=== PATIENT | male | born 1940 | race Caucasian/White ===

== ENCOUNTER 2016-05-23 11:39 | Day surgery (SDC) | payer OTHER ==
[2016-05-23 12:27] VITALS: BMI 32.3
[2016-05-23 13:47] VITALS: TEMP 97.7
[2016-05-23 14:49] VITALS: BP 137/76; PULSE 70
--- NOTE | 2016-05-25 13:25 | PATH ---
Surgical Pathology Report Patient Name: STEVEN HARMON [facility]. Rec. #: [id number] /Age/Gender: 1940 (Age: 76) / M Account: [id number] Location: U-ENDOSCOPY Taken: 05/23/2016 Received: 05/24/2016 Reported: 05/25/2016 Physicians: Stu Kramer M.D. Specimen(s) Received A: BX ASCENDING COLON DIMINUTIVE POLYP B: BX POLYP DESCENDING POLYP Clinical History Screening Polyps, constipation, fair prep, hemorrhoids Final Diagnosis A. COLON, ASCENDING, POLYP, BIOPSY: CONSISTENT WITH INFLAMMATORY-TYPE POLYP. B. COLON, DESCENDING, POLYP, BIOPSY: HYPERPLASTIC POLYP. Electronically Signed Enmanuel Cartagena M.D. Gross Description A. Received in formalin, labeled "biopsy ascending colon polyp" is a barr, irregular portion of soft tissue measuring 0.3 cm in greatest dimension. The specimen is submitted in toto in one cassette. B. Received in formalin, labeled "biopsy descending colon polyp" is a barr, irregular portion of soft tissue measuring 0.5 cm in greatest dimension. The specimen is submitted in toto in one cassette. 05/24/201605/24/2016
== END 2016-05-23 14:49 | disposition home or self-care (01) ==
LOC: JASU-ENDO 11:39
PROVIDERS: ATTEND Internal Medicine Gastroenterology
PROC: 0DBM8ZX Excision of Descending Colon, Via Natural or Artificial Opening Endoscopic, Diagnostic (ICD-10-PCS; 2016-05-23)
PROC: 0DBK8ZX Excision of Ascending Colon, Via Natural or Artificial Opening Endoscopic, Diagnostic (ICD-10-PCS; principal; 2016-05-23 12:30)
DX: Z12.11 Encounter for screening for malignant neoplasm of colon (principal); D12.2 Benign neoplasm of ascending colon; D12.4 Benign neoplasm of descending colon; K64.8 Other hemorrhoids; K63.89 Other specified diseases of intestine; Z86.010 Personal history of colon polyps
CPT/HCPCS: 88305-TC

== ENCOUNTER 2017-09-23 08:37 | Emergency (ER) | payer OTHER ==
--- NOTE | 2017-09-23 08:51 | PDOC ---
Attending Attestation - Resident Resident Name: Michelle Murray - HPI HPI: 09/23/17 11:01 Pt presents to the ED complaining of painful rash and facial pain in the v 1 distribution. Pain started eariler this week, and progressed to eye redness on Monday. Eyelid was swollen this AM, which prompted him to come to the ED for evaluation. Currently complaining of eye pain, forehead pain in the distribution of the trigeminal nerve. - Physicial Exam PE: 09/23/17 11:17 Agree with resident exam. Visual acuity intact. No corneal lesions on fluorescein exam. + vesicular rash on forehead, nose. - Medical Decision Making 09/23/17 11:18 pt presents to the ED complaining of vesicular rash on the nose and forehead, along with tearing, red eye and eye pain. Symptoms are suggestive of trigeminal herpes zoster. No current evidence of corneal involvement, but will treat with systemic valcyclovir. Patient will folllow up with his ophthamologist on monday. instructed to return immediately to the ED for worsening symptoms.
--- NOTE | 2017-09-23 09:33 | PDOC ---
History of Present Illness - General Chief Complaint: Rash Stated Complaint: HEADACHE, EYE PROBLEM Time Seen by Provider: 09/23/17 08:50 History Source: Patient, Family, Spouse - History of Present Illness Initial Comments: 09/23/17 12:46 77 yo M complaining of rash. Earlier this week, patient experienced eye pain and headache. Patient saw his primary care doctor, Dr. Yossi Jones, on Monday who referred him to an ship engines operating engineer, Dr. Mario Jones yesterday. He was treated for conjunctivitis and given antibiotic drops. This morning, a painful 9/10 rash appeared around the patients left eye and forehead. The eye has been erythematous and swollen with watery discharge. No known new exposures to soaps, detergents, or plants. Patient denies fever or changes in vision. Past History - Past Medical History Allergies/Adverse Reactions: Allergies Allergy/AdvReac Type Severity Reaction Status Date / Time No Known Allergies Allergy Verified 09/23/17 08:46 Home Medications: Ambulatory Orders Sitagliptin Phosphate [Januvia] 100 mg PO DAILY 10/04/13 Furosemide [Lasix -] 40 mg PO DAILY #1 tablet 03/21/14 Simvastatin [Zocor -] 20 mg PO HS 04/11/14 Glimepiride [Amaryl -] 2 mg PO DAILY 05/23/16 Apixaban [Eliquis] 5 mg PO BID 09/23/17 Diltiazem Cd [Cardizem Cd -] 180 mg PO DAILY 09/23/17 Neomycin/Polymyxin B/Dexametha [Vwoyku-Fyhyt-Mbzoreu Eye Ointm] 3.5 gm OP QID Oxycodone HCl/Acetaminophen [Percocet 5-325 mg Tablet] 1 tab PO Q6H PRN #6 tablet MDD 4 09/23/17 Valacyclovir HCl [Valtrex -] 1,000 mg PO TID #42 tablet 09/23/17 Valacyclovir HCl [Valtrex -] 1,000 mg PO TID 14 Days #42 tablet 09/23/17 Cardiac Disorders: Yes (ATRIAL FIBRILLATION) Diabetes: Yes GI Disorders: Yes (INTERNAL HEMORRHOIDS) HTN: Yes Hypercholesterolemia: Yes - Suicide/Smoking/Psychosocial Hx Smoking Status: No Smoking History: Former smoker Have you smoked in the past 12 months: No Number of Cigarettes Smoked Daily: 0 Hx Alcohol Use: No Drug/Substance Use Hx: No Substance Use Type: None Hx Substance Use Treatment: No Review of Systems - Review of Systems Constitutional: No: Fever, Weakness HEENTM: Yes: Eye Pain, Tearing Respiratory: No: Cough, Shortness of Breath Cardiac (ROS): No: Chest Pain, Palpitations ABD/GI: No: Nausea, Vomiting Integumentary: Yes: Erythema, Rash Neurological: Yes: Headache. No: Weakness Hematologic/Lymphatic: No: Easy Bleeding, Easy Bruising *Physical Exam - Physical Exam General Appearance: Yes: Nourished, Appropriately Dressed HEENT: positive: EOMI, ZEE, Other (L. conjunctiva injected, watery, no lesions) Neck: positive: Trachea midline, Supple Respiratory/Chest: positive: Lungs Clear, Normal Breath Sounds Cardiovascular: positive: Regular Rhythm, Regular Rate Integumentary: positive: Rash (Left V1 dermatomal distribution of erythema, papules, and tenderness to palpaption) Neurologic: positive: grain inspector II-XII NML intact, Fully Oriented, Alert Medical Decision Making - Medical Decision Making Rash and history consistent with herpes zoster over the left V1 dermatome. Concern for risk of permanent sequelae of ophthalmic zoster infection including loss of vision. Fluorescein exam with tetracaine negative for corneal abrasion or injury. Patient instructed not to travel [place] tomorrow as he originally planned due to risk of eye complications and need for followup. Started on valtrex while in the ED and percocet for pain control. Discharged home with valtrex, percocet, and instructions to see his ship engines operating engineer, Dr. Mario Estrada, early next week. Patient and family amenable to the plan. 09/23/17 12:57 *DC/Admit/Observation/Transfer Diagnosis at time of Disposition: Shingles rash Qualifiers: Herpes zoster complications: with ocular involvement - Discharge Dispostion Disposition: HOME Condition at time of disposition: Stable - Prescriptions Prescriptions: Oxycodone HCl/Acetaminophen [Percocet 5-325 mg Tablet] 1 tab PO Q6H PRN #6 tablet MDD 4 PRN Reason: Severe Pain Valacyclovir HCl [Valtrex -] 1,000 mg PO TID 14 Days #42 tablet Valacyclovir HCl [Valtrex -] 1,000 mg PO TID #42 tablet - Referrals Referrals: Yossi Jones MD [Primary Care Provider] - Mario Jones MD [Staff Physician] - - Patient Instructions Printed Discharge Instructions: DI for Shingles Additional Instructions: You were seen today for a shingles rash. See your ship engines operating engineer, Dr. Mario Jones, in 2-3 days. You may not travel until your symptoms resolve and you are medically cleared. Take antibiotics as prescribed, Take pain medication as prescribed Please follow-up with your primary care doctor. Please return to the emergency department for worsening rash, changes in vision , fever, or chills. - Post Discharge Activity Forms/Work/School Notes: Back to Work
[2017-09-23] MEDS ORDERED: TETRACAINE 0.5% OPHTH SOLN 2 ML BOTTLE OS ONE (09:53)
[2017-09-23] MEDS ORDERED: TETRACAINE 0.5% OPHTH SOLN 2 ML BOTTLE ONE (09:54)
[2017-09-23 10:08] VITALS: TEMP 98.5; BMI 32.8
[2017-09-23] MEDS ORDERED: valACYclovir HCL 1000 MG TABLET PO ONE (10:13)
[2017-09-23 12:05] VITALS: BP 162/79; PULSE 59
== END 2017-09-23 12:05 | disposition home or self-care (01) ==
LOC: JER 08:37
DX: B02.30 Zoster ocular disease, unspecified (principal); I10 Essential (primary) hypertension; E78.00 Pure hypercholesterolemia, unspecified; E11.9 Type 2 diabetes mellitus without complications; Z79.84 Long term (current) use of oral hypoglycemic drugs; I48.91 Unspecified atrial fibrillation; Z79.01 Long term (current) use of anticoagulants; Z87.891 Personal history of nicotine dependence
CPT/HCPCS: 99283-25

== ENCOUNTER 2017-09-25 09:17 | Inpatient (IN) | payer OTHER ==
[2017-09-25] MEDS ORDERED: morphine CARPU-JECT 4 MG/1 ML DISP.SYRIN IVPUSH ONE (09:40)
[2017-09-25] MEDS ORDERED: ONDANSETRON 4 MG/2 ML VIAL IVPB ONE (09:40)
[2017-09-25 09:50] VITALS: BMI 30.7
[2017-09-25 10:34] LABS: BASO % 0.5 % (0-2.0); EOS % 0.7 % (0-4.5); HEMATOCRIT 47.7 % (35.4-49); LYMPH % 15.1 % (8-40); MCH 28.8 pg (25.7-33.7); MCHC 33.6 g/dl (32.0-35.9); MEAN CELL VOLUME 85.7 fl (80-96); MEAN PLT VOLUME 10.6 fl (7.5-11.1); MONO % 12.4 % (3.8-10.2); NEUT % 71.3 % (42.8-82.8); PLATELET COUNT 43 K/MM3 (134-434); RBC 5.57 M/mm3 (4.00-5.60); RDW 13.7 % (11.9-15.9); WHITE BLOOD COUNT 5.9 K/mm3 (4.0-10.0)
[2017-09-25] MEDS ORDERED: morphine SULFATE 4 MG/ML VIAL ONE (10:49)
[2017-09-25] MEDS ORDERED: ONDANSETRON 4 MG/2 ML VIAL ONE ×3 (10:49→15:39)
[2017-09-25 10:53] LABS: INR 1.25 (0.82-1.09); PROTHROMBIN TIME (PATIENT) 14.1 SEC (9.7-13.0)
--- NOTE | 2017-09-25 10:58 | PDOC ---
History of Present Illness - General History Source: Patient, Family, Old Records Exam Limitations: No Limitations <Dallas Cordero - Last Filed: 09/25/17 11:30> - History of Present Illness Initial Comments: 09/25/17 10:59 The patient is a 77 year old male with a significant PMH of ITP, afib on eliquis , diabetes, hypertension, and hyperlipidemia presenting with worsening symptoms of the left face with associated nausea and vomiting. The patient was seen in this ER two days ago and was discharged on valtrex and oxycodone for herpes zoster of the V1 distribution. Patient is now complaining of worsening discharge , eye pain, and erythema since leaving the ER. Patient is also reported nausea and vomiting after taking his medications. Patients family is at bedside and said they spoke with his PCP, Dr. Jones, who told him to come to the ER. The patient denies chest pain, shortness of breath, dizziness and headache. Denies fever, diarrhea and constipation. Denies dysuria, frequency, urgency and hematuria. Allergies: NKA Past surgical history: None reported. Social history: No reported alcohol, drug, or cigarette use. PCP: Dr. Jones <Nhi Zapata - Last Filed: 09/25/17 11:49> - General Chief Complaint: Nausea/Vomiting Stated Complaint: SICK Time Seen by Provider: 09/25/17 09:25 Past History - Past Medical History Cardiac Disorders: Yes (ATRIAL FIBRILLATION) COPD: Yes Diabetes: Yes GI Disorders: Yes (INTERNAL HEMORRHOIDS) HTN: Yes Hypercholesterolemia: Yes - Immunization History Immunization Up to Date: Yes - Suicide/Smoking/Psychosocial Hx Smoking Status: No Smoking History: Former smoker Have you smoked in the past 12 months: No Number of Cigarettes Smoked Daily: 0 Information on smoking cessation initiated: No Hx Alcohol Use: No Drug/Substance Use Hx: No Substance Use Type: None Hx Substance Use Treatment: No <Dallas Cordero - Last Filed: 09/25/17 11:30> <Nhi Zapata - Last Filed: 09/25/17 11:49> - Past Medical History Allergies/Adverse Reactions: Allergies Allergy/AdvReac Type Severity Reaction Status Date / Time No Known Allergies Allergy Verified 09/25/17 09:50 Home Medications: Ambulatory Orders Sitagliptin Phosphate [Januvia] 100 mg PO DAILY 10/04/13 Furosemide [Lasix -] 40 mg PO DAILY #1 tablet 03/21/14 Simvastatin [Zocor -] 20 mg PO HS 04/11/14 Glimepiride [Amaryl -] 2 mg PO DAILY 05/23/16 Apixaban [Eliquis] 5 mg PO BID 09/23/17 Diltiazem Cd [Cardizem Cd -] 180 mg PO DAILY 09/23/17 Neomycin/Polymyxin B/Dexametha [Vnuyrj-Dpgli-Orqzxep Eye Ointm] 3.5 gm OP QID Oxycodone HCl/Acetaminophen [Percocet 5-325 mg Tablet] 1 tab PO Q6H PRN #6 tablet MDD 4 09/23/17 Valacyclovir HCl [Valtrex -] 1,000 mg PO TID #42 tablet 09/23/17 Review of Systems - Review of Systems Able to Perform ROS?: Yes Comments:: 09/25/17 11:00 ADULT ROS GENERAL/CONSTITUTIONAL: No fever or chills. No weakness. HEAD, EYES, EARS, NOSE AND THROAT: (+) Left eye pain. No ear pain or discharge. No sore throat. CARDIOVASCULAR: No chest pain or shortness of breath. RESPIRATORY: No cough, wheezing, or hemoptysis. GASTROINTESTINAL: No nausea, vomiting, diarrhea or constipation. GENITOURINARY: No dysuria, frequency, or change in urination. MUSCULOSKELETAL: No joint or muscle swelling or pain. No neck or back pain. SKIN: (+) Rash to the left eye. NEUROLOGIC: No headache, vertigo, loss of consciousness, or change in strength/ sensation. ENDOCRINE: No increased thirst. No abnormal weight change. HEMATOLOGIC/LYMPHATIC: No anemia, easy bleeding, or history of blood clots. ALLERGIC/IMMUNOLOGIC: No hives or skin allergy. <Nhi Zapata - Last Filed: 09/25/17 11:49> *Physical Exam - Vital Signs Last Vital Signs Temp Pulse Resp BP Pulse Ox 99.2 F 83 16 148/100 95 09/25/17 09:17 09/25/17 09:17 09/25/17 09:17 09/25/17 09:17 09/25/17 09:17 <Dallas Cordero - Last Filed: 09/25/17 11:30> - Vital Signs Last Vital Signs Temp Pulse Resp BP Pulse Ox 99.2 F 83 16 148/100 95 09/25/17 09:17 09/25/17 09:17 09/25/17 09:17 09/25/17 09:17 09/25/17 09:17 - Physical Exam Comments: 09/25/17 11:00 ADULT EXAM GENERAL: Awake, alert, and fully oriented, in no acute distress HEAD: No signs of trauma EYES: Vesicular lesions over the V1 distribution with overlying erythema. PERRLA , EOMI, Injected left conjunctiva with mild discharge. LUNGS: Breath sounds equal, clear to auscultation bilaterally. No wheezes, and no crackles HEART: Irregular rate and rhythm, normal S1 and S2, no murmurs, rubs or gallops ABDOMEN: Soft, nontender, normoactive bowel sounds. No guarding, no rebound. No masses EXTREMITIES: Normal range of motion, no edema. No clubbing or cyanosis. No cords, erythema, or tenderness NEUROLOGICAL: Cranial nerves II through XII grossly intact. Normal speech. SKIN: Warm, Dry, normal turgor. <Nhi Zapata - Last Filed: 09/25/17 11:49> Heart Score/ECG Review #1 ECG reviewed & interpreted by me at: 09:45 09/25/17 10:58 atrial fibrillation 62, incomplete RBBB, LAFB, no std/phong, QTC 426 msec <Dallas Cordero - Last Filed: 09/25/17 11:30> ED Treatment Course - LABORATORY CBC & Chemistry Diagram: 09/25/17 10:25 09/25/17 10:25 - ADDITIONAL ORDERS Additional order review: 09/25/17 10:25 RBC 5.57 MCV 85.7 MCHC 33.6 RDW 13.7 MPV 10.6 Neutrophils % 71.3 D Lymphocytes % 15.1 D Monocytes % 12.4 H Eosinophils % 0.7 Basophils % 0.5 <Dallas Cordero - Last Filed: 09/25/17 11:30> - LABORATORY CBC & Chemistry Diagram: 09/25/17 10:25 09/25/17 10:25 - ADDITIONAL ORDERS Additional order review: 09/25/17 10:25 RBC 5.57 MCV 85.7 MCHC 33.6 RDW 13.7 MPV 10.6 Neutrophils % 71.3 D Lymphocytes % 15.1 D Monocytes % 12.4 H Eosinophils % 0.7 Basophils % 0.5 <Nhi Zapata - Last Filed: 09/25/17 11:49> Medical Decision Making - Medical Decision Making 09/25/17 10:53 A portion of this note was documented by scribe services under my direction. I have reviewed the details of the note, within reason, and agree with the documentation with the following case summary and management plan written by me. Patient treated in the ED. Nursing notes are reviewed and incorporated into the medical decision-making. Vital signs reviewed. Peripheral IV access obtained by the nurse, laboratory studies are drawn and sent, reviewed and interpreted by myself. Vital Signs Temp Pulse Resp BP Pulse Ox 99.2 F 83 16 148/100 95 09/25/17 09:17 09/25/17 09:17 09/25/17 09:17 09/25/17 09:17 09/25/17 09:17 77-year-old male with past medical history of ITP, atrial fibrillation on eliquis, hypertension, diabetes, hyperlipidemia, presents for worsening symptoms of the left face and nausea and vomiting. The patient presented to the emergency department on September 23. At that time, the patient was initially evaluated by his release specialist. Was also evaluated by the ER physician. At that time, the patient was deemed to have herpes zoster of V1 distribution. The patient was placed on valacyclovir and given a prescription of oxycodone. Since then, the patient's skin the left-sided face had become increasingly more red and more painful. The patient has not been able to tolerate his medications with nausea and vomiting. States that his eyelid continues with persistent swollen and he continues to have discharge from his left eye. Denies fevers or chills. Reports intermittent chest discomfort and palpitations secondary to his pain. The patient's family had contacted their primary care physician Dr. Seymour who directed the patient to the ER. The patient most certainly has herpes zoster and may potentially have a superimposing infection. Patient does also appear to have conjunctivitis of the left eye. We'll obtain blood cultures and lactic acid and control pain. The patient should be admitted for further evaluation. I've spoken to the primary care physician who was requesting ophthalmology and infectious disease consultation. We'll also evaluate chest discomfort with EKG and troponin. 07/09/18 11:33 CBC, BMP 09/25/17 10:25 09/25/17 10:25 CMP Sodium 135 mmol/L (136-145) L 09/25/17 10:25 Potassium 3.8 mmol/L (3.5-5.1) 09/25/17 10:25 Chloride 97 mmol/L (98-107) L 09/25/17 10:25 Carbon Dioxide 29 mmol/L (21-32) 09/25/17 10:25 Anion Gap 9 (8-16) 09/25/17 10:25 BUN 12 mg/dL (7-18) 09/25/17 10:25 Creatinine 0.8 mg/dL (0.7-1.3) 09/25/17 10:25 Creat Clearance w eGFR > 60 (>60) 09/25/17 10:25 Random Glucose 230 mg/dL (74-106) H D 09/25/17 10:25 Lactic Acid 1.4 mmol/L (0.0-2.0) 09/25/17 10:25 Calcium 8.3 mg/dL (8.5-10.1) L 09/25/17 10:25 Total Bilirubin 1.4 mg/dL (0.2-1.0) H 09/25/17 10:25 AST 22 U/L (15-37) 09/25/17 10:25 ALT 29 U/L (12-78) 09/25/17 10:25 Alkaline Phosphatase 70 U/L (45-117) 09/25/17 10:25 Creatine Kinase 53 IU/L (39-308) 09/25/17 10:25 Troponin I < 0.02 ng/ml (0.00-0.05) 09/25/17 10:25 Total Protein 6.6 g/dl (6.4-8.2) 09/25/17 10:25 Albumin 3.6 g/dl (3.4-5.0) 09/25/17 10:[address] Bailey. Will admit to med/surg admission. Requests DR. Kelly for ID consultation. <Dallas Cordero - Last Filed: 09/25/17 11:30> - Medical Decision Making 09/25/17 11:13 Dr. Kelly (infectious disease) has been paged. <Nhi Zapata - Last Filed: 09/25/17 11:49> *DC/Admit/Observation/Transfer - Discharge Dispostion Decision to Admit order: Yes <Dallas Cordero - Last Filed: 09/25/17 11:30> - Attestations Scribe Attestion: 09/25/17 11:00 Documentation prepared by Nhi Zapata, acting as durable medical equipment repairer for Dallas Cordero MD. <Nhi Zapata - Last Filed: 09/25/17 11:49> Diagnosis at time of Disposition: Palpitations Zoster Qualifiers: Herpes zoster complications: without complications Qualified Code(s): B02.9 - Zoster without complications - Discharge Dispostion Condition at time of disposition: Stable - Referrals Referrals: Yossi Jones MD [Primary Care Provider] - - Patient Instructions - Post Discharge Activity
[2017-09-25 11:18] LABS: ALBUMIN 3.6 g/dl (3.4-5.0); ANION GAP 9 (8-16); BLOOD UREA NITROGEN 12 mg/dL (7-18); CALCIUM 8.3 mg/dL (8.5-10.1); CHLORIDE 97 mmol/L (98-107); CO2 29 mmol/L (21-32); CREATININE 0.8 mg/dL (0.7-1.3); GLUCOSE,RANDOM 230 mg/dL (74-106); SGPT/ALT 29 U/L (12-78); SODIUM 135 mmol/L (136-145)
[2017-09-25 11:23] LABS: ALK PHOS 70 U/L (45-117); BILIRUBIN,TOTAL 1.4 mg/dL (0.2-1.0); TOT PROT 6.6 g/dl (6.4-8.2)
[2017-09-25 11:33] LABS: POTASSIUM 3.8 mmol/L (3.5-5.1); SGOT/AST 22 U/L (15-37)
[2017-09-25] MEDS ORDERED: FUROSEMIDE 40 MG TABLET (FP) PO SCH (12:00)
--- NOTE | 2017-09-25 12:05 | HP ---
Admitting History and Physical - Primary Care Physician PCP: Yossi Jones - Admission Chief Complaint: Unable to obtain History of Present Illness: Mr Abarca is a pleasant 77 year old male who comes in with worsening eye pain and redness. Patient is Kyrgyz speaking and did not come with his hearing aids so history mainly is from daughter. She states that this started last week with headache. It was left sided and radiated from front to back. The headaches were persistent and after that he developed a red left eye. He originally presented to his PCP and was referred to an opthalmologist where he was diagnosed with conjunctivitis. He was given eye drops, however the next day he presented with a rash. He came to the ED and was diagnosed with shingles. He was given oral valcyclovir and percocet. When he took the percocet he had nausea and vomiting. He was able to take the valcyclovir but his pain worsened. He also had an episode of orthopnea at home. Because of this he came in. Daughter says he did not complain of chest pain but unable to get further ROS. History Source: Family Member Limitations to Obtaining History: Clinical Condition, Language Barrier - Past Medical History Cardiovascular: Yes: AFIB, HTN, Hyperlipdemia, Mitral Insufficiency, Pulmonary Hypertension Pulmonary: Yes: COPD Renal/: Yes: BPH, Renal Calculi Heme/Onc: Yes: Anemia (Pernicious), Thrombocytopenia Musculoskeletal: Yes: Osteoarthritis Rheumatology: Yes: Sarcoidosis Endocrine: Yes: Other (Impaired glucose tolerance) - Past Surgical History Past Surgical History: Yes: None - Smoking History Smoking history: Former smoker Have you smoked in the past 12 months: No Aproximately how many cigarettes per day: 0 - Alcohol/Substance Use Hx Alcohol Use: No History of Substance Use: reports: None - Social History Usual Living Arrangement: Yes: With Spouse ADL: Independent 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 History of Recent Travel: No Home Medications - Allergies Allergies/Adverse Reactions: Allergies Allergy/AdvReac Type Severity Reaction Status Date / Time No Known Allergies Allergy Verified 09/25/17 09:50 - Home Medications Home Medications: Ambulatory Orders Sitagliptin Phosphate [Januvia] 100 mg PO DAILY 10/04/13 Furosemide [Lasix -] 40 mg PO DAILY #1 tablet 03/21/14 Simvastatin [Zocor -] 20 mg PO HS 04/11/14 Glimepiride [Amaryl -] 2 mg PO DAILY 05/23/16 Apixaban [Eliquis] 5 mg PO BID 09/23/17 Diltiazem Cd [Cardizem Cd -] 180 mg PO DAILY 09/23/17 Neomycin/Polymyxin B/Dexametha [Geifug-Itqjd-Gnsgqny Eye Ointm] 3.5 gm OP QID Oxycodone HCl/Acetaminophen [Percocet 5-325 mg Tablet] 1 tab PO Q6H PRN #6 tablet MDD 4 09/23/17 Valacyclovir HCl [Valtrex -] 1,000 mg PO TID #42 tablet 09/23/17 Family Disease History - Family Disease History Family Disease History: [place]: Brother, Sister Review of Systems Unable to obtain ROS, reason: language, hearing loss Physical Examination Vital Signs: Vital Signs Temperature 37.3 C 09/25/17 09:17 Pulse Rate 83 09/25/17 09:17 Respiratory Rate 16 09/25/17 09:17 Blood Pressure 148/100 09/25/17 09:17 O2 Sat by Pulse Oximetry (%) 95 09/25/17 09:17 Constitutional: Yes: No Distress, Calm, Obese Eyes: Yes: Other (L eyelid swelling with injected conjuctiva) HENT: Yes: Other (erythematous rash along left side without crusting) Cardiovascular: Yes: Regular Rate and Rhythm. No: Gallop, Murmur, Rub Respiratory: Yes: Regular, CTA Bilaterally. No: Rales, Rhonchi, Wheezes Gastrointestinal: Yes: Normal Bowel Sounds, Soft. No: Distention, Tenderness Extremities: Yes: WNL Edema: No Labs: CBC, BMP 09/25/17 10:25 09/25/17 10:25 Imaging - Results EKG: Report Reviewed, Image Reviewed Problem List - Problems (1) Herpes zoster ophthalmicus of left eye Assessment/Plan: -patient presents with herpes zoster opthalmicus -failed outpatient therapy -consult ID -start acyclovir 1000mg IV tid (10mg/kg) -hydrate with IVF Code(s): B02.30 - ZOSTER OCULAR DISEASE, UNSPECIFIED (2) Atrial fibrillation Assessment/Plan: -appreciate cardiology assistance -continue eliquis and diltiazem -rate controlled Code(s): I48.91 - UNSPECIFIED ATRIAL FIBRILLATION Qualifiers: Atrial fibrillation type: chronic Qualified Code(s): I48.2 - Chronic atrial fibrillation (3) Diabetes Assessment/Plan: -diabetic diet -continue glimeperide and januvia -FSBS and SSI Code(s): E11.9 - TYPE 2 DIABETES MELLITUS WITHOUT COMPLICATIONS (4) COPD (chronic obstructive pulmonary disease) Assessment/Plan: -not in exacerbation Code(s): J44.9 - CHRONIC OBSTRUCTIVE PULMONARY DISEASE, UNSPECIFIED (5) CHF (congestive heart failure) Assessment/Plan: -had some orthopnea but does not look fluid overloaded -will be on IVF since receiving IV acyclovir -close monitoring, at risk for fluid overload Code(s): I50.9 - HEART FAILURE, UNSPECIFIED (6) HTN (hypertension) Assessment/Plan: -continue cardizem -monitor Code(s): I10 - ESSENTIAL (PRIMARY) HYPERTENSION (7) Hyperlipidemia Assessment/Plan: -continue statin Code(s): E78.5 - HYPERLIPIDEMIA, UNSPECIFIED
[2017-09-25] MEDS ORDERED: SODIUM CHLORIDE 1,000 ML IV SCH (13:00)
[2017-09-25] MEDS: ONDANSETRON 4 MG/2 ML VIAL IVPUSH PRN ×2 (13:21→15:35)
--- NOTE | 2017-09-25 13:23 | CON.CARD ---
Consult Consult Specialty:: Cardiology for gitig/ginelli Referred by:: Daniel Bailey MD Reason for Consultation:: Afib on Eliquis - History of Present Illness Chief Complaint: Left facial herpetic neuralgia History of Present Illness: The patient is a 77 year old male with a significant PMH of ITP, afib on eliquis , diabetes, hypertension, hyperlipidemia recent presentation of herpes zoster of the V1 distribution started on valtrex and oxycodone presents now with worsening discharge, eye pain, foreign body sensation, erythema, nausea and emesis. The patient denies chest pain, shortness of breath, dizziness and headache. Denies fever, diarrhea and constipation. Denies dysuria, frequency, urgency and hematuria. Allergies: NKA Past surgical history: None reported. Social history: No reported alcohol, drug, or cigarette use. PCP: Dr. 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 Home Medications - Allergies Allergies/Adverse Reactions: Allergies Allergy/AdvReac Type Severity Reaction Status Date / Time No Known Allergies Allergy Verified 09/25/17 09:50 - Home Medications Home Medications: Ambulatory Orders Sitagliptin Phosphate [Januvia] 100 mg PO DAILY 10/04/13 Furosemide [Lasix -] 40 mg PO DAILY #1 tablet 03/21/14 Simvastatin [Zocor -] 20 mg PO HS 04/11/14 Glimepiride [Amaryl -] 2 mg PO DAILY 05/23/16 Apixaban [Eliquis] 5 mg PO BID 09/23/17 Diltiazem Cd [Cardizem Cd -] 180 mg PO DAILY 09/23/17 Neomycin/Polymyxin B/Dexametha [Fchszh-Gqubj-Dskempq Eye Ointm] 3.5 gm OP QID Oxycodone HCl/Acetaminophen [Percocet 5-325 mg Tablet] 1 tab PO Q6H PRN #6 tablet MDD 4 09/23/17 Valacyclovir HCl [Valtrex -] 1,000 mg PO TID #42 tablet 09/23/17 Review of Systems - Review of Systems Eyes: reports: Eye Pain Gastrointestinal: reports: Nausea, Vomiting Vital Signs: Vital Signs Temperature 99.2 F 09/25/17 09:17 Pulse Rate 83 09/25/17 09:17 Respiratory Rate 16 09/25/17 09:17 Blood Pressure 148/100 09/25/17 09:17 O2 Sat by Pulse Oximetry (%) 95 09/25/17 09:17 Constitutional: Yes: Anxious, Mild Distress Eyes: Yes: Tearing, Other (Left eye discharge with eyelid swelling) Neck: Yes: Supple Respiratory: Yes: Regular, CTA Bilaterally Gastrointestinal: Yes: Normal Bowel Sounds, Soft Cardiovascular: Yes: Pulse Irregular JVD: No Carotid Bruit: No Heart Sounds: Yes: S1, S2 Edema: No - Other Data Labs, Other Data: CBC, BMP 09/25/17 10:25 09/25/17 10:25 INR, PTT INR 1.25 (0.82-1.09) H 09/25/17 10:25 Troponin, BNP 09/25/17 10:25 Troponin I < 0.02 Troponin, BNP 09/25/17 10:25 Troponin I < 0.02 09/25/17 10:58 atrial fibrillation 62, incomplete RBBB, LAFB, no std/phong, QTC 426 msec Problem List - Problems (1) Herpes zoster ophthalmicus of left eye Code(s): B02.30 - ZOSTER OCULAR DISEASE, UNSPECIFIED (2) Atrial fibrillation Code(s): I48.91 - UNSPECIFIED ATRIAL FIBRILLATION Qualifiers: Atrial fibrillation type: chronic Qualified Code(s): I48.2 - Chronic atrial fibrillation (3) HTN (hypertension) Code(s): I10 - ESSENTIAL (PRIMARY) HYPERTENSION Qualifiers: Hypertension type: essential hypertension Qualified Code(s): I10 - Essential (primary) hypertension (4) Hyperlipidemia Code(s): E78.5 - HYPERLIPIDEMIA, UNSPECIFIED Qualifiers: Hyperlipidemia type: pure hypercholesterolemia Qualified Code(s): E78.00 - Pure hypercholesterolemia, unspecified; E78.0 - Pure hypercholesterolemia (5) Diabetes Code(s): E11.9 - TYPE 2 DIABETES MELLITUS WITHOUT COMPLICATIONS Qualifiers: Diabetes mellitus type: type 2 (6) Shingles rash Code(s): B02.9 - ZOSTER WITHOUT COMPLICATIONS Qualifiers: Herpes zoster complications: with ocular involvement Herpes zoster ocular complication detail: unspecified herpes zoster eye disease Qualified Code(s): B02.30 - Zoster ocular disease, unspecified Assessment/Plan 1. Herpes zoster with ocular involvement OS 2. Atypical chest discomfort post nausea and emesis 3. Peristent afib on Eliquis 4. Diastolic dysfunction 5. Type 2 DM 6. Hyperlipidemia P:1. IV acyclovir, slit lamp eye exam pending 2. Hold Lasix, IVF 3. Cardizem oral and IV as needed for rate-control, resume Eliquis once oral intake resumed 4. Thank you for consultative opportunity
[2017-09-25] MEDS ORDERED: ACYCLOVIR INJECTION 1,000 MG in DEXTROSE 5%-WATER - 100 ML IVPB SCH (13:30)
[2017-09-25] MEDS: SODIUM CHLORIDE 1,000 ML IV SCH ×2 (14:11→21:44)
[2017-09-25] MEDS: ACYCLOVIR INJECTION 1,000 MG in DEXTROSE 5%-WATER - 250 ML IVPB SCH ×2 (14:11→18:32)
--- NOTE | 2017-09-25 14:13 | PN ---
Progress Note (short form) - Note Progress Note: ID consult dictated imp/reccd herpes zoster opthalmicus eye is shut awaiting opthomology no signs of cellulitis suggest IVF IV acyclovir optho to see monitor renal function daily while on iv acyclovir all the above discussed with patient and family pharmacy contacted hospitalist contacted Problem List - Problems (1) Herpes zoster ophthalmicus of left eye Code(s): B02.30 - ZOSTER OCULAR DISEASE, UNSPECIFIED
--- NOTE | 2017-09-25 15:04 | EKG ---
Test Reason : Blood Pressure : / mmHG Vent. Rate : 062 BPM Atrial Rate : 227 BPM P-R Int : 000 ms QRS Dur : 106 ms QT Int : 420 ms P-R-T Axes : 000 -50 059 degrees QTc Int : 426 ms ATRIAL FIBRILLATION INCOMPLETE RIGHT BUNDLE BRANCH BLOCK LEFT ANTERIOR FASCICULAR BLOCK ABNORMAL ECG WHEN COMPARED WITH ECG OF 11-APR-2014 11:25, NO SIGNIFICANT CHANGE WAS FOUND Confirmed by ROQUE DAVENPORT MD ([id number]) on 09/25/2017 3:04:05 PM Referred By: Confirmed By:ROQUE DAVENPORT MD
[2017-09-25] MEDS ORDERED: HEMOQUE TEST 1 EACH EACH ONE (15:23)
[2017-09-25] MEDS: GLIMEPIRIDE 2 MG TABLET (FP) PO SCH (15:34)
[2017-09-25] MEDS: sitaGLIPtin PHOSPHATE 100 MG TABLET (FP) PO SCH (15:34)
[2017-09-25] MEDS: APIXABAN 5 MG TABLET PO SCH ×2 (15:34→21:38)
[2017-09-25] MEDS: MORPHINE SULFATE 2 MG/ML VIAL IVPUSH PRN ×2 (15:35→21:49)
[2017-09-25] MEDS ORDERED: MORPHINE SULFATE 2 MG/ML VIAL ONE (15:39)
[2017-09-25] MEDS: INSULIN SLIDING SCALE (NOVOLOG) 1 VIAL SQ SCH ×2 (17:41→21:38)
--- NOTE | 2017-09-25 19:48 | CONS ---
INFECTIOUS DISEASE CONSULTATION DATE OF CONSULTATION: 09/25/2017 REQUESTING PHYSICIAN: Daniel Bailey MD This is a 77-year-old man who 7 days ago developed a headache. On Monday, he had left eye erythema. He developed a red eye. He was seen by the implant coordinator on Monday and given Neosporin, polymyxin, and dexamethasone eye drops. He then developed a vesicular rash on his face. He came to the emergency room. He was diagnosed with herpes zoster. He was given oral Valtrex and Percocet, but his pain worsened at . He also started having dizziness and vomiting, and he presented to the emergency room. He had chills but no fever. PAST MEDICAL HISTORY: Notable for atrial fibrillation, hypertension, hyperlipidemia, mitral insufficiency, pulmonary hypertension, COPD, BPH, renal calculi, pernicious anemia, thrombocytopenia, osteoarthritis, sarcoid. SURGICAL HISTORY: Unremarkable. SOCIAL HISTORY: He is a former smoker. There is no history of any alcohol use. 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 ALLERGIES: He has no known drug allergies. MEDICATIONS: Include Eliquis, Lasix, Zocor, Januvia, Amaryl, Cardizem, Percocet, and the Valtrex which was started on the . FAMILY HISTORY: Unremarkable. REVIEW OF SYSTEMS: The thinks that on Monday he was not able to take his Valtrex because of vomiting. She is unclear whether he was able to keep it down. PHYSICAL EXAMINATION: General: He is a pleasant man in no acute distress. He looks much younger than his stated age. Vital Signs: He has been afebrile, temperature 98.3. Pulse of 86, blood pressure 160/70, respiratory rate is 20. He weighs 100 kg. HEENT: He is normocephalic. His left eye is closed. He has erythematous rash around the left side of his face in a V1 distribution. It extends up into his scalp. There are no lesions in his mouth. He has no pharyngitis. Neck: Supple. Heart: Regular rate and rhythm. Lungs: Clear to auscultation. Abdomen: Soft. Extremities: Without edema. Skin: He has no rash elsewhere. DIAGNOSTIC DATA: White count is 5.9, hemoglobin 16, platelets are 43,000. Glucose at 230. BUN is 12 and creatinine 0.3. In summary, this is an elderly man with herpes zoster ophthalmicus, who has failed outpatient treatment. We will continue him with IV acyclovir 10 mg/kg q.8 hours. Would hydrate him aggressively with IV fluids. This was discussed with the hospitalist. He needs to be seen by Ophthalmology and they have been consulted and we are awaiting ophthalmology evaluation. There are no signs of cellulitis; so, I do not think he needs antibiotics for his skin at this time. I spoke at length with his daughter and at the bedside, spoke with the nurse, the hospitalist, and Pharmacy. KELTON OCONNELL M.D. [id number]
[2017-09-25] MEDS: DOCUSATE SODIUM 100 MG CAPSULE (FP) PO SCH (21:38)
[2017-09-25] MEDS: ATORVASTATIN CA 10 MG TABLET (FP) PO SCH (21:38)
[2017-09-25] MEDS: POLYETHYLENE GLYCOL 3350 119 GM BTL PO SCH (21:44)
[2017-09-26] MEDS ORDERED: PT OWN MED DRAWER 7, Y5N ONE ×5 (01:07→23:56)
[2017-09-26] MEDS: ACYCLOVIR INJECTION 1,000 MG in DEXTROSE 5%-WATER - 250 ML IVPB SCH ×3 (02:17→17:51)
[2017-09-26 06:20] LABS: BASO % 0.4 % (0-2.0); EOS % 1.1 % (0-4.5); HEMATOCRIT 43.3 % (35.4-49); HEMOGLOBIN 14.8 GM/dL (11.7-16.9); LYMPH % 21.2 % (8-40); MCH 29.3 pg (25.7-33.7); MCHC 34.1 g/dl (32.0-35.9); MEAN CELL VOLUME 85.8 fl (80-96); MEAN PLT VOLUME 10.3 fl (7.5-11.1); NEUT % 64.3 % (42.8-82.8); PLATELET COUNT 43 K/MM3 (134-434); RBC 5.04 M/mm3 (4.00-5.60); RDW 13.4 % (11.9-15.9); WHITE BLOOD COUNT 7.3 K/mm3 (4.0-10.0)
[2017-09-26] MEDS: sitaGLIPtin PHOSPHATE 100 MG TABLET (FP) PO SCH (06:50)
[2017-09-26] MEDS: INSULIN SLIDING SCALE (NOVOLOG) 1 VIAL SQ SCH ×4 (06:51→21:23)
[2017-09-26] MEDS: GLIMEPIRIDE 2 MG TABLET (FP) PO SCH (06:51)
[2017-09-26 07:11] LABS: ANION GAP 9 (8-16); BLOOD UREA NITROGEN 13 mg/dL (7-18); CALCIUM 8.4 mg/dL (8.5-10.1); CHLORIDE 95 mmol/L (98-107); CO2 33 mmol/L (21-32); CREATININE 0.7 mg/dL (0.7-1.3); GLUCOSE,RANDOM 169 mg/dL (74-106); MAGNESIUM 1.8 mg/dL (1.8-2.4); PHOSPHOROUS 3.4 mg/dL (2.5-4.9); POTASSIUM 3.7 mmol/L (3.5-5.1); SODIUM 137 mmol/L (136-145)
[2017-09-26] MEDS: MORPHINE SULFATE 2 MG/ML VIAL IVPUSH PRN (07:53)
[2017-09-26] MEDS: DOCUSATE SODIUM 100 MG CAPSULE (FP) PO SCH ×2 (09:47→21:23)
[2017-09-26] MEDS: POLYETHYLENE GLYCOL 3350 119 GM BTL PO SCH ×2 (09:47→21:23)
[2017-09-26] MEDS: APIXABAN 5 MG TABLET PO SCH (09:47)
--- NOTE | 2017-09-26 11:43 | PN ---
Progress Note, Physician Chief Complaint: Coverage for Drs. Mcgraw/[place] Events noted. Unable to open left eyes History of Present Illness: Patient was seen and examined. Awake and alert. Chart was reviewed Denies chest pain, SOB or palpitations As outlined regarding left eye - Current Medication List Current Medications: Active Medications Apixaban (Eliquis -) 5 mg PO BID REPLACED BY [facility] Last Admin: 09/26/17 09:47 Dose: 5 mg Atorvastatin Calcium (Lipitor -) 10 mg PO HS REPLACED BY [facility] Last Admin: 09/25/17 21:38 Dose: 10 mg Diltiazem HCl (Cardizem Cd -) 180 mg PO DAILY REPLACED BY [facility] Last Admin: 09/26/17 09:48 Dose: 180 mg Docusate Sodium (Colace -) 100 mg PO BID REPLACED BY [facility] Last Admin: 09/26/17 09:47 Dose: 100 mg Glimepiride (Amaryl -) 2 mg PO ACBK REPLACED BY [facility] Last Admin: 09/26/17 06:51 Dose: 2 mg Acyclovir 1,000 mg/ Dextrose 270 mls @ 270 mls/hr IVPB Q8H-IV [facility] Last Admin: 09/26/17 11:17 Dose: 270 mls/hr Sodium Chloride (Normal Saline -) 1,000 mls @ 125 mls/hr IV ASDIR REPLACED BY [facility] Last Admin: 09/25/17 21:44 Dose: 125 mls/hr Insulin Aspart (Novolog Vial Sliding Scale -) 1 vial SQ ACHS REPLACED BY [facility]; Protocol Last Admin: 09/26/17 11:21 Dose: Not Given Morphine Sulfate (Morphine Sulfate) 1 mg IVPUSH Q4H PRN PRN Reason: PAIN LEVEL 6-10 Last Admin: 09/26/17 07:53 Dose: 1 mg Ondansetron HCl (Zofran Injection) 4 mg IVPUSH Q6H PRN PRN Reason: NAUSEA Last Admin: 09/25/17 15:35 Dose: 4 mg Polyethylene Glycol (Miralax (For Daily Use) -) 17 gm PO BID REPLACED BY [facility] Last Admin: 09/26/17 09:47 Dose: 17 gm Sitagliptin Phosphate (Januvia -) 100 mg PO ACBK REPLACED BY [facility] Last Admin: 09/26/17 06:50 Dose: 100 mg - Objective Vital Signs: Vital Signs Temperature 97.7 F 09/26/17 06:48 Pulse Rate 67 09/26/17 06:48 Respiratory Rate 20 09/26/17 06:48 Blood Pressure 141/79 09/26/17 06:48 O2 Sat by Pulse Oximetry (%) 99 09/25/17 21:00 HENT: Yes: Atraumatic Neck: Yes: Supple Cardiovascular: Yes: Regular Rate and Rhythm, S1, S2 Respiratory: Yes: CTA Bilaterally Gastrointestinal: Yes: Normal Bowel Sounds, Soft. No: Tenderness Edema: No Additional Findings/Remarks: - Review of Systems Constitutional: denies: Chills, Fever Cardiovascular: denies: Chest Pain, Shortness of Breath. denies: Palpitations Respiratory: denies: SOB. denies: Cough, Hemoptysis, Orthopnea, PND Gastrointestinal: denies: Abdominal Pain, Constipation, Diarrhea, Melena, Nausea , Rectal Bleeding, Vomiting Neurological: denies: Dizziness, Headache, Seizure, Syncope, Weakness Labs: CBC, BMP 09/26/17 06:00 09/26/17 06:00 INR, PTT INR 1.25 (0.82-1.09) H 09/25/17 10:25 Problem List - Problems (1) COPD (chronic obstructive pulmonary disease) Code(s): J44.9 - CHRONIC OBSTRUCTIVE PULMONARY DISEASE, UNSPECIFIED (2) Diabetes Code(s): E11.9 - TYPE 2 DIABETES MELLITUS WITHOUT COMPLICATIONS Qualifiers: Diabetes mellitus type: type 2 Diabetes mellitus correction insulin use: without terminal operations supervisor use Diabetes mellitus complication status: without complication Qualified Code(s): E11.9 - Type 2 diabetes mellitus without complications (3) Herpes zoster ophthalmicus of left eye Code(s): B02.30 - ZOSTER OCULAR DISEASE, UNSPECIFIED (4) Atrial fibrillation Code(s): I48.91 - UNSPECIFIED ATRIAL FIBRILLATION Qualifiers: Atrial fibrillation type: chronic Qualified Code(s): I48.2 - Chronic atrial fibrillation (5) HTN (hypertension) Code(s): I10 - ESSENTIAL (PRIMARY) HYPERTENSION Qualifiers: Hypertension type: essential hypertension Qualified Code(s): I10 - Essential (primary) hypertension (6) Hyperlipidemia Code(s): E78.5 - HYPERLIPIDEMIA, UNSPECIFIED Qualifiers: Hyperlipidemia type: pure hypercholesterolemia Qualified Code(s): E78.00 - Pure hypercholesterolemia, unspecified; E78.0 - Pure hypercholesterolemia Assessment/Plan 1. Herpes zoster with ocular involvement 2. Atypical chest discomfort post nausea and emesis 3. Peristent AF on NOAC (Eliquis) 4. Diastolic dysfunction 5. Type 2 DM 6. Hyperlipidemia PLAN: 1. IV acyclovir 2. Lasix being held 3. Continue Cardizem 4. Continue Eliquis 5. Statin therapy Currently in isolation Benjamin Venegas MD
--- NOTE | 2017-09-26 11:53 | PN ---
Progress Note, Physician Chief Complaint: Mr Abarca says he is feeling better today. Was having pain earlier but better controlled with morphine. No cp, sob, n/v. - Current Medication List Current Medications: Active Medications Apixaban (Eliquis -) 5 mg PO BID [facility] Last Admin: 09/26/17 09:47 Dose: 5 mg Atorvastatin Calcium (Lipitor -) 10 mg PO HS [facility] Last Admin: 09/25/17 21:38 Dose: 10 mg Diltiazem HCl (Cardizem Cd -) 180 mg PO DAILY [facility] Last Admin: 09/26/17 09:48 Dose: 180 mg Docusate Sodium (Colace -) 100 mg PO BID [facility] Last Admin: 09/26/17 09:47 Dose: 100 mg Glimepiride (Amaryl -) 2 mg PO ACBK [facility] Last Admin: 09/26/17 06:51 Dose: 2 mg Acyclovir 1,000 mg/ Dextrose 270 mls @ 270 mls/hr IVPB Q8H-IV [facility] Last Admin: 09/26/17 11:17 Dose: 270 mls/hr Sodium Chloride (Normal Saline -) 1,000 mls @ 125 mls/hr IV ASDIR [facility] Last Admin: 09/25/17 21:44 Dose: 125 mls/hr Insulin Aspart (Novolog Vial Sliding Scale -) 1 vial SQ [facility]; Protocol Last Admin: 09/26/17 11:21 Dose: Not Given Morphine Sulfate (Morphine Sulfate) 1 mg IVPUSH Q4H PRN PRN Reason: PAIN LEVEL 6-10 Last Admin: 09/26/17 07:53 Dose: 1 mg Ondansetron HCl (Zofran Injection) 4 mg IVPUSH Q6H PRN PRN Reason: NAUSEA Last Admin: 09/25/17 15:35 Dose: 4 mg Polyethylene Glycol (Miralax (For Daily Use) -) 17 gm PO BID [facility] Last Admin: 09/26/17 09:47 Dose: 17 gm Sitagliptin Phosphate (Januvia -) 100 mg PO ACBK [facility] Last Admin: 09/26/17 06:50 Dose: 100 mg - Objective Vital Signs: Vital Signs Temperature 36.5 C 09/26/17 06:48 Pulse Rate 67 09/26/17 06:48 Respiratory Rate 20 09/26/17 06:48 Blood Pressure 141/79 09/26/17 06:48 O2 Sat by Pulse Oximetry (%) 99 09/25/17 21:00 Constitutional: Yes: No Distress, Calm, Obese Eyes: Yes: Other (L eyelid swelling with erythema and rash around the eye tracking to forehead) Cardiovascular: Yes: Pulse Irregular. No: Regular Rate and Rhythm, Tachycardia , Gallop, Murmur, Rub Respiratory: Yes: Regular, CTA Bilaterally. No: Rales, Rhonchi, Wheezes Gastrointestinal: Yes: Normal Bowel Sounds, Soft. No: Distention, Tenderness Extremities: Yes: WNL Edema: No Labs: CBC, BMP 09/26/17 06:00 09/26/17 06:00 INR, PTT INR 1.25 (0.82-1.09) H 09/25/17 10:25 Problem List - Problems (1) Herpes zoster ophthalmicus of left eye Code(s): B02.30 - ZOSTER OCULAR DISEASE, UNSPECIFIED (2) Atrial fibrillation Code(s): I48.91 - UNSPECIFIED ATRIAL FIBRILLATION Qualifiers: Atrial fibrillation type: chronic Qualified Code(s): I48.2 - Chronic atrial fibrillation (3) Diabetes Code(s): E11.9 - TYPE 2 DIABETES MELLITUS WITHOUT COMPLICATIONS Qualifiers: Diabetes mellitus type: type 2 Diabetes mellitus fdc insulin use: without fdc use Diabetes mellitus complication status: without complication Qualified Code(s): E11.9 - Type 2 diabetes mellitus without complications (4) COPD (chronic obstructive pulmonary disease) Code(s): J44.9 - CHRONIC OBSTRUCTIVE PULMONARY DISEASE, UNSPECIFIED (5) CHF (congestive heart failure) Code(s): I50.9 - HEART FAILURE, UNSPECIFIED (6) HTN (hypertension) Code(s): I10 - ESSENTIAL (PRIMARY) HYPERTENSION Qualifiers: Hypertension type: essential hypertension Qualified Code(s): I10 - Essential (primary) hypertension (7) Hyperlipidemia Code(s): E78.5 - HYPERLIPIDEMIA, UNSPECIFIED Qualifiers: Hyperlipidemia type: pure hypercholesterolemia Qualified Code(s): E78.00 - Pure hypercholesterolemia, unspecified; E78.0 - Pure hypercholesterolemia Assessment/Plan (1) Herpes zoster ophthalmicus of left eye Assessment/Plan: -patient says feeling better -zoster appears improved but still present -continue acyclovir 1000mg IV tid -ID following -continue IVF -pain control Code(s): B02.30 - ZOSTER OCULAR DISEASE, UNSPECIFIED (2) Atrial fibrillation Assessment/Plan: -appreciate cardiology assistance -continue eliquis and diltiazem -rate controlled Code(s): I48.91 - UNSPECIFIED ATRIAL FIBRILLATION Qualifiers: Atrial fibrillation type: chronic Qualified Code(s): I48.2 - Chronic atrial fibrillation (3) Diabetes Assessment/Plan: -diabetic diet -continue glimeperide and januvia -FSBS and SSI Code(s): E11.9 - TYPE 2 DIABETES MELLITUS WITHOUT COMPLICATIONS (4) COPD (chronic obstructive pulmonary disease) Assessment/Plan: -not in exacerbation Code(s): J44.9 - CHRONIC OBSTRUCTIVE PULMONARY DISEASE, UNSPECIFIED (5) CHF (congestive heart failure) Assessment/Plan: -close monitoring -holding lasix currently -monitor for fluid overload since receiving IVF Code(s): I50.9 - HEART FAILURE, UNSPECIFIED (6) HTN (hypertension) Assessment/Plan: -continue cardizem -monitor Code(s): I10 - ESSENTIAL (PRIMARY) HYPERTENSION (7) Hyperlipidemia Assessment/Plan: -continue statin Code(s): E78.5 - HYPERLIPIDEMIA, UNSPECIFIED
--- NOTE | 2017-09-26 15:36 | PN ---
Progress Note (short form) - Note Progress Note: oob today nd ambulating tolerating clears and some breakfst no vomiting no fevers Vital Signs Period Temp Pulse Resp BP Sys/Henriquez Pulse Ox Last 24 Hr 97.7 F-98.6 F 59-86 20-20 133-158/54-79 99-99 less swelling of the eye, rash is drying cor-rrr lungs clear CBC, BMP 09/26/17 06:00 09/26/17 06:00 Microbiology 09/25/17 10:00 Blood - Peripheral Venous Blood Culture - Preliminary NO GROWTH OBTAINED AFTER 24 HOURS, INCUBATION TO CONTINUE FOR 4 DAYS. 09/25/17 10:25 Blood - Peripheral Venous Blood Culture - Preliminary NO GROWTH OBTAINED AFTER 24 HOURS, INCUBATION TO CONTINUE FOR 4 DAYS. imp/reccd herpes zoster opthalmicus eye is now partially opening awaiting opthamology no signs of cellulitis continue IVF IV acyclovir optho to see monitor renal function daily while on iv acyclovir Problem List - Problems (1) Herpes zoster ophthalmicus of left eye Code(s): B02.30 - ZOSTER OCULAR DISEASE, UNSPECIFIED
[2017-09-26] MEDS: SODIUM CHLORIDE 1,000 ML IV SCH (17:00)
--- NOTE | 2017-09-26 18:45 | CONSULT ---
Consult Consult Specialty:: hematology Reason for Consultation:: t-penia - History of Present Illness Chief Complaint: pt adm w zoster ophthalmicus History of Present Illness: 77 [address] to Dr Loulou banegas h/o moderate t-penia, unclear etiol. Has not required tx? Plts typically 50-70K range - History Source History Provided By: Patient, Medical Record Limitations to Obtaining History: No Limitations - Past Medical History Cardio/Vascular: Yes: AFIB, HTN, Hyperlipdemia, Mitral Insufficiency, Pulmonary Hypertension Pulmonary: Yes: COPD Renal/: Yes: BPH, Renal Calculi Musculoskeletal: Yes: Osteoarthritis Rheumatology: Yes: Sarcoidosis Endocrine: Yes: Other (Impaired glucose tolerance) - Past Surgical History Past Surgical History: Yes: None - Alcohol/Substance Use Hx Alcohol Use: No History of Substance Use: reports: None - Smoking History Smoking history: Former smoker Have you smoked in the past 12 months: No Aproximately how many cigarettes per day: 0 - Social History ADL: Independent 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 History of Recent Travel: No Home Medications - Allergies Allergies/Adverse Reactions: Allergies Allergy/AdvReac Type Severity Reaction Status Date / Time No Known Allergies Allergy Verified 09/25/17 09:50 - Home Medications Home Medications: Ambulatory Orders Sitagliptin Phosphate [Januvia] 100 mg PO DAILY 10/04/13 Furosemide [Lasix -] 40 mg PO DAILY #1 tablet 03/21/14 Simvastatin [Zocor -] 20 mg PO HS 04/11/14 Glimepiride [Amaryl -] 2 mg PO DAILY 05/23/16 Apixaban [Eliquis] 5 mg PO BID 09/23/17 Diltiazem Cd [Cardizem Cd -] 180 mg PO DAILY 09/23/17 Neomycin/Polymyxin B/Dexametha [Pssvij-Lhjot-Cvbawpz Eye Ointm] 3.5 gm OP QID Oxycodone HCl/Acetaminophen [Percocet 5-325 mg Tablet] 1 tab PO Q6H PRN #6 tablet MDD 4 09/23/17 Valacyclovir HCl [Valtrex -] 1,000 mg PO TID #42 tablet 09/23/17 Family Disease History - Family Disease History Family Disease History: CA: Brother, Sister Physical Exam Vital Signs: Vital Signs Temperature 98.4 F 09/26/17 14:00 Pulse Rate 59 L 07/10/18 14:00 Respiratory Rate 20 09/26/17 14:00 Blood Pressure 131/76 09/26/17 14:00 O2 Sat by Pulse Oximetry (%) 99 09/26/17 10:48 Integumentary: Yes: Other (V1 distrib vzv, superior rash is drying no dep't petechiae) Labs: CBC, BMP 09/26/17 06:00 09/26/17 06:00 Assessment/Plan VZV infxn w baseline t-penia, possib worsened now due to virus Would monitor cbc Will review prior w/u Agree w holding a/c, certainly if plts<50K and ideally higher to re-institute a/ c
[2017-09-26] MEDS: ATORVASTATIN CA 10 MG TABLET (FP) PO SCH (21:23)
[2017-09-27] MEDS: ACYCLOVIR INJECTION 1,000 MG in DEXTROSE 5%-WATER - 250 ML IVPB SCH ×3 (01:12→17:01)
[2017-09-27] MEDS: INSULIN SLIDING SCALE (NOVOLOG) 1 VIAL SQ SCH ×4 (06:21→21:09)
[2017-09-27] MEDS ORDERED: PT OWN MED DRAWER 7, Y5N ONE ×3 (06:24→17:01)
[2017-09-27] MEDS: sitaGLIPtin PHOSPHATE 100 MG TABLET (FP) PO SCH (06:24)
[2017-09-27] MEDS: GLIMEPIRIDE 2 MG TABLET (FP) PO SCH (06:24)
[2017-09-27 06:31] LABS: BASO % 0.6 % (0-2.0); EOS % 1.8 % (0-4.5); HEMATOCRIT 42.9 % (35.4-49); HEMOGLOBIN 14.6 GM/dL (11.7-16.9); LYMPH % 25.1 % (8-40); MCH 29.2 pg (25.7-33.7); MCHC 34.1 g/dl (32.0-35.9); MEAN CELL VOLUME 85.7 fl (80-96); MEAN PLT VOLUME 10.2 fl (7.5-11.1); MONO % 11.4 % (3.8-10.2); NEUT % 61.1 % (42.8-82.8); PLATELET COUNT 52 K/MM3 (134-434); RDW 13.6 % (11.9-15.9)
[2017-09-27] MEDS: MORPHINE SULFATE 2 MG/ML VIAL IVPUSH PRN (06:41)
[2017-09-27 06:49] LABS: BLOOD UREA NITROGEN 12 mg/dL (7-18); CALCIUM 8.5 mg/dL (8.5-10.1); CHLORIDE 100 mmol/L (98-107); POTASSIUM 3.7 mmol/L (3.5-5.1); SODIUM 137 mmol/L (136-145)
[2017-09-27 06:53] LABS: ANION GAP 7 (8-16); CO2 30 mmol/L (21-32); CREATININE 0.8 mg/dL (0.7-1.3); GLUCOSE,RANDOM 169 mg/dL (74-106); MAGNESIUM 1.8 mg/dL (1.8-2.4)
[2017-09-27] MEDS: DOCUSATE SODIUM 100 MG CAPSULE (FP) PO SCH ×2 (09:28→21:09)
[2017-09-27] MEDS: POLYETHYLENE GLYCOL 3350 119 GM BTL PO SCH ×2 (09:29→21:09)
--- NOTE | 2017-09-27 11:51 | PN ---
Progress Note, Physician Chief Complaint: Mr Abarca complains of eye pain and headache, poorly controlled with morphine. No cp, sob, n/v. - Current Medication List Current Medications: Active Medications Atorvastatin Calcium (Lipitor -) 10 mg PO HS [facility] Last Admin: 09/26/17 21:23 Dose: 10 mg Diltiazem HCl (Cardizem Cd -) 180 mg PO DAILY [facility] Last Admin: 09/27/17 09:36 Dose: 180 mg Docusate Sodium (Colace -) 100 mg PO BID [facility] Last Admin: 09/27/17 09:28 Dose: Not Given Glimepiride (Amaryl -) 2 mg PO ACBK [facility] Last Admin: 09/27/17 06:24 Dose: 2 mg Acyclovir 1,000 mg/ Dextrose 270 mls @ 270 mls/hr IVPB Q8H-IV [facility] Last Admin: 09/27/17 09:36 Dose: 270 mls/hr Sodium Chloride (Normal Saline -) 1,000 mls @ 125 mls/hr IV ASDIR [facility] Last Admin: 09/26/17 17:00 Dose: Not Given Insulin Aspart (Novolog Vial Sliding Scale -) 1 vial SQ [facility]; Protocol Last Admin: 09/27/17 06:21 Dose: 2 units Morphine Sulfate (Morphine Sulfate) 1 mg IVPUSH Q4H PRN PRN Reason: PAIN LEVEL 6-10 Last Admin: 09/27/17 06:41 Dose: 1 mg Ondansetron HCl (Zofran Injection) 4 mg IVPUSH Q6H PRN PRN Reason: NAUSEA Last Admin: 09/25/17 15:35 Dose: 4 mg Polyethylene Glycol (Miralax (For Daily Use) -) 17 gm PO BID [facility] Last Admin: 09/27/17 09:29 Dose: Not Given Sitagliptin Phosphate (Januvia -) 100 mg PO ACBK [facility] Last Admin: 09/27/17 06:24 Dose: 100 mg - Objective Vital Signs: Vital Signs Temperature 37.1 C 09/27/17 06:00 Pulse Rate 64 09/27/17 06:00 Respiratory Rate 18 09/27/17 06:00 Blood Pressure 158/79 09/27/17 06:00 O2 Sat by Pulse Oximetry (%) 99 09/26/17 21:00 Constitutional: Yes: Well Nourished, No Distress, Calm Cardiovascular: Yes: Regular Rate and Rhythm. No: Gallop, Murmur, Rub Respiratory: Yes: Regular, CTA Bilaterally. No: Rales, Rhonchi, Wheezes Gastrointestinal: Yes: Normal Bowel Sounds, Soft. No: Distention, Tenderness Extremities: Yes: WNL Edema: No Labs: CBC, BMP 09/27/17 06:00 09/27/17 06:00 INR, PTT INR 1.25 (0.82-1.09) H 09/25/17 10:25 Problem List - Problems (1) Herpes zoster ophthalmicus of left eye Code(s): B02.30 - ZOSTER OCULAR DISEASE, UNSPECIFIED (2) Atrial fibrillation Code(s): I48.91 - UNSPECIFIED ATRIAL FIBRILLATION Qualifiers: Atrial fibrillation type: chronic Qualified Code(s): I48.2 - Chronic atrial fibrillation (3) Diabetes Code(s): E11.9 - TYPE 2 DIABETES MELLITUS WITHOUT COMPLICATIONS Qualifiers: Diabetes mellitus type: type 2 Diabetes mellitus custodial insulin use: without custodial use Diabetes mellitus complication status: without complication Qualified Code(s): E11.9 - Type 2 diabetes mellitus without complications (4) COPD (chronic obstructive pulmonary disease) Code(s): J44.9 - CHRONIC OBSTRUCTIVE PULMONARY DISEASE, UNSPECIFIED (5) CHF (congestive heart failure) Code(s): I50.9 - HEART FAILURE, UNSPECIFIED (6) HTN (hypertension) Code(s): I10 - ESSENTIAL (PRIMARY) HYPERTENSION Qualifiers: Hypertension type: essential hypertension Qualified Code(s): I10 - Essential (primary) hypertension (7) Hyperlipidemia Code(s): E78.5 - HYPERLIPIDEMIA, UNSPECIFIED Qualifiers: Hyperlipidemia type: pure hypercholesterolemia Qualified Code(s): E78.00 - Pure hypercholesterolemia, unspecified; E78.0 - Pure hypercholesterolemia Assessment/Plan (1) Herpes zoster ophthalmicus of left eye Assessment/Plan: -still with pain -continue acyclovir 1000mg IV tid -ID following -continue IVF -will start on gabapentin to see if helps control the pain Code(s): B02.30 - ZOSTER OCULAR DISEASE, UNSPECIFIED (2) Atrial fibrillation Assessment/Plan: -appreciate cardiology assistance -continue diltiazem -rate controlled -hold eliquis secondary to thrombocytopenia Code(s): I48.91 - UNSPECIFIED ATRIAL FIBRILLATION Qualifiers: Atrial fibrillation type: chronic Qualified Code(s): I48.2 - Chronic atrial fibrillation (3) Diabetes Assessment/Plan: -diabetic diet -continue glimeperide and januvia -FSBS and SSI Code(s): E11.9 - TYPE 2 DIABETES MELLITUS WITHOUT COMPLICATIONS (4) COPD (chronic obstructive pulmonary disease) Assessment/Plan: -not in exacerbation Code(s): J44.9 - CHRONIC OBSTRUCTIVE PULMONARY DISEASE, UNSPECIFIED (5) CHF (congestive heart failure) Assessment/Plan: -close monitoring -holding lasix currently -monitor for fluid overload since receiving IVF Code(s): I50.9 - HEART FAILURE, UNSPECIFIED (6) HTN (hypertension) Assessment/Plan: -continue cardizem -monitor Code(s): I10 - ESSENTIAL (PRIMARY) HYPERTENSION (7) Hyperlipidemia Assessment/Plan: -continue statin Code(s): E78.5 - HYPERLIPIDEMIA, UNSPECIFIED (8) Thrombocytopenia -appreciate hematology assistance -holding eliquis -slightly improved today
--- NOTE | 2017-09-27 12:34 | PN ---
Progress Note (short form) - Note Progress Note: oob today good appetite still with some headache no fevers Vital Signs Period Temp Pulse Resp BP Sys/Henriquez Pulse Ox Last 24 Hr 98.3 F-99 F 59-79 18-20 131-158/58-86 99-99 cor-rrr lungs clear abd soft,nt ext no edema lesions drying around eye, eye is more open and less swollen CBC, BMP 09/27/17 06:00 09/27/17 06:00 Microbiology 09/25/17 10:00 Blood - Peripheral Venous Blood Culture - Preliminary NO GROWTH OBTAINED AFTER 48 HOURS, INCUBATION TO CONTINUE FOR 3 DAYS. 09/25/17 10:25 Blood - Peripheral Venous Blood Culture - Preliminary NO GROWTH OBTAINED AFTER 48 HOURS, INCUBATION TO CONTINUE FOR 3 DAYS. imp/reccd herpes zoster opthalmicus eye is now partially opening no signs of cellulitis continue IVF IV acyclovir optho f/u monitor renal function daily while on iv acyclovir Problem List - Problems (1) Herpes zoster ophthalmicus of left eye Code(s): B02.30 - ZOSTER OCULAR DISEASE, UNSPECIFIED
[2017-09-27] MEDS ORDERED: INSULIN (NOVOLOG) ASPART 100 UNITS/ML 10ML VIAL ONE (12:49)
[2017-09-27] MEDS ORDERED: GABAPENTIN 300 MG CAPSULE (FP) PO ONE (13:00)
[2017-09-27] MEDS ORDERED: ACETAMINOPHEN 325 MG TABLET (FP) PO PRN (15:54)
[2017-09-27] MEDS: SODIUM CHLORIDE 1,000 ML IV SCH (16:59)
[2017-09-27] MEDS: ATORVASTATIN CA 10 MG TABLET (FP) PO SCH (21:09)
[2017-09-28] MEDS: ACYCLOVIR INJECTION 1,000 MG in DEXTROSE 5%-WATER - 250 ML IVPB SCH ×3 (01:19→17:01)
[2017-09-28] MEDS ORDERED: PT OWN MED DRAWER 7, Y5N ONE ×4 (06:08→18:37)
[2017-09-28] MEDS: MORPHINE SULFATE 2 MG/ML VIAL IVPUSH PRN (06:24)
[2017-09-28] MEDS: GLIMEPIRIDE 2 MG TABLET (FP) PO SCH (06:24)
[2017-09-28] MEDS: INSULIN SLIDING SCALE (NOVOLOG) 1 VIAL SQ SCH ×4 (06:24→22:36)
[2017-09-28] MEDS: sitaGLIPtin PHOSPHATE 100 MG TABLET (FP) PO SCH (06:24)
[2017-09-28] MEDS: SODIUM CHLORIDE 1,000 ML IV SCH ×2 (06:24→22:35)
[2017-09-28 06:31] LABS: BASO % 0.7 % (0-2.0); EOS % 2.2 % (0-4.5); HEMATOCRIT 43.2 % (35.4-49); HEMOGLOBIN 14.7 GM/dL (11.7-16.9); LYMPH % 21.7 % (8-40); MCH 29.5 pg (25.7-33.7); MCHC 34.1 g/dl (32.0-35.9); MEAN CELL VOLUME 86.4 fl (80-96); MEAN PLT VOLUME 10.6 fl (7.5-11.1); MONO % 10.5 % (3.8-10.2); NEUT % 64.9 % (42.8-82.8); PLATELET COUNT 61 K/MM3 (134-434); RDW 13.8 % (11.9-15.9); WHITE BLOOD COUNT 7.3 K/mm3 (4.0-10.0)
[2017-09-28 06:54] LABS: ANION GAP 5 (8-16); BLOOD UREA NITROGEN 10 mg/dL (7-18); CALCIUM 8.3 mg/dL (8.5-10.1); CHLORIDE 103 mmol/L (98-107); CO2 31 mmol/L (21-32); CREATININE 0.7 mg/dL (0.7-1.3); GLUCOSE,RANDOM 144 mg/dL (74-106); MAGNESIUM 1.7 mg/dL (1.8-2.4); PHOSPHOROUS 3.3 mg/dL (2.5-4.9); POTASSIUM 3.7 mmol/L (3.5-5.1); SODIUM 139 mmol/L (136-145)
[2017-09-28] MEDS: GABAPENTIN 300 MG CAPSULE (FP) PO SCH ×2 (09:29→22:35)
[2017-09-28] MEDS: DOCUSATE SODIUM 100 MG CAPSULE (FP) PO SCH ×2 (09:29→22:35)
[2017-09-28] MEDS: POLYETHYLENE GLYCOL 3350 119 GM BTL PO SCH ×2 (09:29→22:36)
--- NOTE | 2017-09-28 10:10 | PN ---
Progress Note (short form) - Note Progress Note: s: no cp sob palps dizzy; eye/face still hurts Current Medications Generic Name Dose Route Start Last Admin Trade Name Freq PRN Reason Stop Dose Admin Acetaminophen 650 mg 09/27/17 15:54 Tylenol - PO Q4H PRN PAIN LEVEL 1-5 Atorvastatin Calcium 10 mg 09/25/17 22:00 09/27/17 21:09 Lipitor - PO 10 mg HS [facility] Administration Diltiazem HCl 180 mg 09/25/17 12:00 09/28/17 09:29 Cardizem Cd - PO 180 mg DAILY [facility] Administration Docusate Sodium 100 mg 09/25/17 22:00 09/28/17 09:29 Colace - PO 100 mg BID [facility] Administration Gabapentin 300 mg 09/28/17 10:00 09/28/17 09:29 Neurontin - PO 09/28/17 22:01 300 mg BID [facility] Administration Gabapentin 300 mg 09/29/17 06:00 Neurontin - PO TID [facility] Glimepiride 2 mg 09/25/17 12:00 09/28/17 06:24 Amaryl - PO 2 mg ACBK [facility] Administration Acyclovir 1,000 mg/ Dextrose 270 mls @ 270 mls/hr 09/25/17 13:30 09/28/17 09: 29 IVPB 270 mls/hr Q8H-IV [facility] Administration Sodium Chloride 1,000 mls @ 125 mls/hr 09/25/17 13:53 09/28/17 06:24 Normal Saline - IV 125 mls/hr ASDIR [facility] Administration Insulin Aspart 1 vial 09/25/17 16:30 09/28/17 06:24 Novolog Vial Sliding Scale - SQ Not Given ACHS [facility] Protocol Morphine Sulfate 1 mg 09/25/17 12:02 09/28/17 06:24 Morphine Sulfate IVPUSH 1 mg Q4H PRN Administration PAIN LEVEL 6-10 Ondansetron HCl 4 mg 09/25/17 12:02 09/25/17 15:35 Zofran Injection IVPUSH 4 mg Q6H PRN Administration NAUSEA Polyethylene Glycol 17 gm 09/25/17 22:00 09/28/17 09:29 Miralax (For Daily Use) - PO Not Given BID [facility] Sitagliptin Phosphate 100 mg 09/25/17 12:00 09/28/17 06:24 Januvia - PO 100 mg ACBK [facility] Administration - Objective Vital Signs: Vital Signs Period Temp Pulse Resp BP Sys/Henriquez Pulse Ox Last 24 Hr 97.7 F-98.8 F 59-77 19-20 132-162/62-83 96 nad no jvd irreg s1s2 no mrg abd nt nd pos bs no le e/c/c aaox3 no jaundice diaphoresis CBC, BMP 09/28/17 06:00 09/28/17 06:00 tele: afib, rate ok Problem List - Problems (1) COPD (chronic obstructive pulmonary disease) Code(s): J44.9 - CHRONIC OBSTRUCTIVE PULMONARY DISEASE, UNSPECIFIED (2) Diabetes Code(s): E11.9 - TYPE 2 DIABETES MELLITUS WITHOUT COMPLICATIONS Qualifiers: Diabetes mellitus type: type 2 Diabetes mellitus half-way insulin use: without half-way use Diabetes mellitus complication status: without complication Qualified Code(s): E11.9 - Type 2 diabetes mellitus without complications (3) Herpes zoster ophthalmicus of left eye Code(s): B02.30 - ZOSTER OCULAR DISEASE, UNSPECIFIED (4) Atrial fibrillation Code(s): I48.91 - UNSPECIFIED ATRIAL FIBRILLATION Qualifiers: Atrial fibrillation type: chronic Qualified Code(s): I48.2 - Chronic atrial fibrillation (5) HTN (hypertension) Code(s): I10 - ESSENTIAL (PRIMARY) HYPERTENSION Qualifiers: Hypertension type: essential hypertension Qualified Code(s): I10 - Essential (primary) hypertension (6) Hyperlipidemia Code(s): E78.5 - HYPERLIPIDEMIA, UNSPECIFIED Qualifiers: Hyperlipidemia type: pure hypercholesterolemia Qualified Code(s): E78.00 - Pure hypercholesterolemia, unspecified; E78.0 - Pure hypercholesterolemia Assessment/Plan 1. Herpes zoster with ocular involvement 2. Atypical chest discomfort post nausea and emesis 3. Peristent AF on NOAC (Eliquis) 4. Diastolic dysfunction 5. Type 2 DM 6. Hyperlipidemia PLAN: 1. IV acyclovir per ID 2. Lasix being held for now 3. Continue Cardizem for rate control. AC on hold due to low plts. 4. Cont statin. dc tele
--- NOTE | 2017-09-28 11:37 | PN ---
Progress Note (short form) - Note Progress Note: ID IV Acyclovir which he is tolerating Selected Entries 09/28/17 06:00 Temperature 98.0 F Pulse Rate 66 Respiratory 20 Rate Blood Pressure 157/83 Laboratory Tests 03/19/14 18:40 WBC 7.6 D Hgb 14.4 Plt Count 106 L D HEENT Lesions eye lid with edema involving scalp Laboratory Tests 09/28/17 09/28/17 06:00 06:00 WBC 7.3 RDW 13.8 BUN 10 Creatinine 0.7 Assessment Dermatomal Zoster on parenteral therapy Plan Continue current jarek Kelly MD
[2017-09-28] MEDS ORDERED: MAGNESIUM OXIDE 400 MG TABLET (FP) PO ONE (12:03)
--- NOTE | 2017-09-28 12:13 | PN ---
Progress Note, Physician Chief Complaint: Mr Abarca says his eye pain is not improved. Denies cp, sob, n/v. - Current Medication List Current Medications: Active Medications Acetaminophen (Tylenol -) 650 mg PO Q4H PRN PRN Reason: PAIN LEVEL 1-5 Atorvastatin Calcium (Lipitor -) 10 mg PO HS [facility] Last Admin: 09/27/17 21:09 Dose: 10 mg Diltiazem HCl (Cardizem Cd -) 180 mg PO DAILY [facility] Last Admin: 09/28/17 09:29 Dose: 180 mg Docusate Sodium (Colace -) 100 mg PO BID [facility] Last Admin: 09/28/17 09:29 Dose: 100 mg Gabapentin (Neurontin -) 300 mg PO BID [facility] Stop: 09/28/17 22:01 Last Admin: 09/28/17 09:29 Dose: 300 mg Gabapentin (Neurontin -) 300 mg PO TID [facility] Glimepiride (Amaryl -) 2 mg PO ACBK [facility] Last Admin: 09/28/17 06:24 Dose: 2 mg Acyclovir 1,000 mg/ Dextrose 270 mls @ 270 mls/hr IVPB Q8H-IV [facility] Last Admin: 09/28/17 09:29 Dose: 270 mls/hr Sodium Chloride (Normal Saline -) 1,000 mls @ 125 mls/hr IV ASDIR [facility] Last Admin: 09/28/17 06:24 Dose: 125 mls/hr Insulin Aspart (Novolog Vial Sliding Scale -) 1 vial SQ ACHS [facility]; Protocol Last Admin: 09/28/17 11:34 Dose: 2 units Magnesium Oxide (Mag-Ox -) 800 mg PO ONCE ONE Stop: 09/28/17 12:04 Morphine Sulfate (Morphine Sulfate) 1 mg IVPUSH Q4H PRN PRN Reason: PAIN LEVEL 6-10 Last Admin: 09/28/17 06:24 Dose: 1 mg Ondansetron HCl (Zofran Injection) 4 mg IVPUSH Q6H PRN PRN Reason: NAUSEA Last Admin: 09/25/17 15:35 Dose: 4 mg Polyethylene Glycol (Miralax (For Daily Use) -) 17 gm PO BID [facility] Last Admin: 09/28/17 09:29 Dose: Not Given Sitagliptin Phosphate (Januvia -) 100 mg PO ACBK [facility] Last Admin: 09/28/17 06:24 Dose: 100 mg - Objective Vital Signs: Vital Signs Temperature 36.9 C 09/28/17 10:00 Pulse Rate 58 L 09/28/17 10:00 Respiratory Rate 20 09/28/17 10:00 Blood Pressure 157/84 09/28/17 10:00 O2 Sat by Pulse Oximetry (%) 96 09/28/17 10:00 Constitutional: Yes: No Distress, Calm, Obese Eyes: Yes: Other (L eye swelling improved. Erythema much improved) Cardiovascular: Yes: Regular Rate and Rhythm. No: Gallop, Murmur, Rub Respiratory: Yes: Regular, CTA Bilaterally. No: Rales, Rhonchi, Wheezes Gastrointestinal: Yes: Normal Bowel Sounds, Soft. No: Distention, Tenderness Extremities: Yes: WNL Edema: No Labs: CBC, BMP 09/28/17 06:00 09/28/17 06:00 INR, PTT INR 1.25 (0.82-1.09) H 09/25/17 10:25 Problem List - Problems (1) Herpes zoster ophthalmicus of left eye Code(s): B02.30 - ZOSTER OCULAR DISEASE, UNSPECIFIED (2) Atrial fibrillation Code(s): I48.91 - UNSPECIFIED ATRIAL FIBRILLATION Qualifiers: Atrial fibrillation type: chronic Qualified Code(s): I48.2 - Chronic atrial fibrillation (3) Diabetes Code(s): E11.9 - TYPE 2 DIABETES MELLITUS WITHOUT COMPLICATIONS Qualifiers: Diabetes mellitus type: type 2 Diabetes mellitus operations plant attendant insulin use: without operations plant attendant use Diabetes mellitus complication status: without complication Qualified Code(s): E11.9 - Type 2 diabetes mellitus without complications (4) COPD (chronic obstructive pulmonary disease) Code(s): J44.9 - CHRONIC OBSTRUCTIVE PULMONARY DISEASE, UNSPECIFIED (5) CHF (congestive heart failure) Code(s): I50.9 - HEART FAILURE, UNSPECIFIED (6) HTN (hypertension) Code(s): I10 - ESSENTIAL (PRIMARY) HYPERTENSION Qualifiers: Hypertension type: essential hypertension Qualified Code(s): I10 - Essential (primary) hypertension (7) Hyperlipidemia Code(s): E78.5 - HYPERLIPIDEMIA, UNSPECIFIED Qualifiers: Hyperlipidemia type: pure hypercholesterolemia Qualified Code(s): E78.00 - Pure hypercholesterolemia, unspecified; E78.0 - Pure hypercholesterolemia Assessment/Plan (1) Herpes zoster ophthalmicus of left eye Assessment/Plan: -still with pain -continue acyclovir 1000mg IV tid -ID following -continue IVF -continue gabapentin, will increase to tid tomorrow Code(s): B02.30 - ZOSTER OCULAR DISEASE, UNSPECIFIED (2) Atrial fibrillation Assessment/Plan: -appreciate cardiology assistance -continue diltiazem -rate controlled -hold eliquis secondary to thrombocytopenia -safe for transfer to the floor Code(s): I48.91 - UNSPECIFIED ATRIAL FIBRILLATION Qualifiers: Atrial fibrillation type: chronic Qualified Code(s): I48.2 - Chronic atrial fibrillation (3) Diabetes Assessment/Plan: -diabetic diet -continue glimeperide and januvia -FSBS and SSI Code(s): E11.9 - TYPE 2 DIABETES MELLITUS WITHOUT COMPLICATIONS (4) COPD (chronic obstructive pulmonary disease) Assessment/Plan: -not in exacerbation Code(s): J44.9 - CHRONIC OBSTRUCTIVE PULMONARY DISEASE, UNSPECIFIED (5) CHF (congestive heart failure) Assessment/Plan: -close monitoring -holding lasix currently -monitor for fluid overload since receiving IVF Code(s): I50.9 - HEART FAILURE, UNSPECIFIED (6) HTN (hypertension) Assessment/Plan: -continue cardizem -monitor Code(s): I10 - ESSENTIAL (PRIMARY) HYPERTENSION (7) Hyperlipidemia Assessment/Plan: -continue statin Code(s): E78.5 - HYPERLIPIDEMIA, UNSPECIFIED (8) Thrombocytopenia -appreciate hematology assistance -holding eliquis -continues to improve
[2017-09-28] MEDS: ATORVASTATIN CA 10 MG TABLET (FP) PO SCH (22:35)
[2017-09-29] MEDS ORDERED: PT OWN MED DRAWER 7, Y5N ONE ×3 (01:53→21:08)
[2017-09-29] MEDS: ACYCLOVIR INJECTION 1,000 MG in DEXTROSE 5%-WATER - 250 ML IVPB SCH ×3 (02:19→17:19)
[2017-09-29] MEDS: GABAPENTIN 300 MG CAPSULE (FP) PO SCH ×3 (06:53→21:22)
[2017-09-29] MEDS: sitaGLIPtin PHOSPHATE 100 MG TABLET (FP) PO SCH (06:54)
[2017-09-29] MEDS: GLIMEPIRIDE 2 MG TABLET (FP) PO SCH (06:54)
[2017-09-29] MEDS: INSULIN SLIDING SCALE (NOVOLOG) 1 VIAL SQ SCH ×4 (06:54→21:23)
[2017-09-29 07:30] LABS: ANION GAP 5 (8-16); BLOOD UREA NITROGEN 10 mg/dL (7-18); CALCIUM 8.6 mg/dL (8.5-10.1); CHLORIDE 100 mmol/L (98-107); CO2 34 mmol/L (21-32); GLUCOSE,RANDOM 163 mg/dL (74-106); MAGNESIUM 2.1 mg/dL (1.8-2.4); POTASSIUM 4.2 mmol/L (3.5-5.1); SODIUM 139 mmol/L (136-145)
[2017-09-29 07:33] LABS: CREATININE 0.7 mg/dL (0.7-1.3); PHOSPHOROUS 3.2 mg/dL (2.5-4.9)
[2017-09-29 07:48] LABS: BASO % 0.7 % (0-2.0); HEMATOCRIT 43.6 % (35.4-49); HEMOGLOBIN 14.8 GM/dL (11.7-16.9); MCH 29.5 pg (25.7-33.7); MEAN CELL VOLUME 86.8 fl (80-96); MEAN PLT VOLUME 10.1 fl (7.5-11.1); MONO % 10.8 % (3.8-10.2); NEUT % 64.5 % (42.8-82.8); PLATELET COUNT 66 K/MM3 (134-434); RBC 5.02 M/mm3 (4.00-5.60); RDW 13.6 % (11.9-15.9); WHITE BLOOD COUNT 7.7 K/mm3 (4.0-10.0)
[2017-09-29] MEDS: DOCUSATE SODIUM 100 MG CAPSULE (FP) PO SCH ×2 (11:00→21:23)
--- NOTE | 2017-09-29 11:15 | PN ---
Progress Note (short form) - Note Progress Note: s: no cp palps dizzy; eye/face still hurts but less today; c/o sob only at night time, no orthopnea, sob persists sitting up or laying down, only at night , no sob during day even when laying down. Current Medications Generic Name Dose Route Start Last Admin Trade Name Freq PRN Reason Stop Dose Admin Acetaminophen 650 mg 09/27/17 15:54 Tylenol - PO Q4H PRN PAIN LEVEL 1-5 Atorvastatin Calcium 10 mg 09/25/17 22:00 09/28/17 22:35 Lipitor - PO 10 mg HS [facility] Administration Diltiazem HCl 180 mg 09/25/17 12:00 09/28/17 09:29 Cardizem Cd - PO 180 mg DAILY [facility] Administration Docusate Sodium 100 mg 09/25/17 22:00 09/28/17 22:35 Colace - PO 100 mg BID [facility] Administration Gabapentin 300 mg 09/29/17 06:00 09/29/17 06:53 Neurontin - PO 300 mg TID [facility] Administration Glimepiride 2 mg 09/25/17 12:00 09/29/17 06:54 Amaryl - PO 2 mg ACBK [facility] Administration Acyclovir 1,000 mg/ Dextrose 270 mls @ 270 mls/hr 09/25/17 13:30 09/29/17 02: 19 IVPB 270 mls/hr Q8H-IV [facility] Administration Sodium Chloride 1,000 mls @ 50 mls/hr 09/29/17 11:12 Normal Saline - IV ASDIR [facility] Insulin Aspart 1 vial 09/25/17 16:30 09/29/17 06:54 Novolog Vial Sliding Scale - SQ Not Given ACHS [facility] Protocol Morphine Sulfate 1 mg 09/25/17 12:02 09/28/17 06:24 Morphine Sulfate IVPUSH 1 mg Q4H PRN Administration PAIN LEVEL 6-10 Ondansetron HCl 4 mg 09/25/17 12:02 09/25/17 15:35 Zofran Injection IVPUSH 4 mg Q6H PRN Administration NAUSEA Polyethylene Glycol 17 gm 09/25/17 22:00 09/28/17 22:36 Miralax (For Daily Use) - PO Not Given BID [facility] Sitagliptin Phosphate 100 mg 09/25/17 12:00 09/29/17 06:54 Januvia - PO 100 mg ACBK [facility] Administration - Objective Vital Signs: Vital Signs Period Temp Pulse Resp BP Sys/Henriquez Pulse Ox Last 24 Hr 97.9 F-98.7 F 64-80 18-20 150-167/61-84 96 nad no jvd irreg s1s2 no mrg abd nt nd pos bs trace le edema bl aaox3 no jaundice diaphoresis CBC, BMP 09/29/17 05:30 09/29/17 05:30 tele: afib, rate ok Problem List - Problems (1) COPD (chronic obstructive pulmonary disease) Code(s): J44.9 - CHRONIC OBSTRUCTIVE PULMONARY DISEASE, UNSPECIFIED (2) Diabetes Code(s): E11.9 - TYPE 2 DIABETES MELLITUS WITHOUT COMPLICATIONS Qualifiers: Diabetes mellitus type: type 2 Diabetes mellitus detention insulin use: without detention use Diabetes mellitus complication status: without complication Qualified Code(s): E11.9 - Type 2 diabetes mellitus without complications (3) Herpes zoster ophthalmicus of left eye Code(s): B02.30 - ZOSTER OCULAR DISEASE, UNSPECIFIED (4) Atrial fibrillation Code(s): I48.91 - UNSPECIFIED ATRIAL FIBRILLATION Qualifiers: Atrial fibrillation type: chronic Qualified Code(s): I48.2 - Chronic atrial fibrillation (5) HTN (hypertension) Code(s): I10 - ESSENTIAL (PRIMARY) HYPERTENSION Qualifiers: Hypertension type: essential hypertension Qualified Code(s): I10 - Essential (primary) hypertension (6) Hyperlipidemia Code(s): E78.5 - HYPERLIPIDEMIA, UNSPECIFIED Qualifiers: Hyperlipidemia type: pure hypercholesterolemia Qualified Code(s): E78.00 - Pure hypercholesterolemia, unspecified; E78.0 - Pure hypercholesterolemia Assessment/Plan 1. Herpes zoster with ocular involvement 2. Atypical chest discomfort post nausea and emesis 3. Peristent AF on NOAC (Eliquis) 4. Diastolic dysfunction 5. Type 2 DM 6. Hyperlipidemia PLAN: 1. IV acyclovir per ID 2. Lasix being held for now-->Pt with some sob and increased le edema, will decrease rate of ivfs, cr wnl. 3. Continue Cardizem for rate control. AC on hold due to low plts. 4. Cont statin. dc tele
[2017-09-29] MEDS: SODIUM CHLORIDE 1,000 ML IV SCH (12:10)
[2017-09-29] MEDS: POLYETHYLENE GLYCOL 3350 119 GM BTL PO SCH ×2 (12:10→21:23)
--- NOTE | 2017-09-29 12:43 | PN ---
Progress Note, Physician Chief Complaint: Mr Abarca says he is feeling better today. Says the pain is much better controlled. No cp, sob, n/v. However states has shortness of breath at night that is not present during the day. - Current Medication List Current Medications: Active Medications Acetaminophen (Tylenol -) 650 mg PO Q4H PRN PRN Reason: PAIN LEVEL 1-5 Albuterol/Ipratropium (Duoneb -) 1 amp NEB Q6H PRN PRN Reason: SHORTNESS OF BREATH Atorvastatin Calcium (Lipitor -) 10 mg PO HS [facility] Last Admin: 09/28/17 22:35 Dose: 10 mg Diltiazem HCl (Cardizem Cd -) 180 mg PO DAILY [facility] Last Admin: 09/29/17 11:00 Dose: 180 mg Docusate Sodium (Colace -) 100 mg PO BID [facility] Last Admin: 09/29/17 11:00 Dose: 100 mg Gabapentin (Neurontin -) 300 mg PO TID [facility] Last Admin: 09/29/17 06:53 Dose: 300 mg Glimepiride (Amaryl -) 2 mg PO ACBK [facility] Last Admin: 09/29/17 06:54 Dose: 2 mg Acyclovir 1,000 mg/ Dextrose 270 mls @ 270 mls/hr IVPB Q8H-IV [facility] Last Admin: 09/29/17 11:00 Dose: 270 mls/hr Sodium Chloride (Normal Saline -) 1,000 mls @ 50 mls/hr IV ASDIR [facility] Last Admin: 09/29/17 12:10 Dose: 50 mls/hr Insulin Aspart (Novolog Vial Sliding Scale -) 1 vial SQ [facility]; Protocol Last Admin: 09/29/17 06:54 Dose: Not Given Morphine Sulfate (Morphine Sulfate) 1 mg IVPUSH Q4H PRN PRN Reason: PAIN LEVEL 6-10 Last Admin: 09/28/17 06:24 Dose: 1 mg Ondansetron HCl (Zofran Injection) 4 mg IVPUSH Q6H PRN PRN Reason: NAUSEA Last Admin: 09/25/17 15:35 Dose: 4 mg Polyethylene Glycol (Miralax (For Daily Use) -) 17 gm PO BID [facility] Last Admin: 09/29/17 12:10 Dose: Not Given Sitagliptin Phosphate (Januvia -) 100 mg PO ACBK [facility] Last Admin: 09/29/17 06:54 Dose: 100 mg - Objective Vital Signs: Vital Signs Temperature 36.6 C 09/29/17 06:00 Pulse Rate 80 09/29/17 06:00 Respiratory Rate 18 09/29/17 06:00 Blood Pressure 156/84 09/29/17 06:00 O2 Sat by Pulse Oximetry (%) 96 09/28/17 21:00 Constitutional: Yes: Well Nourished, No Distress, Calm Eyes: Yes: Other (rash dry) Cardiovascular: Yes: Regular Rate and Rhythm. No: Gallop, Murmur, Rub Respiratory: Yes: Regular, CTA Bilaterally. No: Rales, Rhonchi, Wheezes Gastrointestinal: Yes: Normal Bowel Sounds, Soft. No: Distention, Tenderness Extremities: Yes: WNL Edema: No Labs: CBC, BMP 09/29/17 05:30 09/29/17 05:30 INR, PTT INR 1.25 (0.82-1.09) H 09/25/17 10:25 Problem List - Problems (1) Herpes zoster ophthalmicus of left eye Code(s): B02.30 - ZOSTER OCULAR DISEASE, UNSPECIFIED (2) Atrial fibrillation Code(s): I48.91 - UNSPECIFIED ATRIAL FIBRILLATION Qualifiers: Atrial fibrillation type: chronic Qualified Code(s): I48.2 - Chronic atrial fibrillation (3) Diabetes Code(s): E11.9 - TYPE 2 DIABETES MELLITUS WITHOUT COMPLICATIONS Qualifiers: Diabetes mellitus type: type 2 Diabetes mellitus care home insulin use: without care home use Diabetes mellitus complication status: without complication Qualified Code(s): E11.9 - Type 2 diabetes mellitus without complications (4) COPD (chronic obstructive pulmonary disease) Code(s): J44.9 - CHRONIC OBSTRUCTIVE PULMONARY DISEASE, UNSPECIFIED (5) CHF (congestive heart failure) Code(s): I50.9 - HEART FAILURE, UNSPECIFIED (6) HTN (hypertension) Code(s): I10 - ESSENTIAL (PRIMARY) HYPERTENSION Qualifiers: Hypertension type: essential hypertension Qualified Code(s): I10 - Essential (primary) hypertension (7) Hyperlipidemia Code(s): E78.5 - HYPERLIPIDEMIA, UNSPECIFIED Qualifiers: Hyperlipidemia type: pure hypercholesterolemia Qualified Code(s): E78.00 - Pure hypercholesterolemia, unspecified; E78.0 - Pure hypercholesterolemia (8) Paroxysmal nocturnal dyspnea Code(s): R06.00 - DYSPNEA, UNSPECIFIED Assessment/Plan (1) Herpes zoster ophthalmicus of left eye Assessment/Plan: -pain well controlled on gabapentin -continue acyclovir 1000mg IV tid -ID following and case discussed -much improved Code(s): B02.30 - ZOSTER OCULAR DISEASE, UNSPECIFIED (2) Atrial fibrillation Assessment/Plan: -appreciate cardiology assistance -continue diltiazem -rate controlled -hold eliquis secondary to thrombocytopenia -safe for transfer to the floor Code(s): I48.91 - UNSPECIFIED ATRIAL FIBRILLATION Qualifiers: Atrial fibrillation type: chronic Qualified Code(s): I48.2 - Chronic atrial fibrillation (3) Diabetes Assessment/Plan: -diabetic diet -continue glimeperide and januvia -FSBS and SSI Code(s): E11.9 - TYPE 2 DIABETES MELLITUS WITHOUT COMPLICATIONS (4) COPD (chronic obstructive pulmonary disease) Assessment/Plan: -now with PND -? if exacerbation -will add prn duonebs Code(s): J44.9 - CHRONIC OBSTRUCTIVE PULMONARY DISEASE, UNSPECIFIED (5) CHF (congestive heart failure) Assessment/Plan: -close monitoring -holding lasix currently -decrease IVF Code(s): I50.9 - HEART FAILURE, UNSPECIFIED (6) HTN (hypertension) Assessment/Plan: -continue cardizem -monitor Code(s): I10 - ESSENTIAL (PRIMARY) HYPERTENSION (7) Hyperlipidemia Assessment/Plan: -continue statin Code(s): E78.5 - HYPERLIPIDEMIA, UNSPECIFIED (8) Thrombocytopenia -appreciate hematology assistance -holding eliquis -improving (9) Paroxysmal nocturnal dyspnea -chest x-ray not showing fluid overload -possibly secondary to CHF as receiving IVF -agree with decreasing rate of IVF -still needs IVF though secondary to receiving IV acyclovir -will also put on prn duonebs
--- NOTE | 2017-09-29 13:21 | PN ---
Progress Note (short form) - Note Progress Note: oob today good appetite day #4 acyclovir Vital Signs Period Temp Pulse Resp BP Sys/Henriquez Pulse Ox Last 24 Hr 97.9 F-98.7 F 64-80 18-20 150-167/61-84 96 cor-rrr lungs clear abd soft, nt ext no edema facila rash is dry CBC, BMP 09/29/17 05:30 09/29/17 05:30 Microbiology 09/25/17 10:00 Blood - Peripheral Venous Blood Culture - Preliminary NO GROWTH OBTAINED AFTER 96 HOURS, INCUBATION TO CONTINUE FOR 1 DAYS. 09/25/17 10:25 Blood - Peripheral Venous Blood Culture - Preliminary NO GROWTH OBTAINED AFTER 96 HOURS, INCUBATION TO CONTINUE FOR 1 DAYS. imp/reccd herpes zoster opthalmicus eye is now partially opening no signs of cellulitis continue IVF IV acyclovir day #4 optho f/u monitor renal function daily while on iv acyclovir d/w hospitalist Problem List - Problems (1) Herpes zoster ophthalmicus of left eye Code(s): B02.30 - ZOSTER OCULAR DISEASE, UNSPECIFIED
[2017-09-29] MEDS: ALBUTEROL SO4 2.5/IPRATROPIUM 0.5 INH SOL 3 ML VIAL.NEB. NEB PRN ×2 (16:31→20:41)
[2017-09-29] MEDS: ATORVASTATIN CA 10 MG TABLET (FP) PO SCH (21:23)
[2017-09-30] MEDS: ACYCLOVIR INJECTION 1,000 MG in DEXTROSE 5%-WATER - 250 ML IVPB SCH ×3 (02:14→17:27)
[2017-09-30] MEDS ORDERED: PT OWN MED DRAWER 7, Y5N ONE ×3 (06:51→17:07)
[2017-09-30] MEDS: INSULIN SLIDING SCALE (NOVOLOG) 1 VIAL SQ SCH ×4 (06:55→22:36)
[2017-09-30] MEDS: sitaGLIPtin PHOSPHATE 100 MG TABLET (FP) PO SCH (06:55)
[2017-09-30] MEDS: GLIMEPIRIDE 2 MG TABLET (FP) PO SCH (06:55)
[2017-09-30] MEDS: GABAPENTIN 300 MG CAPSULE (FP) PO SCH ×3 (06:55→22:36)
[2017-09-30 08:02] LABS: BASO % 0.7 % (0-2.0); EOS % 2.4 % (0-4.5); HEMATOCRIT 42.2 % (35.4-49); HEMOGLOBIN 14.2 GM/dL (11.7-16.9); LYMPH % 25.1 % (8-40); MCH 29.2 pg (25.7-33.7); MCHC 33.6 g/dl (32.0-35.9); MEAN PLT VOLUME 10.5 fl (7.5-11.1); MONO % 10.7 % (3.8-10.2); NEUT % 61.1 % (42.8-82.8); PLATELET COUNT 78 K/MM3 (134-434); RBC 4.85 M/mm3 (4.00-5.60); RDW 13.9 % (11.9-15.9); WHITE BLOOD COUNT 7.6 K/mm3 (4.0-10.0)
[2017-09-30 08:40] LABS: ANION GAP 9 (8-16); BLOOD UREA NITROGEN 10 mg/dL (7-18); CALCIUM 8.4 mg/dL (8.5-10.1); CHLORIDE 102 mmol/L (98-107); CO2 29 mmol/L (21-32); CREATININE 0.7 mg/dL (0.7-1.3); GLUCOSE,RANDOM 153 mg/dL (74-106); PHOSPHOROUS 3.8 mg/dL (2.5-4.9); POTASSIUM 3.9 mmol/L (3.5-5.1); SODIUM 140 mmol/L (136-145)
[2017-09-30] MEDS: DOCUSATE SODIUM 100 MG CAPSULE (FP) PO SCH ×2 (10:09→22:36)
[2017-09-30] MEDS: POLYETHYLENE GLYCOL 3350 119 GM BTL PO SCH ×2 (10:09→22:38)
--- NOTE | 2017-09-30 11:36 | PN ---
Progress Note (short form) - Note Progress Note: s: no cp palps dizzy; eye/face still hurts but much less today; no further sob after decreasing ivfs Current Medications Generic Name Dose Route Start Last Admin Trade Name Patricia PRN Reason Stop Dose Admin Acetaminophen 650 mg 09/27/17 15:54 Tylenol - PO Q4H PRN PAIN LEVEL 1-5 Albuterol/Ipratropium 1 amp 09/29/17 12:40 09/29/17 20:41 Duoneb - NEB 1 amp Q6H PRN Administration SHORTNESS OF BREATH Atorvastatin Calcium 10 mg 09/25/17 22:00 09/29/17 21:23 Lipitor - PO 10 mg HS [facility] Administration Diltiazem HCl 180 mg 09/25/17 12:00 09/30/17 10:09 Cardizem Cd - PO 180 mg DAILY [facility] Administration Docusate Sodium 100 mg 09/25/17 22:00 09/30/17 10:09 Colace - PO 100 mg BID [facility] Administration Gabapentin 300 mg 09/29/17 06:00 09/30/17 06:55 Neurontin - PO 300 mg TID [facility] Administration Glimepiride 2 mg 09/25/17 12:00 09/30/17 06:55 Amaryl - PO 2 mg ACBK [facility] Administration Acyclovir 1,000 mg/ Dextrose 270 mls @ 270 mls/hr 09/25/17 13:30 09/30/17 10: 11 IVPB 270 mls/hr Q8H-IV [facility] Administration Sodium Chloride 1,000 mls @ 50 mls/hr 09/29/17 11:12 09/29/17 12:10 Normal Saline - IV 50 mls/hr ASDIR [facility] Administration Insulin Aspart 1 vial 09/25/17 16:30 09/30/17 06:55 Novolog Vial Sliding Scale - SQ Not Given ACHS [facility] Protocol Ondansetron HCl 4 mg 09/25/17 12:02 09/25/17 15:35 Zofran Injection IVPUSH 4 mg Q6H PRN Administration NAUSEA Polyethylene Glycol 17 gm 09/25/17 22:00 09/30/17 10:09 Miralax (For Daily Use) - PO 17 gm BID [facility] Administration Sitagliptin Phosphate 100 mg 09/25/17 12:00 09/30/17 06:55 Januvia - PO 100 mg ACBK [facility] Administration - Objective Vital Signs: Vital Signs Period Temp Pulse Resp BP Sys/Henriquez Pulse Ox Last 24 Hr 96.6 F-98.6 F 53-65 16-20 151-158/66-74 97 nad no jvd irreg s1s2 no mrg abd nt nd pos bs trace le edema bl aaox3 no jaundice diaphoresis CBC, BMP 09/30/17 06:00 09/30/17 06:00 tele: afib, rate ok Problem List - Problems (1) COPD (chronic obstructive pulmonary disease) Code(s): J44.9 - CHRONIC OBSTRUCTIVE PULMONARY DISEASE, UNSPECIFIED (2) Diabetes Code(s): E11.9 - TYPE 2 DIABETES MELLITUS WITHOUT COMPLICATIONS Qualifiers: Diabetes mellitus type: type 2 Diabetes mellitus senior care insulin use: without oysterman use Diabetes mellitus complication status: without complication Qualified Code(s): E11.9 - Type 2 diabetes mellitus without complications (3) Herpes zoster ophthalmicus of left eye Code(s): B02.30 - ZOSTER OCULAR DISEASE, UNSPECIFIED (4) Atrial fibrillation Code(s): I48.91 - UNSPECIFIED ATRIAL FIBRILLATION Qualifiers: Atrial fibrillation type: chronic Qualified Code(s): I48.2 - Chronic atrial fibrillation (5) HTN (hypertension) Code(s): I10 - ESSENTIAL (PRIMARY) HYPERTENSION Qualifiers: Hypertension type: essential hypertension Qualified Code(s): I10 - Essential (primary) hypertension (6) Hyperlipidemia Code(s): E78.5 - HYPERLIPIDEMIA, UNSPECIFIED Qualifiers: Hyperlipidemia type: pure hypercholesterolemia Qualified Code(s): E78.00 - Pure hypercholesterolemia, unspecified; E78.0 - Pure hypercholesterolemia Assessment/Plan 1. Herpes zoster with ocular involvement 2. Atypical chest discomfort post nausea and emesis 3. Peristent AF on NOAC (Eliquis) 4. Diastolic dysfunction 5. Type 2 DM 6. Hyperlipidemia PLAN: 1. IV acyclovir per ID 2. Lasix being held for now, resume home dose upon dc 3. Continue Cardizem for rate control. AC on hold due to low plts. 4. Cont statin. dc tele
[2017-09-30] MEDS ORDERED: INSULIN (NOVOLOG) ASPART 100 UNITS/ML 10ML VIAL ONE (12:04)
--- NOTE | 2017-09-30 12:23 | PN ---
Progress Note, Physician History of Present Illness: Patient notes less pain in left eye, but notes dry mouth. Breathing feeling OK , no palpitations lately. - Current Medication List Current Medications: Active Medications Acetaminophen (Tylenol -) 650 mg PO Q4H PRN PRN Reason: PAIN LEVEL 1-5 Albuterol/Ipratropium (Duoneb -) 1 amp NEB Q6H PRN PRN Reason: SHORTNESS OF BREATH Last Admin: 09/29/17 20:41 Dose: 1 amp Atorvastatin Calcium (Lipitor -) 10 mg PO HS [facility] Last Admin: 09/29/17 21:23 Dose: 10 mg Diltiazem HCl (Cardizem Cd -) 180 mg PO DAILY [facility] Last Admin: 09/30/17 10:09 Dose: 180 mg Docusate Sodium (Colace -) 100 mg PO BID [facility] Last Admin: 09/30/17 10:09 Dose: 100 mg Gabapentin (Neurontin -) 300 mg PO TID [facility] Last Admin: 09/30/17 06:55 Dose: 300 mg Glimepiride (Amaryl -) 2 mg PO ACBK [facility] Last Admin: 09/30/17 06:55 Dose: 2 mg Acyclovir 1,000 mg/ Dextrose 270 mls @ 270 mls/hr IVPB Q8H-IV [facility] Last Admin: 09/30/17 10:11 Dose: 270 mls/hr Sodium Chloride (Normal Saline -) 1,000 mls @ 50 mls/hr IV ASDIR [facility] Last Admin: 09/29/17 12:10 Dose: 50 mls/hr Insulin Aspart (Novolog Vial Sliding Scale -) 1 vial SQ ACH[facility]; Protocol Last Admin: 09/30/17 12:08 Dose: 2 units Ondansetron HCl (Zofran Injection) 4 mg IVPUSH Q6H PRN PRN Reason: NAUSEA Last Admin: 09/25/17 15:35 Dose: 4 mg Polyethylene Glycol (Miralax (For Daily Use) -) 17 gm PO BID [facility] Last Admin: 09/30/17 10:09 Dose: 17 gm Sitagliptin Phosphate (Januvia -) 100 mg PO ACBK [facility] Last Admin: 09/30/17 06:55 Dose: 100 mg - Objective Vital Signs: Vital Signs Temperature 98.2 F 09/30/17 05:00 Pulse Rate 62 09/30/17 05:00 Respiratory Rate 09/30/17 05:00 Blood Pressure 158/74 09/30/17 05:00 O2 Sat by Pulse Oximetry (%) 97 09/29/17 21:00 Constitutional: Yes: Well Nourished, No Distress, Calm Eyes: Yes: Other (scabbing lesions left orbital area) Cardiovascular: Yes: Pulse Irregular, S1, S2 Respiratory: Yes: Regular, CTA Bilaterally. No: Rales, Rhonchi, Wheezes Gastrointestinal: Yes: Normal Bowel Sounds, Soft. No: Distention, Tenderness Edema: Yes Edema: LLE: Trace, RLE: Trace Neurological: Yes: Alert, Oriented Labs: CBC, BMP 09/30/17 06:00 09/30/17 06:00 INR, PTT INR 1.25 (0.82-1.09) H 09/25/17 10:25 Assessment/Plan Current Active Problems CHF (congestive heart failure) (Acute) COPD (chronic obstructive pulmonary disease) (Acute) Diabetes (Acute) Herpes zoster ophthalmicus of left eye (Acute) Palpitations (Acute) Paroxysmal nocturnal dyspnea (Acute) Shingles rash (Acute) Thombocytopenia Atrial fibrillation -cont acyclovir -platelets now over 70,000 -will restart Eliquis
[2017-09-30] MEDS: SODIUM CHLORIDE 1,000 ML IV SCH (12:54)
[2017-09-30] MEDS: APIXABAN 5 MG TABLET PO SCH ×2 (13:06→22:36)
[2017-09-30] MEDS: ALBUTEROL SO4 2.5/IPRATROPIUM 0.5 INH SOL 3 ML VIAL.NEB. NEB PRN (20:35)
[2017-09-30] MEDS: ATORVASTATIN CA 10 MG TABLET (FP) PO SCH (22:35)
[2017-10-01] MEDS ORDERED: PT OWN MED DRAWER 7, Y5N ONE ×4 (01:12→17:14)
[2017-10-01] MEDS: ACYCLOVIR INJECTION 1,000 MG in DEXTROSE 5%-WATER - 250 ML IVPB SCH ×3 (01:53→17:05)
[2017-10-01] MEDS: GABAPENTIN 300 MG CAPSULE (FP) PO SCH ×3 (06:15→21:12)
[2017-10-01] MEDS: GLIMEPIRIDE 2 MG TABLET (FP) PO SCH (06:15)
[2017-10-01] MEDS: sitaGLIPtin PHOSPHATE 100 MG TABLET (FP) PO SCH (06:15)
[2017-10-01] MEDS: INSULIN SLIDING SCALE (NOVOLOG) 1 VIAL SQ SCH ×4 (06:15→21:13)
[2017-10-01 08:14] LABS: BASO % 0.8 % (0-2.0); HEMOGLOBIN 14.7 GM/dL (11.7-16.9); LYMPH % 24.8 % (8-40); MCH 29.3 pg (25.7-33.7); MCHC 33.4 g/dl (32.0-35.9); MEAN CELL VOLUME 87.7 fl (80-96); MEAN PLT VOLUME 10.1 fl (7.5-11.1); MONO % 9.9 % (3.8-10.2); NEUT % 61.5 % (42.8-82.8); PLATELET COUNT 96 K/MM3 (134-434); RBC 5.01 M/mm3 (4.00-5.60); RDW 13.8 % (11.9-15.9)
[2017-10-01 08:32] LABS: ALBUMIN 3.5 g/dl (3.4-5.0); ANION GAP 8 (8-16); BILIRUBIN,TOTAL 1.4 mg/dL (0.2-1.0); BLOOD UREA NITROGEN 10 mg/dL (7-18); CHLORIDE 100 mmol/L (98-107); CO2 31 mmol/L (21-32); CREATININE 0.8 mg/dL (0.7-1.3); GLUCOSE,RANDOM 159 mg/dL (74-106); POTASSIUM 4.2 mmol/L (3.5-5.1); SGOT/AST 22 U/L (15-37); SGPT/ALT 37 U/L (12-78); SODIUM 139 mmol/L (136-145); TOT PROT 6.4 g/dl (6.4-8.2)
[2017-10-01 08:33] LABS: ALK PHOS 64 U/L (45-117)
[2017-10-01] MEDS: POLYETHYLENE GLYCOL 3350 119 GM BTL PO SCH ×2 (09:53→21:13)
[2017-10-01] MEDS: APIXABAN 5 MG TABLET PO SCH ×2 (09:53→21:12)
[2017-10-01] MEDS: DOCUSATE SODIUM 100 MG CAPSULE (FP) PO SCH ×2 (09:53→21:13)
--- NOTE | 2017-10-01 09:53 | PN ---
Progress Note (short form) - Note Progress Note: s: no cp palps dizzy; eye/face still hurts but much less today; no further sob after decreasing ivfs Current Medications Generic Name Dose Route Start Last Admin Trade Name Patricia PRN Reason Stop Dose Admin Acetaminophen 650 mg 09/27/17 15:54 Tylenol - PO Q4H PRN PAIN LEVEL 1-5 Albuterol/Ipratropium 1 amp 09/29/17 12:40 09/30/17 20:35 Duoneb - NEB 1 amp Q6H PRN Administration SHORTNESS OF BREATH Apixaban 5 mg 09/30/17 12:30 09/30/17 22:36 Eliquis - PO 5 mg BID [facility] Administration Atorvastatin Calcium 10 mg 09/25/17 22:00 09/30/17 22:35 Lipitor - PO 10 mg HS [facility] Administration Diltiazem HCl 300 mg 10/01/17 08:22 Cardizem Cd - PO DAILY [facility] Docusate Sodium 100 mg 09/25/17 22:00 09/30/17 22:36 Colace - PO 100 mg BID [facility] Administration Gabapentin 300 mg 09/29/17 06:00 10/01/17 06:15 Neurontin - PO 300 mg TID [facility] Administration Glimepiride 2 mg 09/25/17 12:00 10/01/17 06:15 Amaryl - PO 2 mg ACBK [facility] Administration Acyclovir 1,000 mg/ Dextrose 270 mls @ 270 mls/hr 09/25/17 13:30 10/01/17 01: 53 IVPB 270 mls/hr Q8H-IV [facility] Administration Sodium Chloride 1,000 mls @ 50 mls/hr 09/29/17 11:12 09/30/17 12:54 Normal Saline - IV 50 mls/hr ASDIR [facility] Administration Insulin Aspart 1 vial 09/25/17 16:30 10/01/17 06:15 Novolog Vial Sliding Scale - SQ 2 units ACHS [facility] Administration Protocol Ondansetron HCl 4 mg 09/25/17 12:02 09/25/17 15:35 Zofran Injection IVPUSH 4 mg Q6H PRN Administration NAUSEA Polyethylene Glycol 17 gm 09/25/17 22:00 09/30/17 22:38 Miralax (For Daily Use) - PO Not Given BID [facility] Sitagliptin Phosphate 100 mg 09/25/17 12:00 10/01/17 06:15 Januvia - PO 100 mg ACBK [facility] Administration - Objective Vital Signs: Vital Signs Period Temp Pulse Resp BP Sys/Henriquez Pulse Ox Last 24 Hr 97.2 F-98.8 F 63-83 18-21 166-175/77-92 97 nad no jvd irreg s1s2 no mrg abd nt nd pos bs trace le edema bl aaox3 no jaundice diaphoresis CBC, BMP 10/01/17 06:30 10/01/17 06:30 tele: afib, rate ok Problem List - Problems (1) COPD (chronic obstructive pulmonary disease) Code(s): J44.9 - CHRONIC OBSTRUCTIVE PULMONARY DISEASE, UNSPECIFIED (2) Diabetes Code(s): E11.9 - TYPE 2 DIABETES MELLITUS WITHOUT COMPLICATIONS Qualifiers: Diabetes mellitus type: type 2 Diabetes mellitus rn long term care insulin use: without retirement use Diabetes mellitus complication status: without complication Qualified Code(s): E11.9 - Type 2 diabetes mellitus without complications (3) Herpes zoster ophthalmicus of left eye Code(s): B02.30 - ZOSTER OCULAR DISEASE, UNSPECIFIED (4) Atrial fibrillation Code(s): I48.91 - UNSPECIFIED ATRIAL FIBRILLATION Qualifiers: Atrial fibrillation type: chronic Qualified Code(s): I48.2 - Chronic atrial fibrillation (5) HTN (hypertension) Code(s): I10 - ESSENTIAL (PRIMARY) HYPERTENSION Qualifiers: Hypertension type: essential hypertension Qualified Code(s): I10 - Essential (primary) hypertension (6) Hyperlipidemia Code(s): E78.5 - HYPERLIPIDEMIA, UNSPECIFIED Qualifiers: Hyperlipidemia type: pure hypercholesterolemia Qualified Code(s): E78.00 - Pure hypercholesterolemia, unspecified; E78.0 - Pure hypercholesterolemia Assessment/Plan 1. Herpes zoster with ocular involvement 2. Atypical chest discomfort post nausea and emesis 3. Peristent AF on NOAC (Eliquis) 4. Diastolic dysfunction 5. Type 2 DM 6. Hyperlipidemia 7. htn PLAN: 1. IV acyclovir per ID 2. Lasix being held for now, resume home dose upon dc. Will dc ivfs now. 3. Continue Cardizem for rate control. AC has been on hold due to low plts, plts improving, can likely resume ac soon. 4. Cont statin. 5. Bp elevated, will increase dilt for better bp control dc tele
[2017-10-01] MEDS ORDERED: SODIUM CHLORIDE 0.45% 1,000 ML IV SCH (10:30)
[2017-10-01] MEDS: FUROSEMIDE 40 MG TABLET (FP) PO SCH (11:21)
--- NOTE | 2017-10-01 12:49 | PN ---
Progress Note, Physician History of Present Illness: Patient notes less pain and swelling in left orbit. Legs have been swollen, has been on IVF for use with acyclovir treatment. - Current Medication List Current Medications: Active Medications Acetaminophen (Tylenol -) 650 mg PO Q4H PRN PRN Reason: PAIN LEVEL 1-5 Apixaban (Eliquis -) 5 mg PO BID [facility] Last Admin: 10/01/17 09:53 Dose: 5 mg Atorvastatin Calcium (Lipitor -) 10 mg PO HS [facility] Last Admin: 09/30/17 22:35 Dose: 10 mg Diltiazem HCl (Cardizem Cd -) 300 mg PO DAILY [facility] Last Admin: 10/01/17 09:53 Dose: 300 mg Docusate Sodium (Colace -) 100 mg PO BID [facility] Last Admin: 10/01/17 09:53 Dose: 100 mg Furosemide (Lasix -) 40 mg PO DAILY [facility] Last Admin: 10/01/17 11:21 Dose: 40 mg Gabapentin (Neurontin -) 300 mg PO TID [facility] Last Admin: 10/01/17 06:15 Dose: 300 mg Glimepiride (Amaryl -) 2 mg PO ACBK [facility] Last Admin: 10/01/17 06:15 Dose: 2 mg Acyclovir 1,000 mg/ Dextrose 270 mls @ 270 mls/hr IVPB Q8H-IV [facility] Last Admin: 10/01/17 09:53 Dose: 270 mls/hr Sodium Chloride (1/2 Normal Saline) 1,000 mls @ 50 mls/hr IV ASDIR [facility] Last Admin: 10/01/17 11:21 Dose: 50 mls/hr Insulin Aspart (Novolog Vial Sliding Scale -) 1 vial SQ ACHS [facility]; Protocol Last Admin: 10/01/17 11:24 Dose: 4 units Ondansetron HCl (Zofran Injection) 4 mg IVPUSH Q6H PRN PRN Reason: NAUSEA Last Admin: 09/25/17 15:35 Dose: 4 mg Polyethylene Glycol (Miralax (For Daily Use) -) 17 gm PO BID [facility] Last Admin: 10/01/17 09:53 Dose: 17 gm Sitagliptin Phosphate (Januvia -) 100 mg PO ACBK [facility] Last Admin: 10/01/17 06:15 Dose: 100 mg - Objective Vital Signs: Vital Signs Temperature 97.2 F L 10/01/17 07:33 Pulse Rate 83 10/01/17 07:33 Respiratory Rate 18 10/01/17 07:33 Blood Pressure 173/92 10/01/17 07:33 O2 Sat by Pulse Oximetry (%) 97 09/30/17 21:00 Constitutional: Yes: No Distress, Calm Eyes: Yes: Other (left orbit and brow with scabbing lesions) Neck: Yes: Supple, Trachea Midline Cardiovascular: Yes: Regular Rate and Rhythm, S1, S2 Respiratory: Yes: Regular, CTA Bilaterally. No: Rales, Rhonchi, Wheezes Gastrointestinal: Yes: Normal Bowel Sounds, Soft. No: Distention, Tenderness Edema: Yes Edema: LLE: 1+, RLE: 1+ Neurological: Yes: Alert, Oriented Labs: CBC, BMP 10/01/17 06:30 10/01/17 06:30 INR, PTT INR 1.25 (0.82-1.09) H 09/25/17 10:25 Assessment/Plan Current Active Problems CHF (congestive heart failure) (Acute) COPD (chronic obstructive pulmonary disease) (Acute) Diabetes (Acute) Herpes zoster ophthalmicus of left eye (Acute) Palpitations (Acute) Paroxysmal nocturnal dyspnea (Acute) Shingles rash (Acute) Thombocytopenia Atrial fibrillation -cont acyclovir (IVF to cont for renal protection) -restarting Lasix -back on Eliquis (platelets 90,000 today)
[2017-10-01] MEDS ORDERED: INSULIN (NOVOLOG) ASPART 100 UNITS/ML 10ML VIAL ONE (20:38)
[2017-10-01] MEDS: ATORVASTATIN CA 10 MG TABLET (FP) PO SCH (21:12)
[2017-10-02] MEDS ORDERED: PT OWN MED DRAWER 7, Y5N ONE ×2 (01:27→06:04)
[2017-10-02] MEDS: ACYCLOVIR INJECTION 1,000 MG in DEXTROSE 5%-WATER - 250 ML IVPB SCH ×2 (01:36→09:30)
[2017-10-02] MEDS: GLIMEPIRIDE 2 MG TABLET (FP) PO SCH (06:12)
[2017-10-02] MEDS: INSULIN SLIDING SCALE (NOVOLOG) 1 VIAL SQ SCH ×2 (06:12→11:23)
[2017-10-02] MEDS: sitaGLIPtin PHOSPHATE 100 MG TABLET (FP) PO SCH (06:12)
[2017-10-02] MEDS: GABAPENTIN 300 MG CAPSULE (FP) PO SCH (06:12)
[2017-10-02 06:33] LABS: BASO % 0.7 % (0-2.0); EOS % 3.4 % (0-4.5); HEMATOCRIT 40.7 % (35.4-49); HEMOGLOBIN 13.7 GM/dL (11.7-16.9); LYMPH % 26.7 % (8-40); MCH 29.4 pg (25.7-33.7); MCHC 33.7 g/dl (32.0-35.9); MEAN CELL VOLUME 87.3 fl (80-96); MEAN PLT VOLUME 10.3 fl (7.5-11.1); MONO % 10.7 % (3.8-10.2); NEUT % 58.5 % (42.8-82.8); PLATELET COUNT 102 K/MM3 (134-434); RBC 4.66 M/mm3 (4.00-5.60); WHITE BLOOD COUNT 7.4 K/mm3 (4.0-10.0)
[2017-10-02 06:58] LABS: ALBUMIN 3.1 g/dl (3.4-5.0); ANION GAP 6 (8-16); BILIRUBIN,TOTAL 1.3 mg/dL (0.2-1.0); BLOOD UREA NITROGEN 12 mg/dL (7-18); CHLORIDE 101 mmol/L (98-107); CO2 31 mmol/L (21-32); CREATININE 0.7 mg/dL (0.7-1.3); GLUCOSE,RANDOM 183 mg/dL (74-106); POTASSIUM 4.2 mmol/L (3.5-5.1); SGOT/AST 22 U/L (15-37); SGPT/ALT 34 U/L (12-78); SODIUM 138 mmol/L (136-145); TOT PROT 5.7 g/dl (6.4-8.2)
[2017-10-02 06:59] LABS: ALK PHOS 58 U/L (45-117)
[2017-10-02] MEDS: APIXABAN 5 MG TABLET PO SCH (09:32)
[2017-10-02] MEDS: DOCUSATE SODIUM 100 MG CAPSULE (FP) PO SCH (09:32)
[2017-10-02] MEDS: FUROSEMIDE 40 MG TABLET (FP) PO SCH (09:32)
--- NOTE | 2017-10-02 09:34 | PN ---
Progress Note, Physician Chief Complaint: ID Still has lid edema but no or few active lesions - Current Medication List Current Medications: Active Medications Acetaminophen (Tylenol -) 650 mg PO Q4H PRN PRN Reason: PAIN LEVEL 1-5 Apixaban (Eliquis -) 5 mg PO BID [facility] Last Admin: 10/01/17 21:12 Dose: 5 mg Atorvastatin Calcium (Lipitor -) 10 mg PO HS [facility] Last Admin: 10/01/17 21:12 Dose: 10 mg Diltiazem HCl (Cardizem Cd -) 300 mg PO DAILY [facility] Last Admin: 10/01/17 09:53 Dose: 300 mg Docusate Sodium (Colace -) 100 mg PO BID [facility] Last Admin: 10/01/17 21:13 Dose: 100 mg Furosemide (Lasix -) 40 mg PO DAILY [facility] Last Admin: 10/01/17 11:21 Dose: 40 mg Gabapentin (Neurontin -) 300 mg PO TID [facility] Last Admin: 10/02/17 06:12 Dose: 300 mg Glimepiride (Amaryl -) 2 mg PO ACBK [facility] Last Admin: 10/02/17 06:12 Dose: 2 mg Acyclovir 1,000 mg/ Dextrose 270 mls @ 270 mls/hr IVPB Q8H-IV [facility] Last Admin: 10/02/17 01:36 Dose: 270 mls/hr Sodium Chloride (1/2 Normal Saline) 1,000 mls @ 50 mls/hr IV ASDIR [facility] Last Admin: 10/01/17 11:21 Dose: 50 mls/hr Insulin Aspart (Novolog Vial Sliding Scale -) 1 vial SQ ACHS [facility]; Protocol Last Admin: 10/02/17 06:12 Dose: 2 units Ondansetron HCl (Zofran Injection) 4 mg IVPUSH Q6H PRN PRN Reason: NAUSEA Last Admin: 09/25/17 15:35 Dose: 4 mg Polyethylene Glycol (Miralax (For Daily Use) -) 17 gm PO BID [facility] Last Admin: 10/01/17 21:13 Dose: Not Given Sitagliptin Phosphate (Januvia -) 100 mg PO ACBK [facility] Last Admin: 10/02/17 06:12 Dose: 100 mg - Objective Vital Signs: Vital Signs Temperature 97.5 F L 10/02/17 06:00 Pulse Rate 50 L 10/02/17 06:00 Respiratory Rate 16 10/02/17 06:00 Blood Pressure 158/62 10/02/17 06:00 O2 Sat by Pulse Oximetry (%) 97 10/01/17 21:00 Eyes: Yes: Other (Left eye lid edema) Labs: CBC, BMP 10/02/17 05:45 10/02/17 05:45 INR, PTT INR 1.25 (0.82-1.09) H 09/25/17 10:25 Assessment/Plan Laboratory Tests 10/02/17 10/02/17 05:45 05:45 WBC 7.4 RBC 4.66 Hct 40.7 Plt Count 102 L BUN 12 Assessment HERPES ZOSTER LEFT EYE LID EDEMA Plan STOP ZOVIRAX VALTREX 1gram tid for ? 3 days most NEEDS OPTHO TO ASSESS HIM FOR CORNEAL INVOLVEMENT AND VISION DISCUSSED WITH DR ALVARADO DO NOT FEEL THE ISSUE NOW MEDICATION IV OR PO antiviral Leticia DELGADILLO
[2017-10-02] MEDS: POLYETHYLENE GLYCOL 3350 119 GM BTL PO SCH (09:56)
[2017-10-02] MEDS ORDERED: valACYclovir HCL 500 MG TABLET (FP) PO SCH (10:00)
--- NOTE | 2017-10-02 10:42 | DS ---
Physical Examination Vital Signs: Vital Signs Temperature 36.4 C L 10/02/17 06:00 Pulse Rate 50 L 10/02/17 06:00 Respiratory Rate 16 10/02/17 09:57 Blood Pressure 158/62 10/02/17 06:00 O2 Sat by Pulse Oximetry (%) 97 10/02/17 09:57 Constitutional: Yes: Well Nourished, No Distress, Calm Eyes: Yes: Other (minimal erythema) Cardiovascular: Yes: Pulse Irregular. No: Regular Rate and Rhythm, Tachycardia , Gallop, Murmur, Rub Respiratory: Yes: Regular, CTA Bilaterally. No: Rales, Rhonchi, Wheezes Gastrointestinal: Yes: Normal Bowel Sounds, Soft. No: Distention, Tenderness Extremities: Yes: WNL Edema: No Labs: CBC, BMP 10/02/17 05:45 10/02/17 05:45 Discharge Summary Reason For Visit: PALPITATIONS,HERPER ZOSTER Current Active Problems CHF (congestive heart failure) (Acute) COPD (chronic obstructive pulmonary disease) (Acute) Diabetes (Acute) Herpes zoster ophthalmicus of left eye (Acute) Palpitations (Acute) Paroxysmal nocturnal dyspnea (Acute) Shingles rash (Acute) Hospital Course: (1) Herpes zoster ophthalmicus of left eye Code(s): B02.30 - ZOSTER OCULAR DISEASE, UNSPECIFIED (2) Atrial fibrillation Code(s): I48.91 - UNSPECIFIED ATRIAL FIBRILLATION Qualifiers: Atrial fibrillation type: chronic Qualified Code(s): I48.2 - Chronic atrial fibrillation (3) Diabetes Code(s): E11.9 - TYPE 2 DIABETES MELLITUS WITHOUT COMPLICATIONS Qualifiers: Diabetes mellitus type: type 2 Diabetes mellitus correction insulin use: without correction use Diabetes mellitus complication status: without complication Qualified Code(s): E11.9 - Type 2 diabetes mellitus without complications (4) COPD (chronic obstructive pulmonary disease) Code(s): J44.9 - CHRONIC OBSTRUCTIVE PULMONARY DISEASE, UNSPECIFIED (5) CHF (congestive heart failure) Code(s): I50.9 - HEART FAILURE, UNSPECIFIED (6) HTN (hypertension) Code(s): I10 - ESSENTIAL (PRIMARY) HYPERTENSION Qualifiers: Hypertension type: essential hypertension Qualified Code(s): I10 - Essential (primary) hypertension (7) Hyperlipidemia Code(s): E78.5 - HYPERLIPIDEMIA, UNSPECIFIED Qualifiers: Hyperlipidemia type: pure hypercholesterolemia Qualified Code(s): E78.00 - Pure hypercholesterolemia, unspecified; E78.0 - Pure hypercholesterolemia (8) Paroxysmal nocturnal dyspnea Code(s): R06.00 - DYSPNEA, UNSPECIFIED Mr Abarca is a very pleasant 77 year old male who came in with herpes zoster ophthalmicus who failed outpatient therapy. He was admitted to the hospital and started on IV acyclovir. His lasix was held and he received IVF for renal protection. He improved but still had significant pain, he was started on gabapentin and his pain is now controlled. He can continue gabapentin as an outpatient and follow up with his PCP to decide when to taper off. He was seen by hematology and his eliquis was held secondary to thrombocytopenia, it can now be restarted. He can also restart his lasix. He was followed by cardiology and his diltiazem was increased. He is currently stable for discharge, he is to go to Dr Mario Jones's office today for evaluation of his eye. Case d/w ID, can stop antivirals and defer to ophthalmology if needs further antivirals. 36 minutes spent in preparation of this discharge Condition: Stable - Instructions Diet, Activity, Other Instructions: resume previous diet and activity Referrals: Trinity Garcia MD [Staff Physician] - Mukesh Jamil MD [Staff Physician] - Mario Jones MD [Staff Physician] - 10/02/17 Yossi Jones MD [Primary Care Provider] - 1 Week Disposition: HOME - Home Medications Comprehensive Discharge Medication List: Ambulatory Orders Sitagliptin Phosphate [Januvia] 100 mg PO DAILY 10/04/13 Furosemide [Lasix -] 40 mg PO DAILY #1 tablet 03/21/14 Simvastatin [Zocor -] 20 mg PO HS 04/11/14 Glimepiride [Amaryl -] 2 mg PO DAILY 05/23/16 Apixaban [Eliquis] 5 mg PO BID 09/23/17 Diltiazem Cd [Cardizem Cd -] 300 mg PO DAILY #30 cap.cd.24h 10/02/17 Gabapentin [Neurontin -] 300 mg PO TID #90 capsule 10/02/17
[2017-10-02 11:09] VITALS: BP 146/66; PULSE 58; TEMP 98.2
[2017-10-02] MEDS ORDERED: INSULIN (NOVOLOG) ASPART 100 UNITS/ML 10ML VIAL ONE (11:21)
== END 2017-10-02 13:58 | disposition home or self-care (01) | DRG 125 ==
LOC: JER 09:17 → JERBED 11:34 → J4S 16:20
PROVIDERS: ADMIT Internal Medicine; ATTEND Internal Medicine
DX: B02.30 Zoster ocular disease, unspecified (principal); I48.1 Persistent atrial fibrillation; Z79.01 Long term (current) use of anticoagulants; E11.9 Type 2 diabetes mellitus without complications; E78.5 Hyperlipidemia, unspecified; Z87.891 Personal history of nicotine dependence; Z79.84 Long term (current) use of oral hypoglycemic drugs; R00.2 Palpitations; I27.20 Pulmonary hypertension, unspecified; E66.9 Obesity, unspecified; J44.9 Chronic obstructive pulmonary disease, unspecified; I11.0 Hypertensive heart disease with heart failure; I50.9 Heart failure, unspecified; Z68.30 Body mass index [BMI] 30.0-30.9, adult; N40.0 Benign prostatic hyperplasia without lower urinary tract symptoms; D69.6 Thrombocytopenia, unspecified; D86.9 Sarcoidosis, unspecified; D51.0 Vitamin B12 deficiency anemia due to intrinsic factor deficiency; I45.10 Unspecified right bundle-branch block
CPT/HCPCS: 36415; 71045-TC-FY; 80048; 80053; 82550; 82962; 83605; 83735; 84100; 84484; 85025; 85610; 85730; 87040; 93005; 93010; 94640; 97116-GP; 97161-GP; 99283-25; J7030; J7620

== ENCOUNTER 2018-06-27 13:01 | Inpatient (IN) | payer OTHER ==
--- NOTE | 2018-06-27 13:41 | PDOC ---
History of Present Illness - General Chief Complaint: Shortness of Breath Stated Complaint: PATIENT HAVING TROUBLE BREATHING Time Seen by Provider: 06/27/18 13:41 - History of Present Illness Initial Comments: Mr. Tevin mcwilliams is a pleasant 78 year old male with PMH of CHF, Afib (on Apixaban) , NIDDM, and diabetic neuoropathy presenting with worsening SOB and lower leg pitting edema for the past few days. States that it was very hard to "get in a deep breath" yesterday evening which worsened after having a dental procedure this morning. He did receive bupivicaine in for his dental procedure. He denies any change in is medications, decreased medication usage, or recent travel. 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 Denies any chest pain, nausea, vomiting, diarrhea, constipation. 06/27/18 13:43 Past History - Past Medical History Allergies/Adverse Reactions: Allergies Allergy/AdvReac Type Severity Reaction Status Date / Time No Known Allergies Allergy Verified 09/25/17 09:50 Home Medications: Ambulatory Orders Sitagliptin Phosphate [Januvia] 100 mg PO DAILY 10/04/13 Furosemide [Lasix -] 40 mg PO DAILY #1 tablet 03/21/14 Simvastatin [Zocor -] 20 mg PO HS 04/11/14 Glimepiride [Amaryl -] 2 mg PO DAILY 05/23/16 Apixaban [Eliquis] 5 mg PO BID 09/23/17 Diltiazem Cd [Cardizem Cd -] 300 mg PO DAILY #30 cap.cd.24h 10/02/17 Gabapentin [Neurontin -] 300 mg PO TID #90 capsule 10/02/17 Cardiac Disorders: Yes (ATRIAL FIBRILLATION) COPD: Yes Diabetes: Yes GI Disorders: Yes (INTERNAL HEMORRHOIDS) HTN: Yes Hypercholesterolemia: Yes - Immunization History Immunization Up to Date: Yes - Suicide/Smoking/Psychosocial Hx Smoking Status: No Smoking History: Never smoked Have you smoked in the past 12 months: No Number of Cigarettes Smoked Daily: 0 Information on smoking cessation initiated: No 'Breaking Loose' booklet given: 09/25/17 Hx Alcohol Use: No Drug/Substance Use Hx: No Substance Use Type: None Hx Substance Use Treatment: No Review of Systems - Review of Systems Constitutional: No: Chills, Diaphoresis, Fever HEENTM: No: Tearing, Recent change in vision, Double Vision Respiratory: Yes: Shortness of Breath, SOB with Exertion, SOB at Rest. No: Cough, Wheezing, Productive cough, Hemoptysis Cardiac (ROS): Yes: Edema. No: Chest Pain, Irregular Heart Rate, Lightheadedness, Syncope, Chest Tightness ABD/GI: No: Diarrhea, Nausea, Poor Appetite, Vomiting : No: Burning, Dysuria, Discharge Musculoskeletal: No: Back Pain, Gout, Joint Pain Integumentary: No: Bruising, Erythema Neurological: No: Headache, Numbness, Paresthesia Psychiatric: No: Anxiety, Depression Hematologic/Lymphatic: No: Anemia, Blood Clots, Easy Bleeding *Physical Exam - Vital Signs Last Vital Signs Temp Pulse Resp BP Pulse Ox 97.7 F 58 L 16 150/63 97 06/27/18 13:06 06/27/18 13:06 06/27/18 13:06 06/27/18 13:06 06/27/18 13:06 - Physical Exam General Appearance: Yes: Nourished, Appropriately Dressed, Apparent Distress, Mild Distress HEENT: positive: EOMI, ZEE, Normal ENT Inspection, Normal Voice Neck: positive: Trachea midline, Normal Thyroid, Supple. negative: Tender, Rigid Respiratory/Chest: positive: Respiratory Distress (mild respiratory distress), Labored Respiration, Rapid RR, Crackles (Basilar crackles bilaterally.). negative: Chest Tender, Lungs Clear, Normal Breath Sounds, Accessory Muscle Use Cardiovascular: positive: Regular Rhythm, Irregularly Irregular Gastrointestinal/Abdominal: positive: Normal Bowel Sounds, Flat. negative: Tender Lymphatic: negative: Adenopathy, Tenderness Musculoskeletal: positive: Normal Inspection Extremity: positive: Normal Capillary Refill, Normal Inspection, Normal Range of Motion, Pedal Edema (2+ extending to the calfs bilaterally and sacral edema) . negative: Tender Integumentary: positive: Normal Color, Dry, Warm Neurologic: positive: Fully Oriented, Alert, Normal Mood/Affect, Normal Response , Motor Strength 5/5 ED Treatment Course - LABORATORY CBC & Chemistry Diagram: 06/27/18 14:43 06/27/18 14:43 Medical Decision Making - Medical Decision Making 78 year old male with PMH of afib, occupational pulmonary exposure presenting with SOB and worsenign LE pitting edema for the past two days. Labs not corroborating electrolyte abnormality or infection. CXR appears more fluid overloaded. nebs, lasix 40 IV given with [address] chest pending to workup possible worsening interstitial lung disease. Kim B lines on US with good cardiac function. Of note, patient bogdan janeth down to 30s and then suddely correct to an appropriate rhythm. We suspect this could be sick sinus syndrome. EKG demonstrating rate 60, QS 88, QTc 448 afib, some PVCs. Admitted to [facility] under tele. 06/27/18 17:05 *DC/Admit/Observation/Transfer Diagnosis at time of Disposition: Congestive heart failure, acute Qualifiers: Heart failure type: unspecified Qualified Code(s): I50.9 - Heart failure, unspecified - Discharge Dispostion Condition at time of disposition: Stable Decision to Admit order: Yes - Referrals Referrals: Yossi Jones MD [Primary Care Provider] - - Patient Instructions - Post Discharge Activity
[2018-06-27] MEDS ORDERED: FUROSEMIDE 40 MG/4 ML INJECTABLE VIAL IVPUSH ONE (13:48)
--- NOTE | 2018-06-27 14:02 | PDOC ---
Attending Attestation - HPI HPI: 06/27/18 15:09 The patient is an 78-year-old male, with a past medical history of HTN, HLD, CHF , afib (on Apixaban), NIDDM, diabetic neuropathy, who presents to the ED with progressively worsening shortness of breath and B/L LE swelling for the past few days. The patient reports having a dental procedure this morning and received bupivacaine. He reports feeling even more short of breath after the procedure. <Brenna Ceja - Last Filed: 06/27/18 15:10> - Resident Resident Name: RavinderSherley - ED Attending Attestation I have performed the following: I have examined & evaluated the patient, The case was reviewed & discussed with the resident, I agree w/resident's findings & plan, Exceptions are as noted - Physicial Exam PE: 06/27/18 15:29 Patient is awake and alert, well-nourished, mildly dyspneic Normocephalic atraumatic PERRLA, EOMI, no scleral icterus, conjunctiva are pink no JVD Intermittent rhonchi in all lung gillis bilaterally Irregularly irregular + Sacral edema + Bilateral pitting edema - Medical Decision Making 06/27/18 15:30 78-year-old male with history of A. fib on eliquis, CHF presents with worsening shortness of breath, PND and orthopnea. Chest x-ray reveals cardiomegaly and increased interstitial markings. Bedside ultrasound shows B lines in all lung gillis and a mildly reduced ejection fraction. EKG reveals rate-controlled A. fib with infrequent vpb's. CBC reveals no evidence significant leukocytosis. Will obtain CT of chest to evaluate for bronchiectasis. Likely admission for IV diuresis. <Eyad Louis - Last Filed: 06/27/18 15:33> Attestations - Attestations 06/27/18 15:13 Documentation prepared by Brenna Ceja, acting as medical safety director for Eyad Louis MD. <Brenna Ceja - Last Filed: 06/27/18 15:10>
[2018-06-27] MEDS ORDERED: FUROSEMIDE 40 MG/4 ML INJECTABLE VIAL ONE (14:37)
--- NOTE | 2018-06-27 15:14 | EKG ---
Test Reason : Blood Pressure : / mmHG Vent. Rate : 060 BPM Atrial Rate : 098 BPM P-R Int : 000 ms QRS Dur : 088 ms QT Int : 448 ms P-R-T Axes : 000 -35 035 degrees QTc Int : 448 ms POOR DATA QUALITY, INTERPRETATION MAY BE ADVERSELY AFFECTED ATRIAL FIBRILLATION WITH PREMATURE VENTRICULAR OR ABERRANTLY CONDUCTED COMPLEXES LEFT AXIS DEVIATION NONSPECIFIC ST AND T WAVE ABNORMALITY ABNORMAL ECG WHEN COMPARED WITH ECG OF 25-SEP-2017 09:41, NO SIGNIFICANT CHANGE WAS FOUND Confirmed by JOSE EDUARDO DELGADILLO, KADI ([id number]) on 06/27/2018 3:13:48 PM Referred By: Confirmed By:KADI WHITT MD
[2018-06-27 15:15] LABS: BASO % 0.7 % (0-2.0); EOS % 3.6 % (0-4.5); HEMATOCRIT 42.1 % (35.4-49); HEMOGLOBIN 14.1 GM/dL (11.7-16.9); LYMPH % 20.9 % (8-40); MCHC 33.5 g/dl (32.0-35.9); MEAN CELL VOLUME 89.5 fl (80-96); MEAN PLT VOLUME 11.1 fl (7.5-11.1); MONO % 10.5 % (3.8-10.2); NEUT % 64.3 % (42.8-82.8); RDW 13.3 % (11.9-15.9); WHITE BLOOD COUNT 6.6 K/mm3 (4.0-10.0)
[2018-06-27 15:17] LABS: PLATELET COUNT 56 K/MM3 (134-434)
[2018-06-27 15:38] LABS: INR 1.29 (0.83-1.09); PROTHROMBIN TIME (PATIENT) 15.3 SEC (9.7-13.0)
[2018-06-27 15:43] LABS: ALBUMIN 3.8 g/dl (3.4-5.0); ALK PHOS 85 U/L (45-117); ANION GAP 7 MMOL/L (8-16); BILIRUBIN,TOTAL 1.3 mg/dL (0.2-1); BLOOD UREA NITROGEN 11 mg/dL (7-18); CALCIUM 8.7 mg/dL (8.5-10.1); CHLORIDE 105 mmol/L (98-107); CO2 30 mmol/L (21-32); CREATININE 0.8 mg/dL (0.55-1.3); GLUCOSE,RANDOM 112 mg/dL (74-106); MAGNESIUM 2.1 mg/dL (1.8-2.4); N-TERMINAL BNP 809.9 pg/ml (5-450); POTASSIUM 4.5 mmol/L (3.5-5.1); SGOT/AST 23 U/L (15-37); SGPT/ALT 27 U/L (13-61); SODIUM 143 mmol/L (136-145); TOT PROT 6.6 g/dl (6.4-8.2)
--- NOTE | 2018-06-27 16:59 | CON.CARD ---
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 He is on lasix 40 qd for dchf. Today he did not take lasix since he was going to dentist. After dentist appt he felt mild singh and le edema so came to ER. No cp palps dizzy loc pnd orthopnea, rest sob. Got iv lasix in er, feeling better already. Sees dr sinclair for cardio. pmh: per hpi psh: non contributory social: no tob/etoh/drug abuse fam hx: non contributory ros: per hpi; all others normal meds: Home Medications Medication Instructions Recorded Sitagliptin Phosphate [Januvia] 100 mg PO DAILY 10/04/13 Furosemide [Lasix -] 40 mg PO DAILY #1 tablet 03/21/14 Simvastatin [Zocor -] 20 mg PO HS 04/11/14 Glimepiride [Amaryl -] 2 mg PO DAILY 05/23/16 Apixaban [Eliquis] 5 mg PO BID 09/23/17 Diltiazem Cd [Cardizem Cd -] 300 mg PO DAILY #30 cap.cd.24h 10/02/17 Gabapentin [Neurontin -] 300 mg PO TID #90 capsule 10/02/17 pe: Vital Signs Period Temp Pulse Resp BP Sys/Henriquez Pulse Ox Last 24 Hr 97.7 F 58 16 150/63 97 nad, no jvd irreg, s1s2, no mrg cta bl nl eff trace le edema b/l aa0x3 abd nt nd pos bs pos dp/pt no diaphoresis, no jaundice Laboratory Last Values WBC 6.6 K/mm3 (4.0-10.0) 06/27/18 14:43 RBC 4.70 M/mm3 (4.00-5.60) 06/27/18 14:43 Hgb 14.1 GM/dL (11.7-16.9) 06/27/18 14:43 Hct 42.1 % (35.4-49) 06/27/18 14:43 MCV 89.5 fl (80-96) 06/27/18 14:43 MCH 30.0 pg (25.7-33.7) 06/27/18 14:43 MCHC 33.5 g/dl (32.0-35.9) 06/27/18 14:43 RDW 13.3 % (11.9-15.9) 06/27/18 14:43 Plt Count 56 K/MM3 (134-434) L 06/27/18 14:43 MPV 11.1 fl (7.5-11.1) 06/27/18 14:43 Absolute Neuts (auto) 4.3 K/mm3 (1.5-8.0) 06/27/18 14:43 Neutrophils % 64.3 % (42.8-82.8) 06/27/18 14:43 Lymphocytes % 20.9 % (8-40) 06/27/18 14:43 Monocytes % 10.5 % (3.8-10.2) H 06/27/18 14:43 Eosinophils % 3.6 % (0-4.5) 06/27/18 14:43 Basophils % 0.7 % (0-2.0) 06/27/18 14:43 Nucleated RBC % 0 % (0-0) 06/27/18 14:43 PT with INR 15.30 SEC (9.7-13.0) H 06/27/18 14:43 INR 1.29 (0.83-1.09) H 06/27/18 14:43 Sodium 143 mmol/L (136-145) 06/27/18 14:43 Potassium 4.5 mmol/L (3.5-5.1) 06/27/18 14:43 Chloride 105 mmol/L (98-107) 06/27/18 14:43 Carbon Dioxide 30 mmol/L (21-32) 06/27/18 14:43 Anion Gap 7 MMOL/L (8-16) L 06/27/18 14:43 BUN 11 mg/dL (7-18) 06/27/18 14:43 Creatinine 0.8 mg/dL (0.55-1.3) 06/27/18 14:43 Creat Clearance w eGFR 93.01 (>60) 06/27/18 14:43 Random Glucose 112 mg/dL (74-106) H 06/27/18 14:43 Calcium 8.7 mg/dL (8.5-10.1) 06/27/18 14:43 Magnesium 2.1 mg/dL (1.8-2.4) 06/27/18 14:43 Total Bilirubin 1.3 mg/dL (0.2-1) H 06/27/18 14:43 AST 23 U/L (15-37) 06/27/18 14:43 ALT 27 U/L (13-61) 06/27/18 14:43 Alkaline Phosphatase 85 U/L (45-117) 06/27/18 14:43 Creatine Kinase 82 U/L (26-308) 06/27/18 14:43 Troponin I < 0.02 ng/ml (0.00-0.05) 06/27/18 14:43 B-Natriuretic Peptide 809.9 pg/ml (5-450) H 06/27/18 14:43 Total Protein 6.6 g/dl (6.4-8.2) 06/27/18 14:43 Albumin 3.8 g/dl (3.4-5.0) 06/27/18 14:43 cxr: appears to be ILD echo 02/2012: nl lv s/f, nl rv size, mild tr, mild ar, rvsp 31 echo 03/2017: nl lv/rv, mariana, mild ar, mild-mod tr, mild phtn, mild ao root dil ecg: afib, vr 60, nl qtc, no ischemic changes a/p: 78 m hx afib, htn, hld, dm, dchf, 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 acute diastolic chf: -minimal vol overload/symptoms, possibly due to holding todays lasix dose at home. after getting iv lasix in er pt already feeling better. -will give another dose 40 iv lasix in AM -check echo -agree with ct chest to assess for ILD. -no signs acs -possible dc tomorrow from cardiac pov htn: -cont home dilt hld: -Continue home statin. afib: -Rate controlled. 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
[2018-06-27] MEDS ORDERED: ALBUTEROL SO4 2.5/IPRATROPIUM 0.5 INH SOL 3 ML VIAL.NEB. NEB ONE ×2 (17:02→17:58)
--- NOTE | 2018-06-27 17:41 | HP ---
CHIEF COMPLAINT: SOB PCP: HISTORY OF PRESENT ILLNESS: Mr Abarca is a 78 year old male with PMH of sarcoidosis, CHF, HTN, hyperlipidemia , DMII who presented to the hospital complaining of SOB that has been progressively worse in the past several days. He went to a dentist today ad his breathing got much worse that prompted his to come to ED. The patient didn't take his lasix today. He had similar complaints last year when he was admitted to the hospital for CHF exacerbation. the patient is compliant with his medications. He had stress test done years ago. He also was diagnosed with lung disease long time ago, saw Pulmunologist and gets CT chest for "spot" on his lungs. his that was present at bedside also noticed that his legs got swollen in the past few days and weight gain 5 lbs in few months. He denies chest pain, dizziness, weakness, headache, sick contact, cough, fever , chills. 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 Family History: N/A Allergies No Known Allergies Allergy (Verified 09/25/17 09:50) HOME MEDICATIONS: Home Medications Medication Instructions Recorded Sitagliptin Phosphate [Januvia] 100 mg PO DAILY 10/04/13 Furosemide [Lasix -] 40 mg PO DAILY #1 tablet 03/21/14 Simvastatin [Zocor -] 20 mg PO HS 04/11/14 Glimepiride [Amaryl -] 2 mg PO DAILY 05/23/16 Apixaban [Eliquis] 5 mg PO BID 09/23/17 Diltiazem Cd [Cardizem Cd -] 300 mg PO DAILY #30 cap.cd.24h 10/02/17 Gabapentin [Neurontin -] 300 mg PO TID #90 capsule 10/02/17 REVIEW OF SYSTEMS CONSTITUTIONAL: Absent: fever, chills, diaphoresis, generalized weakness, malaise, loss of appetite, weight change HEENT: Absent: rhinorrhea, nasal congestion, throat pain CARDIOVASCULAR: Absent: chest pain, syncope, palpitations, irregular heart rate, lightheadedness , peripheral edema RESPIRATORY: wheezing, shortness of breath, dyspnea with exertion, orthopnea, Absent: cough, GASTROINTESTINAL: Absent: abdominal pain, abdominal distension, nausea, vomiting, diarrhea, constipation, GENITOURINARY: Absent: dysuria, frequency, urgency, hesitancy, hematuria, flank pain, genital pain MUSCULOSKELETAL: Absent: myalgia, arthralgia, joint swelling, back pain, neck pain SKIN: Absent: rash, itching, pallor HEMATOLOGIC/IMMUNOLOGIC: Absent: easy bleeding, easy bruising ENDOCRINE:unexplained weight gain, Absent: unexplained weight loss NEUROLOGIC: Absent: headache, focal weakness or paresthesias, dizziness, unsteady gait, seizure PSYCHIATRIC: Absent: anxiety, depression PHYSICAL EXAMINATION Vital Signs - 24 hr 06/27/18 13:06 Temperature 97.7 F Pulse Rate 58 L Respiratory 16 Rate Blood Pressure 150/63 O2 Sat by Pulse 97 Oximetry (%) GENERAL: Awake, alert, and fully oriented, in no acute distress. HEAD: Normal with no signs of trauma. EYES: Pupils equal, round and reactive to light, extraocular movements intact, sclera anicteric, conjunctiva clear. No lid lag. EARS, NOSE, THROAT: Ears normal, nares patent, oropharynx clear without exudates. Moist mucous membranes. NECK: Normal range of motion, supple without lymphadenopathy, JVD, or masses. LUNGS: Breath sounds equal, clear to auscultation bilaterally. No wheezes, and no crackles. No accessory muscle use. HEART: Regular rate and rhythm, normal S1 and S2 without murmur, rub or gallop. ABDOMEN: Soft, nontender, not distended, normoactive bowel sounds, no guarding, no rebound, no masses. No hepatomegaly or splenomegaly. MUSCULOSKELETAL: Normal range of motion at all joints. No bony deformities or tenderness. No CVA tenderness. UPPER EXTREMITIES: 2+ pulses, warm, well-perfused. No cyanosis. No clubbing. No peripheral edema. LOWER EXTREMITIES: 2+ pulses, warm, well-perfused. No calf tenderness. No peripheral edema. NEUROLOGICAL: Cranial nerves II-XII intact. Normal speech. Normal gait. PSYCHIATRIC: Cooperative. Good eye contact. Appropriate mood and affect. SKIN: Warm, dry, normal turgor, no rashes or lesions noted, normal capillary refill. Laboratory Results - last 24 hr 06/27/18 06/27/18 06/27/18 14:43 14:43 14:43 WBC 6.6 RBC 4.70 Hgb 14.1 Hct 42.1 MCV 89.5 MCH 30.0 MCHC 33.5 RDW 13.3 Plt Count 56 L MPV 11.1 Absolute Neuts (auto) 4.3 Neutrophils % 64.3 Lymphocytes % 20.9 Monocytes % 10.5 H Eosinophils % 3.6 Basophils % 0.7 Nucleated RBC % 0 PT with INR 15.30 H INR 1.29 H Sodium 143 Potassium 4.5 Chloride 105 Carbon Dioxide 30 Anion Gap 7 L BUN 11 Creatinine 0.8 Creat Clearance w eGFR 93.01 Random Glucose 112 H Calcium 8.7 Magnesium 2.1 Total Bilirubin 1.3 H AST 23 ALT 27 Alkaline Phosphatase 85 Creatine Kinase 82 Troponin I < 0.02 B-Natriuretic Peptide 809.9 H Total Protein 6.6 Albumin 3.8 ASSESSMENT/PLAN: Mr Abarca is a 78 year old male with PMH of sarcoidosis, CHF, HTN, hyperlipidemia , DMII who presented to the hospital complaining of SOB that has been progressively worse in the past several days. SOB: -likely due to interstitial lung disease since zandra patient has a history of that , also CHF exacebation may contributed to his symptoms -will continue diuresis with lasix 40 mg IV -will continue Duonebs and Albuterol -cont Solumedrol IV 40 mg q8h -monitor I&o -daily weights -sodium restriction -Cardiology consulted, will follow up recommendations -cardiac monitoring on telemetry -f/u CT chest A.Fib: -continue Cardizem 300 mg qd -Cont Eliquis DMII with neuropathy: -ISS ACHS -BGM ACHS -cont Gabapentin Hyperlipidemia: -cont Lipitor HTN: cont home medications F/E/N: no/no/Diabetic Dispo: telemetry Problem List - Problem (1) Congestive heart failure, acute Code(s): I50.9 - HEART FAILURE, UNSPECIFIED Qualifiers: Heart failure type: unspecified Qualified Code(s): I50.9 - Heart failure, unspecified (2) Atrial fibrillation Code(s): I48.91 - UNSPECIFIED ATRIAL FIBRILLATION Qualifiers: Atrial fibrillation type: chronic Qualified Code(s): I48.2 - Chronic atrial fibrillation (3) Bronchitis Code(s): J40 - BRONCHITIS, NOT SPECIFIED ACUTE OR CHRONIC (4) CHF (congestive heart failure) Code(s): I50.9 - HEART FAILURE, UNSPECIFIED (5) COPD (chronic obstructive pulmonary disease) Code(s): J44.9 - CHRONIC OBSTRUCTIVE PULMONARY DISEASE, UNSPECIFIED (6) COPD exacerbation Code(s): J44.1 - CHRONIC OBSTRUCTIVE PULMONARY DISEASE W (ACUTE) EXACERBATION (7) Cough Code(s): R05 - COUGH (8) Diabetes Code(s): E11.9 - TYPE 2 DIABETES MELLITUS WITHOUT COMPLICATIONS Qualifiers: Diabetes mellitus type: type 2 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 use: without software quality test engineer use Diabetes mellitus complication status: without complication Qualified Code(s): E11.9 - Type 2 diabetes mellitus without complications (9) HTN (hypertension) Code(s): I10 - ESSENTIAL (PRIMARY) HYPERTENSION Qualifiers: Hypertension type: essential hypertension Qualified Code(s): I10 - Essential (primary) hypertension (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 Code(s): B02.30 - ZOSTER OCULAR DISEASE, UNSPECIFIED (11) Hyperglycemia Code(s): R73.9 - HYPERGLYCEMIA, UNSPECIFIED (12) Hyperlipidemia Code(s): E78.5 - HYPERLIPIDEMIA, UNSPECIFIED Qualifiers: Hyperlipidemia type: pure hypercholesterolemia Qualified Code(s): E78.00 - Pure hypercholesterolemia, unspecified; E78.0 - Pure hypercholesterolemia (13) Hypomagnesemia Code(s): E83.42 - HYPOMAGNESEMIA (14) Influenza Code(s): J11.1 - FLU DUE TO UNIDENTIFIED INFLUENZA VIRUS W OTH RESP MANIFEST (15) Palpitations Code(s): R00.2 - PALPITATIONS (16) Paroxysmal nocturnal dyspnea Code(s): R06.00 - DYSPNEA, UNSPECIFIED (17) Pulmonary hypertension Code(s): I27.2 - OTHER SECONDARY PULMONARY HYPERTENSION * DO NOT USE * (18) Sarcoidosis of lung Code(s): D86.0 - SARCOIDOSIS OF LUNG (19) Shingles rash Code(s): B02.9 - ZOSTER WITHOUT COMPLICATIONS Qualifiers: Herpes zoster complications: with ocular involvement Herpes zoster ocular complication detail: unspecified herpes zoster eye disease Qualified Code(s): B02.30 - Zoster ocular disease, unspecified (20) Thrombocytopenia Code(s): D69.6 - THROMBOCYTOPENIA, UNSPECIFIED (21) Vertigo Code(s): R42 - DIZZINESS AND GIDDINESS Visit type - Emergency Visit Emergency Visit: Yes ED Registration Date: 06/27/18 Care time: The patient presented to the Emergency Department on the above date and was hospitalized for further evaluation of their emergent condition. - New Patient This patient is new to me today: Yes Date on this admission: 06/27/18 - Critical Care Critical Care patient: No
--- NOTE | 2018-06-27 17:53 | PN ---
Teaching Attending Note Name of Resident: Vonda Hannah ATTENDING PHYSICIAN STATEMENT I saw and evaluated the patient. I reviewed the resident's note and discussed the case with the resident. I agree with the resident's findings and plan as documented with exceptions below. SUBJECTIVE: 78 yom with PMHx of ITP, afib on eliquis, Diastolic Dysfunction, ITP, HTN, HLD , NIDDM, ?COPD (occupational), suspected sarcoidosis, herpes zoster ophthalmicus comes with progressive shortness of breath, worse since last night. Patient had a dental procedure, noticed with coughing paroxysm, inability to breathe, so came to the ED. Per , patient with 4-5 lb weight gain over last few weeks. Denies orthopnea, PND, chest pain, palpitations, dizziness or new concerns. No fevers, chills, recent URI like illness, sick contacts, antibiotics or new concerns otherwise. 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 12 point ROS done, neg except above. OBJECTIVE: Vital Signs Period Temp Pulse Resp BP Sys/Henriquez Pulse Ox Last 24 Hr 97.7 F 58 16 150/63 97 Intake & Output 06/24/18 06/25/18 06/26/18 06/27/18 23:59 23:59 23:59 23:59 Weight 230 lb GENERAL: Awake, alert, mild respiratory distress, unable to finish sentence in one breath HEAD: Normal with no signs of trauma. EYES: Pupils equal, round and reactive to light, extraocular movements intact, sclera anicteric, conjunctiva clear. No lid lag. EARS, NOSE, THROAT: Ears normal, nares patent, oropharynx clear without exudates. Moist mucous membranes. NECK: neck vein distension, unable to visualize JVD, chronic neck limitation of ROM from prior occupational trauma LUNGS: bibasilar to mid lung fine rales, decreased air entry all over, unable to appreciate wheezing HEART: S1S2 irregular, bradycardic ABDOMEN: Soft, obese, NT throughout MUSCULOSKELETAL: Limitation of ROM at neck as above UPPER EXTREMITIES: 2+ pulses, warm, well-perfused. No cyanosis. No clubbing. No peripheral edema. LOWER EXTREMITIES: 1-2+ pedal pitting edema with chronic varicosities. NEUROLOGICAL: AAOx3, power 5/5, sensation intact, Cranial nerves II-XII intact. Normal speech. Gait not observed PSYCHIATRIC: Cooperative. Good eye contact. Appropriate mood and affect. SKIN: Warm, dry, normal turgor, no rashes or lesions noted, normal capillary refill. Home Medications Medication Instructions Recorded Sitagliptin Phosphate [Januvia] 100 mg PO DAILY 10/04/13 Furosemide [Lasix -] 40 mg PO DAILY #1 tablet 03/21/14 Simvastatin [Zocor -] 20 mg PO HS 04/11/14 Glimepiride [Amaryl -] 2 mg PO DAILY 05/23/16 Apixaban [Eliquis] 5 mg PO BID 09/23/17 Diltiazem Cd [Cardizem Cd -] 300 mg PO DAILY #30 cap.cd.24h 10/02/17 Gabapentin [Neurontin -] 300 mg PO TID #90 capsule 10/02/17 Active Medications Apixaban (Eliquis -) 5 mg PO BID [facility] Atorvastatin Calcium (Lipitor -) 20 mg PO HS [facility] Diltiazem HCl (Cardizem Cd -) 300 mg PO DAILY [facility] Furosemide (Lasix Injection -) 40 mg IVPUSH ONCE ONE Stop: 06/28/18 06:01 Furosemide (Lasix Injection -) 40 mg IVPUSH DAILY [facility] Gabapentin (Neurontin -) 300 mg PO TID [facility] Insulin Aspart (Novolog Vial Sliding Scale -) 1 vial SQ ACHS [facility]; Protocol Laboratory Results - last 24 hr 06/27/18 06/27/18 06/27/18 14:43 14:43 14:43 WBC 6.6 RBC 4.70 Hgb 14.1 Hct 42.1 MCV 89.5 MCH 30.0 MCHC 33.5 RDW 13.3 Plt Count 56 L MPV 11.1 Absolute Neuts (auto) 4.3 Neutrophils % 64.3 Lymphocytes % 20.9 Monocytes % 10.5 H Eosinophils % 3.6 Basophils % 0.7 Nucleated RBC % 0 PT with INR 15.30 H INR 1.29 H Sodium 143 Potassium 4.5 Chloride 105 Carbon Dioxide 30 Anion Gap 7 L BUN 11 Creatinine 0.8 Creat Clearance w eGFR 93.01 Random Glucose 112 H Calcium 8.7 Magnesium 2.1 Total Bilirubin 1.3 H AST 23 ALT 27 Alkaline Phosphatase 85 Creatine Kinase 82 Troponin I < 0.02 B-Natriuretic Peptide 809.9 H Total Protein 6.6 Albumin 3.8 EKG Sinus bradycarida, PVCs CXR images reviewed, await official read CT chest images reviewed, await official read ASSESSMENT AND PLAN: 78 yom with PMHx of ITP, afib on eliquis, Diastolic Dysfunction, ITP, HTN, HLD , NIDDM, ?COPD (occupational), suspected sarcoidosis, herpes zoster ophthalmicus admitted with dyspnea -Acute on chronic diastolic heart failure exacerbation -Suspect acute COPD vs ILD exacerbation (Possible sarcoidosis history per records) -Afib on eliquis -ITP with chronic thrombocytopenia -HTN -HLD -NIDDM -h/o herpes zoster opthalmicus Plan: Lasix 40 mg IV daily with strict I/Os, daily weights. Current exam more suggestive of ILD vs COPD exacerbation (prior h/o the same) Trial with solumedrol IV x 1. Standing and prn nebs. Follow up CT chest. Cardiology input appreciated. Continue cardizem/eliquis/neurontin/statin. Unable to reconcile home meds. per , gets a mail order, PCP's office currently closed, to bring in AM Resume additional anti-HTN accordingly. Platelets stable DVTPPx on eliquis Dispo pending clinical improvement. Admit to inpatient telemetry given need for IV diuresis/steroids, frequent respiratory treatment and close monitoring. Plan discussed with patient and at bedside in detail, all questions answered. Care co-ordinated with cardiology and ED. Total admit time spent 65 min.
[2018-06-27] MEDS ORDERED: methylPREDNISolone NA SUCC 125 MG/2 ML VIAL IVPUSH ONE (18:04)
[2018-06-27] MEDS ORDERED: ALBUTEROL SO4 0.083% IH SOL 2.5 MG/3 ML VIAL.NEB. NEB PRN (18:12)
[2018-06-27] MEDS ORDERED: methylPREDNISolone NA SUCC 125 MG/2 ML VIAL ONE (18:40)
[2018-06-27] MEDS: ALBUTEROL SO4 2.5/IPRATROPIUM 0.5 INH SOL 3 ML VIAL.NEB. NEB SCH (20:05)
[2018-06-27] MEDS ORDERED: ATORVASTATIN CA 20 MG TABLET (FP) PO SCH (22:00)
[2018-06-27] MEDS ORDERED: PATIENT'S OWN MEDICATION (NON-FORMULARY) (Simvastatin 20 MG) PO SCH (22:00)
[2018-06-27 23:44] VITALS: BMI 32.0
[2018-06-27] MEDS: INSULIN SLIDING SCALE (NOVOLOG) 1 VIAL SQ SCH (23:54)
[2018-06-27] MEDS: APIXABAN 5 MG TABLET PO SCH (23:54)
[2018-06-27] MEDS: GABAPENTIN 300 MG CAPSULE (FP) PO SCH (23:54)
[2018-06-28] MEDS: methylPREDNISolone NA SUCC 40 MG/1 ML VIAL IVPUSH SCH ×2 (02:46→09:57)
[2018-06-28] MEDS ORDERED: FUROSEMIDE 40 MG/4 ML INJECTABLE VIAL IVPUSH ONE (06:00)
[2018-06-28] MEDS: GABAPENTIN 300 MG CAPSULE (FP) PO SCH ×2 (06:36→14:06)
[2018-06-28] MEDS: INSULIN SLIDING SCALE (NOVOLOG) 1 VIAL SQ SCH ×2 (06:39→11:25)
[2018-06-28 07:01] LABS: BASO % 0.2 % (0-2.0); HEMATOCRIT 40.1 % (35.4-49); HEMOGLOBIN 13.6 GM/dL (11.7-16.9); LYMPH % 12.2 % (8-40); MCH 29.6 pg (25.7-33.7); MCHC 33.8 g/dl (32.0-35.9); MEAN CELL VOLUME 87.6 fl (80-96); MONO % 1.2 % (3.8-10.2); NEUT % 86.4 % (42.8-82.8); PLATELET COUNT 66 K/MM3 (134-434); RBC 4.58 M/mm3 (4.00-5.60); WHITE BLOOD COUNT 5.7 K/mm3 (4.0-10.0)
[2018-06-28] MEDS: ALBUTEROL SO4 2.5/IPRATROPIUM 0.5 INH SOL 3 ML VIAL.NEB. NEB SCH ×3 (07:10→15:30)
[2018-06-28 07:37] LABS: ALBUMIN 3.4 g/dl (3.4-5.0); ALK PHOS 85 U/L (45-117); ANION GAP 7 MMOL/L (8-16); BILIRUBIN,TOTAL 1.8 mg/dL (0.2-1); BLOOD UREA NITROGEN 14 mg/dL (7-18); CALCIUM 8.3 mg/dL (8.5-10.1); CHLORIDE 104 mmol/L (98-107); CHOLESTEROL 130 mg/dL (50-200); CO2 28 mmol/L (21-32); CREATININE 0.8 mg/dL (0.55-1.3); GLUCOSE,RANDOM 209 mg/dL (74-106); HDL CHOLESTEROL 44 mg/dL (40-60); PHOSPHOROUS 2.8 mg/dL (2.5-4.9); POTASSIUM 3.9 mmol/L (3.5-5.1); SGOT/AST 17 U/L (15-37); SGPT/ALT 26 U/L (13-61); SODIUM 139 mmol/L (136-145); TOT PROT 6.2 g/dl (6.4-8.2); TRIGLYCERIDES 44 mg/dL (0-150)
[2018-06-28] MEDS ORDERED: sitaGLIPtin PHOSPHATE 100 MG TABLET (FP) PO ONE (08:16)
[2018-06-28] MEDS ORDERED: GLIMEPIRIDE 2 MG TABLET (FP) PO ONE (08:50)
[2018-06-28] MEDS ORDERED: PT OWN MED DRAWER 7, Y5N ONE (09:18)
[2018-06-28] MEDS: APIXABAN 5 MG TABLET PO SCH (09:55)
[2018-06-28] MEDS ORDERED: FUROSEMIDE 40 MG TABLET (FP) PO SCH (10:00)
[2018-06-28] MEDS ORDERED: FUROSEMIDE 40 MG/4 ML INJECTABLE VIAL IVPUSH SCH (10:00)
--- NOTE | 2018-06-28 11:38 | PN ---
Progress Note (short form) - Note Progress Note: s: feels much better. no cp sob palps dizzy. asking to go home o: Vital Signs Period Temp Pulse Resp BP Sys/Henriquez Pulse Ox Last 24 Hr 97.7 F-98.3 F 56-95 16-20 136-157/63-91 95-100 nad, no jvd irreg, s1s2, no mrg cta bl nl eff no le e/c/c aa0x3 abd nt nd pos bs no diaphoresis, no jaundice Current Medications Generic Name Dose Route Start Last Admin Trade Name Freq PRN Reason Stop Dose Admin Albuterol Sulfate 1 amp 06/27/18 18:12 Ventolin 0.083% Nebulizer Soln - NEB Q4H PRN SHORT OF BREATH/WHEEZING Albuterol/Ipratropium 1 amp 06/27/18 20:00 06/28/18 07:10 Duoneb - NEB 1 amp RQID [facility] Administration Apixaban 5 mg 06/27/18 22:00 06/28/18 09:55 Eliquis - PO 5 mg BID [facility] Administration Atorvastatin Calcium 20 mg 06/27/18 22:00 06/27/18 23:54 Lipitor - PO 20 mg HS [facility] Administration Diltiazem HCl 300 mg 06/28/18 10:00 06/28/18 10:43 Cardizem Cd - PO 300 mg DAILY [facility] Administration Furosemide 40 mg 06/29/18 10:00 Lasix - PO DAILY [facility] Gabapentin 300 mg 06/27/18 22:00 06/28/18 06:36 Neurontin - PO 300 mg TID [facility] Administration Glimepiride 2 mg 06/29/18 07:00 Amaryl - PO DAILY@0700 [facility] Insulin Aspart 1 vial 06/27/18 22:00 06/28/18 11:25 Novolog Vial Sliding Scale - SQ 6 units ACHS [facility] Administration Protocol Methylprednisolone Sodium Succinate 40 mg 06/28/18 02:00 06/28/18 09:57 Solu-Medrol - IVPUSH 40 mg Q8H-IV [facility] Administration Sitagliptin Phosphate 100 mg 06/29/18 07:00 Januvia - PO DAILY@0700 [facility] CBC, BMP 06/28/18 05:30 06/28/18 05:30 cxr: 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 acute diastolic chf: -minimal vol overload/symptoms, possibly due to holding todays lasix dose at home. after getting iv lasix x2 doses pt already feeling better, change to home dose 40 po qd now -no signs acs -echo pending, if benign then ok for dc from cardiac pov htn: -cont home dilt hld: -Continue home statin. afib: -Rate controlled. 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
[2018-06-28] MEDS ORDERED: predniSONE 20 MG TABLET (UD) PO ONE (12:13)
--- NOTE | 2018-06-28 13:22 | ECHO ---
Name: STEVEN HARMON Exam:Adult Echocardiogram Study Date: 06/28/2018 09:10 AM Age: 78 yrs Reason For Study: SOB Height: 71 in Weight: 230 lb BSA: 2.2 m2 MMode/2D Measurements & Calculations Ao root diam: 3.7 cm Procedure A complete two-dimensional transthoracic echocardiogram was performed (2D, M-mode, Doppler and color flow Doppler). The patient was in atrial fibrillation with controlled ventricular rate during the exam. Left Ventricle The left ventricular size, thickness and function are normal. The left ventricular ejection fraction is normal. Ejection Fraction = 60-65%. The left ventricular wall motion is normal. Right Ventricle The right ventricle is normal in size and function. Atria Normal left and right atrial size and function. Mitral Valve There is trace mitral regurgitation. Tricuspid Valve There is mild tricuspid regurgitation. Right ventricular systolic pressure is normal. Aortic Valve No hemodynamically significant valvular aortic stenosis. Mild aortic regurgitation. Pulmonic Valve There is no pulmonic valvular regurgitation. Great Vessels The aortic root is normal size. Pericardium/Pleura There is no pericardial effusion. Interpretation Summary The patient was in atrial fibrillation with controlled ventricular rate during the exam. The left ventricular size, thickness and function are normal The right ventricle is normal in size and function. There is trace mitral regurgitation. There is mild tricuspid regurgitation. Mild aortic regurgitation. MD Tyler Mustafa 06/28/2018 01:22 PM
[2018-06-28 15:08] VITALS: BP 137/57; PULSE 62; TEMP 98
--- NOTE | 2018-06-28 15:34 | DS ---
Physical Exam: SUBJECTIVE: Patient seen and examined, breathing markedly improved, ambulating well, eager to go home. NO new complaints. OBJECTIVE: Vital Signs Period Temp Pulse Resp BP Sys/Henriquez Pulse Ox Last 24 Hr 98 F-98.3 F 56-95 16-20 136-157/57-91 95-100 Intake & Output 06/25/18 06/26/18 06/27/18 06/28/18 23:59 23:59 23:59 23:59 Intake Total 20 Output Total 300 300 Balance -300 -280 Weight 229 lb 9.6 oz 228 lb PHYSICAL EXAM GENERAL: The patient is awake, alert, and fully oriented, in no acute distress. HEAD: Normal with no signs of trauma. EYES: PERRL, extraocular movements intact, sclera anicteric, conjunctiva clear. ENT: Ears normal, nares patent, oropharynx clear without exudates, moist mucous membranes. NECK: Trachea midline, full range of motion, supple. LUNGS: fine basilar rales, markedly improved air entry, no wheezing noted. HEART: S1S2 irregular. ABDOMEN: Soft, nontender, nondistended, normoactive bowel sounds, no guarding, no rebound, EXTREMITIES:1+ pedal edema, varicosities NEUROLOGICAL: AAOx3, Cranial nerves II through XII grossly intact. Normal speech , gait not observed. PSYCH: Normal mood, normal affect. SKIN: Warm, dry, normal turgor, no rashes or lesions noted. LABS Laboratory Results - last 24 hr 06/27/18 06/27/18 06/27/18 14:43 14:43 14:43 WBC RBC Hgb Hct MCV MCH MCHC RDW Plt Count MPV Absolute Neuts (auto) Neutrophils % Lymphocytes % Monocytes % Eosinophils % Basophils % Nucleated RBC % PT with INR 15.30 H INR 1.29 H Sodium 143 Potassium 4.5 Chloride 105 Carbon Dioxide 30 Anion Gap 7 L BUN 11 Creatinine 0.8 Creat Clearance w eGFR 93.01 POC Glucometer Random Glucose 112 H Hemoglobin A1c % Calcium 8.7 Phosphorus Magnesium 2.1 Total Bilirubin 1.3 H AST 23 ALT 27 Alkaline Phosphatase 85 Creatine Kinase 82 Troponin I < 0.02 B-Natriuretic Peptide 809.9 H Total Protein 6.6 Albumin 3.8 Triglycerides Cholesterol Total LDL Cholesterol HDL Cholesterol Blood Type A POSITIVE Antibody Screen Negative 06/27/18 06/28/18 06/28/18 23:53 05:30 05:30 WBC 5.7 RBC 4.58 Hgb 13.6 Hct 40.1 MCV 87.6 MCH 29.6 MCHC 33.8 RDW 13.0 Plt Count 66 L MPV 11.0 Absolute Neuts (auto) 4.9 Neutrophils % 86.4 H D Lymphocytes % 12.2 D Monocytes % 1.2 L D Eosinophils % 0.0 D Basophils % 0.2 Nucleated RBC % 0 PT with INR INR Sodium 139 Potassium 3.9 Chloride 104 Carbon Dioxide 28 Anion Gap 7 L BUN 14 Creatinine 0.8 Creat Clearance w eGFR 93.01 POC Glucometer 208 Random Glucose 209 H Hemoglobin A1c % Calcium 8.3 L Phosphorus 2.8 Magnesium 2.0 Total Bilirubin 1.8 H AST 17 ALT 26 Alkaline Phosphatase 85 Creatine Kinase Troponin I B-Natriuretic Peptide Total Protein 6.2 L Albumin 3.4 Triglycerides 44 Cholesterol 130 Total LDL Cholesterol 78 HDL Cholesterol 44 Blood Type Antibody Screen 06/28/18 06/28/18 06/28/18 05:30 05:52 11:13 WBC RBC Hgb Hct MCV MCH MCHC RDW Plt Count MPV Absolute Neuts (auto) Neutrophils % Lymphocytes % Monocytes % Eosinophils % Basophils % Nucleated RBC % PT with INR INR Sodium Potassium Chloride Carbon Dioxide Anion Gap BUN Creatinine Creat Clearance w eGFR POC Glucometer 219 288 Random Glucose Hemoglobin A1c % 7.2 H Calcium Phosphorus Magnesium Total Bilirubin AST ALT Alkaline Phosphatase Creatine Kinase Troponin I B-Natriuretic Peptide Total Protein Albumin Triglycerides Cholesterol Total LDL Cholesterol HDL Cholesterol Blood Type Antibody Screen CT chest: CT scan of the chest without intravenous contrast Coronal and sagittal reconstruction images were obtained. Compared to prior chest x-ray dated [address] scan of the chest dated 07/05/2017 Previously visualized diffuse interstitial thickening and fine nodularity may have minimally worsened since see prior exam. Previously visualized bilateral calcified small nodules are again seen with the largest in the right upper lobe measuring 7 mm are again seen without gross interval change.. Interval small bilateral pleural effusion. No focal airspace disease is identified. Included lower neck appears unremarkable. Previously visualized multiple paratracheal and precarinal lymph nodes are again seen with the largest measuring 2.3 x 1.6 cm. Included upper abdomen appears unremarkable. Multilevel degenerative disc disease in the thoracic spine again seen with calcification of the anterior longitudinal ligament Impression: There is suggestion of minimal worsening interstitial thickening and fine nodularity in the right and left lower lobe. Stable previously visualized calcified nodules. Findings are suggestive of granulomatous disease. Differential diagnosis includes sarcoidosis considering the clinical history. Interval small bilateral pleural effusion. No gross airspace disease/pneumonic infiltrates are identified. Essentially stable multiple mediastinal lymph nodes with the largest right paratracheal lymph node measuring 2.3 x 1.6 cm. 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 He was seen by cardiology and received trial with IV diuresis. He had CT Chest findings as above, suggestive of granulomatous lung disease, suspicious for sarcoid based on prior history. He was placed on IV steroids with rapid improvement. He had 2D echo with no concerning findings. He had no home oxygen needs on discharge. He was cleared by cardiology and will be discharged in stable condition. He will continue oral steroids and is recommended outpatient pulmonary follow up. Condition: Stable - Instructions Diet, Activity, Other Instructions: You were admitted with trouble breathing. You had CT chest suspicious for "Sarcoidosis vs Intersititial lung disease". You were placed on lasix and steroids with improvement and will need outpatient follow up with your specification consultant and [employer]. You also had 2D echocardiogram. MEDICATIONS: Continue all your home medications as before. New medication Prednisone take as follows: 50 mg daily for 2 days starting tomorrow 06/29 and 06/30 40 mg daily for 2 days on 07/01 and 07/02 30 mg daily for 2 days on 07/03 and 07/04 20 mg daily for 2 days on 07/05 and 07/06 10 mg daily for 2 days on 07/07 and 07/08 Nebulizer treatment as needed. INSTRUCTIONS: Please note that prednisone can increase your blood sugars. You are advised to check your blood sugars before meals and at bedtime and maintain diary. Notify your doctor if persistently >140 or any reading >350 noted. Weigh yourself daily and notify your doctor if weight gain > 3lbs in 2 days. Strict low salt diabetic diet. FOLLOW UP: With in [address] Mcgraw in [address] chest suggested sarcoidosis and you will need follow up with lung specialist (information provided) Please discuss with your doctor for outpatient referral. If you notice any worsening breathing, fevers, chills, productive sputum or any new concerns, please call 911 or come to the ED. Referrals: Tyler Mustafa MD [Staff Physician] - 1 Week Yossi Jones MD [Primary Care Provider] - 1 Week Arden Faulkner MD, MD [Staff Physician] - Disposition: HOME - Home Medications Comprehensive Discharge Medication List: Ambulatory Orders Sitagliptin Phosphate [Januvia] 100 mg PO DAILY 10/04/13 Furosemide [Lasix -] 40 mg PO DAILY #1 tablet 03/21/14 Simvastatin [Zocor -] 20 mg PO HS 04/11/14 Apixaban [Eliquis] 5 mg PO BID 09/23/17 Albuterol 2.5/Ipratropium 0.5 [Duoneb -] 1 neb IH QID PRN #1 vial.neb. 06/28/18 Albuterol Sulfate [Proair Hfa] 8.5 gm IH Q4H PRN 06/28/18 Diltiazem HCl [Cartia Xt] 300 mg PO DAILY 06/28/18 Glimepiride [Amaryl -] 4 mg PO DAILY@0700 06/28/18 Nebulizer and Compressor [Easy Neb Compressor Nebulizer] 1 each [facility] ASDIR #1 each 06/28/18 Prednisone See Taper PO ASDIR #30 tablet 06/28/18 Terazosin HCl 2 mg PO HS 06/28/18 This patient is new to me today: No Emergency Visit: Yes ED Registration Date: 06/27/18 Care time: The patient presented to the Emergency Department on the above date and was hospitalized for further evaluation of their emergent condition. Critical Care patient: No - Discharge Referral Referred to [facility] Med P.C.: No
[2018-06-29] MEDS ORDERED: sitaGLIPtin PHOSPHATE 100 MG TABLET (FP) PO SCH (07:00)
[2018-06-29] MEDS ORDERED: GLIMEPIRIDE 2 MG TABLET (FP) PO SCH (07:00)
[2018-06-29] MEDS ORDERED: predniSONE 20 MG TABLET (UD) PO SCH (10:00)
[2018-06-29] MEDS ORDERED: FUROSEMIDE 40 MG TABLET (FP) PO SCH (10:00)
== END 2018-06-28 16:50 | disposition home or self-care (01) | DRG 292 ==
LOC: JER 13:01 → JERBED 15:11 → J4W 22:59
PROVIDERS: ADMIT Hospitalist; ATTEND Hospitalist
DX: I11.0 Hypertensive heart disease with heart failure (principal); J84.9 Interstitial pulmonary disease, unspecified; D69.3 Immune thrombocytopenic purpura; I50.33 Acute on chronic diastolic (congestive) heart failure; Z79.01 Long term (current) use of anticoagulants; E11.40 Type 2 diabetes mellitus with diabetic neuropathy, unspecified; Z79.84 Long term (current) use of oral hypoglycemic drugs; Z91.11 Patient's noncompliance with dietary regimen; E78.5 Hyperlipidemia, unspecified; I48.2 Chronic atrial fibrillation; D86.0 Sarcoidosis of lung; J44.9 Chronic obstructive pulmonary disease, unspecified
CPT/HCPCS: 36415; 71045-TC-FY; 71250-TC; 80053; 80061; 82550; 82962; 83036; 83721; 83735; 83880; 84100; 84484; 85025; 85610; 86850; 86900; 86901; 93005; 93010; 93306-TC; 94640; 94761; 97116-GP; 97161-GP; 99285-25

== ENCOUNTER 2018-12-07 10:32 | Inpatient (IN) | payer OTHER ==
--- NOTE | 2018-12-07 10:54 | PDOC ---
History of Present Illness - General Chief Complaint: Shortness of Breath Stated Complaint: SHORTNESS OF BREATH Time Seen by Provider: 12/07/18 10:54 Past History - Past Medical History Allergies/Adverse Reactions: Allergies Allergy/AdvReac Type Severity Reaction Status Date / Time No Known Allergies Allergy Verified 12/07/18 10:37 Home Medications: Ambulatory Orders Sitagliptin Phosphate [Januvia] 100 mg PO DAILY 10/04/13 Furosemide [Lasix -] 40 mg PO DAILY #1 tablet 03/21/14 Simvastatin [Zocor -] 20 mg PO HS 04/11/14 Apixaban [Eliquis] 5 mg PO BID 09/23/17 Albuterol 2.5/Ipratropium 0.5 [Duoneb -] 1 neb IH QID PRN #1 vial.neb. 06/28/18 Albuterol Sulfate [Proair Hfa] 8.5 gm IH Q4H PRN 06/28/18 Diltiazem HCl [Cartia Xt] 300 mg PO DAILY 06/28/18 Glimepiride [Amaryl -] 4 mg PO DAILY@0700 06/28/18 Nebulizer and Compressor [Easy Neb Compressor Nebulizer] 1 each MC ASDIR #1 each 06/28/18 Prednisone See Taper PO ASDIR #30 tablet 06/28/18 Terazosin HCl 2 mg PO HS 06/28/18 Cardiac Disorders: Yes (ATRIAL FIBRILLATION) COPD: Yes (sarcoidosis) Diabetes: Yes GI Disorders: Yes (INTERNAL HEMORRHOIDS) HTN: Yes Hypercholesterolemia: Yes - Immunization History Immunization Up to Date: Yes - Suicide/Smoking/Psychosocial Hx Smoking Status: No Smoking History: Never smoked Have you smoked in the past 12 months: No Number of Cigarettes Smoked Daily: 0 Information on smoking cessation initiated: No 'Breaking Loose' booklet given: 09/25/17 Hx Alcohol Use: No Drug/Substance Use Hx: No Substance Use Type: None Hx Substance Use Treatment: No *Physical Exam - Vital Signs Last Vital Signs Temp Pulse Resp BP Pulse Ox 97.7 F 69 16 159/65 96 12/07/18 10:37 12/07/18 10:37 12/07/18 10:37 12/07/18 10:37 12/07/18 10:37
[2018-12-07 11:55] LABS: BASO % 0.6 % (0-2.0); EOS % 3.2 % (0-4.5); HEMATOCRIT 43.6 % (35.4-49); HEMOGLOBIN 14.6 GM/dL (11.7-16.9); LYMPH % 23.8 % (8-40); MCH 28.9 pg (25.7-33.7); MCHC 33.4 g/dl (32.0-35.9); MEAN CELL VOLUME 86.5 fl (80-96); MEAN PLT VOLUME 9.9 fl (7.5-11.1); MONO % 9.8 % (3.8-10.2); NEUT % 62.6 % (42.8-82.8); PLATELET COUNT 175 K/MM3 (134-434); RBC 5.04 M/mm3 (4.00-5.60); RDW 14.9 % (11.9-15.9); WHITE BLOOD COUNT 6.7 K/mm3 (4.0-10.0)
[2018-12-07 12:09] LABS: ALBUMIN 3.9 g/dl (3.4-5.0); BILIRUBIN,TOTAL 1.2 mg/dL (0.2-1); BLOOD UREA NITROGEN 15.2 mg/dL (7-18); CALCIUM 9.4 mg/dL (8.5-10.1); CREATININE 0.8 mg/dL (0.55-1.3); POTASSIUM 4.1 mmol/L (3.5-5.1); TOT PROT 6.7 g/dl (6.4-8.2)
[2018-12-07 12:12] LABS: VENOUS PC02 52.3 mmHg (38-52); VENOUS PH 7.38 (7.31-7.41); VENOUS PO2 < 49 mmHg (28-48)
[2018-12-07 12:18] LABS: INR 1.02 (0.83-1.09); N-TERMINAL BNP 734.3 pg/ml (5-450)
--- NOTE | 2018-12-07 12:32 | PDOC ---
Attending Attestation - Resident Resident Name: Pietro Jama - ED Attending Attestation I have performed the following: I have examined & evaluated the patient, The case was reviewed & discussed with the resident, I agree w/resident's findings & plan, Exceptions are as noted - HPI HPI: 12/07/18 12:31 78 M with h/o CHF, Afib (on Apixaban), NIDDM, and diabetic neuoropathy presenting to ED with SOB. Pt reports worsening BARRAZA and SOB for several days. He also reports difficulty sleeping at night due to SOB. Reports BLE swelling. - Physicial Exam PE: 12/07/18 12:55 "GENERAL: Awake, alert, and fully oriented, in no acute distress. HEAD: No signs of trauma EYES: PERRLA, EOMI, sclera anicteric, conjunctiva clear ENT: Auricles normal inspection, hearing grossly normal, nares patent, oropharynx clear without exudates. Moist mucosa NECK: Nontender, no stepoffs, Normal ROM, supple, no lymphadenopathy, JVD, or masses LUNGS: + Bilateral rales HEART: Regular rate and rhythm, normal S1 and S2, no murmurs, rubs or gallops ABDOMEN: Soft, nontender, normoactive bowel sounds. No guarding, no rebound. No masses EXTREMITIES: 2+ PE BLE, No clubbing or cyanosis. No cords, erythema, or tenderness NEUROLOGICAL: Cranial nerves II through XII intact. 5/5 strength and sensation in all extremities, Normal speech, normal gait, normal cerebellar function SKIN: Warm, Dry, normal turgor, no rashes or lesions noted. - Medical Decision Making 12/07/18 12:32 78 M with SOB. Likely CHF exacerbation. - Labs, trop, BNP - CXR - Diuresis 12/07/18 12:55 CXR shows congestive changes Labs unremarkable Will admit for CHF flare
[2018-12-07] MEDS ORDERED: FUROSEMIDE 40 MG/4 ML INJECTABLE VIAL IVPUSH ONE (12:56)
--- NOTE | 2018-12-07 13:08 | PDOC ---
History of Present Illness - General Chief Complaint: Shortness of Breath Stated Complaint: SHORTNESS OF BREATH Time Seen by Provider: 12/07/18 10:54 History Source: Patient, Primary Care Provider Exam Limitations: No Limitations - History of Present Illness Initial Comments: 12/07/18 13:02 78M with a PMH of CHF, COPD, a-fib (not on a/c 2/2 thrombocytopenia) who was sent from his PCP's office for 1 week of worsening orthopnea. The patient states that he's had 1 week of worsening shortness of breath when laying down. His , at bedside, states that he's been "whistling" while sleeping for the last 2 nights. He denies dyspnea on exertion, CP, palpitations, nausea, vomiting , and lightheadedness. He denies CP at rest. Denies fever, chills, nausea, vomiting. He admits to worsening swelling in his lower extremities. Past History - Past Medical History Allergies/Adverse Reactions: Allergies Allergy/AdvReac Type Severity Reaction Status Date / Time No Known Allergies Allergy Verified 12/07/18 10:37 Home Medications: Ambulatory Orders Sitagliptin Phosphate [Januvia] 100 mg PO DAILY 10/04/13 Furosemide [Lasix -] 40 mg PO DAILY #1 tablet 03/21/14 Simvastatin [Zocor -] 20 mg PO HS 04/11/14 Apixaban [Eliquis] 5 mg PO BID 09/23/17 Albuterol 2.5/Ipratropium 0.5 [Duoneb -] 1 neb IH QID PRN #1 vial.neb. 06/28/18 Albuterol Sulfate [Proair Hfa] 8.5 gm IH Q4H PRN 06/28/18 Diltiazem HCl [Cartia Xt] 300 mg PO DAILY 06/28/18 Glimepiride [Amaryl -] 4 mg PO DAILY@0700 06/28/18 Nebulizer and Compressor [Easy Neb Compressor Nebulizer] 1 each MC ASDIR #1 each 06/28/18 Prednisone See Taper PO ASDIR #30 tablet 06/28/18 Terazosin HCl 2 mg PO HS 06/28/18 Cardiac Disorders: Yes (ATRIAL FIBRILLATION) COPD: Yes (sarcoidosis) Diabetes: Yes GI Disorders: Yes (INTERNAL HEMORRHOIDS) HTN: Yes Hypercholesterolemia: Yes - Immunization History Immunization Up to Date: Yes - Suicide/Smoking/Psychosocial Hx Smoking Status: No Smoking History: Never smoked Have you smoked in the past 12 months: No Number of Cigarettes Smoked Daily: 0 Information on smoking cessation initiated: No 'Breaking Loose' booklet given: 09/25/17 Hx Alcohol Use: No Drug/Substance Use Hx: No Substance Use Type: None Hx Substance Use Treatment: No Review of Systems - Review of Systems Able to Perform ROS?: Yes Comments:: 12/07/18 13:06 GENERAL/CONSTITUTIONAL: No fever or chills. No weakness. HEAD, EYES, EARS, NOSE AND THROAT: No change in vision. No ear pain or discharge. No sore throat. CARDIOVASCULAR: No chest pain, palpitations, or lightheadedness. RESPIRATORY: + for orthopnea. No wheezing or hemoptysis. GASTROINTESTINAL: No abdominal pain, nausea, vomiting, diarrhea, or constipation. GENITOURINARY: No dysuria, frequency, hematuria, or change in urination. MUSCULOSKELETAL: No joint or muscle swelling or pain. No neck or back pain. SKIN: No rash or lesions. NEUROLOGIC: No headache, numbness, tingling, focal weakness, loss of consciousness, or change in strength/sensation. Is the patient limited Frisian proficient: No *Physical Exam - Vital Signs Last Vital Signs Temp Pulse Resp BP Pulse Ox 97.7 F 57 L 16 159/65 97 12/07/18 10:37 12/07/18 10:37 12/07/18 10:37 12/07/18 10:37 12/07/18 10:37 - Physical Exam Comments: 12/07/18 13:06 GENERAL: Well developed, well nourished. Awake and alert. No acute distress. HEENT: Normocephalic, atraumatic. Hearing grossly normal. Moist mucous membranes. PERRLA, EOMI. No conjunctival pallor. Sclera are non-icteric. NECK: Supple. Full ROM. No JVD. CARDIOVASCULAR: Regular rate and rhythm. No murmurs, rubs, or gallops. PULMONARY: No evidence of respiratory distress. Mild crackles in b/l lower lobes. ABDOMINAL: Soft. Non-tender. Non-distended. No rebound or guarding. GENITOURINARY: No CVA tenderness bilaterally. MUSCULOSKELETAL: Normal range of motion at all joints. No bony deformities or tenderness. EXTREMITIES: No cyanosis. No clubbing. 4+ pitting edema in b/l LE. No calf tenderness or swelling. SKIN: Warm and dry. Normal capillary refill. No rashes. No jaundice. NEUROLOGICAL: Alert, awake, appropriate. Cranial nerves 2-12 intact. Normal speech. Gait is normal without ataxia. PSYCHIATRIC: Cooperative. Good eye contact. Appropriate mood and affect. ED Treatment Course - LABORATORY CBC & Chemistry Diagram: 12/07/18 11:30 12/07/18 11:30 - ADDITIONAL ORDERS Additional order review: Laboratory Results 12/07/18 12/07/18 12/07/18 11:57 11:57 11:30 PT with INR INR VBG pH 7.38 POC VBG pCO2 52.3 H POC VBG pO2 < 49 H VBG HCO3 30.4 H VBG O2 Sat (Iris) 67.8 L VBG Base Excess 4.1 H Sodium Potassium Chloride Carbon Dioxide Anion Gap BUN Creatinine Est GFR (CKD-EPI)AfAm Est GFR (CKD-EPI)NonAf Random Glucose Lactic Acid 1.3 Calcium Total Bilirubin AST ALT Alkaline Phosphatase Troponin I < 0.02 B-Natriuretic Peptide Total Protein Albumin TSH 12/07/18 12/07/18 12/07/18 11:30 11:30 11:30 PT with INR 12.00 INR 1.02 VBG pH POC VBG pCO2 POC VBG pO2 VBG HCO3 VBG O2 Sat (Iris) VBG Base Excess Sodium 136 Potassium 4.1 Chloride 102 Carbon Dioxide 31 Anion Gap 4 L BUN 15.2 Creatinine 0.8 Est GFR (CKD-EPI)AfAm 97.78 Est GFR (CKD-EPI)NonAf 84.37 Random Glucose 173 H Lactic Acid Calcium 9.4 Total Bilirubin 1.2 H AST 25 ALT 34 Alkaline Phosphatase 87 Troponin I B-Natriuretic Peptide 734.3 H Total Protein 6.7 Albumin 3.9 TSH 2.31 12/07/18 11:30 RBC 5.04 MCV 86.5 MCHC 33.4 RDW 14.9 MPV 9.9 Neutrophils % 62.6 Lymphocytes % 23.8 Monocytes % 9.8 Eosinophils % 3.2 Basophils % 0.6 Medical Decision Making - Medical Decision Making 12/07/18 13:07 78M with a PMH of CHF, COPD, a-fib not on AC, who presents to the ER from his PCP's office for orthopnea. BNP mildly elevated. Other labs including troponin WNL. CXR shows fluid overload and cephalization. Microblogged for admission. Will give 40 lasix. Pt comfortable appearing otherwise. 12/07/18 13:11 Pt endorsed to DOC Kelly for admission under Dr. Beltre. *DC/Admit/Observation/Transfer Diagnosis at time of Disposition: CHF (congestive heart failure) Qualifiers: Heart failure type: unspecified Heart failure chronicity: acute on chronic Qualified Code(s): I50.9 - Heart failure, unspecified - Discharge Dispostion Condition at time of disposition: Guarded Decision to Admit order: Yes Decision to Admit order Date/Time: Decision to Admit Order Category Date Time Status Decision to Admit to Hospital Routine Admission 12/07/18 13:01 Active - Referrals Referrals: Yossi Jones MD [Primary Care Provider] - - Patient Instructions - Post Discharge Activity
[2018-12-07] MEDS ORDERED: FUROSEMIDE 40 MG/4 ML INJECTABLE VIAL ONE (13:28)
--- NOTE | 2018-12-07 14:15 | EKG ---
Test Reason : Blood Pressure : / mmHG Vent. Rate : 061 BPM Atrial Rate : 046 BPM P-R Int : 000 ms QRS Dur : 100 ms QT Int : 426 ms P-R-T Axes : 000 -40 049 degrees QTc Int : 428 ms ATRIAL FIBRILLATION WITH PREMATURE VENTRICULAR OR ABERRANTLY CONDUCTED COMPLEXES LEFT AXIS DEVIATION CANNOT RULE OUT ANTERIOR INFARCT , AGE UNDETERMINED ABNORMAL ECG WHEN COMPARED WITH ECG OF 27-JUN-2018 13:06, NO SIGNIFICANT CHANGE WAS FOUND Confirmed by BAILEY GRAHAM MD ([id number]) on 12/07/2018 2:15:28 PM Referred By: Confirmed By:BAILEY GRAHAM MD
--- NOTE | 2018-12-07 14:57 | PN ---
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 He has been taking his lasix daily as prescribed and avoiding excess salt intake. No cp palps dizzy loc pnd orthopnea, rest sob. Got iv lasix in er, feeling better already. Sees dr sinclair for cardio. pmh: per hpi psh: non contributory social: no tob/etoh/drug abuse fam hx: non contributory ros: per hpi; all others normal meds: Home Medications Medication Instructions Recorded Sitagliptin Phosphate [Januvia] 100 mg PO DAILY 10/04/13 Furosemide [Lasix -] 40 mg PO DAILY #1 tablet 03/21/14 Simvastatin [Zocor -] 20 mg PO HS 04/11/14 Apixaban [Eliquis] 5 mg PO BID 09/23/17 Albuterol 2.5/Ipratropium 0.5 1 neb IH QID PRN #1 vial.neb. 06/28/18 [Duoneb -] Albuterol Sulfate [Proair Hfa] 8.5 gm IH Q4H PRN 06/28/18 Diltiazem HCl [Cartia Xt] 300 mg PO DAILY 06/28/18 Glimepiride [Amaryl -] 4 mg PO DAILY@0700 06/28/18 Nebulizer and Compressor [Easy Neb 1 each MC ASDIR #1 each 06/28/18 Compressor Nebulizer] Prednisone See Taper PO ASDIR #30 tablet 06/28/18 Terazosin HCl 2 mg PO HS 06/28/18 pe: Vital Signs Period Temp Pulse Resp BP Sys/Henriquez Pulse Ox Last 24 Hr 97.7 F 57-69 16 159/65 96-97 nad, no jvd irreg, s1s2, no mrg cta bl nl eff trace le edema b/l aa0x3 abd nt nd pos bs pos dp/pt no diaphoresis, no jaundice Laboratory Last Values WBC 6.7 K/mm3 (4.0-10.0) 12/07/18 11:30 RBC 5.04 M/mm3 (4.00-5.60) 12/07/18 11:30 Hgb 14.6 GM/dL (11.7-16.9) 12/07/18 11:30 Hct 43.6 % (35.4-49) 12/07/18 11:30 MCV 86.5 fl (80-96) 12/07/18 11:30 MCH 28.9 pg (25.7-33.7) 12/07/18 11:30 MCHC 33.4 g/dl (32.0-35.9) 12/07/18 11:30 RDW 14.9 % (11.9-15.9) 12/07/18 11:30 Plt Count 175 K/MM3 (134-434) D 12/07/18 11:30 MPV 9.9 fl (7.5-11.1) 12/07/18 11:30 Absolute Neuts (auto) 4.2 K/mm3 (1.5-8.0) 12/07/18 11:30 Neutrophils % 62.6 % (42.8-82.8) 12/07/18 11:30 Lymphocytes % 23.8 % (8-40) 12/07/18 11:30 Monocytes % 9.8 % (3.8-10.2) 12/07/18 11:30 Eosinophils % 3.2 % (0-4.5) 12/07/18 11:30 Basophils % 0.6 % (0-2.0) 12/07/18 11:30 Nucleated RBC % 0 % (0-0) 12/07/18 11:30 PT with INR 12.00 SEC (9.7-13.0) 12/07/18 11:30 INR 1.02 (0.83-1.09) 12/07/18 11:30 VBG pH 7.38 (7.31-7.41) 12/07/18 11:57 POC VBG pCO2 52.3 mmHg (38-52) H 12/07/18 11:57 POC VBG pO2 < 49 mmHg (28-48) H 12/07/18 11:57 VBG HCO3 30.4 mmol/L (23-29) H 12/07/18 11:57 VBG O2 Sat (Iris) 67.8 % (70-80) L 12/07/18 11:57 VBG Base Excess 4.1 meq/l (-2-2) H 12/07/18 11:57 Sodium 136 mmol/L (136-145) 12/07/18 11:30 Potassium 4.1 mmol/L (3.5-5.1) 12/07/18 11:30 Chloride 102 mmol/L (98-107) 12/07/18 11:30 Carbon Dioxide 31 mmol/L (21-32) 12/07/18 11:30 Anion Gap 4 MMOL/L (8-16) L 12/07/18 11:30 BUN 15.2 mg/dL (7-18) 12/07/18 11:30 Creatinine 0.8 mg/dL (0.55-1.3) 12/07/18 11:30 Est GFR (CKD-EPI)AfAm 97.78 12/07/18 11:30 Est GFR (CKD-EPI)NonAf 84.37 12/07/18 11:30 Random Glucose 173 mg/dL (74-106) H 12/07/18 11:30 Lactic Acid 1.3 mmol/L (0.4-2.0) 12/07/18 11:57 Calcium 9.4 mg/dL (8.5-10.1) 12/07/18 11:30 Total Bilirubin 1.2 mg/dL (0.2-1) H 12/07/18 11:30 AST 25 U/L (15-37) 12/07/18 11:30 ALT 34 U/L (13-61) 12/07/18 11:30 Alkaline Phosphatase 87 U/L (45-117) 12/07/18 11:30 Troponin I < 0.02 ng/ml (0.00-0.05) 12/07/18 11:30 B-Natriuretic Peptide 734.3 pg/ml (5-450) H 12/07/18 11:30 Total Protein 6.7 g/dl (6.4-8.2) 12/07/18 11:30 Albumin 3.9 g/dl (3.4-5.0) 12/07/18 11:30 TSH 2.31 uIU/ml (0.358-3.74) 12/07/18 11:30 cxr: mild congestion echo 02/2012: nl lv s/f, nl rv size, mild tr, mild ar, rvsp 31 echo 03/2017: nl lv/rv, mariana, mild ar, mild-mod tr, mild phtn, mild ao root dil echo 06/2018: nl lv/rv, mild tr, mild ar, nl rvsp ecg: afib, rate controlled, nl qtc, no ischemic changes a/p: 78 m hx afib, htn, hld, dm, dchf, 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 acute diastolic chf: -minimal vol overload/symptoms, -after getting iv lasix in er pt already feeling better. -will give another dose 40 iv lasix in AM and monitor vol status, likely can change to po lasix soon (was on 40 qd at home) -recent echo unremarkable -no signs acs, trend ce's on tele htn: -cont home dilt hld: -Continue home statin. afib: -Rate controlled. 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
--- NOTE | 2018-12-07 16:18 | HP ---
CHIEF COMPLAINT: shortness of breath PCP: Dr Welch PCP Dr. Mcgraw, Cardiology HISTORY OF PRESENT ILLNESS: Patient is a 78 year old male who presents to the ED with shortness of breath and orthpnea x 1 week, worsening in the last two days. 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 He reports that when he feels volume overloaded, he takes Lasix 40mg twice per day. He is not home oxygen dependent and has been having shortness of breath with physical activity. He denies chest pain. 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 06/28/18 [Duoneb -] Albuterol Sulfate [Proair Hfa] 8.5 gm IH Q4H PRN 06/28/18 Diltiazem HCl [Cartia Xt] 300 mg PO DAILY 06/28/18 Glimepiride [Amaryl -] 4 mg PO DAILY@0700 06/28/18 Nebulizer and Compressor [Easy Neb 1 each MC ASDIR #1 each 06/28/18 Compressor Nebulizer] Prednisone See Taper PO ASDIR #30 tablet 06/28/18 Terazosin HCl 2 mg PO HS 06/28/18 PHYSICAL EXAMINATION Vital Signs - 24 hr 12/07/18 10:37 Temperature 97.7 F Pulse Rate 57 L Respiratory 16 Rate Blood Pressure 159/65 O2 Sat by Pulse 97 Oximetry (%) GENERAL: Awake, alert, and fully oriented, in no acute distress. HEAD: Normal with no signs of trauma. EYES: Pupils equal, round and reactive to light, extraocular movements intact, sclera anicteric, conjunctiva clear. No lid lag. EARS, NOSE, THROAT: Ears normal, nares patent, oropharynx clear without exudates. Moist mucous membranes. NECK: Normal range of motion, supple without lymphadenopathy, JVD, or masses. LUNGS: Breath sounds equal, diminished bilaterally HEART: Regular rate and rhythm ABDOMEN: Soft, nontender, not distended, normoactive bowel sounds, no guarding, no rebound, no masses. No hepatomegaly or splenomegaly. MUSCULOSKELETAL: No bony deformities or tenderness. No CVA tenderness. UPPER EXTREMITIES: 2+ pulses, warm, well-perfused. No cyanosis. No clubbing. No peripheral edema. LOWER EXTREMITIES: +1-+2 lower ext edema bilaterally NEUROLOGICAL: Normal speech. Normal gait. PSYCHIATRIC: Cooperative. Good eye contact. Appropriate mood and affect. SKIN: Warm, dry, normal turgor, no rashes or lesions noted, normal capillary refill. Laboratory Results - last 24 hr 12/07/18 12/07/18 12/07/18 11:30 11:30 11:30 WBC 6.7 RBC 5.04 Hgb 14.6 Hct 43.6 MCV 86.5 MCH 28.9 MCHC 33.4 RDW 14.9 Plt Count 175 D MPV 9.9 Absolute Neuts (auto) 4.2 Neutrophils % 62.6 Lymphocytes % 23.8 Monocytes % 9.8 Eosinophils % 3.2 Basophils % 0.6 Nucleated RBC % 0 PT with INR INR VBG pH POC VBG pCO2 POC VBG pO2 VBG HCO3 VBG O2 Sat (Iris) VBG Base Excess Sodium 136 Potassium 4.1 Chloride 102 Carbon Dioxide 31 Anion Gap 4 L BUN 15.2 Creatinine 0.8 Est GFR (CKD-EPI)AfAm 97.78 Est GFR (CKD-EPI)NonAf 84.37 Random Glucose 173 H Lactic Acid Calcium 9.4 Total Bilirubin 1.2 H AST 25 ALT 34 Alkaline Phosphatase 87 Troponin I B-Natriuretic Peptide 734.3 H Total Protein 6.7 Albumin 3.9 TSH 2.31 12/07/18 12/07/18 12/07/18 11:30 11:30 11:30 WBC RBC Hgb Hct MCV MCH MCHC RDW Plt Count MPV Absolute Neuts (auto) Neutrophils % Lymphocytes % Monocytes % Eosinophils % Basophils % Nucleated RBC % PT with INR 12.00 INR 1.02 VBG pH POC VBG pCO2 POC VBG pO2 VBG HCO3 VBG O2 Sat (Iris) VBG Base Excess Sodium Potassium Chloride Carbon Dioxide Anion Gap BUN Creatinine Est GFR (CKD-EPI)AfAm Est GFR (CKD-EPI)NonAf Random Glucose Lactic Acid Calcium Total Bilirubin AST ALT Alkaline Phosphatase Troponin I < 0.02 B-Natriuretic Peptide Total Protein Albumin TSH Cancelled 12/07/18 12/07/18 11:57 11:57 WBC RBC Hgb Hct MCV MCH MCHC RDW Plt Count MPV Absolute Neuts (auto) Neutrophils % Lymphocytes % Monocytes % Eosinophils % Basophils % Nucleated RBC % PT with INR INR VBG pH 7.38 POC VBG pCO2 52.3 H POC VBG pO2 < 49 H VBG HCO3 30.4 H VBG O2 Sat (Iris) 67.8 L VBG Base Excess 4.1 H Sodium Potassium Chloride Carbon Dioxide Anion Gap BUN Creatinine Est GFR (CKD-EPI)AfAm Est GFR (CKD-EPI)NonAf Random Glucose Lactic Acid 1.3 Calcium Total Bilirubin AST ALT Alkaline Phosphatase Troponin I B-Natriuretic Peptide Total Protein Albumin TSH ASSESSMENT/PLAN: Patient is a 78 year old male who presents to the ED with shortness of breath and orthpnea x 1 week, worsening in the last two days. 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 He reports that when he feels volume overloaded, he takes Lasix 40mg twice per day. He is not home oxygen dependent and has been having shortness of breath with physical activity. He denies chest pain. Problem List - Problem (1) Acute diastolic (congestive) heart failure Assessment/Plan: diuresed with lasix 40mg IV in the ED with 3 liters of urinary output. Lower extremity Edema improved. Patient is on 40mg of lasix at home and reports compliance with medication. He will be getting another dose of lasix 40mg in am. and monitor volume status. had a recent echo which was unremarkable. No signs of acs, no chest pain. will trend troponins Code(s): I50.31 - ACUTE DIASTOLIC (CONGESTIVE) HEART FAILURE (2) CHF (congestive heart failure) Code(s): I50.9 - HEART FAILURE, UNSPECIFIED Qualifiers: Heart failure type: unspecified Heart failure chronicity: acute on chronic Qualified Code(s): I50.9 - Heart failure, unspecified (3) Atrial fibrillation Assessment/Plan: rate controlled. continue home diltiazem and eliquis. Eliquis was stopped 2/2 to ITP, but platelets now stable. resume eliquis per cardiology recommendations with outpatient follow up. Code(s): I48.91 - UNSPECIFIED ATRIAL FIBRILLATION Qualifiers: Atrial fibrillation type: chronic Qualified Code(s): I48.2 - Chronic atrial fibrillation (4) Diabetes Assessment/Plan: start on SS with novolog coverage. Hold PO during hospital stay. 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 Diabetes mellitus complication status: without complication Qualified Code(s): E11.9 - Type 2 diabetes mellitus without complications (5) HTN (hypertension) Assessment/Plan: stable, on cardizem Code(s): I10 - ESSENTIAL (PRIMARY) HYPERTENSION Qualifiers: Hypertension type: essential hypertension Qualified Code(s): I10 - Essential (primary) hypertension (6) Thrombocytopenia Assessment/Plan: monitor platelets Code(s): D69.6 - THROMBOCYTOPENIA, UNSPECIFIED Visit type - Emergency Visit Emergency Visit: Yes ED Registration Date: 12/07/18 Care time: The patient presented to the Emergency Department on the above date and was hospitalized for further evaluation of their emergent condition. - New Patient This patient is new to me today: Yes Date on this admission: 12/08/18 - Critical Care Critical Care patient: No
[2018-12-07] MEDS: INSULIN SLIDING SCALE (NOVOLOG) 1 VIAL SQ SCH ×2 (16:57→21:42)
[2018-12-07 21:20] VITALS: BMI 31.1
[2018-12-07] MEDS: APIXABAN 5 MG TABLET PO SCH (21:40)
[2018-12-07] MEDS ORDERED: TERAZOSIN HCL 1 MG CAPSULE PO SCH (22:00)
[2018-12-07] MEDS ORDERED: ATORVASTATIN CA 10 MG TABLET (FP) PO SCH (22:00)
[2018-12-07] MEDS ORDERED: TERAZOSIN HCL 2 MG CAPSULE PO SCH (22:00)
[2018-12-08] MEDS: INSULIN SLIDING SCALE (NOVOLOG) 1 VIAL SQ SCH ×2 (06:01→12:23)
[2018-12-08] MEDS ORDERED: PT OWN MED DRAWER 7, Y5N ONE ×3 (06:04→10:57)
[2018-12-08] MEDS ORDERED: GLIMEPIRIDE 4 MG TABLET (FP) PO SCH (07:00)
[2018-12-08] MEDS ORDERED: PANTOPRAZOLE 40 MG TABLET (FP) PO SCH (10:00)
[2018-12-08] MEDS ORDERED: FUROSEMIDE 40 MG/4 ML INJECTABLE VIAL IVPUSH SCH (10:00)
[2018-12-08] MEDS: APIXABAN 5 MG TABLET PO SCH (10:06)
[2018-12-08 10:21] LABS: BASO % 0.5 % (0-2.0); EOS % 3.2 % (0-4.5); HEMATOCRIT 39.3 % (35.4-49); HEMOGLOBIN 13.3 GM/dL (11.7-16.9); LYMPH % 22.5 % (8-40); MCH 29.1 pg (25.7-33.7); MCHC 33.8 g/dl (32.0-35.9); MEAN CELL VOLUME 86.2 fl (80-96); MEAN PLT VOLUME 9.9 fl (7.5-11.1); MONO % 10.4 % (3.8-10.2); NEUT % 63.4 % (42.8-82.8); PLATELET COUNT 159 K/MM3 (134-434); RBC 4.56 M/mm3 (4.00-5.60); RDW 14.6 % (11.9-15.9); WHITE BLOOD COUNT 5.8 K/mm3 (4.0-10.0)
[2018-12-08 10:48] LABS: ALBUMIN 3.3 g/dl (3.4-5.0); BILIRUBIN,TOTAL 1.2 mg/dL (0.2-1); BLOOD UREA NITROGEN 17.5 mg/dL (7-18); CALCIUM 9.2 mg/dL (8.5-10.1); CREATININE 0.9 mg/dL (0.55-1.3); POTASSIUM 3.7 mmol/L (3.5-5.1); TOT PROT 5.6 g/dl (6.4-8.2)
--- NOTE | 2018-12-08 12:31 | PN ---
Progress Note (short form) - Note Progress Note: s: feels at baseline, wants to go home. no chest pain, palps, dyspnea Current Medications Apixaban (Eliquis -) 5 mg PO BID [facility] Last Admin: 12/08/18 10:06 Dose: 5 mg Atorvastatin Calcium (Lipitor -) 10 mg PO HS [facility] Last Admin: 12/07/18 21:40 Dose: 10 mg Diltiazem HCl (Cardizem Cd -) 300 mg PO DAILY [facility] Last Admin: 12/08/18 10:59 Dose: 300 mg Furosemide (Lasix Injection -) 40 mg IVPUSH DAILY [facility] Last Admin: 12/08/18 10:08 Dose: 40 mg Glimepiride (Amaryl -) 4 mg PO DAILY@0700 [facility] Last Admin: 12/08/18 06:00 Dose: 4 mg Insulin Aspart (Novolog Vial Sliding Scale -) 1 vial SQ ACHS [facility]; Protocol Last Admin: 12/08/18 12:23 Dose: 2 units Pantoprazole Sodium (Protonix -) 40 mg PO DAILY [facility] Last Admin: 12/08/18 10:06 Dose: 40 mg Sitagliptin Phosphate (Januvia -) 100 mg PO AM [facility] Last Admin: 12/08/18 06:00 Dose: 100 mg Terazosin HCl (Hytrin -) 2 mg PO HS [facility] Last Admin: 12/08/18 00:33 Dose: 2 mg Vital Signs Period Temp Pulse Resp BP Sys/Henriquez Pulse Ox Last 24 Hr 97.8 F-98.6 F 47-80 18-18 148-173/57-75 97-97 nad, no jvd irreg, s1s2, no mrg cta bl nl eff trace le edema b/l aa0x3 abd nt nd pos bs pos dp/pt no diaphoresis, no jaundice cxr: mild congestion echo 02/2012: nl lv s/f, nl rv size, mild tr, mild ar, rvsp 31 echo 03/2017: nl lv/rv, mariana, mild ar, mild-mod tr, mild phtn, mild ao root dil echo 06/2018: nl lv/rv, mild tr, mild ar, nl rvsp ecg: afib, rate controlled, nl qtc, no ischemic changes tele: afib, rate ok,, PVCs. 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 acute diastolic chf: -minimal vol overload/symptoms, -feels at baseline after two doses of IV lasix, currently with mild edema which is stable - check ambulatory sat, if stable ok for DC, restart lasix PO 40 mg daily tomorrow -recent echo unremarkable -no signs acs, trend ce's on tele htn: -cont home dilt hld: -Continue home statin. afib: -Rate controlled. Continue home dilt, eliquis (has ITP but plts have been above 50k so has been kept on ac as outpt) - bradycardia at night may be 2/2 sleep apnea - consider outpatient sleep study
[2018-12-08 14:10] VITALS: BP 143/61; PULSE 80; TEMP 98.1
--- NOTE | 2018-12-08 15:38 | DS ---
Physical Exam: SUBJECTIVE: Patient seen and examined at the bedside. wants to go home. feels better. OBJECTIVE: Patient is a 78 year old male who presents to the ED with shortness of breath and orthpnea x 1 week, worsening in the last two days. 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 He reports that when he feels volume overloaded, he takes Lasix 40mg twice per day. He is not home oxygen dependent and has been having shortness of breath with physical activity on admission, now resolved. He denies chest pain. Patient treated with Lasix 40mg IV and will be transitioned back to his home lasix 40mg with cardiology follow as an outpatient. He is stable, and ambulating around the pods without dyspnea. Vital Signs Period Temp Pulse Resp BP Sys/Henriquez Pulse Ox Last 24 Hr 97.8 F-98.6 F 47-80 18-20 143-173/57-75 97-97 PHYSICAL EXAM GENERAL: The patient is awake, alert, and fully oriented, in no acute distress. HEAD: Normal with no signs of trauma. EYES: PERRL, extraocular movements intact, sclera anicteric, conjunctiva clear. ENT: Ears normal, nares patent, oropharynx clear without exudates, moist mucous membranes. NECK: Trachea midline, full range of motion, supple. LUNGS: Breath sounds equal, clear to auscultation bilaterally, no wheezes, no crackles, no accessory muscle use. HEART: Regular rate and rhythm, S1, S2 without murmur, rub or gallop. ABDOMEN: Soft, nontender, nondistended, normoactive bowel sounds, no guarding, no rebound, no hepatosplenomegaly, no masses. EXTREMITIES: 2+ pulses, warm, well-perfused, no edema. NEUROLOGICAL: Cranial nerves II through XII grossly intact. Normal speech, gait not observed. PSYCH: Normal mood, normal affect. SKIN: Warm, dry, normal turgor, no rashes or lesions noted. LABS Laboratory Results - last 24 hr 12/07/18 12/07/18 12/08/18 16:49 21:38 00:46 WBC RBC Hgb Hct MCV MCH MCHC RDW Plt Count MPV Absolute Neuts (auto) Neutrophils % Lymphocytes % Monocytes % Eosinophils % Basophils % Nucleated RBC % Sodium Potassium Chloride Carbon Dioxide Anion Gap BUN Creatinine Est GFR (CKD-EPI)AfAm Est GFR (CKD-EPI)NonAf POC Glucometer 245 132 Random Glucose Hemoglobin A1c % Calcium Magnesium Total Bilirubin AST ALT Alkaline Phosphatase Troponin I < 0.02 Total Protein Albumin Triglycerides Cholesterol Total LDL Cholesterol HDL Cholesterol 12/08/18 12/08/18 12/08/18 05:46 09:45 09:45 WBC 5.8 RBC 4.56 Hgb 13.3 Hct 39.3 MCV 86.2 MCH 29.1 MCHC 33.8 RDW 14.6 Plt Count 159 MPV 9.9 Absolute Neuts (auto) 3.7 Neutrophils % 63.4 Lymphocytes % 22.5 Monocytes % 10.4 H Eosinophils % 3.2 Basophils % 0.5 Nucleated RBC % 0 Sodium 142 Potassium 3.7 Chloride 103 Carbon Dioxide 32 Anion Gap 7 L BUN 17.5 Creatinine 0.9 Est GFR (CKD-EPI)AfAm 93.16 Est GFR (CKD-EPI)NonAf 80.38 POC Glucometer 135 Random Glucose 197 H Hemoglobin A1c % Calcium 9.2 Magnesium 2.0 Total Bilirubin 1.2 H AST 20 ALT 29 Alkaline Phosphatase 81 Troponin I Total Protein 5.6 L Albumin 3.3 L Triglycerides 99 Cholesterol 132 Total LDL Cholesterol 77 HDL Cholesterol 40 12/08/18 12/08/18 09:45 11:51 WBC RBC Hgb Hct MCV MCH MCHC RDW Plt Count MPV Absolute Neuts (auto) Neutrophils % Lymphocytes % Monocytes % Eosinophils % Basophils % Nucleated RBC % Sodium Potassium Chloride Carbon Dioxide Anion Gap BUN Creatinine Est GFR (CKD-EPI)AfAm Est GFR (CKD-EPI)NonAf POC Glucometer 176 Random Glucose Hemoglobin A1c % 7.5 H Calcium Magnesium Total Bilirubin AST ALT Alkaline Phosphatase Troponin I Total Protein Albumin Triglycerides Cholesterol Total LDL Cholesterol HDL Cholesterol HOSPITAL COURSE: Date of Admission:12/07/18 Date of Discharge: 12/08/18 Minutes to complete discharge: 45 Discharge Summary Reason For Visit: ACUTE CHF Current Active Problems CHF (congestive heart failure) (Acute) Condition: Guarded - Instructions Diet, Activity, Other Instructions: Mr. Abarca: Continue the medications as outlined on your discharge instructions. Continue the Lasix 40mg once per day starting tomorrow 12/09/[address] follow up with Dr. Mcgraw. We have restarted your Eliquis. Thank you for allowing us to care for you. Referrals: Wilfredo Mcgraw MD [Staff Physician] - Disposition: HOME - Home Medications Comprehensive Discharge Medication List: Ambulatory Orders Sitagliptin Phosphate [Januvia] 100 mg PO DAILY 10/04/13 Furosemide [Lasix -] 40 mg PO DAILY #1 tablet 03/21/14 Simvastatin [Zocor -] 20 mg PO HS 04/11/14 Apixaban [Eliquis] 5 mg PO BID 09/23/17 Albuterol 2.5/Ipratropium 0.5 [Duoneb -] 1 neb IH QID PRN #1 vial.neb. 06/28/18 Albuterol Sulfate [Proair Hfa] 8.5 gm IH Q4H PRN 06/28/18 Diltiazem HCl [Cartia Xt] 300 mg PO DAILY 06/28/18 Glimepiride [Amaryl -] 4 mg PO DAILY@0700 06/28/18 Nebulizer and Compressor [Easy Neb Compressor Nebulizer] 1 each ASDIR #1 each 06/28/18 Terazosin HCl 2 mg PO HS 06/28/18 Problem List - Problems (1) Acute diastolic (congestive) heart failure Assessment/Plan: diuresed with lasix 40mg IV during hospital stay. Lower extremity Edema improved and dyspnea resolved. Patient is on 40mg of lasix at home and reports compliance with medication. had a recent echo which was unremarkable. No signs of acs, no chest pain. troponins negative will be sent home without outpatient cardiology follow up. Code(s): I50.31 - ACUTE DIASTOLIC (CONGESTIVE) HEART FAILURE (2) Atrial fibrillation Assessment/Plan: rate controlled. continue home diltiazem and eliquis. Eliquis was stopped 2/2 to ITP, but platelets now stable. resume eliquis per cardiology recommendations with outpatient follow up. Code(s): I48.91 - UNSPECIFIED ATRIAL FIBRILLATION Qualifiers: Atrial fibrillation type: chronic Qualified Code(s): I48.2 - Chronic atrial fibrillation (3) Diabetes Assessment/Plan: restart home medications. Code(s): E11.9 - TYPE 2 DIABETES MELLITUS WITHOUT COMPLICATIONS Qualifiers: Diabetes mellitus type: type 2 Diabetes mellitus long term care social worker insulin use: without halfway use Diabetes mellitus complication status: without complication Qualified Code(s): E11.9 - Type 2 diabetes mellitus without complications (4) HTN (hypertension) Assessment/Plan: stable, on cardizem Code(s): I10 - ESSENTIAL (PRIMARY) HYPERTENSION Qualifiers: Hypertension type: essential hypertension Qualified Code(s): I10 - Essential (primary) hypertension (5) Hyperlipidemia Assessment/Plan: continue home statin therapy Code(s): E78.5 - HYPERLIPIDEMIA, UNSPECIFIED Qualifiers: Hyperlipidemia type: pure hypercholesterolemia Qualified Code(s): E78.00 - Pure hypercholesterolemia, unspecified; E78.0 - Pure hypercholesterolemia This patient is new to me today: No Emergency Visit: Yes ED Registration Date: 12/07/18 Care time: The patient presented to the Emergency Department on the above date and was hospitalized for further evaluation of their emergent condition. Critical Care patient: No - Discharge Referral Referred to [facility] No
--- NOTE | 2018-12-11 15:41 | EKG ---
Test Reason : Blood Pressure : / mmHG Vent. Rate : 045 BPM Atrial Rate : 063 BPM P-R Int : 000 ms QRS Dur : 114 ms QT Int : 482 ms P-R-T Axes : 000 -45 045 degrees QTc Int : 416 ms Atrial fibrillation with slow ventricular rates. INCOMPLETE RIGHT BUNDLE BRANCH BLOCK LEFT ANTERIOR FASCICULAR BLOCK SEPTAL INFARCT (CITED ON OR BEFORE 07-DEC-2018) PREMATURE VENTRICULAR COMPLEXES ABNORMAL ECG Confirmed by MD BLANQUITA, ANGELA ([id number]) on 12/11/2018 3:40:54 PM Referred By: Confirmed By:ANGELA JUARES MD
== END 2018-12-08 16:25 | disposition home or self-care (01) | DRG 292 ==
LOC: JER 10:32 → JERBED 13:01 → J4W 20:07
PROVIDERS: ADMIT Internal Medicine; ATTEND Nurse Practitioner Family
DX: I11.0 Hypertensive heart disease with heart failure (principal); D69.3 Immune thrombocytopenic purpura; I50.33 Acute on chronic diastolic (congestive) heart failure; E11.40 Type 2 diabetes mellitus with diabetic neuropathy, unspecified; J44.9 Chronic obstructive pulmonary disease, unspecified; Z79.84 Long term (current) use of oral hypoglycemic drugs; E78.5 Hyperlipidemia, unspecified; I48.2 Chronic atrial fibrillation; D86.9 Sarcoidosis, unspecified
CPT/HCPCS: 36415; 71045-TC-FY; 80053; 80061; 82803; 82962; 83036; 83605; 83721; 83735; 83880; 84443; 84484; 85025; 85610; 93005; 93010; 99285-25

== ENCOUNTER 2019-02-01 14:48 | Inpatient (IN) | payer OTHER ==
--- NOTE | 2019-02-01 15:06 | PDOC ---
Rapid Medical Evaluation Time Seen by Provider: 02/01/19 15:00 Medical Evaluation: Allergies Allergy/AdvReac Type Severity Reaction Status Date / Time No Known Allergies Allergy Verified 02/01/19 15:00 02/01/19 15:00 78 year old history of CHF c/o SOB, dizziness x 3 days. patient sent by PCP Dr. martinez for evaluation PE: alert ox3, + wheezing bilaterally A: Viral illness P; labs ekg chest xray patient to the ER for further management of care. Discharge Disposition - Diagnosis Shortness of breath at rest - Referrals - Patient Instructions - Post Discharge Activity
[2019-02-01 15:55] LABS: BASO % 0.8 % (0-2.0); EOS % 0.3 % (0-4.5); HEMATOCRIT 39.4 % (35.4-49); HEMOGLOBIN 13.1 GM/dL (11.7-16.9); LYMPH % 10.4 % (8-40); MCH 29.3 pg (25.7-33.7); MCHC 33.2 g/dl (32.0-35.9); MEAN CELL VOLUME 88.2 fl (80-96); MEAN PLT VOLUME 11.3 fl (7.5-11.1); MONO % 11.5 % (3.8-10.2); PLATELET COUNT 91 K/MM3 (134-434); RBC 4.47 M/mm3 (4.00-5.60); RDW 14.4 % (11.9-15.9); WHITE BLOOD COUNT 10.7 K/mm3 (4.0-10.0)
[2019-02-01 16:16] LABS: ALBUMIN 3.6 g/dl (3.4-5.0); ALK PHOS 79 U/L (45-117); ANION GAP 6 MMOL/L (8-16); BILIRUBIN,TOTAL 1.9 mg/dL (0.2-1); BLOOD UREA NITROGEN 14.9 mg/dL (7-18); CALCIUM 8.5 mg/dL (8.5-10.1); CHLORIDE 100 mmol/L (98-107); CO2 30 mmol/L (21-32); CREATININE 0.9 mg/dL (0.55-1.3); GLUCOSE,RANDOM 173 mg/dL (74-106); MAGNESIUM 1.9 mg/dL (1.8-2.4); POTASSIUM 3.9 mmol/L (3.5-5.1); SGOT/AST 17 U/L (15-37); SGPT/ALT 22 U/L (13-61); SODIUM 137 mmol/L (136-145); TOT PROT 6.2 g/dl (6.4-8.2)
[2019-02-01] MEDS ORDERED: ALBUTEROL SO4 2.5/IPRATROPIUM 0.5 INH SOL 3 ML VIAL.NEB. NEB ONE ×2 (16:20→16:35)
[2019-02-01] MEDS ORDERED: methylPREDNISolone NA SUCC 125 MG/2 ML VIAL IVPB ONE (16:20)
--- NOTE | 2019-02-01 16:32 | PDOC ---
History of Present Illness - General Chief Complaint: Respiratory Stated Complaint: SENT BY PCP/HEADACHE VOMITING Time Seen by Provider: 02/01/19 15:00 History Source: Patient Exam Limitations: No Limitations - History of Present Illness Initial Comments: 02/03/19 23:37 HPI: 78M PMH CHF COPD HTN HLD AFIB presenting with 2 days of wheezing, scant cough, chills, and n/v. Was hospitalized in November for CHF exacerbation; rcvd abx during that stay. Cough worse w/ laying flat. Denies cp/palpitations, diarrhea, dysuria/frequency. Past History - Past Medical History Allergies/Adverse Reactions: Allergies Allergy/AdvReac Type Severity Reaction Status Date / Time No Known Allergies Allergy Verified 02/01/19 15:00 Home Medications: Ambulatory Orders Sitagliptin Phosphate [Januvia] 100 mg PO DAILY 10/04/13 Furosemide [Lasix -] 40 mg PO DAILY #1 tablet 03/21/14 Simvastatin [Zocor -] 20 mg PO HS 04/11/14 Albuterol 2.5/Ipratropium 0.5 [Duoneb -] 1 neb IH QID PRN #1 vial.neb. 06/28/18 Albuterol Sulfate [Proair Hfa] 8.5 gm IH Q4H PRN 06/28/18 Diltiazem HCl [Cartia Xt] 300 mg PO DAILY 06/28/18 Glimepiride [Amaryl -] 4 mg PO DAILY@0700 06/28/18 Nebulizer and Compressor [Easy Neb Compressor Nebulizer] 1 each ASDIR #1 each 06/28/18 Terazosin HCl 2 mg PO HS 06/28/18 Cardiac Disorders: Yes (ATRIAL FIBRILLATION) COPD: Yes (sarcoidosis) CHF: Yes Diabetes: Yes GI Disorders: Yes (INTERNAL HEMORRHOIDS) HTN: Yes Hypercholesterolemia: Yes - Immunization History Immunization Up to Date: Yes - Psycho Social/Smoking Cessation Hx Smoking Status: No Smoking History: Never smoked Have you smoked in the past 12 months: No Number of Cigarettes Smoked Daily: 0 'Breaking Loose' booklet given: 09/25/17 Hx Alcohol Use: No Drug/Substance Use Hx: No Substance Use Type: None Hx Substance Use Treatment: No Review of Systems - Review of Systems Able to Perform ROS?: Yes Comments:: 02/03/19 23:37 ROS: CONSTITUTIONAL: Denies F / C HEENT: Endorses dry mouth. Denies lightheadedness, dizziness, changes in vision / hearing, diplopia, blurry vision. RESP: Denies SOB, cough, orthopnea, BARRAZA CARD: Denies chest pain, palpitations GI: Endorses N/V, inability to tolerate PO. Denies D, abdominal pain, bloody stool : Denies dysuria, frequency SKIN: Denies rashes NEURO: Denies numbness, tingling, weakness Is the patient limited Telugu proficient: Yes *Physical Exam - Vital Signs Last Vital Signs Temp Pulse Resp BP Pulse Ox 99.2 F 52 L 20 157/50 L 95 02/01/19 15:00 02/01/19 15:00 02/01/19 15:00 02/01/19 15:00 02/01/19 15:00 - Physical Exam Comments: 02/03/19 23:38 PE: GEN: audible wheezing but not in distress. AAOx3 HEENT: NC/AT, EOMI, PERRLA. No facial asymmetry. Moist mucous membranes. Normal voice. Supple neck w/ FROM. CV: S1/S2, RRR, no m/r/g LUNG: Diffuse expiratory wheezing b/l GI: soft, ndnt, +BS, no guarding, no rebound. No masses. EXTREMITIES: 2+ pitting edema b/l LE, baseline. No obvious deformities of all extremities. SKIN: warm, dry, normal turgor PSYCH: normal mood and affect NEURO: Moving all extremities well. ED Treatment Course - LABORATORY CBC & Chemistry Diagram: 02/03/19 05:30 02/03/19 05:30 - ADDITIONAL ORDERS Additional order review: Laboratory Results 02/01/19 15:17 Sodium 137 Potassium 3.9 Chloride 100 Carbon Dioxide 30 Anion Gap 6 L BUN 14.9 Creatinine 0.9 Est GFR (CKD-EPI)AfAm 93.16 Est GFR (CKD-EPI)NonAf 80.38 Random Glucose 173 H Calcium 8.5 Magnesium 1.9 Total Bilirubin 1.9 H AST 17 ALT 22 Alkaline Phosphatase 79 Creatine Kinase 64 Troponin I < 0.02 Total Protein 6.2 L Albumin 3.6 02/01/19 15:17 RBC 4.47 MCV 88.2 MCHC 33.2 RDW 14.4 MPV 11.3 H D Neutrophils % 77.0 D Lymphocytes % 10.4 D Monocytes % 11.5 H Eosinophils % 0.3 D Basophils % 0.8 Medical Decision Making - Medical Decision Making 02/01/19 16:31 MDM: 78M w/ wheezing, cough, chills, and n/v. DDx - COPD vs CHF exacerbation; Hospital acquired pneumonia - CBC, CMP, Cardiac, BNP, Coags, BCx - UA - CXR - EKG - nebs and solu-medrol EKG HR 71 QRS 104 QTc 428 AFIB; unchanged from prior EKG labs reviewed - elevated BNP 1500s - flu neg CXR reviewed - empiric coverage of HCAP w/ vanc. and zosyn - lung exam improved s/p 3 nebs and solu-medrol - admit tele 02/01/19 17:59 endorsed to MAY; admitted to tele Dr. Cortés Discharge - Discharge Information Problems reviewed: Yes Clinical Impression/Diagnosis: Shortness of breath at rest - Admission Yes - Follow up/Referral - Patient Discharge Instructions - Post Discharge Activity
[2019-02-01] MEDS ORDERED: methylPREDNISolone NA SUCC 125 MG/2 ML VIAL ONE (16:35)
--- NOTE | 2019-02-01 16:43 | PDOC ---
Documentation entered by Melisa Lemus SCRIBE, acting as scribe for Tyler Syed MD. Tyler Syed MD: This documentation has been prepared by the Allan flowers Xhesika, SCRIBE, under my direction and personally reviewed by me in its entirety. I confirm that the documentation accurately reflects all work, treatment, procedures, and medical decision making performed by me. Attending Attestation - Resident Resident Name: MillerLemuel - ED Attending Attestation I have performed the following: I have examined & evaluated the patient, The case was reviewed & discussed with the resident, I agree w/resident's findings & plan, Exceptions are as noted - HPI HPI: 02/01/19 16:31 The patient is an 78 year old male with a PMH of CHF, Afib (on Apixaban), NIDDM , and diabetic neuropathy who presents to the ED advised by PCP, Dr. Jones for 3 days of SOB, worsening today. Pt reports BLE swelling. The patient denies headache and dizziness. Denies fever, chills, cough, nausea, vomiting, diarrhea and constipation. Denies dysuria, frequency, urgency and hematuria. Allergies:, NKDA Social Hx: Denies current smoking, drinking, or other substance usage. PMD:Dr. Jones - Physicial Exam PE: 02/01/19 16:32 Vitals: Triage Vital signs reviewed General Appearance: no acute distress, well nourished well developed, Neck: Supple;No Nuchal rigidity Chest Wall: Nontender Cardiac: Regular rate and rhythm, no murmurs, no rubs, no gallops, Lungs: (+)wheezing bilaterally. Abdomen: Soft, nondistended, normal bowel sounds, nontender to palpation Extremities: (+)2+ pitting edema. Full range of motion to all extremities, no cyanosis, clubbing. Skin: Warm and dry, no rashes or lesions, no petechiae Neuro: AOX3; Cranial Nerves 2-12 grossly c intact, Strength intact to all extremities, Sensation intact to all extremities, gait normal Psych: normal mood, normal affect - Medical Decision Making 02/02/19 17:34 Hx and exam consistent with chf vrs pna Labs xray cultures and sepsis w/u initiated. Dr. Santana to follow up results and dispo
[2019-02-01] MEDS ORDERED: VANCOMYCIN 1 GM in D5W (PRE-DOCKED) 1,000 MG/250 ML IVPB ONE (17:12)
[2019-02-01] MEDS ORDERED: PIPERACILLIN/TAZOB 3.375 GM 3.375 GM in DEXTROSE 5%-WATER - 50 ML IVPB ONE (17:12)
[2019-02-01 17:17] LABS: VENOUS PC02 40.6 mmHg (38-52); VENOUS PH 7.47 (7.31-7.41); VENOUS PO2 61.6 mmHg (28-48)
[2019-02-01] MEDS ORDERED: PIPERACILLIN/TAZOB 3.375 GM 3.375 GM/50 ML BAG IVPB ONE (17:18)
[2019-02-01] MEDS ORDERED: VANCOMYCIN 1 GRAM (PRE-DOCKED) 1,000 MG/250 ML BAG IVPB ONE (17:18)
--- NOTE | 2019-02-01 18:11 | PN ---
Teaching Attending Note Name of Resident: Zahida Rodriguez ATTENDING PHYSICIAN STATEMENT I saw and evaluated the patient. I reviewed the resident's note and discussed the case with the resident. I agree with the resident's findings and plan as documented with exceptions below. SUBJECTIVE: 78 yom with PMhx of Afib (off eliquis given ITP/thrombocytopenia), Diastolic Dysfunction, ITP, HTN, HLD, NIDDM, ?COPD (occupational), suspected sarcoidosis, herpes zoster ophthalmicus, recent admission with CHF exacerbation in 11/2018 admitted with fevers, chills, URI like illness, cough with whitish sputum, progressive dyspnea orthopnea, worsening leg swelling over the last 2-3 days. Reports compliance with lasix but not with low salt diet. Denies any sick contacts, recent travel or antibiotics. OBJECTIVE: Vital Signs Period Temp Pulse Resp BP Sys/Henriquez Pulse Ox Last 24 Hr 99.2 F 52 20 157/50 95 Intake & Output 01/29/19 01/30/19 01/31/19 02/01/19 23:59 23:59 23:59 23:59 Weight 230 lb GENERAL: Awake, alert, and fully oriented,able to talk in full sentences, mild tachypnea noted HEAD: Normal with no signs of trauma. EYES: Pupils equal, round and reactive to light, extraocular movements intact, sclera anicteric, conjunctiva clear. No lid lag. EARS, NOSE, THROAT: Ears normal, nares patent, oropharynx clear without exudates. Moist mucous membranes. NECK: Limited ROM from old neck injury, JVD visualization difficult given the same LUNGS: bibasilar fine rales, decreased air entry, no wheezing HEART: S1S2 irregularly irregular (telemetry with ventricular bigeminy in the ED ) ABDOMEN: Soft, obese, NT throughout MUSCULOSKELETAL: Normal range of motion at all joints. No bony deformities or tenderness. No CVA tenderness. UPPER EXTREMITIES: 2+ pulses, warm, well-perfused. No cyanosis. No clubbing. No peripheral edema. LOWER EXTREMITIES: 2+ pedal edema, will knees, venous insufficiency, pos pulses NEUROLOGICAL: AAOx3, power 5/5, facial symmetry, tongue midline, Cranial nerves II-XII intact. Normal speech. Gait not observed PSYCHIATRIC: Cooperative. Good eye contact. Appropriate mood and affect. SKIN: Warm, dry, normal turgor, no rashes or lesions noted, normal capillary refill. Home Medications Medication Instructions Recorded Sitagliptin Phosphate [Januvia] 100 mg PO DAILY 10/04/13 Furosemide [Lasix -] 40 mg PO DAILY #1 tablet 03/21/14 Simvastatin [Zocor -] 20 mg PO HS 04/11/14 Apixaban [Eliquis] 5 mg PO BID 09/23/17 Albuterol 2.5/Ipratropium 0.5 1 neb IH QID PRN #1 vial.neb. 06/28/18 [Duoneb -] Albuterol Sulfate [Proair Hfa] 8.5 gm IH Q4H PRN 06/28/18 Diltiazem HCl [Cartia Xt] 300 mg PO DAILY 06/28/18 Glimepiride [Amaryl -] 4 mg PO DAILY@0700 06/28/18 Nebulizer and Compressor [Easy Neb 1 each ASDIR #1 each 06/28/18 Compressor Nebulizer] Terazosin HCl 2 mg PO HS 06/28/18 Laboratory Results - last 24 hr 02/01/19 02/01/19 02/01/19 15:17 15:17 15:21 WBC 10.7 H RBC 4.47 Hgb 13.1 Hct 39.4 MCV 88.2 MCH 29.3 MCHC 33.2 RDW 14.4 Plt Count 91 L D MPV 11.3 H D Absolute Neuts (auto) 8.2 H Neutrophils % 77.0 D Lymphocytes % 10.4 D Monocytes % 11.5 H Eosinophils % 0.3 D Basophils % 0.8 Nucleated RBC % 0 VBG pH POC VBG pCO2 POC VBG pO2 VBG HCO3 VBG O2 Sat (Iris) VBG Base Excess Sodium 137 Potassium 3.9 Chloride 100 Carbon Dioxide 30 Anion Gap 6 L BUN 14.9 Creatinine 0.9 Est GFR (CKD-EPI)AfAm 93.16 Est GFR (CKD-EPI)NonAf 80.38 Random Glucose 173 H Lactic Acid Calcium 8.5 Magnesium 1.9 Total Bilirubin 1.9 H AST 17 ALT 22 Alkaline Phosphatase 79 Creatine Kinase 64 Troponin I < 0.02 B-Natriuretic Peptide Total Protein 6.2 L Albumin 3.6 Influenza A (Rapid) Negative Influenza B (Rapid) Negative 11/15/19 11/15/19 11/15/19 16:50 16:50 16:50 WBC RBC Hgb Hct MCV MCH MCHC RDW Plt Count MPV Absolute Neuts (auto) Neutrophils % Lymphocytes % Monocytes % Eosinophils % Basophils % Nucleated RBC % VBG pH 7.47 H POC VBG pCO2 40.6 POC VBG pO2 61.6 H VBG HCO3 29.2 H VBG O2 Sat (Iris) 91.9 H VBG Base Excess 5.4 H Sodium Potassium Chloride Carbon Dioxide Anion Gap BUN Creatinine Est GFR (CKD-EPI)AfAm Est GFR (CKD-EPI)NonAf Random Glucose Lactic Acid 0.9 Calcium Magnesium Total Bilirubin AST ALT Alkaline Phosphatase Creatine Kinase Troponin I B-Natriuretic Peptide 1553.2 H Total Protein Albumin Influenza A (Rapid) Influenza B (Rapid) CXR with increased intersitial markings EKG Afib, PVCs, incomplete RBBB, LAFB ASSESSMENT AND PLAN: 78 yom with PMhx of Afib (off eliquis given ITP/thrombocytopenia), Diastolic Dysfunction, ITP, HTN, HLD, NIDDM, ?COPD (occupational), suspected sarcoidosis, herpes zoster ophthalmicus, recent admission with CHF exacerbation in 11/2018 admitted with dyspnea -Acute diastolic heart failure excerbation -Recent viral illness, suspected bronchitis+/- Pneumonia -Acute Mild COPD exacerbation, due to above -Atrial fibrillation off eliquis given ITP/thrombocytopenia -ITP -NIDDM -HTN -HLD -Suspected sarcoidosis -Herpes zoster opthalmicus Plan: lasix 40 mg IV daily, strict I/Os, daily weights Low salt diet counseling. Cardiology consulted by ED. telemetry. Off Eliquis. Defer to outpatient hematology/Cardiology Influenza PCR, Sputum cx as able Ceftriaxone/azithromycin. Prednisone 40 mg daily. Standing and prn nebs Continue januvia. Hold glimepiride.ISS Continue cardizem/terazocin/statin DVTPPX SCDs given chronic thrombocytopenia/ITP/bleeding risk Dispo anticipate dc in 48-72 hours if continues to improve Will need home oxygen needs assessment prior to dc Plan discussed with patient and family at bedside in detail, all questions answered Total admit time 65 min.
[2019-02-01] MEDS ORDERED: ALBUTEROL SO4 2.5/IPRATROPIUM 0.5 INH SOL 3 ML VIAL.NEB. NEB PRN (18:42)
[2019-02-01] MEDS ORDERED: FUROSEMIDE 40 MG/4 ML INJECTABLE VIAL IVPUSH SCH (18:45)
--- NOTE | 2019-02-01 18:53 | HP ---
CHIEF COMPLAINT: shortness of breath/cough PCP: Dr. Jones HISTORY OF PRESENT ILLNESS: 78M w/ pmhx of CHF with preserved EF, Afib, ITP, NIDDM, HTN/HLD presented in the ED for 2-3 day hx of shortness of breath. States it started as cold symptoms with productive yellow sputum, sob while laying down and subjective fever/chills. Denies exertional dyspnea, chest pain, abd pain, urinary/bowel symptoms, or sick contacts. Says he did not take anything for his cold symptoms. Last night he started getting progressively short of breath while laying flat. Also admits to worsening b/l leg swelling and was told by his jewel grinder to take twice the dose of Lasix, however admits to not following directions. Denies recent travel or antibiotic use. 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 06/28/18 [Duoneb -] Albuterol Sulfate [Proair Hfa] 8.5 gm IH Q4H PRN 06/28/18 Diltiazem HCl [Cartia Xt] 300 mg PO DAILY 06/28/18 Glimepiride [Amaryl -] 4 mg PO DAILY@0700 06/28/18 Nebulizer and Compressor [Easy Neb 1 each ASDIR #1 each 06/28/18 Compressor Nebulizer] Terazosin HCl 2 mg PO HS 06/28/18 REVIEW OF SYSTEMS CONSTITUTIONAL: fever, chills Absent: diaphoresis, generalized weakness, malaise, loss of appetite, weight change HEENT: Absent: rhinorrhea, nasal congestion, throat pain, throat swelling, difficulty swallowing, mouth swelling, ear pain, eye pain, visual changes CARDIOVASCULAR: Absent: chest pain, syncope, palpitations, irregular heart rate, lightheadedness , peripheral edema RESPIRATORY: Absent: cough, shortness of breath, dyspnea with exertion, orthopnea, wheezing, stridor, hemoptysis GASTROINTESTINAL: Absent: abdominal pain, abdominal distension, nausea, vomiting, diarrhea, constipation, melena, hematochezia GENITOURINARY: Absent: dysuria, frequency, urgency, hesitancy, hematuria, flank pain, genital pain MUSCULOSKELETAL: Absent: myalgia, arthralgia, joint swelling, back pain, neck pain SKIN: Absent: rash, itching, pallor HEMATOLOGIC/IMMUNOLOGIC: Absent: easy bleeding, easy bruising, lymphadenopathy, frequent infections ENDOCRINE: Absent: unexplained weight gain, unexplained weight loss, heat intolerance, cold intolerance NEUROLOGIC: Absent: headache, focal weakness or paresthesias, dizziness, unsteady gait, seizure, mental status changes, bladder or bowel incontinence PSYCHIATRIC: Absent: anxiety, depression, suicidal or homicidal ideation, hallucinations. PHYSICAL EXAMINATION Vital Signs - 24 hr 02/01/19 15:00 Temperature 99.2 F Pulse Rate 52 L Respiratory 20 Rate Blood Pressure 157/50 L O2 Sat by Pulse 95 Oximetry (%) GENERAL: Pleasant male. NAD. AAOx3. HEENT: AT/NC. EOMI. MMM. NECK: Normal range of motion, supple without lymphadenopathy, JVD, or masses. LUNGS: bibasilar rales noted, decreased breath sounds. Symmetric chest rise. HEART: irregularly, irregularly. S1, S2. No murmurs noted. ABDOMEN: Soft, nontender, not distended, normoactive bowel sounds, no guarding, no rebound, no masses. No hepatomegaly or splenomegaly. MUSCULOSKELETAL: Normal range of motion at all joints. No bony deformities or tenderness. No CVA tenderness. UPPER EXTREMITIES: 2+ pulses, warm, well-perfused. No cyanosis. No clubbing. No peripheral edema. LOWER EXTREMITIES: 2+ pulses, warm, well-perfused. No calf tenderness. 2+ peripheral edema noted b/l. NEUROLOGICAL: Cranial nerves II-XII intact. Normal speech. PSYCHIATRIC: Cooperative. Good eye contact. Appropriate mood and affect. SKIN: Warm, dry, normal turgor, no rashes or lesions noted, normal capillary refill. Laboratory Results - last 24 hr 02/01/19 02/01/19 02/01/19 15:17 15:17 15:21 WBC 10.7 H RBC 4.47 Hgb 13.1 Hct 39.4 MCV 88.2 MCH 29.3 MCHC 33.2 RDW 14.4 Plt Count 91 L D MPV 11.3 H D Absolute Neuts (auto) 8.2 H Neutrophils % 77.0 D Lymphocytes % 10.4 D Monocytes % 11.5 H Eosinophils % 0.3 D Basophils % 0.8 Nucleated RBC % 0 VBG pH POC VBG pCO2 POC VBG pO2 VBG HCO3 VBG O2 Sat (Iris) VBG Base Excess Sodium 137 Potassium 3.9 Chloride 100 Carbon Dioxide 30 Anion Gap 6 L BUN 14.9 Creatinine 0.9 Est GFR (CKD-EPI)AfAm 93.16 Est GFR (CKD-EPI)NonAf 80.38 Random Glucose 173 H Lactic Acid Calcium 8.5 Magnesium 1.9 Total Bilirubin 1.9 H AST 17 ALT 22 Alkaline Phosphatase 79 Creatine Kinase 64 Troponin I < 0.02 B-Natriuretic Peptide Total Protein 6.2 L Albumin 3.6 Influenza A (Rapid) Negative Influenza B (Rapid) Negative 02/01/19 02/01/19 02/01/19 16:50 16:50 16:50 WBC RBC Hgb Hct MCV MCH MCHC RDW Plt Count MPV Absolute Neuts (auto) Neutrophils % Lymphocytes % Monocytes % Eosinophils % Basophils % Nucleated RBC % VBG pH 7.47 H POC VBG pCO2 40.6 POC VBG pO2 61.6 H VBG HCO3 29.2 H VBG O2 Sat (Iris) 91.9 H VBG Base Excess 5.4 H Sodium Potassium Chloride Carbon Dioxide Anion Gap BUN Creatinine Est GFR (CKD-EPI)AfAm Est GFR (CKD-EPI)NonAf Random Glucose Lactic Acid 0.9 Calcium Magnesium Total Bilirubin AST ALT Alkaline Phosphatase Creatine Kinase Troponin I B-Natriuretic Peptide 1553.2 H Total Protein Albumin Influenza A (Rapid) Influenza B (Rapid) IMAGING: * CXR: Increased interstitial and nodular changes since 12/06 * EKG: Afib, HR 71, QTc 428ms, PVCs, LAFB, Incomplete RBBB ASSESSMENT/PLAN: 78M w/ pmhx of CHF with preserved EF, Afib, ITP, NIDDM, HTN/HLD presented in the ED for 2-3 day hx of shortness of breath admitted for acute diastolic CHF exacerbation. #Acute CHF Exacerbation; w/ preserved EF -Cont IV Lasix 40 QD -Strict I/Os, daily weights -Sodium-controlled diet -Cardio consulted by ED Cont home meds: #Acute Mild COPD Exacerbation/Pneumonia -PO Prednisone 40 QD -Duonebs LANETTE and PRN -Sputum cx/Influenza PCR -IV Ceftriaxone/Azithro #Afib; Rate-controlled. Not currently on AC per heme due to low platelet. Will defer mgmt to outpatient heme/cardio -Monitor on tele #NIDDM; Cont home med: Januvia; hold Glimepiride. BGM/ISS ACHS. #HTN/HLD; Cont home meds: Diltiazem, Simvastatin #ITP; Pl [address] today. Stable. Outpatient follow up #Prophylaxis DVT: SCDs given chronic thrombocytopenia/bleeding risk/ITP Dispo -admit to med-surg Visit type - Emergency Visit Emergency Visit: Yes ED Registration Date: 02/01/19 Care time: The patient presented to the Emergency Department on the above date and was hospitalized for further evaluation of their emergent condition. - New Patient This patient is new to me today: No - Critical Care Critical Care patient: No ATTENDING PHYSICIAN STATEMENT I saw and evaluated the patient. I reviewed the resident's note and discussed the case with the resident. I agree with the resident's findings and plan as documented. SUBJECTIVE: OBJECTIVE: ASSESSMENT AND PLAN:
[2019-02-01] MEDS ORDERED: CEFTRIAXONE 1 GM in DEXTROSE 5%-WATER - 50 ML IVPB SCH (19:00)
[2019-02-01] MEDS ORDERED: CEFTRIAXONE 1 GM/50 ML BAG ONE (19:21)
[2019-02-01] MEDS ORDERED: FUROSEMIDE 40 MG/4 ML INJECTABLE VIAL ONE (19:21)
[2019-02-01] MEDS: ATORVASTATIN CA 10 MG TABLET (FP) PO SCH (21:11)
[2019-02-01] MEDS ORDERED: TERAZOSIN HCL 2 MG CAPSULE PO SCH (22:00)
[2019-02-01] MEDS ORDERED: ALBUTEROL SO4 2.5/IPRATROPIUM 0.5 INH SOL 3 ML VIAL.NEB. NEB SCH (22:00)
[2019-02-01] MEDS ORDERED: PATIENT'S OWN MEDICATION (NON-FORMULARY) (Simvastatin 20 MG) PO SCH (22:00)
[2019-02-01 22:16] LABS: INR 1.15 (0.83-1.09); PROTHROMBIN TIME (PATIENT) 13.6 SEC (9.7-13.0)
[2019-02-01 22:19] LABS: ACTIVATED PTT 30.5 SECONDS (25.2-36.5)
[2019-02-01] MEDS: INSULIN SLIDING SCALE (NOVOLOG) 1 VIAL SQ SCH (22:23)
[2019-02-02 00:26] VITALS: BMI 30.3
[2019-02-02] MEDS ORDERED: PT OWN MED DRAWER 7, Y5N ONE ×3 (05:57→21:05)
[2019-02-02] MEDS: INSULIN SLIDING SCALE (NOVOLOG) 1 VIAL SQ SCH ×4 (06:13→21:18)
[2019-02-02] MEDS: sitaGLIPtin PHOSPHATE 50 MG TABLET PO SCH (06:13)
[2019-02-02 07:21] LABS: HEMATOCRIT 36.5 % (35.4-49); HEMOGLOBIN 12.4 GM/dL (11.7-16.9); MCH 29.5 pg (25.7-33.7); MCHC 33.9 g/dl (32.0-35.9); MEAN PLT VOLUME 11.1 fl (7.5-11.1); PLATELET COUNT 88 K/MM3 (134-434); RDW 14.2 % (11.9-15.9); WHITE BLOOD COUNT 6.4 K/mm3 (4.0-10.0)
[2019-02-02 07:32] LABS: BLOOD UREA NITROGEN 30.4 mg/dL (7-18); CALCIUM 8.5 mg/dL (8.5-10.1); CREATININE 1.7 mg/dL (0.55-1.3); POTASSIUM 3.8 mmol/L (3.5-5.1)
[2019-02-02] MEDS: AZITHROMYCIN IVPB 500 MG in DEXTROSE 5%-WATER - 250 ML IVPB SCH ×2 (07:54→13:53)
--- NOTE | 2019-02-02 08:57 | CON.CARD ---
Consult Consult Specialty:: Cardiology Referred by:: Medicine Reason for Consultation:: Edema - History of Present Illness Chief Complaint: Edema History of Present Illness: 78 yo male with Afib (no AC) known HFpEF, HTN, NIDDM and HPL Recently admitted in 11/2018 for HFpEF exacerbation where he was treated with IV lasix and discharged with dry weight of 223# on Lasix 40mg PO daily Now returns to ED with 3 day h/o increased LE edema and chest fullness with dyspena with low grade fever (99.2) and URI symptoms Endorses lasix compliance - History Source History Provided By: Patient, Medical Record Limitations to Obtaining History: No Limitations - Past Medical History Cardio/Vascular: Yes: AFIB, HTN, Hyperlipdemia, Mitral Insufficiency, Pulmonary Hypertension Pulmonary: Yes: COPD Renal/: Yes: BPH, Renal Calculi Musculoskeletal: Yes: Osteoarthritis Rheumatology: Yes: Sarcoidosis Endocrine: Yes: Other (Impaired glucose tolerance) - Past Surgical History Past Surgical History: Yes: None - Alcohol/Substance Use Hx Alcohol Use: No History of Substance Use: reports: None - Smoking History Smoking history: Never smoked Have you smoked in the past 12 months: No Aproximately how many cigarettes per day: 0 - Social History ADL: Independent 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 06/28/18 Albuterol Sulfate [Proair Hfa] 8.5 gm IH Q4H PRN 06/28/18 Diltiazem HCl [Cartia Xt] 300 mg PO DAILY 06/28/18 Glimepiride [Amaryl -] 4 mg PO DAILY@0700 06/28/18 Nebulizer and Compressor [Easy Neb Compressor Nebulizer] 1 each ASDIR #1 each 06/28/18 Terazosin HCl 2 mg PO HS 06/28/18 Family Medical History Family History: Unremarkable Review of Systems - Review of Systems Cardiovascular: reports: No Symptoms, Edema Respiratory: reports: Wheezing Vital Signs: Vital Signs Temperature 97.8 F 02/02/19 06:00 Pulse Rate 52 L 02/02/19 06:00 Respiratory Rate 18 02/02/19 06:00 Blood Pressure 108/54 L 02/02/19 06:00 O2 Sat by Pulse Oximetry (%) 95 02/01/19 23:39 Constitutional: Yes: No Distress Eyes: Yes: WNL Neck: Yes: WNL Respiratory: Yes: Rales (Crackles L>R base), Wheezes Gastrointestinal: Yes: Normal Bowel Sounds Cardiovascular: Yes: Regular Rate and Rhythm JVD: Yes Edema: LLE: 2+, RLE: 2+ - Other Data Labs, Other Data: CBC, BMP 02/02/19 06:00 02/02/19 06:00 INR, PTT INR 1.15 (0.83-1.09) H 02/01/19 21:30 Troponin, BNP 02/01/19 02/01/19 15:17 16:50 Troponin I < 0.02 B-Natriuretic Peptide 1553.2 H Troponin, BNP 02/01/19 02/01/19 15:17 16:50 Troponin I < 0.02 B-Natriuretic Peptide 1553.2 H Imaging - Results X-ray: Image Reviewed ((+) pulmonary venous congestion) EKG: Image Reviewed (ECG on 02/01/2019 at 15:06 AFib at 71 with iRBB and LAFB) Other: Report Reviewed (Echo 06/2018: nl lv/rv, mild tr, mild ar, nl rvsp) Assessment/Plan a/p: 78 m hx afib, htn, hld, dm, dchf, 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 acute diastolic chf: -Has vol overload/symptoms with interval weight gain and elevated BNP -Received IV lasix 40mg x1 in ED with rise in sCreat to 1.7 (0.9) -recent echo unremarkable -Would hold on diuresis today and allow renal function to settle. htn: -cont home dilt hld: -Continue home statin. afib: -Rate controlled. Continue home dilt, -There is prior note by Dr. Calderon in 11/2018 noteing patient was on eliquis (has ITP but plts have been above 50k so has been kept on ac as outpt)
[2019-02-02] MEDS ORDERED: DEXTROSE 5%-WATER - 50 ML IVPB ONE (09:36)
[2019-02-02] MEDS ORDERED: cefTRIAXone SODIUM 1 GM VIAL ONE (09:36)
[2019-02-02] MEDS ORDERED: GLIMEPIRIDE 4 MG TABLET (FP) PO ONE (09:40)
[2019-02-02] MEDS: predniSONE 20 MG TABLET (UD) PO SCH (09:50)
[2019-02-02] MEDS: CEFTRIAXONE 1 GM in DEXTROSE 5%-WATER - 50 ML IVPB SCH (09:50)
--- NOTE | 2019-02-02 11:23 | PN ---
Physical Exam: SUBJECTIVE: Patient seen and examined, breathing improved, reports decreased urination. OBJECTIVE: Vital Signs Period Temp Pulse Resp BP Sys/Henriquez Pulse Ox Last 24 Hr 97.8 F-99.2 F 52-89 18-20 106-157/50-63 95-95 Intake & Output 01/30/19 01/31/19 02/01/19 02/02/19 23:59 23:59 23:59 23:59 Weight 217 lb 9.6 oz GENERAL: ambulating in room, mild tachypnea, audible wheezing, able to speak in full sentences Neck: soft, supple Chest: expiratory wheezing, improve air entry and exam Abdomen: soft, NT,no suprapubic or CVA tenderness Extremities: 1-2+pedal edema, some improvement, CVS:S1S 2irregular Telemetry: Afib with PVCs, NSVT Laboratory Results - last 24 hr 02/01/19 02/01/19 02/01/19 15:17 15:17 15:21 WBC 10.7 H RBC 4.47 Hgb 13.1 Hct 39.4 MCV 88.2 MCH 29.3 MCHC 33.2 RDW 14.4 Plt Count 91 L D MPV 11.3 H D Absolute Neuts (auto) 8.2 H Neutrophils % 77.0 D Lymphocytes % 10.4 D Monocytes % 11.5 H Eosinophils % 0.3 D Basophils % 0.8 Nucleated RBC % 0 PT with INR INR PTT (Actin FS) VBG pH POC VBG pCO2 POC VBG pO2 VBG HCO3 VBG O2 Sat (Iris) VBG Base Excess Sodium 137 Potassium 3.9 Chloride 100 Carbon Dioxide 30 Anion Gap 6 L BUN 14.9 Creatinine 0.9 Est GFR (CKD-EPI)AfAm 93.16 Est GFR (CKD-EPI)NonAf 80.38 POC Glucometer Random Glucose 173 H Lactic Acid Calcium 8.5 Magnesium 1.9 Total Bilirubin 1.9 H AST 17 ALT 22 Alkaline Phosphatase 79 Creatine Kinase 64 Troponin I < 0.02 B-Natriuretic Peptide Total Protein 6.2 L Albumin 3.6 Influenza A (Rapid) Negative Influenza B (Rapid) Negative 02/01/19 02/01/19 02/01/19 16:50 16:50 16:50 WBC RBC Hgb Hct MCV MCH MCHC RDW Plt Count MPV Absolute Neuts (auto) Neutrophils % Lymphocytes % Monocytes % Eosinophils % Basophils % Nucleated RBC % PT with INR INR PTT (Actin FS) VBG pH 7.47 H POC VBG pCO2 40.6 POC VBG pO2 61.6 H VBG HCO3 29.2 H VBG O2 Sat (Iris) 91.9 H VBG Base Excess 5.4 H Sodium Potassium Chloride Carbon Dioxide Anion Gap BUN Creatinine Est GFR (CKD-EPI)AfAm Est GFR (CKD-EPI)NonAf POC Glucometer Random Glucose Lactic Acid 0.9 Calcium Magnesium Total Bilirubin AST ALT Alkaline Phosphatase Creatine Kinase Troponin I B-Natriuretic Peptide 1553.2 H Total Protein Albumin Influenza A (Rapid) Influenza B (Rapid) 02/01/19 02/01/19 02/02/19 21:30 22:21 06:00 WBC 6.4 RBC 4.20 Hgb 12.4 Hct 36.5 MCV 87.0 MCH 29.5 MCHC 33.9 RDW 14.2 Plt Count 88 L MPV 11.1 Absolute Neuts (auto) Neutrophils % Lymphocytes % Monocytes % Eosinophils % Basophils % Nucleated RBC % PT with INR 13.60 H INR 1.15 H PTT (Actin FS) 30.5 VBG pH POC VBG pCO2 POC VBG pO2 VBG HCO3 VBG O2 Sat (Iris) VBG Base Excess Sodium Potassium Chloride Carbon Dioxide Anion Gap BUN Creatinine Est GFR (CKD-EPI)AfAm Est GFR (CKD-EPI)NonAf POC Glucometer 288 Random Glucose Lactic Acid Calcium Magnesium Total Bilirubin AST ALT Alkaline Phosphatase Creatine Kinase Troponin I B-Natriuretic Peptide Total Protein Albumin Influenza A (Rapid) Influenza B (Rapid) 02/02/19 02/02/19 06:00 06:11 WBC RBC Hgb Hct MCV MCH MCHC RDW Plt Count MPV Absolute Neuts (auto) Neutrophils % Lymphocytes % Monocytes % Eosinophils % Basophils % Nucleated RBC % PT with INR INR PTT (Actin FS) VBG pH POC VBG pCO2 POC VBG pO2 VBG HCO3 VBG O2 Sat (Iris) VBG Base Excess Sodium 135 L Potassium 3.8 Chloride 98 Carbon Dioxide 29 Anion Gap 9 BUN 30.4 H Creatinine 1.7 H Est GFR (CKD-EPI)AfAm 43.18 Est GFR (CKD-EPI)NonAf 37.26 POC Glucometer 323 Random Glucose 321 H Lactic Acid Calcium 8.5 Magnesium Total Bilirubin AST ALT Alkaline Phosphatase Creatine Kinase Troponin I B-Natriuretic Peptide Total Protein Albumin Influenza A (Rapid) Influenza B (Rapid) Active Medications Generic Name Dose Route Start Last Admin Trade Name Freq PRN Reason Stop Dose Admin Albuterol/Ipratropium 1 amp 02/01/19 18:42 Duoneb - NEB Q6H PRN SHORT OF BREATH/WHEEZING Albuterol/Ipratropium 1 amp 02/02/19 09:43 Duoneb - NEB RQID LANETTE Atorvastatin Calcium 10 mg 02/01/19 22:00 02/01/19 21:11 Lipitor - PO 10 mg HS LANETTE Administration Diltiazem HCl 300 mg 02/01/19 19:15 02/02/19 09:50 Cardizem Cd - PO 300 mg DAILY LANETTE Administration Glimepiride 4 mg 02/03/19 07:00 Amaryl - PO DAILY@0700 LANETTE Azithromycin 500 mg/ Dextrose 250 mls @ 250 mls/hr 02/01/19 19:00 02/02/19 07 :54 IVPB Not Given DAILY LANETTE Ceftriaxone Sodium 1 gm/ 50 mls @ 100 mls/hr 02/02/19 09:02 02/02/19 09:50 Dextrose IVPB 100 mls/hr DAILY LANETTE Administration Insulin Aspart 1 vial 02/01/19 22:00 02/02/19 06:13 Novolog Vial Sliding Scale - SQ 6 units ACHS LANETTE Administration Protocol Prednisone 40 mg 02/02/19 10:00 02/02/19 09:50 Deltasone - PO 40 mg DAILY LANETTE Administration Sitagliptin Phosphate 100 mg 02/02/19 07:00 02/02/19 06:13 Januvia - PO 100 mg ACBK LANETTE Administration Terazosin HCl 2 mg 02/02/19 22:00 Hytrin - PO HS LANETTE ASSESSMENT/PLAN: 78 yom with PMhx of Afib (off eliquis given ITP/thrombocytopenia), Diastolic Dysfunction, ITP, HTN, HLD, NIDDM, ?COPD (occupational), suspected sarcoidosis, herpes zoster ophthalmicus, recent admission with CHF exacerbation in 11/2018 admitted with dyspnea -Acute diastolic heart failure excerbation -Recent viral illness, suspected bronchitis+/- Pneumonia -Acute Mild COPD exacerbation, due to above -Atrial fibrillation off eliquis given ITP/thrombocytopenia -ELLEN, from aggressive diuresis -NSVT/PVCs -ITP -NIDDM -HTN -HLD -Suspected sarcoidosis -Herpes zoster opthalmicus Plan: ELLEN today, hold further lasix No evidence of retention. renal/Bladder US. Strict I/os as able, daily weights. Low salt diet counseling. Cardiology input noted Off Eliquis. Defer to outpatient hematology/Cardiology Influenza PCR, Sputum cx as able Ceftriaxone/azithromycin day 2. Prednisone 40 mg daily. Standing and prn nebs Continue januvia. Resume glimepiride.ISS Trend platelets. Continue cardizem/terazocin/statin DVTPPX SCDs given chronic thrombocytopenia/ITP/bleeding risk Dispo dc on hold given ELLEN. Will need home oxygen needs assessment prior to dc Discussed with patient and nursing, all questions answered. Visit type - Emergency Visit Emergency Visit: Yes ED Registration Date: 02/01/19 Care time: The patient presented to the Emergency Department on the above date and was hospitalized for further evaluation of their emergent condition. - New Patient This patient is new to me today: No - Critical Care Critical Care patient: No - Discharge Referral Referred to [facility] Med P.C.: No
[2019-02-02 12:39] LABS: MAGNESIUM 1.9 mg/dL (1.8-2.4)
[2019-02-02 12:40] LABS: BLOOD UREA NITROGEN 33.8 mg/dL (7-18); CALCIUM 8.7 mg/dL (8.5-10.1); CREATININE 1.9 mg/dL (0.55-1.3); POTASSIUM 3.7 mmol/L (3.5-5.1)
[2019-02-02] MEDS: ALBUTEROL SO4 2.5/IPRATROPIUM 0.5 INH SOL 3 ML VIAL.NEB. NEB SCH ×3 (12:52→19:45)
[2019-02-02] MEDS: AZITHROMYCIN IVPB 500 MG/250 ML BAG IVPB SCH (13:57)
[2019-02-02] MEDS: TERAZOSIN HCL 1 MG CAPSULE PO SCH (21:17)
[2019-02-02] MEDS: ATORVASTATIN CA 10 MG TABLET (FP) PO SCH (21:17)
[2019-02-03 06:08] LABS: HEMATOCRIT 35.5 % (35.4-49); HEMOGLOBIN 11.9 GM/dL (11.7-16.9); LYMPH % 5.4 % (8-40); MCH 29.3 pg (25.7-33.7); MCHC 33.6 g/dl (32.0-35.9); MONO % 6.9 % (3.8-10.2); NEUT % 87.7 % (42.8-82.8); PLATELET COUNT 138 K/MM3 (134-434); RBC 4.08 M/mm3 (4.00-5.60); WHITE BLOOD COUNT 13.1 K/mm3 (4.0-10.0)
[2019-02-03] MEDS: sitaGLIPtin PHOSPHATE 50 MG TABLET PO SCH (06:19)
[2019-02-03] MEDS: INSULIN SLIDING SCALE (NOVOLOG) 1 VIAL SQ SCH ×4 (06:19→22:22)
[2019-02-03] MEDS: GLIMEPIRIDE 4 MG TABLET (FP) PO SCH (06:19)
[2019-02-03 07:30] LABS: CALCIUM 8.6 mg/dL (8.5-10.1); CREATININE 2.5 mg/dL (0.55-1.3); MAGNESIUM 2.2 mg/dL (1.8-2.4); PHOSPHOROUS 4.6 mg/dL (2.5-4.9); POTASSIUM 4.2 mmol/L (3.5-5.1)
[2019-02-03] MEDS: ALBUTEROL SO4 2.5/IPRATROPIUM 0.5 INH SOL 3 ML VIAL.NEB. NEB SCH ×4 (08:11→20:00)
--- NOTE | 2019-02-03 09:24 | PN ---
Teaching Attending Note Name of Resident: Zahida Rodriguez ATTENDING PHYSICIAN STATEMENT I saw and evaluated the patient. I reviewed the resident's note and discussed the case with the resident. I agree with the resident's findings and plan as documented with exceptions below. SUBJECTIVE: Patient seen and examined. breathing improved, urinating less, no complaints otherwise. OBJECTIVE: Vital Signs Period Temp Pulse Resp BP Sys/Henriquez Pulse Ox Last 24 Hr 97.3 F-98.4 F 54-86 18- 114-142/53-65 95-95 Intake & Output 01/31/19 02/01/19 02/02/19 02/03/19 23:59 23:59 23:59 23:59 Intake Total 830 120 Output Total 400 Balance 830 -280 Weight 217 lb 9.6 oz 238 lb 9.595 oz general: sitting in bed, no acute distress Neck: soft, supple Chest; no basilar rales today, improved air entry, no wheezing Abdomen:Soft, NT, no CVA or suprapubic tenderness Extremities: improved pedal edema, venous insufficiency Home Medications Medication Instructions Recorded Sitagliptin Phosphate [Januvia] 100 mg PO DAILY 10/04/13 Furosemide [Lasix -] 40 mg PO DAILY #1 tablet 03/21/14 Simvastatin [Zocor -] 20 mg PO HS 04/11/14 Albuterol 2.5/Ipratropium 0.5 1 neb IH QID PRN #1 vial.neb. 06/28/18 [Duoneb -] Albuterol Sulfate [Proair Hfa] 8.5 gm IH Q4H PRN 06/28/18 Diltiazem HCl [Cartia Xt] 300 mg PO DAILY 06/28/18 Glimepiride [Amaryl -] 4 mg PO DAILY@0700 06/28/18 Nebulizer and Compressor [Easy Neb 1 each ASDIR #1 each 06/28/18 Compressor Nebulizer] Terazosin HCl 2 mg PO HS 06/28/18 Active Medications Albuterol/Ipratropium (Duoneb -) 1 amp NEB Q6H PRN PRN Reason: SHORT OF BREATH/WHEEZING Albuterol/Ipratropium (Duoneb -) 1 amp NEB RQID LANETTE Last Admin: 02/03/19 08:11 Dose: 1 amp Atorvastatin Calcium (Lipitor -) 10 mg PO HS [facility] Last Admin: 02/02/19 21:17 Dose: 10 mg Diltiazem HCl (Cardizem Cd -) 300 mg PO DAILY [facility] Last Admin: 02/02/19 09:50 Dose: 300 mg Glimepiride (Amaryl -) 4 mg PO DAILY@0700 [facility] Last Admin: 02/03/19 06:19 Dose: 4 mg Ceftriaxone Sodium 1 gm/ (Dextrose) 50 mls @ 100 mls/hr IVPB DAILY [facility] Last Admin: 02/02/19 09:50 Dose: 100 mls/hr Azithromycin (Zithromax 500mg Ivpb (Pre-Docked)) 500 mg in 250 mls @ 250 mls/ hr IVPB DAILY [facility] Last Admin: 02/02/19 13:57 Dose: 250 mls/hr Insulin Aspart (Novolog Vial Sliding Scale -) 1 vial SQ [facility]; Protocol Last Admin: 02/03/19 06:19 Dose: 6 units Prednisone (Deltasone -) 40 mg PO DAILY [facility] Last Admin: 02/02/19 09:50 Dose: 40 mg Sitagliptin Phosphate (Januvia -) 100 mg PO ACBK [facility] Last Admin: 02/03/19 06:19 Dose: 100 mg Terazosin HCl (Hytrin -) 2 mg PO HS [facility] Last Admin: 02/02/19 21:17 Dose: 2 mg Laboratory Results - last 24 hr 02/02/19 02/02/19 02/02/19 11:45 11:45 12:07 WBC RBC Hgb Hct MCV MCH MCHC RDW Plt Count MPV Absolute Neuts (auto) Neutrophils % Lymphocytes % Monocytes % Eosinophils % Basophils % Nucleated RBC % Sodium 132 L Potassium 3.7 Chloride 95 L Carbon Dioxide 29 Anion Gap 8 BUN 33.8 H Creatinine 1.9 H Est GFR (CKD-EPI)AfAm 37.75 Est GFR (CKD-EPI)NonAf 32.57 POC Glucometer 295 Random Glucose 313 H Calcium 8.7 Phosphorus 3.0 Magnesium 1.9 02/02/19 02/02/19 02/03/19 17:12 21:15 05:30 WBC 13.1 H RBC 4.08 Hgb 11.9 Hct 35.5 MCV 87.0 MCH 29.3 MCHC 33.6 RDW 14.0 Plt Count 138 D MPV 11.0 Absolute Neuts (auto) 11.5 H Neutrophils % 87.7 H Lymphocytes % 5.4 L D Monocytes % 6.9 Eosinophils % 0.0 D Basophils % 0.0 Nucleated RBC % 0 Sodium Potassium Chloride Carbon Dioxide Anion Gap BUN Creatinine Est GFR (CKD-EPI)AfAm Est GFR (CKD-EPI)NonAf POC Glucometer 344 407 Random Glucose Calcium Phosphorus Magnesium 02/03/19 02/03/19 05:30 06:17 WBC RBC Hgb Hct MCV MCH MCHC RDW Plt Count MPV Absolute Neuts (auto) Neutrophils % Lymphocytes % Monocytes % Eosinophils % Basophils % Nucleated RBC % Sodium 130 L Potassium 4.2 Chloride 94 L Carbon Dioxide 27 Anion Gap 9 BUN 57.0 H Creatinine 2.5 H Est GFR (CKD-EPI)AfAm 27.09 Est GFR (CKD-EPI)NonAf 23.37 POC Glucometer 309 Random Glucose 322 H Calcium 8.6 Phosphorus 4.6 Magnesium 2.2 Renal/Bladder US results reviewed ASSESSMENT AND PLAN: 78 yom with PMhx of Afib (off eliquis given ITP/thrombocytopenia), Diastolic Dysfunction, ITP, HTN, HLD, NIDDM, ?COPD (occupational), suspected sarcoidosis, herpes zoster ophthalmicus, recent admission with CHF exacerbation in 11/2018 admitted with dyspnea -Acute diastolic heart failure excerbation -Recent viral illness, suspected bronchitis+/- Pneumonia -Acute Mild COPD exacerbation, due to above -Atrial fibrillation off eliquis given ITP/thrombocytopenia -ELLEN, suspect hypovolumia from aggressive lasix and osmotic diuresis from hyperglycemia -ITP -NIDDM -HTN -HLD -Suspected sarcoidosis -Herpes zoster opthalmicus Plan: Cr continues to rise. Lasix on hold since yesterday. Strict I/Os, daily weights Renal/bladder US noted. Renal consult. May benefit from trial of IVF, will address with renal. Avoid nephrotoxic meds, renal dosing of meds. No evidence of retention. Low salt diet counseling. Cardiology input noted , telemetry with frequent PVCs, NSVT. Monitor Off Eliquis. Defer to outpatient hematology/Cardiology Influenza PCR, Sputum cx as able Ceftriaxone/azithromycin day 3. Prednisone 40 mg daily. Standing and prn nebs januvia/glimepiride/ISS with monitoring of blood sugars. Trend platelets. Continue cardizem/terazocin/statin DVTPPX SCDs given chronic thrombocytopenia/ITP/bleeding risk Will need home oxygen needs assessment prior to dc Ambulating well inhouse. Dispo dc on hold given ELLEN. Discussed with patient and nursing, all questions answered.
--- NOTE | 2019-02-03 09:26 | PN ---
Physical Exam: SUBJECTIVE: Patient seen and examined at bedside. No acute events overnight. OBJECTIVE: Vital Signs Temperature 97.4 F L 02/03/19 06:00 Pulse Rate 54 L 02/03/19 06:00 Respiratory Rate 19 02/03/19 06:00 Blood Pressure 131/63 02/03/19 06:00 O2 Sat by Pulse Oximetry (%) 95 02/02/19 21:00 GENERAL: Pleasant male. NAD. AAOx3. HEENT: AT/NC. EOMI. MMM. NECK: Normal range of motion, supple without lymphadenopathy, JVD, or masses. LUNGS: bibasilar rales noted, decreased breath sounds. Symmetric chest rise. HEART: irregularly, irregularly. S1, S2. No murmurs noted. ABDOMEN: Soft, nontender, not distended, normoactive bowel sounds, no guarding, no rebound, no masses. No hepatomegaly or splenomegaly. MUSCULOSKELETAL: Normal range of motion at all joints. No bony deformities or tenderness. No CVA tenderness. UPPER EXTREMITIES: 2+ pulses, warm, well-perfused. No cyanosis. No clubbing. No peripheral edema. LOWER EXTREMITIES: 2+ pulses, warm, well-perfused. No calf tenderness. 2+ peripheral edema noted b/l. NEUROLOGICAL: Cranial nerves II-XII intact. Normal speech. PSYCHIATRIC: Cooperative. Good eye contact. Appropriate mood and affect. SKIN: Warm, dry, normal turgor, no rashes or lesions noted, normal capillary refill. CBC, BMP 02/03/19 05:30 02/03/19 05:30 Active Medications Albuterol/Ipratropium (Duoneb -) 1 amp NEB Q6H PRN PRN Reason: SHORT OF BREATH/WHEEZING Albuterol/Ipratropium (Duoneb -) 1 amp NEB RQID [facility] Last Admin: 02/03/19 11:56 Dose: 1 amp Atorvastatin Calcium (Lipitor -) 10 mg PO HS [facility] Last Admin: 02/02/19 21:17 Dose: 10 mg Diltiazem HCl (Cardizem Cd -) 300 mg PO DAILY [facility] Last Admin: 02/03/19 10:18 Dose: 300 mg Glimepiride (Amaryl -) 4 mg PO DAILY@0700 [facility] Last Admin: 02/03/19 06:19 Dose: 4 mg Ceftriaxone Sodium 1 gm/ (Dextrose) 50 mls @ 100 mls/hr IVPB DAILY [facility] Last Admin: 02/03/19 10:18 Dose: 100 mls/hr Azithromycin (Zithromax 500mg Ivpb (Pre-Docked)) 500 mg in 250 mls @ 250 mls/ hr IVPB DAILY [facility] Last Admin: 02/03/19 10:57 Dose: 250 mls/hr Insulin Aspart (Novolog Vial Sliding Scale -) 1 vial SQ ACHS [facility]; Protocol Last Admin: 02/03/19 11:58 Dose: 6 units Prednisone (Deltasone -) 40 mg PO DAILY [facility] Last Admin: 02/03/19 10:18 Dose: 40 mg Sitagliptin Phosphate (Januvia -) 100 mg PO ACBK [facility] Last Admin: 02/03/19 06:19 Dose: 100 mg Terazosin HCl (Hytrin -) 2 mg PO HS [facility] Last Admin: 02/02/19 21:17 Dose: 2 mg ASSESSMENT/PLAN: 78M w/ pmhx of CHF with preserved EF, Afib, ITP, NIDDM, HTN/HLD presented in the ED for 2-3 day hx of shortness of breath admitted for acute diastolic CHF exacerbation. #Acute CHF Exacerbation; w/ preserved EF -Hold Lasix due to ELLEN; held since yesterday -Strict I/Os, daily weights -Sodium-controlled diet -Cardio consult noted; tele showing frequent PVCs, NSVT -Last echo (07/06): showed EF 60-65%, trace MR, mild TR, mild AR #Acute Mild COPD Exacerbation/Pneumonia -PO Prednisone 40 QD -Duonebs LANETTE and PRN -Sputum cx/Influenza PCR -IV Ceftriaxone/Azithro, day #3 #ELLEN; may be due to hypovolemia due to aggressive diuresis -Hold all nephrotoxic agents, hold Lasix -Urine electrolytes ordered -Renal U/S unremarkable -Nephro consulted #Afib; Rate-controlled. Not currently on AC per heme due to low platelet. Will defer mgmt to outpatient heme/cardio -Monitor on tele #NIDDM; Cont home med: Januvia and Glimepiride. BGM/ISS ACHS. #HTN/HLD; Cont home meds: Diltiazem, Simvastatin #ITP; Pl 91 today. Stable. Outpatient follow up #Prophylaxis DVT: SCDs given chronic thrombocytopenia/bleeding risk/ITP Dispo -cont to monitor on med-surg Visit type - Emergency Visit Emergency Visit: Yes ED Registration Date: 02/01/19 Care time: The patient presented to the Emergency Department on the above date and was hospitalized for further evaluation of their emergent condition. - New Patient This patient is new to me today: No - Critical Care Critical Care patient: No ATTENDING PHYSICIAN STATEMENT I saw and evaluated the patient. I reviewed the resident's note and discussed the case with the resident. I agree with the resident's findings and plan as documented. SUBJECTIVE: OBJECTIVE: ASSESSMENT AND PLAN:
--- NOTE | 2019-02-03 09:27 | PN ---
Progress Note, Physician History of Present Illness: No CV complaints Concerned that his weight in increasing Tele: Afib with PVCs - Current Medication List Current Medications: Active Medications Albuterol/Ipratropium (Duoneb -) 1 amp NEB Q6H PRN PRN Reason: SHORT OF BREATH/WHEEZING Albuterol/Ipratropium (Duoneb -) 1 amp NEB RQID [facility] Last Admin: 02/03/19 08:11 Dose: 1 amp Atorvastatin Calcium (Lipitor -) 10 mg PO HS [facility] Last Admin: 02/02/19 21:17 Dose: 10 mg Diltiazem HCl (Cardizem Cd -) 300 mg PO DAILY [facility] Last Admin: 02/02/19 09:50 Dose: 300 mg Glimepiride (Amaryl -) 4 mg PO DAILY@0700 [facility] Last Admin: 02/03/19 06:19 Dose: 4 mg Ceftriaxone Sodium 1 gm/ (Dextrose) 50 mls @ 100 mls/hr IVPB DAILY [facility] Last Admin: 02/02/19 09:50 Dose: 100 mls/hr Azithromycin (Zithromax 500mg Ivpb (Pre-Docked)) 500 mg in 250 mls @ 250 mls/ hr IVPB DAILY [facility] Last Admin: 02/02/19 13:57 Dose: 250 mls/hr Insulin Aspart (Novolog Vial Sliding Scale -) 1 vial SQ ACHS [facility]; Protocol Last Admin: 02/03/19 06:19 Dose: 6 units Prednisone (Deltasone -) 40 mg PO DAILY [facility] Last Admin: 02/02/19 09:50 Dose: 40 mg Sitagliptin Phosphate (Januvia -) 100 mg PO ACBK [facility] Last Admin: 02/03/19 06:19 Dose: 100 mg Terazosin HCl (Hytrin -) 2 mg PO HS [facility] Last Admin: 02/02/19 21:17 Dose: 2 mg - Objective Vital Signs: Vital Signs Temperature 97.4 F L 02/03/19 06:00 Pulse Rate 54 L 02/03/19 06:00 Respiratory Rate 19 02/03/19 06:00 Blood Pressure 131/63 02/03/19 06:00 O2 Sat by Pulse Oximetry (%) 95 02/02/19 21:00 Constitutional: Yes: No Distress Eyes: Yes: WNL Cardiovascular: Yes: Pulse Irregular Respiratory: Yes: Diminished Edema: LLE: 2+, RLE: 2+ Labs: CBC, BMP 02/03/19 05:30 02/03/19 05:30 INR, PTT INR 1.15 (0.83-1.09) H 02/01/19 21:30 Assessment/Plan a/p: 78 m hx afib, htn, hld, dm, dchf, 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 acute diastolic chf: -Has vol overload/symptoms with interval weight gain and elevated BNP -Received IV lasix 40mg x1 in ED with rise in sCreat to 1.7 (0.9), now Creat 2.5 -recent echo unremarkable -Would continue to hold on diuresis and allow renal function to settle. Renal consult pending htn: -cont home dilt hld: -Continue home statin. afib: -Rate controlled. Continue home dilt, -There is prior note by Dr. Calderon in 11/2018 noteing patient was on eliquis (has ITP but plts have been above 50k so has been kept on ac as outpt)
[2019-02-03] MEDS ORDERED: cefTRIAXone SODIUM 1 GM VIAL ONE (09:30)
[2019-02-03] MEDS ORDERED: DEXTROSE 5%-WATER - 50 ML IVPB ONE (09:31)
[2019-02-03] MEDS: predniSONE 20 MG TABLET (UD) PO SCH (10:18)
[2019-02-03] MEDS: CEFTRIAXONE 1 GM in DEXTROSE 5%-WATER - 50 ML IVPB SCH (10:18)
[2019-02-03] MEDS: AZITHROMYCIN IVPB 500 MG/250 ML BAG IVPB SCH (10:57)
[2019-02-03 11:37] LABS: URINE APPEARANCE CLEAR; URINE BILIRUBIN NEGATIVE (NEGATIVE); URINE COLOR YELLOW; URINE GLUCOSE (UA) NEGATIVE (NEGATIVE); URINE KETONE NEGATIVE (NEGATIVE); URINE LEUK ESTERASE NEGATIVE (NEGATIVE); URINE NITRITE NEGATIVE (NEGATIVE); URINE PROTEIN NEGATIVE (NEGATIVE); URINE UROBILINOGEN 0.2 mg/dL (0.2-1.0)
--- NOTE | 2019-02-03 16:37 | CONSULT ---
Consult Consult Specialty:: Nephrology Reason for Consultation:: ELLEN - History of Present Illness Chief Complaint: shortness of breath History of Present Illness: Pt is an 78 year old male with pmhx of chf, a-fib, ITP, DM, and HTN who presents to the ER with shortness of breath. He also complains of lower ext edema. He does complains of wheezing. He has history of COPD as well. He was given a dose of lasix IV and his renal function started to worsen. He denies dysuria but he complains of decreased urine ouput. He denies chest pain. He is not compliant with a salt restricted diet. His family were at bedside and were very helpful with history. He denies nsaid use. - History Source History Provided By: Patient, Medical Record - Past Medical History Cardio/Vascular: Yes: AFIB, HTN, Hyperlipdemia, Mitral Insufficiency, Pulmonary Hypertension Pulmonary: Yes: COPD Renal/: Yes: BPH, Renal Calculi Musculoskeletal: Yes: Osteoarthritis Rheumatology: Yes: Sarcoidosis Endocrine: Yes: Other (Impaired glucose tolerance) - Past Surgical History Past Surgical History: Yes: None - Alcohol/Substance Use Hx Alcohol Use: No History of Substance Use: reports: None - Smoking History Smoking history: Never smoked Have you smoked in the past 12 months: No Aproximately how many cigarettes per day: 0 - Social History ADL: Independent 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 06/28/18 Albuterol Sulfate [Proair Hfa] 8.5 gm IH Q4H PRN 06/28/18 Diltiazem HCl [Cartia Xt] 300 mg PO DAILY 06/28/18 Glimepiride [Amaryl -] 4 mg PO DAILY@0700 06/28/18 Nebulizer and Compressor [Easy Neb Compressor Nebulizer] 1 each ASDIR #1 each 06/28/18 Terazosin HCl 2 mg PO HS 06/28/18 Family Medical History Family History: Denies Review of Systems - Review of Systems Constitutional: reports: Chills, Malaise Eyes: reports: No Symptoms HENT: reports: No Symptoms Neck: reports: No Symptoms Cardiovascular: reports: Edema Respiratory: reports: Cough, Wheezing Gastrointestinal: reports: No Symptoms Genitourinary: reports: No Symptoms Musculoskeletal: reports: No Symptoms Integumentary: reports: No Symptoms Neurological: reports: No Symptoms Endocrine: reports: No Symptoms Hematology/Lymphatic: reports: No Symptoms Psychiatric: reports: No Symptoms Physical Exam Vital Signs: Vital Signs Temperature 98.3 F 02/03/19 10:00 Pulse Rate 67 02/03/19 10:00 Respiratory Rate 18 02/03/19 10:00 Blood Pressure 139/57 L 02/03/19 10:00 O2 Sat by Pulse Oximetry (%) 95 02/03/19 10:00 Constitutional: Yes: Calm Eyes: Yes: Conjunctiva Clear HENT: Yes: Atraumatic Neck: Yes: Supple Cardiovascular: Yes: S1, S2 Respiratory: Yes: On Nasal O2, Wheezes Gastrointestinal: Yes: Soft Renal/: Yes: WNL Musculoskeletal: Yes: WNL Edema: Yes Edema: LLE: 1+, RLE: 1+ Neurological: Yes: Oriented Psychiatric: Yes: Oriented Labs: CBC, BMP 02/03/19 05:30 02/03/19 05:30 Laboratory Tests 12/07/18 12/08/18 02/01/19 11:30 09:45 15:17 WBC Hgb Sodium Potassium Creatinine 0.8 0.9 0.9 Urine Protein Urine Blood Ur Random Sodium 02/02/19 02/02/19 02/02/19 06:00 06:00 11:45 WBC 6.4 Hgb Sodium Potassium Creatinine 1.7 H 1.9 H Urine Protein Urine Blood Ur Random Sodium 02/03/19 02/03/19 02/03/19 05:30 05:30 10:50 WBC 13.1 H Hgb 11.9 Sodium 130 L Potassium 4.2 Creatinine 2.5 H Urine Protein Urine Blood Ur Random Sodium 7 L 02/03/19 10:50 WBC Hgb Sodium Potassium Creatinine Urine Protein Negative Urine Blood Negative Ur Random Sodium Imaging - Results Chest X-ray: Report Reviewed Problem List - Problems (1) ELLEN (acute kidney injury) Code(s): N17.9 - ACUTE KIDNEY FAILURE, UNSPECIFIED (2) Shortness of breath at rest Code(s): R06.02 - SHORTNESS OF BREATH (3) Atrial fibrillation Code(s): I48.91 - UNSPECIFIED ATRIAL FIBRILLATION Qualifiers: Atrial fibrillation type: chronic (4) CHF (congestive heart failure) Code(s): I50.9 - HEART FAILURE, UNSPECIFIED Qualifiers: Heart failure type: unspecified Heart failure chronicity: acute on chronic Qualified Code(s): I50.9 - Heart failure, unspecified Assessment/Plan Current Medications Generic Name Dose Route Start Last Admin Trade Name Freq PRN Reason Stop Dose Admin Albuterol/Ipratropium 1 amp 02/01/19 18:42 Duoneb - NEB Q6H PRN SHORT OF BREATH/WHEEZING Albuterol/Ipratropium 1 amp 02/02/19 09:43 02/03/19 11:56 Duoneb - NEB 1 amp RQID [facility] Administration Atorvastatin Calcium 10 mg 02/01/19 22:00 02/02/19 21:17 Lipitor - PO 10 mg HS [facility] Administration Diltiazem HCl 300 mg 02/01/19 19:15 02/03/19 10:18 Cardizem Cd - PO 300 mg DAILY [facility] Administration Glimepiride 4 mg 02/03/19 07:00 02/03/19 06:19 Amaryl - PO 4 mg DAILY@0700 [facility] Administration Ceftriaxone Sodium 1 gm/ 50 mls @ 100 mls/hr 02/02/19 09:02 02/03/19 10:18 Dextrose IVPB 100 mls/hr DAILY [facility] Administration Azithromycin 500 mg in 250 mls @ 250 mls/hr 02/02/19 11:30 02/03/19 10:57 Zithromax 500mg Ivpb (Pre-Docked) IVPB 250 mls/hr DAILY [facility] Administration Insulin Aspart 1 vial 02/01/19 22:00 02/03/19 11:58 Novolog Vial Sliding Scale - SQ 6 units ACHS [facility] Administration Protocol Prednisone 40 mg 02/02/19 10:00 02/03/19 10:18 Deltasone - PO 40 mg DAILY [facility] Administration Sitagliptin Phosphate 100 mg 02/02/19 07:00 02/03/19 06:19 Januvia - PO 100 mg ACBK [facility] Administration Terazosin HCl 2 mg 02/02/19 22:00 02/02/19 21:17 Hytrin - PO 2 mg HS [facility] Administration Impression 1. ELLEN 2. CHF 3. a-fib 4. COPD 5. DM 6. ITP 7. HTN Plan - hold lasix as renal function is worsening - follow up cxr - change steroids to solumedrol IV - cardio input appreciated - repeat ua - repeat echo, ef was preserved on last echo - will need better glucose control
[2019-02-03] MEDS ORDERED: methylPREDNISolone NA SUCC 40 MG/1 ML VIAL IVPUSH SCH ×3 (16:38→18:45)
[2019-02-03] MEDS ORDERED: FUROSEMIDE 40 MG/4 ML INJECTABLE VIAL IVPUSH ONE (17:17)
[2019-02-03 19:23] LABS: ARTERIAL BLD GAS O2 SATURATION 92.4 % (95-98); ARTERIAL BLOOD GAS BASE EXCESS 2.2 meq/l (-2-2); ARTERIAL BLOOD GAS PCO2 41.2 mmHg (35-45); ARTERIAL BLOOD GAS PO2 66.8 mmHg (80-100); ARTERIAL BLOOD GAS pH 7.42 (7.35-7.45)
[2019-02-03 19:24] LABS: ALLENS TEST POSITIVE
[2019-02-03] MEDS: methylPREDNISolone NA SUCC 40 MG/1 ML VIAL IVPUSH SCH (19:28)
--- NOTE | 2019-02-03 20:22 | EKG ---
Test Reason : Blood Pressure : / mmHG Vent. Rate : 071 BPM Atrial Rate : 108 BPM P-R Int : 000 ms QRS Dur : 104 ms QT Int : 394 ms P-R-T Axes : 000 -53 005 degrees QTc Int : 428 ms ATRIAL FIBRILLATION WITH PREMATURE VENTRICULAR OR ABERRANTLY CONDUCTED COMPLEXES INCOMPLETE RIGHT BUNDLE BRANCH BLOCK LEFT ANTERIOR FASCICULAR BLOCK POSSIBLE ANTERIOR INFARCT (CITED ON OR BEFORE 07-DEC-2018) ABNORMAL ECG WHEN COMPARED WITH ECG OF 07-DEC-2018 16:33, PREVIOUS ECG HAS UNDETERMINED RHYTHM, NEEDS REVIEW QUESTIONABLE CHANGE IN INITIAL FORCES OF ANTEROSEPTAL LEADS Confirmed by LUIS CAMPOS MD ([id number]) on 02/03/2019 8:21:44 PM Referred By: Confirmed By:LUIS CAMPOS MD
[2019-02-03] MEDS ORDERED: INSULIN (LEVEMIR) 100 UNITS/ML UNITS SQ SCH (22:00)
[2019-02-03] MEDS ORDERED: PT OWN MED DRAWER 7, Y5N ONE (22:14)
[2019-02-03] MEDS: ATORVASTATIN CA 10 MG TABLET (FP) PO SCH (22:22)
[2019-02-03] MEDS: TERAZOSIN HCL 1 MG CAPSULE PO SCH (22:23)
[2019-02-04] MEDS: methylPREDNISolone NA SUCC 40 MG/1 ML VIAL IVPUSH SCH ×3 (01:36→17:04)
[2019-02-04] MEDS ORDERED: PT OWN MED DRAWER 7, Y5N ONE ×2 (06:42→21:40)
[2019-02-04] MEDS: INSULIN SLIDING SCALE (NOVOLOG) 1 VIAL SQ SCH ×4 (06:48→21:46)
[2019-02-04] MEDS: sitaGLIPtin PHOSPHATE 50 MG TABLET PO SCH (06:48)
[2019-02-04] MEDS: GLIMEPIRIDE 4 MG TABLET (FP) PO SCH (06:48)
[2019-02-04 07:45] LABS: ALBUMIN 3.5 g/dl (3.4-5.0); BILIRUBIN,TOTAL 0.8 mg/dL (0.2-1); BLOOD UREA NITROGEN 61.8 mg/dL (7-18); CALCIUM 8.7 mg/dL (8.5-10.1); CREATININE 2.1 mg/dL (0.55-1.3); POTASSIUM 4.2 mmol/L (3.5-5.1); TOT PROT 6.1 g/dl (6.4-8.2)
[2019-02-04 07:47] LABS: HEMATOCRIT 35.2 % (35.4-49); HEMOGLOBIN 12.1 GM/dL (11.7-16.9); MCH 29.7 pg (25.7-33.7); MCHC 34.3 g/dl (32.0-35.9); MEAN CELL VOLUME 86.5 fl (80-96); MEAN PLT VOLUME 10.9 fl (7.5-11.1); PLATELET COUNT 194 K/MM3 (134-434); RBC 4.07 M/mm3 (4.00-5.60); RDW 14.3 % (11.9-15.9); WHITE BLOOD COUNT 9.6 K/mm3 (4.0-10.0)
[2019-02-04] MEDS: ALBUTEROL SO4 2.5/IPRATROPIUM 0.5 INH SOL 3 ML VIAL.NEB. NEB SCH ×4 (08:08→20:42)
--- NOTE | 2019-02-04 09:51 | PN ---
Progress Note, Physician Chief Complaint: sob History of Present Illness: became severely sob yest--improved after lasix 60 iv x1. remains improved, though still slightly dyspneic. no cp, palp, syncope - Current Medication List Current Medications: Active Medications Albuterol/Ipratropium (Duoneb -) 1 amp NEB Q6H PRN PRN Reason: SHORT OF BREATH/WHEEZING Albuterol/Ipratropium (Duoneb -) 1 amp NEB RQID [facility] Last Admin: 02/04/19 08:08 Dose: 1 amp Atorvastatin Calcium (Lipitor -) 10 mg PO [facility] Last Admin: 02/03/19 22:22 Dose: 10 mg Diltiazem HCl (Cardizem Cd -) 300 mg PO DAILY [facility] Last Admin: 02/03/19 10:18 Dose: 300 mg Glimepiride (Amaryl -) 4 mg PO DAILY@0700 [facility] Last Admin: 02/04/19 06:48 Dose: 4 mg Ceftriaxone Sodium 1 gm/ (Dextrose) 50 mls @ 100 mls/hr IVPB DAILY [facility] Last Admin: 02/03/19 10:18 Dose: 100 mls/hr Azithromycin (Zithromax 500mg Ivpb (Pre-Docked)) 500 mg in 250 mls @ 250 mls/ hr IVPB DAILY [facility] Last Admin: 02/03/19 10:57 Dose: 250 mls/hr Insulin Aspart (Novolog Vial Sliding Scale -) 1 vial SQ [facility]; Protocol Last Admin: 02/04/19 06:48 Dose: 4 units Insulin Detemir (Levemir Vial) 10 units SQ [facility] Last Admin: 02/03/19 22:22 Dose: 10 unit Methylprednisolone Sodium Succinate (Solu-Medrol -) 40 mg IVPUSH Q8H-IV [facility] Last Admin: 02/04/19 01:36 Dose: 40 mg Sitagliptin Phosphate (Januvia -) 100 mg PO ACBK [facility] Last Admin: 02/04/19 06:48 Dose: 100 mg Terazosin HCl (Hytrin -) 2 mg PO [facility] Last Admin: 02/03/19 22:23 Dose: 2 mg - Objective Vital Signs: Vital Signs Temperature 97.5 F L 02/04/19 05:48 Pulse Rate 62 02/04/19 05:48 Respiratory Rate 19 02/04/19 05:48 Blood Pressure 163/74 02/04/19 05:48 O2 Sat by Pulse Oximetry (%) 97 02/03/19 21:00 Constitutional: Yes: No Distress, Calm Eyes: No: Sclera Icterus HENT: No: Nasal Congestion Cardiovascular: Yes: Pulse Irregular, S1, S2, Other (PMI non diplaced). No: JVD , Gallop, Murmur Respiratory: Yes: CTA Bilaterally. No: Accessory Muscle Use, Rales, Wheezes Gastrointestinal: Yes: Normal Bowel Sounds, Soft. 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 acute diastolic chf, ? pulm sarcoid: -Has vol overload/symptoms with interval weight gain and elevated BNP of 1500 ( above prior baseline) -wt 223 here 12/08 discharge--227 office 12/26--234 01/15-->up 238 here -on lasix 40 po qd at home -Received IV lasix 40mg x1 in ED-->rise in sCreat to 1.7 (0.9) and drop in sodium--> 2.5--lasix held -02/03 with signif sob, CXR new congestive changes, distended neck veins--doses lasix [address] solorzano--creatinine and sodium improving -followup CT chest report: reviewed with pulm--? pulm sarcoid with atypical pulm edema pattern superimposed (given acute worsening vs Xray on DOA) -02/04: no JVD, sob improved, remains mildly edematous. check wt--will consider re-dose lasix today PO start nitrates for ? cardiorenal syndrome. on iv steroids --risk for fluid retention. pulm following -recent echo unremarkable htn: -mostly controlled -cont home dilt hld: -Continue home statin. afib, ITP: -Rate controlled. Continue home dilt, -platelets very variable over time--AC is managed as per PLTs trend (ITP), by dr aburto and dr bond--holding when PLTs < 50K. -d/w'd dr aburto: pt's PLTs consistently drop to 30-50K when off steroids and NPATE therapy, hence AC has been indefinitely deferred in concert with heme' s recs
--- NOTE | 2019-02-04 10:41 | PN ---
Progress Note (short form) - Note Progress Note: PULMONARY CONSULTATION DICTATED 02/04. IMP
[2019-02-04] MEDS ORDERED: DEXTROSE 5%-WATER - 50 ML IVPB ONE (11:09)
[2019-02-04] MEDS ORDERED: cefTRIAXone SODIUM 1 GM VIAL ONE (11:09)
[2019-02-04] MEDS: CEFTRIAXONE 1 GM in DEXTROSE 5%-WATER - 50 ML IVPB SCH (11:12)
--- NOTE | 2019-02-04 11:49 | CON.PULM ---
Consult Consult Specialty:: PULMONARY Referred by:: Dr Keita Reason for Consultation:: COPD - History of Present Illness Chief Complaint: shortness of breath History of Present Illness: 78yo male with h/o HTN, DM, hyperlipidemia, LV diastolic dysfunction, atrial fibrillation, ITP who was admitted with worsening shortness of breath x 2-3 days. Reports a nonproductive cough and occasional wheezing. Also reports increase in his leg swelling. No fevers, chills or sweats. No chest pain or palpitations. He is a remote smoker. CT chest done here showing innumerable nodules and lymphadenopathy. States that he has been told of nodules for the past 10 years, never biopsied. 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 - History Source History Provided By: Patient, Medical Record Limitations to Obtaining History: Language Barrier - Past Medical History Cardio/Vascular: Yes: AFIB, HTN, Hyperlipdemia, Mitral Insufficiency, Pulmonary Hypertension Pulmonary: Yes: COPD Renal/: Yes: BPH, Renal Calculi Musculoskeletal: Yes: Osteoarthritis Rheumatology: Yes: Sarcoidosis Endocrine: Yes: Other (Impaired glucose tolerance) - Past Surgical History Past Surgical History: Yes: None - Alcohol/Substance Use Hx Alcohol Use: No History of Substance Use: reports: None - Smoking History Smoking history: Never smoked Have you smoked in the past 12 months: No Aproximately how many cigarettes per day: 0 - Social History ADL: Independent 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 06/28/18 Albuterol Sulfate [Proair Hfa] 8.5 gm IH Q4H PRN 06/28/18 Diltiazem HCl [Cartia Xt] 300 mg PO DAILY 06/28/18 Glimepiride [Amaryl -] 4 mg PO DAILY@0700 06/28/18 Nebulizer and Compressor [Easy Neb Compressor Nebulizer] 1 each ASDIR #1 each 06/28/18 Terazosin HCl 2 mg PO HS 06/28/18 Review of Systems - Review of Systems Constitutional: reports: Weakness. denies: Chills, Fever Eyes: denies: Recent Change in Vision HENT: denies: Nasal Congestion, Throat Pain Neck: denies: Stiffness, Tenderness Cardiovascular: reports: Edema, Shortness of Breath. denies: Chest Pain, Palpitations Respiratory: reports: Cough, SOB on Exertion, Wheezing. denies: Hemoptysis Gastrointestinal: denies: Abdominal Pain, Nausea, Vomiting Genitourinary: denies: Dysuria, Hematuria Neurological: denies: Dizziness, Headache Endocrine: denies: Unexplained Weight Loss Physical Exam Vital Sings: Vital Signs Temperature 97.5 F L 02/04/19 05:48 Pulse Rate 62 02/04/19 05:48 Respiratory Rate 19 02/04/19 05:48 Blood Pressure 163/74 02/04/19 05:48 O2 Sat by Pulse Oximetry (%) 97 02/03/19 21:00 Constitutional: Yes: Calm Eyes: Yes: Conjunctiva Clear, EOM Intact HENT: Yes: Atraumatic, Normocephalic Neck: Yes: Supple, Trachea Midline Cardiovascular: Yes: Regular Rate and Rhythm Respiratory: Yes: Diminished (decreased breath sounds at the bases) ...Clubbing: No Gastrointestinal: Yes: Normal Bowel Sounds, Soft. No: Tenderness Edema: Yes Labs: CBC, BMP 02/04/19 06:05 02/04/19 06:05 ABG Results ABG pH 7.42 (7.35-7.45) 02/03/19 17:14 ABG pCO2 at Pt Temp 41.2 mmHg (35-45) 02/03/19 17:14 ABG pO2 at Pt Temp 66.8 mmHg (80-100) L 02/03/19 17:14 ABG HCO3 26.4 mmol/L (22-27) 02/03/19 17:14 ABG O2 Sat (Measured) 92.4 % (95-98) L 02/03/19 17:14 ABG O2 Content 16.0 % vol 02/03/19 17:14 ABG Base Excess 2.2 meq/l (-2-2) H 02/03/19 17:14 Imaging - Results Chest X-ray: Report Reviewed, Image Reviewed Cat Scan: Image Reviewed (right effusion with atelectasis, LLL infiltrate, innumerable nodules apical predominance, subcarinal lymphadenopathy) Assessment/Plan Acute on Chronic Diastolic Heart Failure Atrial Fibrillation Acute Kidney Injury r/o Pneumonia ITP HTN DM Hyperlipidemia Lung Nodules likely Sarcoidosis - continue lasix - monitor urine output, creatinine - daily weights - rate control - continue anticoagulation - O2 to keep SpO2 >90% - agree with antibiotics - f/u cultures - continue medrol - inhaled bronchodilators - will need PFTs and f/u imaging as outpt Thank you for this consult Arden Faulkner MD
--- NOTE | 2019-02-04 12:08 | ECHO ---
Name: EDEN STEVEN Exam:Adult Echocardiogram Study Date: 02/04/2019 10:26 AM Age: 78 yrs Reason For Study: CHF Height: 71 in Weight: 238 lb BSA: 2.3 m2 MMode/2D Measurements & Calculations IVSd: 1.4 cm Ao root diam: 3.1 cm LVIDd: 5.0 cm LA dimension: 4.8 cm LVIDs: 3.0 cm LVPWd: 1.1 cm EDV(Teich): 118.8 ml LVOT diam: 2.0 cm ESV(Teich): 35.4 ml LAV (MOD-bp): 85.6 ml Doppler Measurements & Calculations MV E max tru: 139.0 cm/sec Ao V2 max: 149.3 cm/sec MV dec time: 0.20 sec Ao max P.9 mmHg AI P1/2t: 509.5 msec JAKOB(V,D): 2.2 cm2 AI max tru: 317.5 cm/sec LV V1 max P.3 mmHg AI max P.5 mmHg LV V1 max: 103.3 cm/sec AI dec slope: 182.5 cm/sec2 MR max tru: 462.5 cm/sec TR max tru: 313.0 cm/sec MR max P.6 mmHg TR max P.7 mmHg PA V2 max: 100.4 cm/sec Med Peak E' Tru: 6.4 cm/sec PA max P.0 mmHg Med E/e': 21.7 Lat Peak E' Tru: 11.1 cm/sec Lat E/e': 12.5 PI Vmax: 123.5 cm/sec Procedure A complete two-dimensional transthoracic echocardiogram was performed (2D, M-mode, Doppler and color flow Doppler). Left Ventricle The left ventricle is normal in size. Left ventricular systolic function is normal. Ejection Fraction = 60- 65%. No regional wall motion abnormalities noted. Right Ventricle The right ventricle is normal size. The right ventricular systolic function is normal. Atria The left atrium is mildly dilated. LA volume index is 38 ml/m2. Right atrial size is normal. Mitral Valve The mitral valve is normal in structure and function. There is mild mitral regurgitation. Tricuspid Valve The tricuspid valve is normal in structure and function. There is mild to moderate tricuspid regurgit ation. Pulmonary artery systolic pressure is at least 62 mmHg if RA pressure is assumed 8 mmHg (dilated IVC) . Aortic Valve There is mild aortic sclerosis.;. Mild aortic regurgitation. Pulmonic Valve The pulmonic valve is not well visualized. Great Vessels The aortic root is normal size. Pericardium/Pleura There is no pericardial effusion. Interpretation Summary The left ventricle is normal in size. Left ventricular systolic function is normal. No regional wall motion abnormalities noted. Ejection Fraction = 60-65%. The right ventricular systolic function is normal. The left atrium is mildly dilated. Right atrial size is normal. There is mild mitral regurgitation. There is mild to moderate tricuspid regurgitation. Pulmonary artery systolic pressure is at least 62 mmHg if RA pressure is assumed 8 mmHg (dilated IVC) There is mild aortic sclerosis. Mild aortic regurgitation. There is no pericardial effusion. Benjamin Venegas MD 02/04/2019 12:08 PM
[2019-02-04] MEDS ORDERED: FUROSEMIDE 40 MG/4 ML INJECTABLE VIAL IVPUSH ONE ×2 (12:15→14:15)
[2019-02-04] MEDS: AZITHROMYCIN IVPB 500 MG/250 ML BAG IVPB SCH (12:19)
[2019-02-04] MEDS: NITROGLYCERIN 2% OINTMENT - 1GM PACKET TD SCH ×2 (12:19→17:04)
--- NOTE | 2019-02-04 13:21 | PN ---
Progress Note, Physician History of Present Illness: Pt seen and examined at bedside. he is awake and alert. he feels that his breathing is improved. - Current Medication List Current Medications: Active Medications Albuterol/Ipratropium (Duoneb -) 1 amp NEB Q6H PRN PRN Reason: SHORT OF BREATH/WHEEZING Albuterol/Ipratropium (Duoneb -) 1 amp NEB RQID [facility] Last Admin: 02/04/19 08:08 Dose: 1 amp Atorvastatin Calcium (Lipitor -) 10 mg PO [facility] Last Admin: 02/03/19 22:22 Dose: 10 mg Diltiazem HCl (Cardizem Cd -) 300 mg PO DAILY [facility] Last Admin: 02/04/19 11:14 Dose: 300 mg Glimepiride (Amaryl -) 4 mg PO DAILY@0700 [facility] Last Admin: 02/04/19 06:48 Dose: 4 mg Ceftriaxone Sodium 1 gm/ (Dextrose) 50 mls @ 100 mls/hr IVPB DAILY [facility] Last Admin: 02/04/19 11:12 Dose: 100 mls/hr Azithromycin (Zithromax 500mg Ivpb (Pre-Docked)) 500 mg in 250 mls @ 250 mls/ hr IVPB DAILY [facility] Last Admin: 02/04/19 12:19 Dose: 250 mls/hr Insulin Aspart (Novolog Vial Sliding Scale -) 1 vial SQ [facility]; Protocol Last Admin: 02/04/19 11:25 Dose: 8 units Insulin Detemir (Levemir Vial) 10 units SQ [facility] Last Admin: 02/03/19 22:22 Dose: 10 unit Methylprednisolone Sodium Succinate (Solu-Medrol -) 40 mg IVPUSH Q8H-IV [facility] Last Admin: 02/04/19 11:13 Dose: 40 mg Nitroglycerin (Nitro-Bid 2% Paste -) 1 inch TD Q6HPO [facility] Last Admin: 02/04/19 12:19 Dose: 1 inch Sitagliptin Phosphate (Januvia -) 100 mg PO ACBK [facility] Last Admin: 02/04/19 06:48 Dose: 100 mg Terazosin HCl (Hytrin -) 2 mg PO [facility] Last Admin: 02/03/19 22:23 Dose: 2 mg - Objective Vital Signs: Vital Signs Temperature 97.6 F 02/04/19 10:00 Pulse Rate 64 02/04/19 10:00 Respiratory Rate 18 02/04/19 10:00 Blood Pressure 145/84 02/04/19 10:00 O2 Sat by Pulse Oximetry (%) 97 02/03/19 21:00 Constitutional: Yes: Calm Eyes: Yes: Conjunctiva Clear HENT: Yes: Atraumatic Cardiovascular: Yes: S1, S2 Respiratory: Yes: On Nasal O2 Gastrointestinal: Yes: Soft Genitourinary: Yes: WNL Musculoskeletal: Yes: WNL Edema: Yes Edema: LLE: 1+, RLE: 1+ Neurological: Yes: Oriented Psychiatric: Yes: Oriented Labs: CBC, BMP 02/04/19 06:05 02/04/19 06:05 INR, PTT INR 1.15 (0.83-1.09) H 02/01/19 21:30 - ....Imaging Chest X-ray: Report Reviewed Cat Scan: Report Reviewed Problem List - Problems (1) ELLEN (acute kidney injury) Code(s): N17.9 - ACUTE KIDNEY FAILURE, UNSPECIFIED (2) Shortness of breath at rest Code(s): R06.02 - SHORTNESS OF BREATH (3) Atrial fibrillation Code(s): I48.91 - UNSPECIFIED ATRIAL FIBRILLATION Qualifiers: Atrial fibrillation type: chronic (4) CHF (congestive heart failure) Code(s): I50.9 - HEART FAILURE, UNSPECIFIED Qualifiers: Heart failure type: unspecified Heart failure chronicity: acute on chronic Qualified Code(s): I50.9 - Heart failure, unspecified Assessment/Plan Current Medications Generic Name Dose Route Start Last Admin Trade Name Freq PRN Reason Stop Dose Admin Albuterol/Ipratropium 1 amp 02/01/19 18:42 Duoneb - NEB Q6H PRN SHORT OF BREATH/WHEEZING Albuterol/Ipratropium 1 amp 02/02/19 09:43 02/04/19 08:08 Duoneb - NEB 1 amp RQID [facility] Administration Atorvastatin Calcium 10 mg 02/01/19 22:00 02/03/19 22:22 Lipitor - PO 10 mg HS [facility] Administration Diltiazem HCl 300 mg 02/01/19 19:15 02/04/19 11:14 Cardizem Cd - PO 300 mg DAILY [facility] Administration Glimepiride 4 mg 02/03/19 07:00 02/04/19 06:48 Amaryl - PO 4 mg DAILY@0700 [facility] Administration Ceftriaxone Sodium 1 gm/ 50 mls @ 100 mls/hr 02/02/19 09:02 02/04/19 11:12 Dextrose IVPB 100 mls/hr DAILY [facility] Administration Azithromycin 500 mg in 250 mls @ 250 mls/hr 02/02/19 11:30 02/04/19 12:19 Zithromax 500mg Ivpb (Pre-Docked) IVPB 250 mls/hr DAILY [facility] Administration Insulin Aspart 1 vial 02/01/19 22:00 02/04/19 11:25 Novolog Vial Sliding Scale - SQ 8 units ACHS [facility] Administration Protocol Insulin Detemir 10 units 02/03/19 22:00 02/03/19 22:22 Levemir Vial SQ 10 unit HS [facility] Administration Methylprednisolone Sodium Succinate 40 mg 02/03/19 19:15 02/04/19 11:13 Solu-Medrol - IVPUSH 40 mg Q8H-IV [facility] Administration Nitroglycerin 1 inch 02/04/19 12:00 02/04/19 12:19 Nitro-Bid 2% Paste - TD 1 inch Q6HPO [facility] Administration Sitagliptin Phosphate 100 mg 02/02/19 07:00 02/04/19 06:48 Januvia - PO 100 mg ACBK [facility] Administration Terazosin HCl 2 mg 02/02/19 22:00 02/03/19 22:23 Hytrin - PO 2 mg HS [facility] Administration Impression 1. ELLEN 2. CHF 3. a-fib 4. COPD 5. DM 6. ITP 7. HTN Plan - pt responded to lasix last night and put out over a liter - will give another dose of lasix - renal function is improving - ct reviewd, pulm on board - echo reviewed - cardio follow up
--- NOTE | 2019-02-04 15:27 | PN ---
Physical Exam: SUBJECTIVE: Patient seen and examined at the bedside. Denies any acute overnight events. Stating that his breathing has improved but does not that he continued to have some shortness of breath and has trouble speaking in full sentences. Notes his lower extremity edema is improved. States does have some mild weakness. Denies fever, chills, chest pain, n/v/c/d, abd pain, dizziness, lightheadedness. OBJECTIVE: Vital Signs Period Temp Pulse Resp BP Sys/Henriquez Pulse Ox Last 24 Hr 97.2 F-97.9 F 62-88 18-19 139-164/71-97 97-97 GENERAL: Pleasant male. NAD. AAOx3. HEENT: AT/NC. EOMI. MMM. NECK: Normal range of motion, supple without lymphadenopathy, JVD, or masses. LUNGS: bibasilar crackles noted, decreased breath sounds. Diffuse expiratory wheezes noted. Symmetric chest rise. No accessory muscle use. HEART: irregularly, irregularly. S1, S2. No murmurs noted. ABDOMEN: Soft, nontender, not distended, normoactive bowel sounds, no guarding, no rebound, no masses. MUSCULOSKELETAL: Normal range of motion at all joints. No bony deformities or tenderness. No CVA tenderness. UPPER EXTREMITIES: 2+ pulses, warm, well-perfused. No cyanosis. No clubbing. No peripheral edema. LOWER EXTREMITIES: 2+ pulses, warm, well-perfused. No calf tenderness. 1+ peripheral edema noted. NEUROLOGICAL: Cranial nerves II-XII intact. Normal speech. PSYCHIATRIC: Cooperative. Good eye contact. Appropriate mood and affect. SKIN: Warm, dry, normal turgor, no rashes or lesions noted, normal capillary refill. Laboratory Results - last 24 hr 02/03/19 02/03/19 02/03/19 16:50 17:14 22:19 WBC RBC Hgb Hct MCV MCH MCHC RDW Plt Count MPV Anticoagulation Therapy No Result Required. Puncture Site Right radial ABG pH 7.42 ABG pCO2 at Pt Temp 41.2 ABG pO2 at Pt Temp 66.8 L ABG HCO3 26.4 ABG O2 Sat (Measured) 92.4 L ABG O2 Content 16.0 ABG Base Excess 2.2 H Crescencio Test Positive O2 Delivery Device Room air Oxygen Flow Rate No Vent Mode No Result Required. Vent Rate No Result Required. Mechanical Rate No Result Required. Pressure Support Vent No Result Required. Sodium Potassium Chloride Carbon Dioxide Anion Gap BUN Creatinine Est GFR (CKD-EPI)AfAm Est GFR (CKD-EPI)NonAf POC Glucometer 331 370 Random Glucose Calcium Total Bilirubin AST ALT Alkaline Phosphatase Total Protein Albumin 02/04/19 02/04/19 02/04/19 05:55 06:05 06:05 WBC 9.6 RBC 4.07 Hgb 12.1 Hct 35.2 L MCV 86.5 MCH 29.7 MCHC 34.3 RDW 14.3 Plt Count 194 D MPV 10.9 Anticoagulation Therapy Puncture Site ABG pH ABG pCO2 at Pt Temp ABG pO2 at Pt Temp ABG HCO3 ABG O2 Sat (Measured) ABG O2 Content ABG Base Excess Crescencio Test O2 Delivery Device Oxygen Flow Rate Vent Mode Vent Rate Mechanical Rate Pressure Support Vent Sodium 134 L Potassium 4.2 Chloride 97 L Carbon Dioxide 28 Anion Gap 9 BUN 61.8 H Creatinine 2.1 H Est GFR (CKD-EPI)AfAm 33.45 Est GFR (CKD-EPI)NonAf 28.86 POC Glucometer 261 Random Glucose 297 H Calcium 8.7 Total Bilirubin 0.8 AST 34 ALT 53 Alkaline Phosphatase 72 Total Protein 6.1 L Albumin 3.5 02/04/19 11:25 WBC RBC Hgb Hct MCV MCH MCHC RDW Plt Count MPV Anticoagulation Therapy Puncture Site ABG pH ABG pCO2 at Pt Temp ABG pO2 at Pt Temp ABG HCO3 ABG O2 Sat (Measured) ABG O2 Content ABG Base Excess Crescencio Test O2 Delivery Device Oxygen Flow Rate Vent Mode Vent Rate Mechanical Rate Pressure Support Vent Sodium Potassium Chloride Carbon Dioxide Anion Gap BUN Creatinine Est GFR (CKD-EPI)AfAm Est GFR (CKD-EPI)NonAf POC Glucometer 376 Random Glucose Calcium Total Bilirubin AST ALT Alkaline Phosphatase Total Protein Albumin Active Medications Generic Name Dose Route Start Last Admin Trade Name Freq PRN Reason Stop Dose Admin Albuterol/Ipratropium 1 amp 02/01/19 18:42 Duoneb - NEB Q6H PRN SHORT OF BREATH/WHEEZING Albuterol/Ipratropium 1 amp 02/02/19 09:43 02/04/19 08:08 Duoneb - NEB 1 amp RQID [facility] Administration Atorvastatin Calcium 10 mg 02/01/19 22:00 02/03/19 22:22 Lipitor - PO 10 mg HS [facility] Administration Diltiazem HCl 300 mg 02/01/19 19:15 02/04/19 11:14 Cardizem Cd - PO 300 mg DAILY [facility] Administration Glimepiride 4 mg 02/03/19 07:00 02/04/19 06:48 Amaryl - PO 4 mg DAILY@0700 [facility] Administration Ceftriaxone Sodium 1 gm/ 50 mls @ 100 mls/hr 02/02/19 09:02 02/04/19 11:12 Dextrose IVPB 100 mls/hr DAILY [facility] Administration Azithromycin 500 mg in 250 mls @ 250 mls/hr 02/02/19 11:30 02/04/19 12:19 Zithromax 500mg Ivpb (Pre-Docked) IVPB 250 mls/hr DAILY [facility] Administration Insulin Aspart 1 vial 02/01/19 22:00 02/04/19 11:25 Novolog Vial Sliding Scale - SQ 8 units ACHS [facility] Administration Protocol Insulin Detemir 10 units 02/03/19 22:00 02/03/19 22:22 Levemir Vial SQ 10 unit HS [facility] Administration Methylprednisolone Sodium Succinate 40 mg 02/03/19 19:15 02/04/19 11:13 Solu-Medrol - IVPUSH 40 mg Q8H-IV [facility] Administration Nitroglycerin 1 inch 02/04/19 12:00 02/04/19 12:19 Nitro-Bid 2% Paste - TD 1 inch Q6HPO [facility] Administration Sitagliptin Phosphate 100 mg 02/02/19 07:00 02/04/19 06:48 Januvia - PO 100 mg ACBK [facility] Administration Terazosin HCl 2 mg 02/02/19 22:00 02/03/19 22:23 Hytrin - PO 2 mg HS [facility] Administration ASSESSMENT/PLAN: Adis Abarca is a 78M w/ a PMHx of CHF with preserved EF, Afib, ITP, NIDDM, HTN/ HLD presented in the ED for 2-3 day hx of shortness of breath admitted for acute diastolic CHF exacerbation. Acute CHF Exacerbation; w/ preserved EF - Continue Lasix 60mg IV daily as tolerated - Strict I/Os, daily weights - Sodium-controlled diet - Cardio consult noted; tele showing frequent PVCs, NSVT - Last echo (07/06): showed EF 60-65%, trace MR, mild TR, mild AR - Echo on this admission showing EF 60-65%, LV function normal, increased pulmonary artery pressure - started nitropaste 2% q6h as per cardiology Acute Mild COPD Exacerbation/Pneumonia - Solumedrol 40mg q8h IV, can taper as tolerated - Duonebs [facility]ETTE and PRN - Sputum cx/Influenza PCR - IV Ceftriaxone/Azithro, day #4 Pulmonary Nodules - CT chest showing multiple pulmonary nodules mostly apical and hilar lymphadenopathy - patient noting nodules are chronic and have never been biopsied - pulmonary consulted, recs appreciated - will have imaging and PFT's as outpatient ELLEN; may be due to hypovolemia due to aggressive diuresis - Hold all nephrotoxic agents - Urine electrolytes ordered - Renal U/S unremarkable - Nephro consulted, recs appreciated - continue Lasix 60mg IV daily as tolerated - renal function improved CRE 2.5-->2.1 Afib - Rate-controlled. Not currently on AC per heme due to low platelet. Will defer mgmt to outpatient heme/cardio - Monitor on tele NIDDM - Glu remains elevated likely in setting of steroid use - Cont home med: Januvia and Glimepiride - BGM/ISS ACHS - Levemir 15 units qhs HTN/HLD - Cont home meds: Diltiazem, Simvastatin ITP - Plt 194 today. Stable. Outpatient follow up Prophylaxis - SCDs given chronic thrombocytopenia/bleeding risk/ITP FEN - no standing fluids - hyponatremia improved, likely from fluid overload, continue to diurese and monitor electrolytes - cardiac diet Dispo -cont to monitor on telemetry Visit type - Emergency Visit Emergency Visit: No - New Patient This patient is new to me today: Yes Date on this admission: 02/04/19 - Critical Care Critical Care patient: No
--- NOTE | 2019-02-04 17:31 | PN ---
Teaching Attending Note Name of Resident: Ho Ga ATTENDING PHYSICIAN STATEMENT I saw and evaluated the patient. I reviewed the resident's note and discussed the case with the resident. I agree with the resident's findings and plan as documented with exceptions below. SUBJECTIVE: Patient seen and examined. Breathing improved, urination better, no new complaints or concerns. OBJECTIVE: Vital Signs Period Temp Pulse Resp BP Sys/Henriquez Pulse Ox Last 24 Hr 97.2 F-97.9 F 62-88 - 139-164/71-97 97-97 Intake & Output 02/01/19 02/02/19 02/03/19 02/04/19 23:59 23:59 23:59 23:59 Intake Total 830 480 580 Output Total 200 1850 1950 Balance 630 -1370 -1370 Weight 217 lb 9.6 oz 238 lb 9.595 oz 238 lb 4 oz General sitting in bed, some improvement in tachypnea, able to talk in full sentences Chest: decreased air entry, left basilar/mid lung rales improved, scattered expirtory wheezing improved today, Abdomen:Soft, Nt Extremities: improved pedal edema Home Medications Medication Instructions Recorded Sitagliptin Phosphate [Januvia] 100 mg PO DAILY 10/04/13 Furosemide [Lasix -] 40 mg PO DAILY #1 tablet 03/21/14 Simvastatin [Zocor -] 20 mg PO HS 04/11/14 Albuterol 2.5/Ipratropium 0.5 1 neb IH QID PRN #1 vial.neb. 06/28/18 [Duoneb -] Albuterol Sulfate [Proair Hfa] 8.5 gm IH Q4H PRN 06/28/18 Diltiazem HCl [Cartia Xt] 300 mg PO DAILY 06/28/18 Glimepiride [Amaryl -] 4 mg PO DAILY@0700 06/28/18 Nebulizer and Compressor [Easy Neb 1 each ASDIR #1 each 06/28/18 Compressor Nebulizer] Terazosin HCl 2 mg PO HS 06/28/18 Active Medications Albuterol/Ipratropium (Duoneb -) 1 amp NEB Q6H PRN PRN Reason: SHORT OF BREATH/WHEEZING Albuterol/Ipratropium (Duoneb -) 1 amp NEB RQID [facility] Last Admin: 11/18/19 08:08 Dose: 1 amp Atorvastatin Calcium (Lipitor -) 10 mg PO HS [facility] Last Admin: 02/03/19 22:22 Dose: 10 mg Diltiazem HCl (Cardizem Cd -) 300 mg PO DAILY [facility] Last Admin: 02/04/19 11:14 Dose: 300 mg Glimepiride (Amaryl -) 4 mg PO DAILY@0700 [facility] Last Admin: 02/04/19 06:48 Dose: 4 mg Ceftriaxone Sodium 1 gm/ (Dextrose) 50 mls @ 100 mls/hr IVPB DAILY [facility] Last Admin: 02/04/19 11:12 Dose: 100 mls/hr Azithromycin (Zithromax 500mg Ivpb (Pre-Docked)) 500 mg in 250 mls @ 250 mls/ hr IVPB DAILY [facility] Last Admin: 02/04/19 12:19 Dose: 250 mls/hr Insulin Aspart (Novolog Vial Sliding Scale -) 1 vial SQ [facility]; Protocol Last Admin: 02/04/19 16:52 Dose: 10 units Insulin Detemir (Levemir Vial) 15 units SQ [facility] Methylprednisolone Sodium Succinate (Solu-Medrol -) 40 mg IVPUSH Q8H-IV [facility] Last Admin: 02/04/19 17:04 Dose: 40 mg Nitroglycerin (Nitro-Bid 2% Paste -) 1 inch TD Q6HPO [facility] Last Admin: 02/04/19 17:04 Dose: 1 inch Sitagliptin Phosphate (Januvia -) 100 mg PO ACBK [facility] Last Admin: 02/04/19 06:48 Dose: 100 mg Terazosin HCl (Hytrin -) 2 mg PO HS [facility] Last Admin: 02/03/19 22:23 Dose: 2 mg Laboratory Results - last 24 hr 02/03/19 02/03/19 02/04/19 17:14 22:19 05:55 WBC RBC Hgb Hct MCV MCH MCHC RDW Plt Count MPV Anticoagulation Therapy No Result Required. Puncture Site Right radial ABG pH 7.42 ABG pCO2 at Pt Temp 41.2 ABG pO2 at Pt Temp 66.8 L ABG HCO3 26.4 ABG O2 Sat (Measured) 92.4 L ABG O2 Content 16.0 ABG Base Excess 2.2 H Crescencio Test Positive O2 Delivery Device Room air Oxygen Flow Rate No Vent Mode No Result Required. Vent Rate No Result Required. Mechanical Rate No Result Required. Pressure Support Vent No Result Required. Sodium Potassium Chloride Carbon Dioxide Anion Gap BUN Creatinine Est GFR (CKD-EPI)AfAm Est GFR (CKD-EPI)NonAf POC Glucometer 370 261 Random Glucose Calcium Total Bilirubin AST ALT Alkaline Phosphatase Total Protein Albumin 02/04/19 02/04/19 02/04/19 06:05 06:05 11:25 WBC 9.6 RBC 4.07 Hgb 12.1 Hct 35.2 L MCV 86.5 MCH 29.7 MCHC 34.3 RDW 14.3 Plt Count 194 D MPV 10.9 Anticoagulation Therapy Puncture Site ABG pH ABG pCO2 at Pt Temp ABG pO2 at Pt Temp ABG HCO3 ABG O2 Sat (Measured) ABG O2 Content ABG Base Excess Crescencio Test O2 Delivery Device Oxygen Flow Rate Vent Mode Vent Rate Mechanical Rate Pressure Support Vent Sodium 134 L Potassium 4.2 Chloride 97 L Carbon Dioxide 28 Anion Gap 9 BUN 61.8 H Creatinine 2.1 H Est GFR (CKD-EPI)AfAm 33.45 Est GFR (CKD-EPI)NonAf 28.86 POC Glucometer 376 Random Glucose 297 H Calcium 8.7 Total Bilirubin 0.8 AST 34 ALT 53 Alkaline Phosphatase 72 Total Protein 6.1 L Albumin 3.5 02/04/19 16:50 WBC RBC Hgb Hct MCV MCH MCHC RDW Plt Count MPV Anticoagulation Therapy Puncture Site ABG pH ABG pCO2 at Pt Temp ABG pO2 at Pt Temp ABG HCO3 ABG O2 Sat (Measured) ABG O2 Content ABG Base Excess Crescencio Test O2 Delivery Device Oxygen Flow Rate Vent Mode Vent Rate Mechanical Rate Pressure Support Vent Sodium Potassium Chloride Carbon Dioxide Anion Gap BUN Creatinine Est GFR (CKD-EPI)AfAm Est GFR (CKD-EPI)NonAf POC Glucometer 437 Random Glucose Calcium Total Bilirubin AST ALT Alkaline Phosphatase Total Protein Albumin CT chest results and images reviewed Telemetry: Afib PVCs, NSVT ASSESSMENT AND PLAN: 78 yom with PMhx of Afib (off eliquis given ITP/thrombocytopenia), Diastolic Dysfunction, ITP, HTN, HLD, NIDDM, ?COPD (occupational), suspected sarcoidosis, herpes zoster ophthalmicus, recent admission with CHF exacerbation in 11/2018 admitted with dyspnea -Acute diastolic heart failure excerbation -Recent viral illness, suspected bronchitis+/- LLL Pneumonia -Acute COPD exacerbation, due to above -Atrial fibrillation off eliquis given ITP/thrombocytopenia -ELLEN,suspect cardiorenal, given improvement with lasix. -ITP -NIDDM -HTN -HLD -Suspected sarcoidosis -Herpes zoster opthalmicus Plan: Renal function improved. Renal/cardiology input noted, Additional lasix 60 mg IV x 1 with nitropaste. Monitor volume status. Renal/bladder US with no concerns. CT chest noted, Follow up imaging in 3 months. Ceftriaxone/azithromycin day 3. Influenza PCR neg, Follow up urine PNA studies. Currently dose of solumedrol today, taper in 24 hours if improves. Pulmonary input noted. Januvia/glimepiride. Blood sugars rising. Levemir started inhouse, increase to 15 units hs for now. ISS, diabetic diet. Known h/o ITP with variable platelets, trend for now. Off Eliquis given ITP/recurrent thrombocytopenia Continue cardizem/terazocin/statin DVTPPX SCDs given chronic thrombocytopenia/ITP/bleeding risk Will need home oxygen needs assessment prior to dc Dispo pending clinical improvement, anticipate home with services +/-home oxygen when improved. Plan discussed with patient and family at bedside in detail, all questions answered.
[2019-02-04] MEDS: ATORVASTATIN CA 10 MG TABLET (FP) PO SCH (21:45)
[2019-02-04] MEDS: TERAZOSIN HCL 1 MG CAPSULE PO SCH (21:45)
[2019-02-04] MEDS: INSULIN (LEVEMIR) 100 UNITS/ML UNITS SQ SCH (21:45)
[2019-02-05] MEDS: NITROGLYCERIN 2% OINTMENT - 1GM PACKET TD SCH ×5 (00:57→23:36)
[2019-02-05] MEDS: methylPREDNISolone NA SUCC 40 MG/1 ML VIAL IVPUSH SCH ×2 (01:02→09:39)
[2019-02-05] MEDS: INSULIN SLIDING SCALE (NOVOLOG) 1 VIAL SQ SCH ×4 (06:18→21:39)
[2019-02-05] MEDS: GLIMEPIRIDE 4 MG TABLET (FP) PO SCH (06:18)
[2019-02-05] MEDS: sitaGLIPtin PHOSPHATE 50 MG TABLET PO SCH (06:18)
[2019-02-05 07:12] LABS: HEMATOCRIT 36.8 % (35.4-49); HEMOGLOBIN 12.3 GM/dL (11.7-16.9); LYMPH % 4.6 % (8-40); MCH 29.2 pg (25.7-33.7); MCHC 33.5 g/dl (32.0-35.9); MEAN CELL VOLUME 87.2 fl (80-96); MEAN PLT VOLUME 10.6 fl (7.5-11.1); MONO % 5.6 % (3.8-10.2); NEUT % 89.8 % (42.8-82.8); PLATELET COUNT 245 K/MM3 (134-434); RBC 4.23 M/mm3 (4.00-5.60); RDW 14.2 % (11.9-15.9); WHITE BLOOD COUNT 9.7 K/mm3 (4.0-10.0)
[2019-02-05] MEDS: ALBUTEROL SO4 2.5/IPRATROPIUM 0.5 INH SOL 3 ML VIAL.NEB. NEB SCH ×4 (08:00→20:00)
[2019-02-05 08:10] LABS: ALBUMIN 3.4 g/dl (3.4-5.0); BILIRUBIN,TOTAL 1.1 mg/dL (0.2-1); BLOOD UREA NITROGEN 56.3 mg/dL (7-18); CALCIUM 8.9 mg/dL (8.5-10.1); CREATININE 1.7 mg/dL (0.55-1.3); POTASSIUM 4.3 mmol/L (3.5-5.1); TOT PROT 6.1 g/dl (6.4-8.2)
[2019-02-05] MEDS ORDERED: cefTRIAXone SODIUM 1 GM VIAL ONE (09:02)
[2019-02-05] MEDS ORDERED: DEXTROSE 5%-WATER - 50 ML IVPB ONE (09:02)
[2019-02-05] MEDS: CEFTRIAXONE 1 GM in DEXTROSE 5%-WATER - 50 ML IVPB SCH (09:39)
[2019-02-05] MEDS: AZITHROMYCIN IVPB 500 MG/250 ML BAG IVPB SCH (10:30)
[2019-02-05] MEDS ORDERED: predniSONE 20 MG TABLET (UD) PO ONE (10:46)
[2019-02-05] MEDS ORDERED: FUROSEMIDE 40 MG/4 ML INJECTABLE VIAL IVPUSH ONE (11:27)
--- NOTE | 2019-02-05 11:39 | PN ---
Progress Note (short form) - Note Progress Note: sob improving, still complains of edema. no chest pain, palps, syncope Current Medications Albuterol/Ipratropium (Duoneb -) 1 amp NEB Q6H PRN PRN Reason: SHORT OF BREATH/WHEEZING Albuterol/Ipratropium (Duoneb -) 1 amp NEB RQID [facility] Last Admin: 02/05/19 08:00 Dose: 1 amp Atorvastatin Calcium (Lipitor -) 10 mg PO [facility] Last Admin: 02/04/19 21:45 Dose: 10 mg Diltiazem HCl (Cardizem Cd -) 300 mg PO DAILY [facility] Last Admin: 02/05/19 09:39 Dose: 300 mg Furosemide (Lasix Injection -) 60 mg IVPUSH ONCE ONE Stop: 02/05/19 11:28 Glimepiride (Amaryl -) 4 mg PO DAILY@0700 [facility] Last Admin: 02/05/19 06:18 Dose: 4 mg Azithromycin (Zithromax 500mg Ivpb (Pre-Docked)) 500 mg in 250 mls @ 250 mls/ hr IVPB DAILY [facility] Last Admin: 02/05/19 10:30 Dose: 250 mls/hr Insulin Aspart (Novolog Vial Sliding Scale -) 1 vial SQ [facility]; Protocol Last Admin: 02/05/19 06:18 Dose: 4 units Insulin Detemir (Levemir Vial) 15 units SQ [facility] Last Admin: 02/04/19 21:45 Dose: 15 units Nitroglycerin (Nitro-Bid 2% Paste -) 1 inch TD Q6HPO [facility] Last Admin: 02/05/19 06:18 Dose: 1 inch Prednisone (Deltasone -) 40 mg PO DAILY [facility] Sitagliptin Phosphate (Januvia -) 100 mg PO ACBK [facility] Last Admin: 02/05/19 06:18 Dose: 100 mg Terazosin HCl (Hytrin -) 2 mg PO [facility] Last Admin: 02/04/19 21:45 Dose: 2 mg Vital Signs Period Temp Pulse Resp BP Sys/Henriquez Pulse Ox Last 24 Hr 97.6 F-98.9 F 62-87 18-18 134-148/64-97 97 Constitutional: Yes: No Distress, Calm Eyes: No: Sclera Icterus HENT: No: Nasal Congestion Cardiovascular: Yes: Pulse Irregular, S1, S2, Other (PMI non diplaced). No: JVD , Gallop, Murmur Respiratory: Yes: CTA Bilaterally. No: Accessory Muscle Use, Rales, Wheezes Gastrointestinal: Yes: Normal Bowel Sounds, Soft. 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 acute diastolic chf, ? pulm sarcoid: -Has vol overload/symptoms with interval weight gain and elevated BNP of 1500 ( above prior baseline) -wt 223 here 12/08 discharge--227 office 12/26--234 01/15-->up 238 here, now decreasing -on lasix 40 po qd at home -Cr improving, weight down after two doses of lasix 60 mg IV 02/03-, will give 60 mg IV lasix today - CT chest ?pulm sarcoid - pulm following - cont nitro paste -recent echo unremarkable htn: -mostly controlled -cont home dilt hld: -Continue home statin. afib, ITP: -Rate controlled. Continue home dilt, -platelets very variable over time--AC is managed as per PLTs trend (ITP), by dr aburto and dr bond--holding when PLTs < 50K. -d/w'd dr aburto: pt's PLTs consistently drop to 30-50K when off steroids and NPATE therapy, hence AC has been indefinitely deferred in concert with heme' s recs
--- NOTE | 2019-02-05 11:56 | PN ---
Progress Note, Physician History of Present Illness: PULMONARY ALERT,NO DISTRESS,-SOB,-CP,-COUGH - Current Medication List Current Medications: Active Medications Albuterol/Ipratropium (Duoneb -) 1 amp NEB Q6H PRN PRN Reason: SHORT OF BREATH/WHEEZING Albuterol/Ipratropium (Duoneb -) 1 amp NEB RQID [facility] Last Admin: 02/05/19 08:00 Dose: 1 amp Atorvastatin Calcium (Lipitor -) [address] [facility] Last Admin: 02/04/19 21:45 Dose: 10 mg Diltiazem HCl (Cardizem Cd -) 300 mg PO DAILY [facility] Last Admin: 02/05/19 09:39 Dose: 300 mg Glimepiride (Amaryl -) 4 mg PO DAILY@0700 [facility] Last Admin: 02/05/19 06:18 Dose: 4 mg Azithromycin (Zithromax 500mg Ivpb (Pre-Docked)) 500 mg in 250 mls @ 250 mls/ hr IVPB DAILY [facility] Last Admin: 02/05/19 10:30 Dose: 250 mls/hr Insulin Aspart (Novolog Vial Sliding Scale -) 1 vial SQ [facility]; Protocol Last Admin: 02/05/19 06:18 Dose: 4 units Insulin Detemir (Levemir Vial) [address] [facility] Last Admin: 02/04/19 21:45 Dose: 15 units Nitroglycerin (Nitro-Bid 2% Paste -) 1 inch TD Q6HPO [facility] Last Admin: 02/05/19 06:18 Dose: 1 inch Prednisone (Deltasone -) 40 mg PO DAILY [facility] Sitagliptin Phosphate (Januvia -) 100 mg PO ACBK [facility] Last Admin: 02/05/19 06:18 Dose: 100 mg Terazosin HCl (Hytrin -) [address] [facility] Last Admin: 02/04/19 21:45 Dose: 2 mg - Objective Vital Signs: Vital Signs Temperature 97.8 F 02/05/19 10:00 Pulse Rate 87 02/05/19 10:00 Respiratory Rate 18 02/05/19 10:00 Blood Pressure 147/78 02/05/19 10:00 O2 Sat by Pulse Oximetry (%) 97 02/04/19 21:00 Constitutional: Yes: Well Nourished, Calm Eyes: Yes: WNL HENT: Yes: WNL Neck: Yes: WNL Cardiovascular: Yes: Pulse Irregular, S1, S2 Respiratory: Yes: Diminished Gastrointestinal: Yes: Normal Bowel Sounds, Soft Extremities: Yes: WNL Edema: Yes Labs: CBC, BMP 02/05/19 05:55 02/05/19 05:55 INR, PTT INR 1.15 (0.83-1.09) H 02/01/19 21:30 Problem List - Problems (1) Shortness of breath at rest Code(s): R06.02 - SHORTNESS OF BREATH (2) Acute diastolic (congestive) heart failure Code(s): I50.31 - ACUTE DIASTOLIC (CONGESTIVE) HEART FAILURE (3) Atrial fibrillation Code(s): I48.91 - UNSPECIFIED ATRIAL FIBRILLATION Qualifiers: Atrial fibrillation type: chronic (4) COPD (chronic obstructive pulmonary disease) Code(s): J44.9 - CHRONIC OBSTRUCTIVE PULMONARY DISEASE, UNSPECIFIED (5) COPD exacerbation Code(s): J44.1 - CHRONIC OBSTRUCTIVE PULMONARY DISEASE W (ACUTE) EXACERBATION (6) Congestive heart failure, acute Code(s): I50.9 - HEART FAILURE, UNSPECIFIED Qualifiers: Heart failure type: unspecified Qualified Code(s): I50.9 - Heart failure, unspecified (7) Diabetes Code(s): E11.9 - TYPE 2 DIABETES MELLITUS WITHOUT COMPLICATIONS Qualifiers: Diabetes mellitus type: type 2 Diabetes mellitus custodial insulin use: without salvage determiner use Diabetes mellitus complication status: without complication Qualified Code(s): E11.9 - Type 2 diabetes mellitus without complications (8) HTN (hypertension) Code(s): I10 - ESSENTIAL (PRIMARY) HYPERTENSION Qualifiers: Hypertension type: essential hypertension Qualified Code(s): I10 - Essential (primary) hypertension (9) Pulmonary hypertension Code(s): I27.2 - OTHER SECONDARY PULMONARY HYPERTENSION * DO NOT USE * Assessment/Plan Assessment/Plan Acute on Chronic Diastolic Heart Failure Atrial Fibrillation Acute Kidney Injury r/o Pneumonia ITP HTN DM Hyperlipidemia 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
--- NOTE | 2019-02-05 13:48 | PN ---
Progress Note, Physician History of Present Illness: Pt seen and examined at bedside. He feels that his breathing is a little better. - Current Medication List Current Medications: Active Medications Albuterol/Ipratropium (Duoneb -) 1 amp NEB Q6H PRN PRN Reason: SHORT OF BREATH/WHEEZING Albuterol/Ipratropium (Duoneb -) 1 amp NEB RQID [facility] Last Admin: 02/05/19 12:00 Dose: 1 amp Atorvastatin Calcium (Lipitor -) 10 mg PO HS [facility] Last Admin: 02/04/19 21:45 Dose: 10 mg Diltiazem HCl (Cardizem Cd -) 300 mg PO DAILY [facility] Last Admin: 02/05/19 09:39 Dose: 300 mg Glimepiride (Amaryl -) 4 mg PO DAILY@0700 [facility] Last Admin: 02/05/19 06:18 Dose: 4 mg Azithromycin (Zithromax 500mg Ivpb (Pre-Docked)) 500 mg in 250 mls @ 250 mls/ hr IVPB DAILY [facility] Last Admin: 02/05/19 10:30 Dose: 250 mls/hr Insulin Aspart (Novolog Vial Sliding Scale -) 1 vial SQ [facility]; Protocol Last Admin: 02/05/19 11:52 Dose: 8 units Insulin Detemir (Levemir Vial) 15 units SQ [facility] Last Admin: 02/04/19 21:45 Dose: 15 units Nitroglycerin (Nitro-Bid 2% Paste -) 1 inch TD Q6HPO [facility] Last Admin: 02/05/19 13:19 Dose: 1 inch Prednisone (Deltasone -) 40 mg PO DAILY [facility] Sitagliptin Phosphate (Januvia -) 100 mg PO ACBK [facility] Last Admin: 02/05/19 06:18 Dose: 100 mg Terazosin HCl (Hytrin -) 2 mg PO [facility] Last Admin: 02/04/19 21:45 Dose: 2 mg - Objective Vital Signs: Vital Signs Temperature 97.8 F 02/05/19 10:00 Pulse Rate 87 02/05/19 10:00 Respiratory Rate 18 02/05/19 10:00 Blood Pressure 147/78 02/05/19 10:00 O2 Sat by Pulse Oximetry (%) 97 02/05/19 09:00 Constitutional: Yes: Calm Eyes: Yes: Conjunctiva Clear HENT: Yes: Atraumatic Cardiovascular: Yes: S1, S2 Respiratory: Yes: On Nasal O2 Gastrointestinal: Yes: Normal Bowel Sounds, Soft Genitourinary: Yes: WNL Musculoskeletal: Yes: WNL Edema: Yes Edema: LLE: 1+, RLE: 1+ Integumentary: Yes: WNL Neurological: Yes: Oriented Psychiatric: Yes: Oriented Labs: CBC, BMP 02/05/19 05:55 02/05/19 05:55 INR, PTT INR 1.15 (0.83-1.09) H 02/01/19 21:30 Problem List - Problems (1) ELLEN (acute kidney injury) Code(s): N17.9 - ACUTE KIDNEY FAILURE, UNSPECIFIED (2) Shortness of breath at rest Code(s): R06.02 - SHORTNESS OF BREATH (3) Atrial fibrillation Code(s): I48.91 - UNSPECIFIED ATRIAL FIBRILLATION Qualifiers: (4) CHF (congestive heart failure) Code(s): I50.9 - HEART FAILURE, UNSPECIFIED Qualifiers: Qualified Code(s): I50.9 - Heart failure, unspecified Assessment/Plan Current Medications Generic Name Dose Route Start Last Admin Trade Name Freq PRN Reason Stop Dose Admin Albuterol/Ipratropium 1 amp 02/01/19 18:42 Duoneb - NEB Q6H PRN SHORT OF BREATH/WHEEZING Albuterol/Ipratropium 1 amp 02/02/19 09:43 02/05/19 12:00 Duoneb - NEB 1 amp RQID [facility] Administration Atorvastatin Calcium 10 mg 02/01/19 22:00 02/04/19 21:45 Lipitor - PO 10 mg HS [facility] Administration Diltiazem HCl 300 mg 02/01/19 19:15 02/05/19 09:39 Cardizem Cd - PO 300 mg DAILY [facility] Administration Glimepiride 4 mg 02/03/19 07:00 02/05/19 06:18 Amaryl - PO 4 mg DAILY@0700 [facility] Administration Azithromycin 500 mg in 250 mls @ 250 mls/hr 02/02/19 11:30 02/05/19 10:30 Zithromax 500mg Ivpb (Pre-Docked) IVPB 250 mls/hr DAILY [facility] Administration Insulin Aspart 1 vial 02/01/19 22:00 02/05/19 11:52 Novolog Vial Sliding Scale - SQ 8 units ACHS [facility] Administration Protocol Insulin Detemir 15 units 02/04/19 22:00 02/04/19 21:45 Levemir Vial SQ 15 units HS [facility] Administration Nitroglycerin 1 inch 02/04/19 12:00 02/05/19 13:19 Nitro-Bid 2% Paste - TD 1 inch Q6HPO [facility] Administration Prednisone 40 mg 02/06/19 10:00 Deltasone - PO DAILY [facility] Sitagliptin Phosphate 100 mg 02/02/19 07:00 02/05/19 06:18 Januvia - PO 100 mg ACBK [facility] Administration Terazosin HCl 2 mg 02/02/19 22:00 02/04/19 21:45 Hytrin - PO 2 mg HS [facility] Administration Impression 1. ELLEN 2. CHF 3. a-fib 4. COPD 5. DM 6. ITP 7. HTN Plan - cont with IV lasix - renal function is improving - cardio input appreciated - discussed low sodium diet with pt and - avoid nsaids - cardio follow up
--- NOTE | 2019-02-05 13:48 | PN ---
Teaching Attending Note Name of Resident: Ho Ga ATTENDING PHYSICIAN STATEMENT I saw and evaluated the patient. I reviewed the resident's note and discussed the case with the resident. I agree with the resident's findings and plan as documented. SUBJECTIVE: Breathing improving. Less SOB. No fever/chills. OBJECTIVE: Afebrile, hemodynamically stable. Sitting up comfortably in chair. Last Vital Signs Temp Pulse Resp BP Pulse Ox 97.8 F 87 18 147/78 97 02/05/19 10:00 02/05/19 10:00 02/05/19 10:00 02/05/19 10:00 02/05/19 09:00 HEENT - Atraumatc, Normocephalic. Heart - S1, S2, irregular Lungs - decreased air entry R base. Minimal wheeze. Abdomen - Soft, non-tender. Bowel Sounds normal. Extremities - no edema, chronic venous stasis. No calf tenderness. Laboratory Results - last 24 hr 02/04/19 02/04/19 02/04/19 16:50 18:43 21:44 WBC RBC Hgb Hct MCV MCH MCHC RDW Plt Count MPV Absolute Neuts (auto) Neutrophils % Lymphocytes % Monocytes % Eosinophils % Basophils % Nucleated RBC % Sodium Potassium Chloride Carbon Dioxide Anion Gap BUN Creatinine Est GFR (CKD-EPI)AfAm Est GFR (CKD-EPI)NonAf POC Glucometer 437 458 359 Random Glucose Calcium Total Bilirubin AST ALT Alkaline Phosphatase Total Protein Albumin 02/05/19 02/05/19 02/05/19 05:55 05:55 06:17 WBC 9.7 RBC 4.23 Hgb 12.3 Hct 36.8 MCV 87.2 MCH 29.2 MCHC 33.5 RDW 14.2 Plt Count 245 D MPV 10.6 Absolute Neuts (auto) 8.7 H Neutrophils % 89.8 H Lymphocytes % 4.6 L Monocytes % 5.6 Eosinophils % 0.0 Basophils % 0.0 Nucleated RBC % 0 Sodium 136 Potassium 4.3 Chloride 98 Carbon Dioxide 29 Anion Gap 9 BUN 56.3 H Creatinine 1.7 H Est GFR (CKD-EPI)AfAm 43.18 Est GFR (CKD-EPI)NonAf 37.26 POC Glucometer 296 Random Glucose 262 H Calcium 8.9 Total Bilirubin 1.1 H AST 29 ALT 66 H Alkaline Phosphatase 70 Total Protein 6.1 L Albumin 3.4 02/05/19 11:38 WBC RBC Hgb Hct MCV MCH MCHC RDW Plt Count MPV Absolute Neuts (auto) Neutrophils % Lymphocytes % Monocytes % Eosinophils % Basophils % Nucleated RBC % Sodium Potassium Chloride Carbon Dioxide Anion Gap BUN Creatinine Est GFR (CKD-EPI)AfAm Est GFR (CKD-EPI)NonAf POC Glucometer 362 Random Glucose Calcium Total Bilirubin AST ALT Alkaline Phosphatase Total Protein Albumin Current Medications Generic Name Dose Route Start Last Admin Trade Name Freq PRN Reason Stop Dose Admin Albuterol/Ipratropium 1 amp 02/01/19 18:42 Duoneb - NEB Q6H PRN SHORT OF BREATH/WHEEZING Albuterol/Ipratropium 1 amp 02/02/19 09:43 02/05/19 12:00 Duoneb - NEB 1 amp RQID [facility] Administration Atorvastatin Calcium 10 mg 02/01/19 22:00 02/04/19 21:45 Lipitor - PO 10 mg HS [facility] Administration Diltiazem HCl 300 mg 02/01/19 19:15 02/05/19 09:39 Cardizem Cd - PO 300 mg DAILY [facility] Administration Glimepiride 4 mg 02/03/19 07:00 02/05/19 06:18 Amaryl - PO 4 mg DAILY@0700 [facility] Administration Azithromycin 500 mg in 250 mls @ 250 mls/hr 02/02/19 11:30 02/05/19 10:30 Zithromax 500mg Ivpb (Pre-Docked) IVPB 250 mls/hr DAILY [facility] Administration Insulin Aspart 1 vial 02/01/19 22:00 02/05/19 11:52 Novolog Vial Sliding Scale - SQ 8 units ACHS [facility] Administration Protocol Insulin Detemir 15 units 02/04/19 22:00 02/04/19 21:45 Levemir Vial SQ 15 units HS [facility] Administration Nitroglycerin 1 inch 02/04/19 12:00 02/05/19 13:19 Nitro-Bid 2% Paste - TD 1 inch Q6HPO [facility] Administration Prednisone 40 mg 02/06/19 10:00 Deltasone - PO DAILY [facility] Sitagliptin Phosphate 100 mg 02/02/19 07:00 02/05/19 06:18 Januvia - PO 100 mg ACBK [facility] Administration Terazosin HCl 2 mg 02/02/19 22:00 02/04/19 21:45 Hytrin - PO 2 mg HS [facility] Administration Home Medications Medication Instructions Recorded Sitagliptin Phosphate [Januvia] 100 mg PO DAILY 10/04/13 Furosemide [Lasix -] 40 mg PO DAILY #1 tablet 03/21/14 Simvastatin [Zocor -] 20 mg PO HS 04/11/14 Albuterol 2.5/Ipratropium 0.5 1 neb IH QID PRN #1 vial.neb. 06/28/18 [Duoneb -] Albuterol Sulfate [Proair Hfa] 8.5 gm IH Q4H PRN 06/28/18 Diltiazem HCl [Cartia Xt] 300 mg PO DAILY 06/28/18 Glimepiride [Amaryl -] 4 mg PO DAILY@0700 06/28/18 Nebulizer and Compressor [Easy Neb 1 each MC ASDIR #1 each 06/28/18 Compressor Nebulizer] Terazosin HCl 2 mg PO HS 06/28/18 ASSESSMENT AND PLAN: 78 year old male with history of Atrial Fibrillation (off Eliquis given ITP/ thrombocytopenia), Chronic Diastolic Dysfunction, ITP, HTN, HLD, DM 2, Chronic lung Disease, suspected sarcoidosis, history of herpes zoster ophthalmicus, recent admission with CHF exacerbation in 11/2018 admitted with dyspnea 1. Acute Diastolic HF decompensation - continue IV Lasix. Echo normal EF, elevated PA pressure. Cardio, Pulm following. 2. Acute COPD Exacerbation secondary + LLL Pneumonia CT Chest - bilateral pleural effusions, LLL opacity - neoplasm versus infiltrate. 3 month follow up recommended. Transition IV Solumedrol to oral Prednisone Continue IV Ceftriaxone/Azithromycin. Wean of supplemental O2. 3. Atrial Fibrillation - not on Eliquis due to ITP/Thrombocytopenia. Continue Cardizem. 4. Hx ITP - Platelets wnl. Follows with Dr. Jamil. 5. DM 2 - Uncontrolled serum glucose likely sec to Steroids. Continue Januvia, Glimepiride. Levemir started along with Novolog as per sliding scale 6. HTN - continue Cardizem, Terazosin 7. HLD - Continue Statin 8. ELLEN - Creatinine improving. IV lasix daily. Renal US negative. Nephrology following. DVT Px - SCDs. Heparin held due to Hx of ITP
--- NOTE | 2019-02-05 15:11 | PN ---
Physical Exam: SUBJECTIVE: Patient seen and examined at the bedside. Patient stated that he was feeling better, his cough was improved, his breathing was improved and stated that he felt his leg swelling was decreased. Denied cp, fever, chills, n/ v/c/d, abd pain. OBJECTIVE: Vital Signs Period Temp Pulse Resp BP Sys/Henriquez Pulse Ox Last 24 Hr 97.6 F-98.9 F 62-87 18-18 134-152/64-82 97-97 GENERAL: Pleasant male. NAD. AAOx3. HEENT: AT/NC. EOMI. MMM. NECK: Normal range of motion, supple without lymphadenopathy, JVD, or masses. LUNGS: bibasilar crackles noted, decreased breath sounds. Minor diffuse expiratory wheezes noted. Symmetric chest rise. No accessory muscle use. HEART: irregularly, irregularly. S1, S2. No murmurs noted. ABDOMEN: Soft, nontender, not distended, normoactive bowel sounds, no guarding, no rebound, no masses. MUSCULOSKELETAL: Normal range of motion at all joints. No bony deformities or tenderness. No CVA tenderness. UPPER EXTREMITIES: 2+ pulses, warm, well-perfused. No cyanosis. No clubbing. No peripheral edema. LOWER EXTREMITIES: 2+ pulses, warm, well-perfused. No calf tenderness. 1+ peripheral edema noted. NEUROLOGICAL: Cranial nerves II-XII intact. Normal speech. PSYCHIATRIC: Cooperative. Good eye contact. Appropriate mood and affect. SKIN: Warm, dry, normal turgor, no rashes or lesions noted, normal capillary refill. Laboratory Results - last 24 hr 02/04/19 02/04/19 02/04/19 16:50 18:43 21:44 WBC RBC Hgb Hct MCV MCH MCHC RDW Plt Count MPV Absolute Neuts (auto) Neutrophils % Lymphocytes % Monocytes % Eosinophils % Basophils % Nucleated RBC % Sodium Potassium Chloride Carbon Dioxide Anion Gap BUN Creatinine Est GFR (CKD-EPI)AfAm Est GFR (CKD-EPI)NonAf POC Glucometer 437 458 359 Random Glucose Calcium Total Bilirubin AST ALT Alkaline Phosphatase Total Protein Albumin 02/05/19 02/05/19 02/05/19 05:55 05:55 06:17 WBC 9.7 RBC 4.23 Hgb 12.3 Hct 36.8 MCV 87.2 MCH 29.2 MCHC 33.5 RDW 14.2 Plt Count 245 D MPV 10.6 Absolute Neuts (auto) 8.7 H Neutrophils % 89.8 H Lymphocytes % 4.6 L Monocytes % 5.6 Eosinophils % 0.0 Basophils % 0.0 Nucleated RBC % 0 Sodium 136 Potassium 4.3 Chloride 98 Carbon Dioxide 29 Anion Gap 9 BUN 56.3 H Creatinine 1.7 H Est GFR (CKD-EPI)AfAm 43.18 Est GFR (CKD-EPI)NonAf 37.26 POC Glucometer 296 Random Glucose 262 H Calcium 8.9 Total Bilirubin 1.1 H AST 29 ALT 66 H Alkaline Phosphatase 70 Total Protein 6.1 L Albumin 3.4 02/05/19 11:38 WBC RBC Hgb Hct MCV MCH MCHC RDW Plt Count MPV Absolute Neuts (auto) Neutrophils % Lymphocytes % Monocytes % Eosinophils % Basophils % Nucleated RBC % Sodium Potassium Chloride Carbon Dioxide Anion Gap BUN Creatinine Est GFR (CKD-EPI)AfAm Est GFR (CKD-EPI)NonAf POC Glucometer 362 Random Glucose Calcium Total Bilirubin AST ALT Alkaline Phosphatase Total Protein Albumin Active Medications Generic Name Dose Route Start Last Admin Trade Name Freq PRN Reason Stop Dose Admin Albuterol/Ipratropium 1 amp 02/01/19 18:42 Duoneb - NEB Q6H PRN SHORT OF BREATH/WHEEZING Albuterol/Ipratropium 1 amp 02/02/19 09:43 02/05/19 12:00 Duoneb - NEB 1 amp RQID [facility] Administration Atorvastatin Calcium 10 mg 02/01/19 22:00 02/04/19 21:45 Lipitor - PO 10 mg HS [facility] Administration Diltiazem HCl 300 mg 02/01/19 19:15 02/05/19 09:39 Cardizem Cd - PO 300 mg DAILY [facility] Administration Glimepiride 4 mg 02/03/19 07:00 02/05/19 06:18 Amaryl - PO 4 mg DAILY@0700 [facility] Administration Azithromycin 500 mg in 250 mls @ 250 mls/hr 02/02/19 11:30 02/05/19 10:30 Zithromax 500mg Ivpb (Pre-Docked) IVPB 250 mls/hr DAILY [facility] Administration Ceftriaxone Sodium 1 gm/ 50 mls @ 100 mls/hr 02/06/19 10:00 Dextrose IVPB DAILY [facility] Protocol Insulin Aspart 1 vial 02/01/19 22:00 02/05/19 11:52 Novolog Vial Sliding Scale - SQ 8 units ACHS [facility] Administration Protocol Insulin Detemir 15 units 02/04/19 22:00 02/04/19 21:45 Levemir Vial SQ 15 units HS [facility] Administration Nitroglycerin 1 inch 02/04/19 12:00 02/05/19 13:19 Nitro-Bid 2% Paste - TD 1 inch Q6HPO [facility] Administration Prednisone 40 mg 02/06/19 10:00 Deltasone - PO DAILY [facility] Sitagliptin Phosphate 100 mg 02/02/19 07:00 02/05/19 06:18 Januvia - PO 100 mg ACBK [facility] Administration Terazosin HCl 2 mg 02/02/19 22:00 02/04/19 21:45 Hytrin - PO 2 mg HS [facility] Administration ASSESSMENT/PLAN: Adis Abarca is a 78M w/ a PMHx of CHF with preserved EF, Afib, ITP, NIDDM, HTN/ HLD presented in the ED for 2-3 day hx of shortness of breath admitted for acute diastolic CHF exacerbation. Acute CHF Exacerbation; w/ preserved EF - Continue Lasix 60mg IV daily as tolerated - Strict I/Os, daily weights - Sodium-controlled diet - Cardio consult noted; tele showing frequent PVCs, NSVT - Last echo (07/06): showed EF 60-65%, trace MR, mild TR, mild AR - Echo on this admission showing EF 60-65%, LV function normal, increased pulmonary artery pressure - nitropaste 2% q6h as per cardiology Acute Mild COPD Exacerbation likely 2/2 to Pneumonia - CT chest showing infliltrate vs neoplasm - prednisone 60mg today, start prednisone 40mg tomorrow - Duonebs [facility] and PRN - Sputum cx/Influenza PCR - IV Ceftriaxone/Azithro, day #5 - decrease O2 requirement as tolerated Pulmonary Nodules - CT chest showing multiple pulmonary nodules mostly apical and hilar lymphadenopathy - patient noting nodules are chronic and have never been biopsied - pulmonary consulted, recs appreciated - will have imaging and PFT's as outpatient ELLEN; may be due to hypovolemia due to aggressive diuresis - Hold all nephrotoxic agents - Urine electrolytes ordered - Renal U/S unremarkable - Nephro consulted, recs appreciated - continue Lasix 60mg IV daily as tolerated - renal function improved CRE 2.5-->2.1-->1.7 Afib - Rate-controlled on diltiazem. - Not currently on AC per heme due hx of low platelets if on AC and not on steroids - will abide by heme recommendations and indefinitely defer AC - Monitor on tele NIDDM - Glu remains elevated likely in setting of steroid use, improving - Cont home med: Januvia and Glimepiride - BGM/ISS ACHS - Levemir 15 units qhs HTN/HLD - Cont home meds: Diltiazem, Simvastatin ITP - Plt 245 today. Stable. Outpatient follow up Prophylaxis - SCDs given chronic thrombocytopenia/bleeding risk/ITP FEN - no standing fluids - hyponatremia improved, likely from fluid overload, continue to diurese and monitor electrolytes - cardiac diet Dispo -cont to monitor on telemetry Visit type - Emergency Visit Emergency Visit: No - New Patient This patient is new to me today: No - Critical Care Critical Care patient: No
[2019-02-05] MEDS ORDERED: PT OWN MED DRAWER 7, Y5N ONE (21:30)
[2019-02-05] MEDS: ATORVASTATIN CA 10 MG TABLET (FP) PO SCH (21:39)
[2019-02-05] MEDS: INSULIN (LEVEMIR) 100 UNITS/ML UNITS SQ SCH (21:39)
[2019-02-05] MEDS: TERAZOSIN HCL 1 MG CAPSULE PO SCH (21:39)
[2019-02-06] MEDS ORDERED: PT OWN MED DRAWER 7, Y5N ONE (06:01)
[2019-02-06] MEDS: sitaGLIPtin PHOSPHATE 50 MG TABLET PO SCH (06:05)
[2019-02-06] MEDS: GLIMEPIRIDE 4 MG TABLET (FP) PO SCH (06:06)
[2019-02-06] MEDS: NITROGLYCERIN 2% OINTMENT - 1GM PACKET TD SCH ×4 (06:06→23:26)
[2019-02-06] MEDS: INSULIN SLIDING SCALE (NOVOLOG) 1 VIAL SQ SCH ×4 (06:31→21:18)
[2019-02-06 06:55] LABS: HEMATOCRIT 35.3 % (35.4-49); HEMOGLOBIN 11.9 GM/dL (11.7-16.9); MCH 29.1 pg (25.7-33.7); MCHC 33.6 g/dl (32.0-35.9); MEAN CELL VOLUME 86.7 fl (80-96); MEAN PLT VOLUME 10.2 fl (7.5-11.1); PLATELET COUNT 291 K/MM3 (134-434); RBC 4.08 M/mm3 (4.00-5.60); RDW 14.4 % (11.9-15.9); WHITE BLOOD COUNT 9.7 K/mm3 (4.0-10.0)
[2019-02-06 07:46] LABS: ALBUMIN 3.3 g/dl (3.4-5.0); BILIRUBIN,TOTAL 0.8 mg/dL (0.2-1); BLOOD UREA NITROGEN 54.8 mg/dL (7-18); CALCIUM 8.3 mg/dL (8.5-10.1); CREATININE 1.5 mg/dL (0.55-1.3); POTASSIUM 4.5 mmol/L (3.5-5.1); TOT PROT 5.8 g/dl (6.4-8.2)
[2019-02-06] MEDS: ALBUTEROL SO4 2.5/IPRATROPIUM 0.5 INH SOL 3 ML VIAL.NEB. NEB SCH ×4 (08:55→20:04)
[2019-02-06] MEDS ORDERED: cefTRIAXone SODIUM 1 GM VIAL ONE (10:33)
[2019-02-06] MEDS ORDERED: DEXTROSE 5%-WATER - 50 ML IVPB ONE (10:34)
[2019-02-06] MEDS: predniSONE 20 MG TABLET (UD) PO SCH (10:39)
[2019-02-06] MEDS: CEFTRIAXONE 1 GM in DEXTROSE 5%-WATER - 50 ML IVPB SCH (10:39)
[2019-02-06] MEDS: FUROSEMIDE 40 MG/4 ML INJECTABLE VIAL IVPB SCH (10:39)
--- NOTE | 2019-02-06 11:25 | PN ---
Progress Note (short form) - Note Progress Note: s: edema, sob getting better. no chest pain, palps, dizziness Current Medications Albuterol/Ipratropium (Duoneb -) 1 amp NEB Q6H PRN PRN Reason: SHORT OF BREATH/WHEEZING Albuterol/Ipratropium (Duoneb -) 1 amp NEB RQID [facility] Last Admin: 02/06/19 08:55 Dose: 1 amp Atorvastatin Calcium (Lipitor -) 10 mg PO HS [facility] Last Admin: 02/05/19 21:39 Dose: 10 mg Diltiazem HCl (Cardizem Cd -) 300 mg PO DAILY [facility] Last Admin: 02/06/19 10:39 Dose: 300 mg Furosemide (Lasix Injection -) 80 mg IVPB DAILY [facility] Last Admin: 02/06/19 10:39 Dose: 80 mg Glimepiride (Amaryl -) 4 mg PO DAILY@0700 [facility] Last Admin: 02/06/19 06:06 Dose: 4 mg Azithromycin (Zithromax 500mg Ivpb (Pre-Docked)) 500 mg in 250 mls @ 250 mls/ hr IVPB DAILY [facility] Last Admin: 02/05/19 10:30 Dose: 250 mls/hr Ceftriaxone Sodium 1 gm/ (Dextrose) 50 mls @ 100 mls/hr IVPB DAILY [facility]; Protocol Last Admin: 02/06/19 10:39 Dose: 100 mls/hr Insulin Aspart (Novolog Vial Sliding Scale -) 1 vial SQ ACHS [facility]; Protocol Last Admin: 02/06/19 06:31 Dose: 2 units Insulin Detemir (Levemir Vial) 15 units SQ [facility] Last Admin: 02/05/19 21:39 Dose: 15 units Nitroglycerin (Nitro-Bid 2% Paste -) 1 inch TD Q6HPO [facility] Last Admin: 02/06/19 06:06 Dose: 1 inch Prednisone (Deltasone -) 40 mg PO DAILY [facility] Last Admin: 02/06/19 10:39 Dose: 40 mg Sitagliptin Phosphate (Januvia -) 100 mg PO ACBK [facility] Last Admin: 02/06/19 06:05 Dose: 100 mg Terazosin HCl (Hytrin -) 2 mg PO HS [facility] Last Admin: 02/05/19 21:39 Dose: 2 mg Vital Signs Period Temp Pulse Resp BP Sys/Henriquez Pulse Ox Last 24 Hr 97.4 F-97.9 F 62-82 18-18 133-158/62-76 92-98 Constitutional: Yes: No Distress, Calm Eyes: No: Sclera Icterus HENT: No: Nasal Congestion Cardiovascular: Yes: Pulse Irregular, S1, S2, Other (PMI non diplaced). No: JVD , Gallop, Murmur Respiratory: Yes: CTA Bilaterally. No: Accessory Muscle Use, Rales, Wheezes Gastrointestinal: Yes: Normal Bowel Sounds, Soft. 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 acute diastolic chf, ? pulm sarcoid: -Has vol overload/symptoms with interval weight gain and elevated BNP of 1500 ( above prior baseline) -wt 223 here 12/08 discharge--227 office 12/26--234 01/15-->up 238 here, now decreasing -on lasix 40 po qd at home -Cr improving, weight down after two doses of lasix 60 mg IV 02/03- - weight inc today, Cr stable - inc lasix to 80 mg IV daily - CT chest ?pulm sarcoid - pulm following - cont nitro paste -recent echo unremarkable htn: -mostly controlled -cont home dilt hld: -Continue home statin. afib, ITP: -Rate controlled. Continue home dilt, -platelets very variable over time--AC is managed as per PLTs trend (ITP), by dr aburto and dr bond--holding when PLTs < 50K. -d/w'd dr aburto: pt's PLTs consistently drop to 30-50K when off steroids and NPATE therapy, hence AC has been indefinitely deferred in concert with heme' s recs
[2019-02-06] MEDS: AZITHROMYCIN IVPB 500 MG/250 ML BAG IVPB SCH (12:08)
--- NOTE | 2019-02-06 12:08 | PN ---
Progress Note, Physician History of Present Illness: pulmonary alert,feeling better,dyspnea improving - Current Medication List Current Medications: Active Medications Albuterol/Ipratropium (Duoneb -) 1 amp NEB Q6H PRN PRN Reason: SHORT OF BREATH/WHEEZING Albuterol/Ipratropium (Duoneb -) 1 amp NEB RQID [facility] Last Admin: 02/06/19 08:55 Dose: 1 amp Atorvastatin Calcium (Lipitor -) 10 mg PO HS [facility] Last Admin: 02/05/19 21:39 Dose: 10 mg Diltiazem HCl (Cardizem Cd -) 300 mg PO DAILY [facility] Last Admin: 02/06/19 10:39 Dose: 300 mg Furosemide (Lasix Injection -) 80 mg IVPB DAILY [facility] Last Admin: 02/06/19 10:39 Dose: 80 mg Glimepiride (Amaryl -) 4 mg PO DAILY@0700 [facility] Last Admin: 02/06/19 06:06 Dose: 4 mg Azithromycin (Zithromax 500mg Ivpb (Pre-Docked)) 500 mg in 250 mls @ 250 mls/ hr IVPB DAILY [facility] Last Admin: 02/05/19 10:30 Dose: 250 mls/hr Ceftriaxone Sodium 1 gm/ (Dextrose) 50 mls @ 100 mls/hr IVPB DAILY [facility]; Protocol Last Admin: 02/06/19 10:39 Dose: 100 mls/hr Insulin Aspart (Novolog Vial Sliding Scale -) 1 vial SQ ACHS [facility]; Protocol Last Admin: 02/06/19 06:31 Dose: 2 units Insulin Detemir (Levemir Vial) 15 units SQ HS [facility] Last Admin: 02/05/19 21:39 Dose: 15 units Nitroglycerin (Nitro-Bid 2% Paste -) 1 inch TD Q6HPO [facility] Last Admin: 02/06/19 06:06 Dose: 1 inch Prednisone (Deltasone -) 40 mg PO DAILY [facility] Last Admin: 02/06/19 10:39 Dose: 40 mg Sitagliptin Phosphate (Januvia -) 100 mg PO ACBK [facility] Last Admin: 02/06/19 06:05 Dose: 100 mg Terazosin HCl (Hytrin -) 2 mg PO HS [facility] Last Admin: 02/05/19 21:39 Dose: 2 mg - Objective Vital Signs: Vital Signs Temperature 97.9 F 02/06/19 08:55 Pulse Rate 82 02/06/19 11:15 Respiratory Rate 18 02/06/19 08:55 Blood Pressure 158/69 02/06/19 08:55 O2 Sat by Pulse Oximetry (%) 92 L 02/06/19 11:15 Constitutional: Yes: Well Nourished, Calm Eyes: Yes: WNL HENT: Yes: WNL Neck: Yes: WNL Cardiovascular: Yes: Pulse Irregular, S1, S2 Respiratory: Yes: Rales (bibasilar crackles) Gastrointestinal: Yes: Normal Bowel Sounds, Soft Extremities: Yes: WNL Edema: No Labs: CBC, BMP 02/06/19 05:34 02/06/19 05:34 INR, PTT INR 1.15 (0.83-1.09) H 02/01/19 21:30 Problem List - Problems (1) Shortness of breath at rest Code(s): R06.02 - SHORTNESS OF BREATH (2) Acute diastolic (congestive) heart failure Code(s): I50.31 - ACUTE DIASTOLIC (CONGESTIVE) HEART FAILURE (3) Atrial fibrillation Code(s): I48.91 - UNSPECIFIED ATRIAL FIBRILLATION Qualifiers: Atrial fibrillation type: chronic (4) COPD (chronic obstructive pulmonary disease) Code(s): J44.9 - CHRONIC OBSTRUCTIVE PULMONARY DISEASE, UNSPECIFIED (5) COPD exacerbation Code(s): J44.1 - CHRONIC OBSTRUCTIVE PULMONARY DISEASE W (ACUTE) EXACERBATION (6) Congestive heart failure, acute Code(s): I50.9 - HEART FAILURE, UNSPECIFIED Qualifiers: Heart failure type: unspecified Qualified Code(s): I50.9 - Heart failure, unspecified (7) Diabetes Code(s): E11.9 - TYPE 2 DIABETES MELLITUS WITHOUT COMPLICATIONS Qualifiers: Diabetes mellitus type: type 2 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: without halfway use Diabetes mellitus complication status: without complication Qualified Code(s): E11.9 - Type 2 diabetes mellitus without complications (8) HTN (hypertension) Code(s): I10 - ESSENTIAL (PRIMARY) HYPERTENSION Qualifiers: Hypertension type: essential hypertension Qualified Code(s): I10 - Essential (primary) hypertension (9) Pulmonary hypertension Code(s): I27.2 - OTHER SECONDARY PULMONARY HYPERTENSION * DO NOT USE * Assessment/Plan Assessment/Plan Acute on Chronic Diastolic Heart Failure improving Atrial Fibrillation Acute Kidney Injury improving r/o Pneumonia ITP HTN DM Hyperlipidemia 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
--- NOTE | 2019-02-06 12:15 | PN ---
Progress Note, Physician History of Present Illness: Pt seen and examined at bedside. He is awake and alert. he feels that breathing is improving but he is short of breath. - Current Medication List Current Medications: Active Medications Albuterol/Ipratropium (Duoneb -) 1 amp NEB Q6H PRN PRN Reason: SHORT OF BREATH/WHEEZING Albuterol/Ipratropium (Duoneb -) 1 amp NEB RQID [facility] Last Admin: 02/06/19 08:55 Dose: 1 amp Atorvastatin Calcium (Lipitor -) 10 mg PO HS [facility] Last Admin: 02/05/19 21:39 Dose: 10 mg Diltiazem HCl (Cardizem Cd -) 300 mg PO DAILY [facility] Last Admin: 02/06/19 10:39 Dose: 300 mg Furosemide (Lasix Injection -) 80 mg IVPB DAILY [facility] Last Admin: 02/06/19 10:39 Dose: 80 mg Glimepiride (Amaryl -) 4 mg PO DAILY@0700 [facility] Last Admin: 02/06/19 06:06 Dose: 4 mg Azithromycin (Zithromax 500mg Ivpb (Pre-Docked)) 500 mg in 250 mls @ 250 mls/ hr IVPB DAILY [facility] Last Admin: 02/06/19 12:08 Dose: 250 mls/hr Ceftriaxone Sodium 1 gm/ (Dextrose) 50 mls @ 100 mls/hr IVPB DAILY [facility]; Protocol Last Admin: 02/06/19 10:39 Dose: 100 mls/hr Insulin Aspart (Novolog Vial Sliding Scale -) 1 vial SQ [facility]; Protocol Last Admin: 02/06/19 12:09 Dose: 2 units Insulin Detemir (Levemir Vial) 15 units SQ [facility] Last Admin: 02/05/19 21:39 Dose: 15 units Nitroglycerin (Nitro-Bid 2% Paste -) 1 inch TD Q6HPO [facility] Last Admin: 02/06/19 06:06 Dose: 1 inch Prednisone (Deltasone -) 40 mg PO DAILY [facility] Last Admin: 02/06/19 10:39 Dose: 40 mg Sitagliptin Phosphate (Januvia -) 100 mg PO ACBK [facility] Last Admin: 02/06/19 06:05 Dose: 100 mg Terazosin HCl (Hytrin -) 2 mg PO [facility] Last Admin: 02/05/19 21:39 Dose: 2 mg - Objective Vital Signs: Vital Signs Temperature 97.9 F 02/06/19 08:55 Pulse Rate 82 02/06/19 11:15 Respiratory Rate 18 02/06/19 08:55 Blood Pressure 158/69 02/06/19 08:55 O2 Sat by Pulse Oximetry (%) 92 L 02/06/19 11:15 Constitutional: Yes: Calm Eyes: Yes: Conjunctiva Clear HENT: Yes: Atraumatic Neck: Yes: Supple Cardiovascular: Yes: S1, S2 Respiratory: Yes: On Nasal O2 Gastrointestinal: Yes: Normal Bowel Sounds, Soft Genitourinary: Yes: WNL Edema: Yes Edema: LLE: 1+, RLE: 1+ Neurological: Yes: Oriented Psychiatric: Yes: Oriented Labs: CBC, BMP 02/06/19 05:34 02/06/19 05:34 INR, PTT INR 1.15 (0.83-1.09) H 02/01/19 21:30 Problem List - Problems (1) ELLEN (acute kidney injury) Code(s): N17.9 - ACUTE KIDNEY FAILURE, UNSPECIFIED (2) Shortness of breath at rest Code(s): R06.02 - SHORTNESS OF BREATH (3) Atrial fibrillation Code(s): I48.91 - UNSPECIFIED ATRIAL FIBRILLATION Qualifiers: Atrial fibrillation type: chronic (4) CHF (congestive heart failure) Code(s): I50.9 - HEART FAILURE, UNSPECIFIED Qualifiers: Heart failure type: unspecified Heart failure chronicity: acute on chronic Qualified Code(s): I50.9 - Heart failure, unspecified Assessment/Plan Current Medications Generic Name Dose Route Start Last Admin Trade Name Freq PRN Reason Stop Dose Admin Albuterol/Ipratropium 1 amp 02/01/19 18:42 Duoneb - NEB Q6H PRN SHORT OF BREATH/WHEEZING Albuterol/Ipratropium 1 amp 02/02/19 09:43 02/06/19 08:55 Duoneb - NEB 1 amp RQID [facility] Administration Atorvastatin Calcium 10 mg 02/01/19 22:00 02/05/19 21:39 Lipitor - PO 10 mg HS [facility] Administration Diltiazem HCl 300 mg 02/01/19 19:15 02/06/19 10:39 Cardizem Cd - PO 300 mg DAILY [facility] Administration Furosemide 80 mg 02/06/19 10:00 02/06/19 10:39 Lasix Injection - IVPB 80 mg DAILY [facility] Administration Glimepiride 4 mg 02/03/19 07:00 02/06/19 06:06 Amaryl - PO 4 mg DAILY@0700 [facility] Administration Azithromycin 500 mg in 250 mls @ 250 mls/hr 02/02/19 11:30 02/06/19 12:08 Zithromax 500mg Ivpb (Pre-Docked) IVPB 250 mls/hr DAILY [facility] Administration Ceftriaxone Sodium 1 gm/ 50 mls @ 100 mls/hr 02/06/19 10:00 02/06/19 10:39 Dextrose IVPB 100 mls/hr DAILY [facility] Administration Protocol Insulin Aspart 1 vial 02/01/19 22:00 02/06/19 12:09 Novolog Vial Sliding Scale - SQ 2 units ACHS [facility] Administration Protocol Insulin Detemir 15 units 02/04/19 22:00 02/05/19 21:39 Levemir Vial SQ 15 units HS [facility] Administration Nitroglycerin 1 inch 02/04/19 12:00 02/06/19 06:06 Nitro-Bid 2% Paste - TD 1 inch Q6HPO [facility] Administration Prednisone 40 mg 02/06/19 10:00 02/06/19 10:39 Deltasone - PO 40 mg DAILY [facility] Administration Sitagliptin Phosphate 100 mg 02/02/19 07:00 02/06/19 06:05 Januvia - PO 100 mg ACBK [facility] Administration Terazosin HCl 2 mg 02/02/19 22:00 02/05/19 21:39 Hytrin - PO 2 mg HS [facility] Administration Impression 1. ELLEN 2. CHF 3. a-fib 4. COPD 5. DM 6. ITP 7. HTN Plan - cont lasix - renal function improving - would not d/c today - cxr from yesterday reviewed - avoid nsaids - discussed diet and fluid intake
--- NOTE | 2019-02-06 12:46 | PN ---
Teaching Attending Note Name of Resident: Ho Ga ATTENDING PHYSICIAN STATEMENT I saw and evaluated the patient. I reviewed the resident's note and discussed the case with the resident. I agree with the resident's findings and plan as documented. SUBJECTIVE: Breathing improving. Less SOB. No fever/chills. OBJECTIVE: Afebrile, hemodynamically stable. Comfortable. Last Vital Signs Temp Pulse Resp BP Pulse Ox 97.9 F 82 18 158/69 92 L 02/06/19 08:55 02/06/19 11:15 02/06/19 08:55 02/06/19 08:55 02/06/19 11:15 Heart - S1, S2, irregular Lungs - good air entry bilaterally - no wheeze. Abdomen - Soft, non-tender. Bowel Sounds normal. Extremities - Chronic venous stasis. No calf tenderness. Laboratory Results - last 24 hr 02/05/19 02/05/19 02/05/19 16:37 21:37 23:35 WBC RBC Hgb Hct MCV MCH MCHC RDW Plt Count MPV Sodium Potassium Chloride Carbon Dioxide Anion Gap BUN Creatinine Est GFR (CKD-EPI)AfAm Est GFR (CKD-EPI)NonAf POC Glucometer 373 400 388 Random Glucose Calcium Total Bilirubin AST ALT Alkaline Phosphatase Total Protein Albumin 02/06/19 02/06/19 02/06/19 05:34 05:34 06:04 WBC 9.7 RBC 4.08 Hgb 11.9 Hct 35.3 L MCV 86.7 MCH 29.1 MCHC 33.6 RDW 14.4 Plt Count 291 MPV 10.2 Sodium 136 Potassium 4.5 Chloride 99 Carbon Dioxide 30 Anion Gap 7 L BUN 54.8 H Creatinine 1.5 H Est GFR (CKD-EPI)AfAm 50.24 Est GFR (CKD-EPI)NonAf 43.35 POC Glucometer 237 Random Glucose 232 H Calcium 8.3 L Total Bilirubin 0.8 AST 30 ALT 91 H Alkaline Phosphatase 65 Total Protein 5.8 L Albumin 3.3 L 02/06/19 12:07 WBC RBC Hgb Hct MCV MCH MCHC RDW Plt Count MPV Sodium Potassium Chloride Carbon Dioxide Anion Gap BUN Creatinine Est GFR (CKD-EPI)AfAm Est GFR (CKD-EPI)NonAf POC Glucometer 227 Random Glucose Calcium Total Bilirubin AST ALT Alkaline Phosphatase Total Protein Albumin Current Medications Generic Name Dose Route Start Last Admin Trade Name Freq PRN Reason Stop Dose Admin Albuterol/Ipratropium 1 amp 02/01/19 18:42 Duoneb - NEB Q6H PRN SHORT OF BREATH/WHEEZING Albuterol/Ipratropium 1 amp 02/02/19 09:43 02/06/19 12:45 Duoneb - NEB 1 amp RQID [facility] Administration Atorvastatin Calcium 10 mg 02/01/19 22:00 02/05/19 21:39 Lipitor - PO 10 mg HS [facility] Administration Diltiazem HCl 300 mg 02/01/19 19:15 02/06/19 10:39 Cardizem Cd - PO 300 mg DAILY [facility] Administration Furosemide 80 mg 02/06/19 10:00 02/06/19 10:39 Lasix Injection - IVPB 80 mg DAILY [facility] Administration Glimepiride 4 mg 02/03/19 07:00 02/06/19 06:06 Amaryl - PO 4 mg DAILY@0700 [facility] Administration Azithromycin 500 mg in 250 mls @ 250 mls/hr 02/02/19 11:30 02/06/19 12:08 Zithromax 500mg Ivpb (Pre-Docked) IVPB 250 mls/hr DAILY [facility] Administration Ceftriaxone Sodium 1 gm/ 50 mls @ 100 mls/hr 02/06/19 10:00 02/06/19 10:39 Dextrose IVPB 100 mls/hr DAILY [facility] Administration Protocol Insulin Aspart 1 vial 02/01/19 22:00 02/06/19 12:09 Novolog Vial Sliding Scale - SQ 2 units ACHS [facility] Administration Protocol Insulin Detemir 15 units 02/04/19 22:00 02/05/19 21:39 Levemir Vial SQ 15 units HS [facility] Administration Nitroglycerin 1 inch 02/04/19 12:00 02/06/19 12:19 Nitro-Bid 2% Paste - TD 1 inch Q6HPO [facility] Administration Prednisone 40 mg 02/06/19 10:00 02/06/19 10:39 Deltasone - PO 40 mg DAILY [facility] Administration Sitagliptin Phosphate 100 mg 02/02/19 07:00 02/06/19 06:05 Januvia - PO 100 mg ACBK [facility] Administration Terazosin HCl 2 mg 02/02/19 22:00 02/05/19 21:39 Hytrin - PO 2 mg HS [facility] Administration Home Medications Medication Instructions Recorded Sitagliptin Phosphate [Januvia] 100 mg PO DAILY 10/04/13 Furosemide [Lasix -] 40 mg PO DAILY #1 tablet 03/21/14 Simvastatin [Zocor -] 20 mg PO HS 04/11/14 Albuterol 2.5/Ipratropium 0.5 1 neb IH QID PRN #1 vial.neb. 06/28/18 [Duoneb -] Albuterol Sulfate [Proair Hfa] 8.5 gm IH Q4H PRN 06/28/18 Diltiazem HCl [Cartia Xt] 300 mg PO DAILY 06/28/18 Glimepiride [Amaryl -] 4 mg PO DAILY@0700 06/28/18 Nebulizer and Compressor [Easy Neb 1 each MC ASDIR #1 each 06/28/18 Compressor Nebulizer] Terazosin HCl 2 mg PO HS 06/28/18 ASSESSMENT AND PLAN: 78 year old male with history of Atrial Fibrillation (off Eliquis given ITP/ thrombocytopenia), Chronic Diastolic Dysfunction, ITP, HTN, HLD, DM 2, Chronic Lung Disease, suspected Sarcoidosis, history of herpes zoster ophthalmicus, recent admission with CHF exacerbation in 11/2018, now admitted with dyspnea. 1. Acute Diastolic HF decompensation - continue IV Lasix, Nitro paste. Echo normal EF, elevated PA pressure. Cardio, Pulm following. 2. Acute COPD Exacerbation + LLL Pneumonia CT Chest - bilateral pleural effusions, LLL opacity - neoplasm versus infiltrate. 3 month follow up recommended. Continue oral Prednisone Continue IV Ceftriaxone/Azithromycin. Weaned of supplemental O2. Monitor respiratory status. 3. Atrial Fibrillation - Eliquis discontinued due to ITP/Chronic Thrombocytopenia. Continue Cardizem. 4. Hx ITP - Platelets wnl. Follows with Dr. Jamil. 5. DM 2 - Uncontrolled serum glucose likely sec to Steroids. Continue Januvia, Glimepiride. Levemir started along with Novolog as per sliding scale 6. HTN - continue Cardizem, Terazosin 7. HLD - Continue Statin 8. ELLEN - Creatinine improving. IV lasix daily. Renal US negative. Nephrology following. DVT Px - SCDs. Heparin held due to Hx of ITP
--- NOTE | 2019-02-06 14:14 | PN ---
Physical Exam: SUBJECTIVE: Patient seen and examined at the bedside. Patient stated that he felt better, still had a cough. He was trialed off of supplemental oxygen and was doing well. Noted that he continued to have some edema but it was slowly improving. Denied cp, sob, fever, chills, n/v/c/d, abd pain. Patient was able to speak well without gasping while speaking. Able to speak in full sentences. OBJECTIVE: Vital Signs Period Temp Pulse Resp BP Sys/Henriquez Pulse Ox Last 24 Hr 97.4 F-97.9 F 62-82 18-18 133-158/62-76 92-98 GENERAL: Pleasant male. NAD. AAOx3. HEENT: AT/NC. EOMI. MMM. NECK: Normal range of motion, supple without lymphadenopathy, JVD, or masses. LUNGS: bibasilar crackles noted but improved from previous exam. No expiratory wheezes noted. Symmetric chest rise. No accessory muscle use. HEART: irregularly, irregularly. S1, S2. No murmurs noted. ABDOMEN: Soft, nontender, not distended, normoactive bowel sounds, no guarding, no rebound, no masses. MUSCULOSKELETAL: Normal range of motion at all joints. No bony deformities or tenderness. UPPER EXTREMITIES: 2+ pulses, warm, well-perfused. No cyanosis. No clubbing. No peripheral edema. LOWER EXTREMITIES: 2+ pulses, warm, well-perfused. No calf tenderness. 1+ peripheral edema noted. NEUROLOGICAL: Cranial nerves II-XII intact. Normal speech. PSYCHIATRIC: Cooperative. Good eye contact. Appropriate mood and affect. SKIN: Warm, dry, normal turgor, no rashes or lesions noted, normal capillary refill. Laboratory Results - last 24 hr 02/05/19 02/05/19 02/05/19 16:37 21:37 23:35 WBC RBC Hgb Hct MCV MCH MCHC RDW Plt Count MPV Sodium Potassium Chloride Carbon Dioxide Anion Gap BUN Creatinine Est GFR (CKD-EPI)AfAm Est GFR (CKD-EPI)NonAf POC Glucometer 373 400 388 Random Glucose Calcium Total Bilirubin AST ALT Alkaline Phosphatase Total Protein Albumin 02/06/19 02/06/19 02/06/19 05:34 05:34 06:04 WBC 9.7 RBC 4.08 Hgb 11.9 Hct 35.3 L MCV 86.7 MCH 29.1 MCHC 33.6 RDW 14.4 Plt Count 291 MPV 10.2 Sodium 136 Potassium 4.5 Chloride 99 Carbon Dioxide 30 Anion Gap 7 L BUN 54.8 H Creatinine 1.5 H Est GFR (CKD-EPI)AfAm 50.24 Est GFR (CKD-EPI)NonAf 43.35 POC Glucometer 237 Random Glucose 232 H Calcium 8.3 L Total Bilirubin 0.8 AST 30 ALT 91 H Alkaline Phosphatase 65 Total Protein 5.8 L Albumin 3.3 L 02/06/19 12:07 WBC RBC Hgb Hct MCV MCH MCHC RDW Plt Count MPV Sodium Potassium Chloride Carbon Dioxide Anion Gap BUN Creatinine Est GFR (CKD-EPI)AfAm Est GFR (CKD-EPI)NonAf POC Glucometer 227 Random Glucose Calcium Total Bilirubin AST ALT Alkaline Phosphatase Total Protein Albumin Active Medications Generic Name Dose Route Start Last Admin Trade Name Freq PRN Reason Stop Dose Admin Albuterol/Ipratropium 1 amp 02/01/19 18:42 Duoneb - NEB Q6H PRN SHORT OF BREATH/WHEEZING Albuterol/Ipratropium 1 amp 02/02/19 09:43 02/06/19 12:45 Duoneb - NEB 1 amp RQID [facility] Administration Atorvastatin Calcium 10 mg 02/01/19 22:00 02/05/19 21:39 Lipitor - PO 10 mg HS [facility] Administration Diltiazem HCl 300 mg 02/01/19 19:15 02/06/19 10:39 Cardizem Cd - PO 300 mg DAILY [facility] Administration Furosemide 80 mg 02/06/19 10:00 02/06/19 10:39 Lasix Injection - IVPB 80 mg DAILY [facility] Administration Glimepiride 4 mg 02/03/19 07:00 02/06/19 06:06 Amaryl - PO 4 mg DAILY@0700 [facility] Administration Azithromycin 500 mg in 250 mls @ 250 mls/hr 02/02/19 11:30 02/06/19 12:08 Zithromax 500mg Ivpb (Pre-Docked) IVPB 250 mls/hr DAILY [facility] Administration Ceftriaxone Sodium 1 gm/ 50 mls @ 100 mls/hr 02/06/19 10:00 02/06/19 10:39 Dextrose IVPB 100 mls/hr DAILY [facility] Administration Protocol Insulin Aspart 1 vial 02/01/19 22:00 02/06/19 12:09 Novolog Vial Sliding Scale - SQ 2 units ACHS [facility] Administration Protocol Insulin Detemir 15 units 02/04/19 22:00 02/05/19 21:39 Levemir Vial SQ 15 units HS [facility] Administration Nitroglycerin 1 inch 02/04/19 12:00 02/06/19 12:19 Nitro-Bid 2% Paste - TD 1 inch Q6HPO [facility] Administration Prednisone 40 mg 02/06/19 10:00 02/06/19 10:39 Deltasone - PO 40 mg DAILY [facility] Administration Sitagliptin Phosphate 100 mg 02/02/19 07:00 02/06/19 06:05 Januvia - PO 100 mg ACBK [facility] Administration Terazosin HCl 2 mg 02/02/19 22:00 02/05/19 21:39 Hytrin - PO 2 mg HS [facility] Administration ASSESSMENT/PLAN: Adis Abarca is a 78M w/ a PMHx of CHF with preserved EF, Afib, ITP, NIDDM, HTN/ HLD presented in the ED for 2-3 day hx of shortness of breath admitted for acute diastolic CHF exacerbation. Acute CHF Exacerbation; w/ preserved EF - Continue Lasix 80mg IV given today - Strict I/Os, daily weights - currently has been consistently in negative volume status for several days - Sodium-controlled diet - Cardio consult noted; tele showing frequent PVCs, NSVT - Last echo (07/06): showed EF 60-65%, trace MR, mild TR, mild AR - Echo on this admission showing EF 60-65%, LV function normal, increased pulmonary artery pressure - nitropaste 2% q6h as per cardiology Acute Mild COPD Exacerbation likely 2/2 to Pneumonia - CT chest showing infliltrate vs neoplasm - prednisone 40mg - Duonebs [facility] and PRN - Sputum cx/Influenza PCR - IV Ceftriaxone/Azithro, day #6, switch to PO prior to discharge - currently off oxygen, observe pulse oxymetry - pre and post exercise normal. 93% pre, 92% post Pulmonary Nodules - CT chest showing multiple pulmonary nodules mostly apical and hilar lymphadenopathy - patient noting nodules are chronic and have never been biopsied - pulmonary consulted, recs appreciated - will have imaging and PFT's as outpatient ELLEN - Hold all nephrotoxic agents - Renal U/S unremarkable - Nephro consulted, recs appreciated - Lasix 80mg IV - renal function improved CRE 2.5-->2.1-->1.7-->1.5 Afib - Rate-controlled on diltiazem. - Not currently on AC per heme due hx of low platelets if on AC and not on steroids - will abide by heme recommendations and indefinitely defer AC - Monitor on tele NIDDM - Glu remains elevated likely in setting of steroid use, improving in the setting of decreased steroid - Cont home med: Januvia and Glimepiride - BGM/ISS ACHS - Levemir 15 units qhs HTN/HLD - Cont home meds: Diltiazem, Simvastatin ITP - Plt 245 today. Stable. Outpatient follow up Prophylaxis - SCDs given chronic thrombocytopenia/bleeding risk/ITP FEN - no standing fluids - hyponatremia improved, likely from fluid overload, continue to diurese and monitor electrolytes - cardiac diet Dispo -cont to monitor on telemetry Visit type - Emergency Visit Emergency Visit: No - New Patient This patient is new to me today: No - Critical Care Critical Care patient: No
[2019-02-06] MEDS: TERAZOSIN HCL 1 MG CAPSULE PO SCH (21:18)
[2019-02-06] MEDS: ATORVASTATIN CA 10 MG TABLET (FP) PO SCH (21:18)
[2019-02-06] MEDS: INSULIN (LEVEMIR) 100 UNITS/ML UNITS SQ SCH (21:18)
[2019-02-07] MEDS: NITROGLYCERIN 2% OINTMENT - 1GM PACKET TD SCH (06:00)
[2019-02-07] MEDS: sitaGLIPtin PHOSPHATE 50 MG TABLET PO SCH (06:00)
[2019-02-07] MEDS: GLIMEPIRIDE 4 MG TABLET (FP) PO SCH (06:00)
[2019-02-07] MEDS: INSULIN SLIDING SCALE (NOVOLOG) 1 VIAL SQ SCH ×2 (06:16→10:55)
[2019-02-07] MEDS: ALBUTEROL SO4 2.5/IPRATROPIUM 0.5 INH SOL 3 ML VIAL.NEB. NEB SCH (08:25)
[2019-02-07 08:28] LABS: BLOOD UREA NITROGEN 45.3 mg/dL (7-18); CALCIUM 8.7 mg/dL (8.5-10.1); CREATININE 1.3 mg/dL (0.55-1.3); POTASSIUM 4.2 mmol/L (3.5-5.1)
[2019-02-07] MEDS ORDERED: cefTRIAXone SODIUM 1 GM VIAL ONE (08:57)
[2019-02-07] MEDS ORDERED: DEXTROSE 5%-WATER - 50 ML IVPB ONE (08:58)
[2019-02-07] MEDS: predniSONE 20 MG TABLET (UD) PO SCH (09:02)
[2019-02-07] MEDS: CEFTRIAXONE 1 GM in DEXTROSE 5%-WATER - 50 ML IVPB SCH (09:07)
[2019-02-07] MEDS: FUROSEMIDE 40 MG/4 ML INJECTABLE VIAL IVPB SCH (09:42)
[2019-02-07 10:09] VITALS: BP 153/78; PULSE 89; TEMP 97.4
[2019-02-07] MEDS: AZITHROMYCIN IVPB 500 MG/250 ML BAG IVPB SCH (10:19)
--- NOTE | 2019-02-07 10:37 | PN ---
Teaching Attending Note Name of Resident: Ho Ga ATTENDING PHYSICIAN STATEMENT I saw and evaluated the patient. I reviewed the resident's note and discussed the case with the resident. I agree with the resident's findings and plan as documented. SUBJECTIVE: Breathing improving. SOB resolved. No fever/chills. OBJECTIVE: Afebrile, hemodynamically stable. Comfortable. SpO2 93% RA. Last Vital Signs Temp Pulse Resp BP Pulse Ox 97.4 F L 89 18 153/78 93 L 02/07/19 10:00 02/07/19 10:00 02/07/19 10:00 02/07/19 10:00 02/06/19 21:00 Heart - S1, S2, irregular Lungs - good air entry bilaterally - no crackles/wheeze. Abdomen - Soft, non-tender. Bowel Sounds normal. Extremities - Chronic venous stasis. Edema +. No calf tenderness. Laboratory Results - last 24 hr 02/06/19 02/06/19 02/06/19 12:07 17:19 20:24 Sodium Potassium Chloride Carbon Dioxide Anion Gap BUN Creatinine Est GFR (CKD-EPI)AfAm Est GFR (CKD-EPI)NonAf POC Glucometer 227 392 403 Random Glucose Calcium 02/06/19 02/07/19 02/07/19 23:10 05:57 06:30 Sodium 141 Potassium 4.2 Chloride 102 Carbon Dioxide 34 H Anion Gap 5 L BUN 45.3 H Creatinine 1.3 Est GFR (CKD-EPI)AfAm 59.73 Est GFR (CKD-EPI)NonAf 51.53 POC Glucometer 315 162 Random Glucose 153 H Calcium 8.7 Current Medications Generic Name Dose Route Start Last Admin Trade Name Freq PRN Reason Stop Dose Admin Albuterol/Ipratropium 1 amp 02/01/19 18:42 Duoneb - NEB Q6H PRN SHORT OF BREATH/WHEEZING Albuterol/Ipratropium 1 amp 02/02/19 09:43 02/07/19 08:25 Duoneb - NEB Not Given RQID [facility] Atorvastatin Calcium 10 mg 02/01/19 22:00 02/06/19 21:18 Lipitor - PO 10 mg HS [facility] Administration Diltiazem HCl 300 mg 02/01/19 19:15 02/07/19 09:02 Cardizem Cd - PO 300 mg DAILY [facility] Administration Furosemide 80 mg 02/06/19 10:00 02/07/19 09:42 Lasix Injection - IVPB 80 mg DAILY [facility] Administration Glimepiride 4 mg 02/03/19 07:00 02/07/19 06:00 Amaryl - PO 4 mg DAILY@0700 [facility] Administration Azithromycin 500 mg in 250 mls @ 250 mls/hr 02/02/19 11:30 02/07/19 10:19 Zithromax 500mg Ivpb (Pre-Docked) IVPB 250 mls/hr DAILY [facility] Administration Ceftriaxone Sodium 1 gm/ 50 mls @ 100 mls/hr 02/06/19 10:00 02/07/19 09:07 Dextrose IVPB 100 mls/hr DAILY [facility] Administration Protocol Insulin Aspart 1 vial 02/01/19 22:00 02/07/19 06:16 Novolog Vial Sliding Scale - SQ Not Given ACHS [facility] Protocol Insulin Detemir 10 units 02/07/19 22:00 Levemir Vial SQ HS [facility] Prednisone 40 mg 02/06/19 10:00 02/07/19 09:02 Deltasone - PO 40 mg DAILY [facility] Administration Sitagliptin Phosphate 100 mg 02/02/19 07:00 02/07/19 06:00 Januvia - PO 100 mg ACBK [facility] Administration Terazosin HCl 2 mg 02/02/19 22:00 02/06/19 21:18 Hytrin - PO 2 mg HS [facility] Administration Home Medications Medication Instructions Recorded Sitagliptin Phosphate [Januvia] 100 mg PO DAILY 10/04/13 Furosemide [Lasix -] 40 mg PO DAILY #1 tablet 03/21/14 Simvastatin [Zocor -] 20 mg PO HS 04/11/14 Albuterol 2.5/Ipratropium 0.5 1 neb IH QID PRN #1 vial.neb. 06/28/18 [Duoneb -] Albuterol Sulfate [Proair Hfa] 8.5 gm IH Q4H PRN 06/28/18 Diltiazem HCl [Cartia Xt] 300 mg PO DAILY 06/28/18 Glimepiride [Amaryl -] 4 mg PO DAILY@0700 06/28/18 Nebulizer and Compressor [Easy Neb 1 each MC ASDIR #1 each 06/28/18 Compressor Nebulizer] Terazosin HCl 2 mg PO HS 06/28/18 ASSESSMENT AND PLAN: 78 year old male with history of Atrial Fibrillation (off Eliquis given ITP/ thrombocytopenia), Chronic Diastolic Dysfunction, ITP, HTN, HLD, DM 2, Chronic Lung Disease, suspected Sarcoidosis, history of herpes zoster ophthalmicus, recent admission with CHF exacerbation in 11/2018, now admitted with dyspnea. 1. Acute Diastolic HF decompensation - On 80mg IV Lasix. Discussed with Cardio - can discontinue Nitro paste. Echo normal EF, elevated PA pressure. Cardio, Pulm following. Will likely require Lasix 40mg BID PO on DC. 2. Acute COPD Exacerbation + LLL Pneumonia CT Chest - bilateral pleural effusions, LLL opacity - neoplasm versus infiltrate. 3 month follow up recommended. Continue oral Prednisone (tapering course) Completed adequate course of Ceftriaxone/Azithromycin. Stable respiratory status after weaning off supplemental O2. 3. Atrial Fibrillation - Eliquis discontinued due to ITP/Chronic Thrombocytopenia. Continue Cardizem. 4. Hx ITP - Platelets wnl. Follows with Dr. Jamil. 5. DM 2 - Uncontrolled serum glucose likely sec to Steroids - improving. Continue Januvia, Glimepiride. Levemir along with Novolog as per sliding scale during in-patient stay. 6. HTN - continue Cardizem, Terazosin 7. HLD - Continue Statin 8. ELLEN likely sec to cardiorenal phenomenon - resolved. Continue Lasix. Renal US negative. Nephrology following. DVT Px - SCDs. Heparin held due to Hx of ITP
--- NOTE | 2019-02-07 10:44 | PN ---
Progress Note, Physician History of Present Illness: pulmonary alert,feeling better,less dyspneic. sleep screen AHI 40.3 - Current Medication List Current Medications: Active Medications Albuterol/Ipratropium (Duoneb -) 1 amp NEB Q6H PRN PRN Reason: SHORT OF BREATH/WHEEZING Albuterol/Ipratropium (Duoneb -) 1 amp NEB RQID [facility] Last Admin: 02/07/19 08:25 Dose: Not Given Atorvastatin Calcium (Lipitor -) 10 mg PO HS [facility] Last Admin: 02/06/19 21:18 Dose: 10 mg Diltiazem HCl (Cardizem Cd -) 300 mg PO DAILY [facility] Last Admin: 02/07/19 09:02 Dose: 300 mg Furosemide (Lasix Injection -) 80 mg IVPB DAILY [facility] Last Admin: 02/07/19 09:42 Dose: 80 mg Glimepiride (Amaryl -) 4 mg PO DAILY@0700 [facility] Last Admin: 02/07/19 06:00 Dose: 4 mg Azithromycin (Zithromax 500mg Ivpb (Pre-Docked)) 500 mg in 250 mls @ 250 mls/ hr IVPB DAILY [facility] Last Admin: 02/07/19 10:19 Dose: 250 mls/hr Ceftriaxone Sodium 1 gm/ (Dextrose) 50 mls @ 100 mls/hr IVPB DAILY [facility]; Protocol Last Admin: 02/07/19 09:07 Dose: 100 mls/hr Insulin Aspart (Novolog Vial Sliding Scale -) 1 vial SQ ACHS [facility]; Protocol Last Admin: 02/07/19 06:16 Dose: Not Given Insulin Detemir (Levemir Vial) 10 units SQ [facility] Prednisone (Deltasone -) 40 mg PO DAILY [facility] Last Admin: 02/07/19 09:02 Dose: 40 mg Sitagliptin Phosphate (Januvia -) 100 mg PO ACBK [facility] Last Admin: 02/07/19 06:00 Dose: 100 mg Terazosin HCl (Hytrin -) 2 mg PO [facility] Last Admin: 02/06/19 21:18 Dose: 2 mg - Objective Vital Signs: Vital Signs Temperature 97.4 F L 02/07/19 10:00 Pulse Rate 89 02/07/19 10:00 Respiratory Rate 18 02/07/19 10:00 Blood Pressure 153/78 02/07/19 10:00 O2 Sat by Pulse Oximetry (%) 93 L 02/06/19 21:00 Constitutional: Yes: Well Nourished, Calm Eyes: Yes: WNL HENT: Yes: WNL Neck: Yes: WNL Cardiovascular: Yes: Pulse Irregular, S1, S2 Respiratory: Yes: Rales (few bibasilar crackles) Gastrointestinal: Yes: Normal Bowel Sounds, Soft Extremities: Yes: WNL Edema: Yes Labs: 02/07/19 06:30 Problem List - Problems (1) Shortness of breath at rest Code(s): R06.02 - SHORTNESS OF BREATH (2) Acute diastolic (congestive) heart failure Code(s): I50.31 - ACUTE DIASTOLIC (CONGESTIVE) HEART FAILURE (3) Atrial fibrillation Code(s): I48.91 - UNSPECIFIED ATRIAL FIBRILLATION Qualifiers: Atrial fibrillation type: chronic (4) COPD (chronic obstructive pulmonary disease) Code(s): J44.9 - CHRONIC OBSTRUCTIVE PULMONARY DISEASE, UNSPECIFIED (5) COPD exacerbation Code(s): J44.1 - CHRONIC OBSTRUCTIVE PULMONARY DISEASE W (ACUTE) EXACERBATION (6) Congestive heart failure, acute Code(s): I50.9 - HEART FAILURE, UNSPECIFIED Qualifiers: Heart failure type: unspecified Qualified Code(s): I50.9 - Heart failure, unspecified (7) Diabetes Code(s): E11.9 - TYPE 2 DIABETES MELLITUS WITHOUT COMPLICATIONS Qualifiers: Diabetes mellitus type: type 2 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: without intermodal truck driver use Diabetes mellitus complication status: without complication Qualified Code(s): E11.9 - Type 2 diabetes mellitus without complications (8) HTN (hypertension) Code(s): I10 - ESSENTIAL (PRIMARY) HYPERTENSION Qualifiers: Hypertension type: essential hypertension Qualified Code(s): I10 - Essential (primary) hypertension (9) Pulmonary hypertension Code(s): I27.2 - OTHER SECONDARY PULMONARY HYPERTENSION * DO NOT USE * Assessment/Plan Assessment/Plan Acute on Chronic Diastolic Heart Failure improving Atrial Fibrillation Acute Kidney Injury improving r/o Pneumonia ITP HTN DM Hyperlipidemia Lung Nodules likely Sarcoidosis PULMONARY HTN POONAM sleep screen AHI 40.3 - lasix - monitor urine output, creatinine - daily weights - rate control - continue anticoagulation - O2 to keep SpO2 >90% - antibiotics - prednisone - inhaled bronchodilators - PFTs and f/u imaging as outpt - Formal sleep studies outpatient DR JURADO
--- NOTE | 2019-02-07 11:34 | PN ---
Progress Note (short form) - Note Progress Note: s: edema, sob getting better. no chest pain, palps, dizziness Current Medications Generic Name Dose Route Start Last Admin Trade Name Freq PRN Reason Stop Dose Admin Albuterol/Ipratropium 1 amp 02/01/19 18:42 Duoneb - NEB Q6H PRN SHORT OF BREATH/WHEEZING Albuterol/Ipratropium 1 amp 02/02/19 09:43 02/07/19 08:25 Duoneb - NEB Not Given RQID [facility] Atorvastatin Calcium 10 mg 02/01/19 22:00 02/06/19 21:18 Lipitor - PO 10 mg HS [facility] Administration Diltiazem HCl 300 mg 02/01/19 19:15 02/07/19 09:02 Cardizem Cd - PO 300 mg DAILY [facility] Administration Furosemide 80 mg 02/06/19 10:00 02/07/19 09:42 Lasix Injection - IVPB 80 mg DAILY [facility] Administration Glimepiride 4 mg 02/03/19 07:00 02/07/19 06:00 Amaryl - PO 4 mg DAILY@0700 [facility] Administration Insulin Aspart 1 vial 02/01/19 22:00 02/07/19 10:55 Novolog Vial Sliding Scale - SQ Not Given ACHS [facility] Protocol Insulin Detemir 10 units 02/07/19 22:00 Levemir Vial SQ HS [facility] Prednisone 40 mg 02/06/19 10:00 02/07/19 09:02 Deltasone - PO 40 mg DAILY [facility] Administration Sitagliptin Phosphate 100 mg 02/02/19 07:00 02/07/19 06:00 Januvia - PO 100 mg ACBK [facility] Administration Terazosin HCl 2 mg 02/02/19 22:00 02/06/19 21:18 Hytrin - PO 2 mg HS [facility] Administration Vital Signs Period Temp Pulse Resp BP Sys/Henriquez Pulse Ox Last 24 Hr 97.2 F-98 F 59-89 18-20 138-158/60-86 93-93 Constitutional: Yes: No Distress, Calm Eyes: No: Sclera Icterus HENT: No: Nasal Congestion Cardiovascular: Yes: Pulse Irregular, S1, S2, Other (PMI non diplaced). No: JVD , Gallop, Murmur Respiratory: Yes: CTA Bilaterally. No: Accessory Muscle Use, Rales, Wheezes Gastrointestinal: Yes: Normal Bowel Sounds, Soft. 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 acute diastolic chf, ? pulm sarcoid: -Has vol overload/symptoms with interval weight gain and elevated BNP of 1500 ( above prior baseline) -wt 223 here 12/08 discharge--227 office 12/26--234 01/15-->up 238 here, now decreasing -on lasix 40 po qd at home -Cr improving, weight down after two doses of lasix 60 mg IV 02/03- - cont iv lasix, cr stable - CT chest ?pulm sarcoid - pulm following -can dc nitro paste -recent echo unremarkable htn: -cont home dilt hld: -Continue home statin. afib, ITP: -Rate controlled. Continue home dilt, -platelets very variable over time--AC is managed as per PLTs trend (ITP), by dr aburto and dr bond--holding when PLTs < 50K. -d/w'd dr aburto: pt's PLTs consistently drop to 30-50K when off steroids and NPATE therapy, hence AC has been indefinitely deferred in concert with heme' s recs
--- NOTE | 2019-02-07 11:39 | PN ---
Progress Note, Physician History of Present Illness: Pt seen and examined at bedside. He is awake and alert. He feels that his breathing is improved. - Current Medication List Current Medications: Active Medications Albuterol/Ipratropium (Duoneb -) 1 amp NEB Q6H PRN PRN Reason: SHORT OF BREATH/WHEEZING Albuterol/Ipratropium (Duoneb -) 1 amp NEB RQID [facility] Last Admin: 02/07/19 08:25 Dose: Not Given Atorvastatin Calcium (Lipitor -) 10 mg PO [facility] Last Admin: 02/06/19 21:18 Dose: 10 mg Diltiazem HCl (Cardizem Cd -) 300 mg PO DAILY [facility] Last Admin: 02/07/19 09:02 Dose: 300 mg Furosemide (Lasix Injection -) 80 mg IVPB DAILY [facility] Last Admin: 02/07/19 09:42 Dose: 80 mg Glimepiride (Amaryl -) 4 mg PO DAILY@0700 [facility] Last Admin: 02/07/19 06:00 Dose: 4 mg Insulin Aspart (Novolog Vial Sliding Scale -) 1 vial SQ [facility]; Protocol Last Admin: 02/07/19 10:55 Dose: Not Given Insulin Detemir (Levemir Vial) 10 units SQ [facility] Prednisone (Deltasone -) 40 mg PO DAILY [facility] Last Admin: 02/07/19 09:02 Dose: 40 mg Sitagliptin Phosphate (Januvia -) 100 mg PO ACBK [facility] Last Admin: 02/07/19 06:00 Dose: 100 mg Terazosin HCl (Hytrin -) 2 mg PO [facility] Last Admin: 02/06/19 21:18 Dose: 2 mg - Objective Vital Signs: Vital Signs Temperature 97.4 F L 02/07/19 10:00 Pulse Rate 89 02/07/19 10:00 Respiratory Rate 18 02/07/19 10:00 Blood Pressure 153/78 02/07/19 10:00 O2 Sat by Pulse Oximetry (%) 93 L 02/07/19 09:00 Constitutional: Yes: Calm Eyes: Yes: Conjunctiva Clear HENT: Yes: Atraumatic Cardiovascular: Yes: S1, S2 Respiratory: Yes: On Nasal O2, Wheezes Gastrointestinal: Yes: Soft Genitourinary: Yes: WNL Musculoskeletal: Yes: WNL Edema: Yes Edema: LLE: 1+, RLE: 1+ Neurological: Yes: Oriented Psychiatric: Yes: Oriented Labs: CBC, BMP 02/06/19 05:34 02/07/19 06:30 INR, PTT INR 1.15 (0.83-1.09) H 02/01/19 21:30 Problem List - Problems (1) ELLEN (acute kidney injury) Code(s): N17.9 - ACUTE KIDNEY FAILURE, UNSPECIFIED (2) Shortness of breath at rest Code(s): R06.02 - SHORTNESS OF BREATH (3) Atrial fibrillation Code(s): I48.91 - UNSPECIFIED ATRIAL FIBRILLATION Qualifiers: Atrial fibrillation type: chronic (4) CHF (congestive heart failure) Code(s): I50.9 - HEART FAILURE, UNSPECIFIED Qualifiers: Heart failure type: unspecified Heart failure chronicity: acute on chronic Qualified Code(s): I50.9 - Heart failure, unspecified Assessment/Plan Current Medications Generic Name Dose Route Start Last Admin Trade Name Freq PRN Reason Stop Dose Admin Albuterol/Ipratropium 1 amp 02/01/19 18:42 Duoneb - NEB Q6H PRN SHORT OF BREATH/WHEEZING Albuterol/Ipratropium 1 amp 02/02/19 09:43 02/07/19 08:25 Duoneb - NEB Not Given RQID [facility] Atorvastatin Calcium 10 mg 02/01/19 22:00 02/06/19 21:18 Lipitor - PO 10 mg HS [facility] Administration Diltiazem HCl 300 mg 02/01/19 19:15 02/07/19 09:02 Cardizem Cd - PO 300 mg DAILY [facility] Administration Furosemide 80 mg 02/06/19 10:00 02/07/19 09:42 Lasix Injection - IVPB 80 mg DAILY [facility] Administration Glimepiride 4 mg 02/03/19 07:00 02/07/19 06:00 Amaryl - PO 4 mg DAILY@0700 [facility] Administration Insulin Aspart 1 vial 02/01/19 22:00 02/07/19 10:55 Novolog Vial Sliding Scale - SQ Not Given ACHS [facility] Protocol Insulin Detemir 10 units 02/07/19 22:00 Levemir Vial SQ HS [facility] Prednisone 40 mg 02/06/19 10:00 02/07/19 09:02 Deltasone - PO 40 mg DAILY [facility] Administration Sitagliptin Phosphate 100 mg 02/02/19 07:00 02/07/19 06:00 Januvia - PO 100 mg ACBK [facility] Administration Terazosin HCl 2 mg 02/02/19 22:00 02/06/19 21:18 Hytrin - PO 2 mg HS [facility] Administration Impression 1. ELLEN 2. CHF 3. a-fib 4. COPD 5. DM 6. ITP 7. HTN Plan - renal function is improved - will need higher dose of lasix at home, can use 80mg - pt will need to do daily weights - discussed salt intake at length as he is not compliant with sodium intake - avoid nsaids - discussed with medical team - will need cardio and pulm follow up as well
--- NOTE | 2019-02-07 14:14 | DS ---
Physical Exam: SUBJECTIVE: Patient seen and examined at the bedside. He noted that he felt better and that his breathing had improved. He denied any chest pain, sob, abd pain, n/v/c/d, fever, chills. No significant overnight events on the monitor. OBJECTIVE: Vital Signs Period Temp Pulse Resp BP Sys/Henriquez Pulse Ox Last 24 Hr 97.2 F-98 F 59-89 18-20 138-158/60-86 93-93 PHYSICAL EXAM GENERAL: Pleasant male. NAD. AAOx3. HEENT: AT/NC. EOMI. MMM. NECK: Normal range of motion, supple without lymphadenopathy, JVD, or masses. LUNGS: faint bibasilar crackles noted. No expiratory wheezes noted. Symmetric chest rise. No accessory muscle use. HEART: irregularly, irregularly. S1, S2. No murmurs noted. ABDOMEN: Soft, nontender, not distended, normoactive bowel sounds, no guarding, no rebound, no masses. MUSCULOSKELETAL: Normal range of motion at all joints. No bony deformities or tenderness. UPPER EXTREMITIES: 2+ pulses, warm, well-perfused. No cyanosis. No clubbing. No peripheral edema. LOWER EXTREMITIES: 2+ pulses, warm, well-perfused. No calf tenderness. 1+ peripheral edema noted. NEUROLOGICAL: Cranial nerves II-XII intact. Normal speech. PSYCHIATRIC: Cooperative. Good eye contact. Appropriate mood and affect. SKIN: Warm, dry, normal turgor, no rashes or lesions noted, normal capillary refill. LABS Laboratory Results - last 24 hr 02/06/19 02/06/19 02/06/19 17:19 20:24 23:10 Sodium Potassium Chloride Carbon Dioxide Anion Gap BUN Creatinine Est GFR (CKD-EPI)AfAm Est GFR (CKD-EPI)NonAf POC Glucometer 392 403 315 Random Glucose Calcium 02/07/19 02/07/19 02/07/19 05:57 06:30 10:53 Sodium 141 Potassium 4.2 Chloride 102 Carbon Dioxide 34 H Anion Gap 5 L BUN 45.3 H Creatinine 1.3 Est GFR (CKD-EPI)AfAm 59.73 Est GFR (CKD-EPI)NonAf 51.53 POC Glucometer 162 164 Random Glucose 153 H Calcium 8.7 HOSPITAL COURSE: Adis Abarca is an 78 year old male with a past medical history of CHF with preserved EF, Afib, ITP, NIDDM, HTN/HLD who presented with several day history of shortness of breath, orthopnea, and subjective fevers and chills. The patient was admitted for acute CHF decompensation, COPD exacerbation likely secondary to pneumonia. He was treated with IV antibiotics for pneumonia and completed a course of antibiotics without necessitating outpatient antibiotics. He was treated with IV Lasix for CHF decompensation. The patient was seen by cardiology who recommended the patient continue IV Lasix and the patient was on nitropaste while in the hospital. The patient was seen by nephrology for acute kidney injury secondary to cardio-renal syndrome and was treated with IV Lasix for fluid overload and ELLEN resolved. He was recommended to continue on increased dose of Lasix PO at 80mg daily. Patient is to follow up with outpatient cardiology and outpatient nephrology. Patient had a an echocardiogram performed while admitted that showed EF 60-65%, trace MR, mild TR, mild AR. For COPD exacerbation, the patient was given IV Solu-medrol that was tapered to oral prednisone and will complete a course of oral steroids outpatient with a taper. Patient was on supplemental oxygen and was succesfully weaned off with good pre and post exercise oxygenation. While in the hospital, the patient had a CT scan that showed multiple nodules in the lungs, that the patient was aware of. He was seen by pulmonology and is to follow up outpatient and have a CT scan in 3 months to monitor the nodules. Patient's chronic medical conditions of afib and DM were managed while he was admitted. Patient was spoken about his medical course and voiced understanding to take all medications as prescribed and to have adequate follow up with his primary care physician and all specialists. Patient was discharged in stable condition. Date of Admission:02/01/19 Date of Discharge: 02/07/19 Minutes to complete discharge: 35 Discharge Summary Problems reviewed: Yes Reason For Visit: ACUTE CONGESTIVE HEART FAILURE Condition: Improved - Instructions Diet, Activity, Other Instructions: You were admitted to the hospital for heart failure decompensation. You received medication to remove excess fluid from your lungs and legs. You had imaging of your chest which showed possible pneumonia which you were treated for with antibiotics. On imaging, a number of nodules (masses) were found. You were seen by the software quality assurance specialist (lung doctor) who recommended that you follow up with another CT scan of your lungs in 3 months. You received steroid medications and oxygen to help with your breathing. You were seen by the senior accounting clerk (kidney doctor) who managed the amount of fluid that you have in your body and ensuring good kidney function. You had a kidney ultrasound performed that showed that your kidney appeared normal. You are to follow up with the senior accounting clerk when you leave the hospital. Your atrial fibrillation and diabetes were managed while you were in the hospital. You should follow up with the injection specialist (heart doctor) when you leave the hospital. You should also continue to follow up with your primary care provider to manage all of your chronic medical conditions. MEDICATIONS Please start taking Lasix 80mg once a day. Please continue taking the prednisone medication as follows. Take 4 (10mg) pills tomorrow, 02/08/19 Take 3 (10mg) pills for 3 days, 02/09/19 - 02/11/19 Take 2 (10mg) pills for 3 days, 02/12/19 - 02/14/19 Take 1 (10mg) pill for 3 days, 02/15/19 - 02/17/19 Please continue to take all of your home medications as they are prescribed to you. REFERRALS Please follow up with your primary care doctor, Dr. Jones, within 1 week. Please follow up with the senior accounting clerk, Dr. Tangela Keita, within 1 week. Please have repeat blood work, a Basic Metabolic Panel on Monday, February 11. You will need check your kidney function. Please follow up with the injection specialist, Dr. Wilfredo Mcgraw, within 1 week. Please follow up with the software quality assurance specialist, Dr. Donnie Mendez, within 1 week. You will need a repeat CT Scan within 3 months to monitor the status of your pulmonary nodules. SPECIAL INSTRUCTIONS Please avoid medications such as aspirin, ibuprofen, ketorolac, naproxen, diclofenac, to avoid any further injury to your kidneys. Please weigh yourself daily, if you start increasing in weight, please call your primary care doctor. Please avoid excess salt and excess water intake. If you have any further symptoms of chest pain, shortness of breath, increased fluid in your legs, fevers, or any other general feelings of unwellness, please call 911 or go to your nearest emergency room. Referrals: Donnie Mendez MD [Staff Physician] - 1 Week Wilfredo Mcgraw MD [Staff Physician] - 1 Week Tangela Keita MD [Staff Physician] - 1 Week Yossi Jones MD [Staff Physician] - 1 Week Disposition: HOME - Home Medications Comprehensive Discharge Medication List: Ambulatory Orders Sitagliptin Phosphate [Januvia] 100 mg PO DAILY 10/04/13 Simvastatin [Zocor -] 20 mg PO HS 04/11/14 Albuterol 2.5/Ipratropium 0.5 [Duoneb -] 1 neb IH QID PRN #1 vial.neb. 06/28/18 Albuterol Sulfate [Proair Hfa] 8.5 gm IH Q4H PRN 06/28/18 Diltiazem HCl [Cartia Xt] 300 mg PO DAILY 06/28/18 Glimepiride [Amaryl -] 4 mg PO DAILY@0700 06/28/18 Nebulizer and Compressor [Easy Neb Compressor Nebulizer] 1 each MC ASDIR #1 each 06/28/18 Terazosin HCl 2 mg PO HS 06/28/18 Furosemide [Lasix -] 80 mg PO DAILY #30 tablet 02/07/19 predniSONE [Deltasone -] See Taper PO ASDIR #22 tab 02/07/19 Problem List - Problems (1) Acute diastolic (congestive) heart failure Code(s): I50.31 - ACUTE DIASTOLIC (CONGESTIVE) HEART FAILURE (2) Atrial fibrillation Code(s): I48.91 - UNSPECIFIED ATRIAL FIBRILLATION Qualifiers: Atrial fibrillation type: chronic (3) CHF (congestive heart failure) Code(s): I50.9 - HEART FAILURE, UNSPECIFIED Qualifiers: Heart failure type: unspecified Heart failure chronicity: acute on chronic Qualified Code(s): I50.9 - Heart failure, unspecified (4) COPD (chronic obstructive pulmonary disease) Code(s): J44.9 - CHRONIC OBSTRUCTIVE PULMONARY DISEASE, UNSPECIFIED (5) Diabetes Code(s): E11.9 - TYPE 2 DIABETES MELLITUS WITHOUT COMPLICATIONS Qualifiers: Diabetes mellitus type: type 2 Diabetes mellitus vermin exterminator insulin use: without fdc use Diabetes mellitus complication status: without complication Qualified Code(s): E11.9 - Type 2 diabetes mellitus without complications (6) HTN (hypertension) Code(s): I10 - ESSENTIAL (PRIMARY) HYPERTENSION Qualifiers: Hypertension type: essential hypertension Qualified Code(s): I10 - Essential (primary) hypertension (7) Hyperglycemia Code(s): R73.9 - HYPERGLYCEMIA, UNSPECIFIED (8) Hyperlipidemia Code(s): E78.5 - HYPERLIPIDEMIA, UNSPECIFIED Qualifiers: Hyperlipidemia type: pure hypercholesterolemia Qualified Code(s): E78.00 - Pure hypercholesterolemia, unspecified; E78.0 - Pure hypercholesterolemia (9) Sarcoidosis of lung Code(s): D86.0 - SARCOIDOSIS OF LUNG (10) ELLEN (acute kidney injury) Code(s): N17.9 - ACUTE KIDNEY FAILURE, UNSPECIFIED (11) COPD exacerbation Code(s): J44.1 - CHRONIC OBSTRUCTIVE PULMONARY DISEASE W (ACUTE) EXACERBATION (12) Cough Code(s): R05 - COUGH This patient is new to me today: No Emergency Visit: No Critical Care patient: No - Discharge Referral Referred to [facility] No
[2019-02-07] MEDS ORDERED: INSULIN (LEVEMIR) 100 UNITS/ML UNITS SQ SCH (22:00)
== END 2019-02-07 14:12 | disposition home or self-care (01) | DRG 291 ==
LOC: JER 14:48 → JERBED 18:14 → J4S 20:29
PROVIDERS: ADMIT Hospitalist
DX: I11.0 Hypertensive heart disease with heart failure (principal); J18.9 Pneumonia, unspecified organism; J44.1 Chronic obstructive pulmonary disease with (acute) exacerbation; B02.30 Zoster ocular disease, unspecified; D69.3 Immune thrombocytopenic purpura; N17.9 Acute kidney failure, unspecified; I47.1 Supraventricular tachycardia; I50.33 Acute on chronic diastolic (congestive) heart failure; E78.5 Hyperlipidemia, unspecified; K64.8 Other hemorrhoids; E11.40 Type 2 diabetes mellitus with diabetic neuropathy, unspecified; I48.0 Paroxysmal atrial fibrillation; D86.0 Sarcoidosis of lung; N40.0 Benign prostatic hyperplasia without lower urinary tract symptoms; I27.20 Pulmonary hypertension, unspecified; I34.0 Nonrheumatic mitral (valve) insufficiency; E11.9 Type 2 diabetes mellitus without complications; E11.65 Type 2 diabetes mellitus with hyperglycemia
CPT/HCPCS: 36415; 36600; 71045-TC-FY; 71250-TC; 76775-TC; 76856-TC; 80048; 80053; 81003; 82436; 82550; 82565; 82803; 82962; 83605; 83735; 83880; 84100; 84133; 84300; 84484; 84540; 85025; 85027; 85610; 85730; 87040; 87804; 87899; 93005; 93010; 93306-TC; 94640; 94761; 99283-25

== ENCOUNTER 2020-09-22 09:15 | Inpatient (IN) | payer OTHER ==
[2020-09-22] MEDS ORDERED: methylPREDNISolone NA SUCC 125 MG/2 ML VIAL IVPUSH ONE (09:49)
[2020-09-22] MEDS ORDERED: ALBUTEROL SO4 2.5/IPRATROPIUM 0.5 INH SOL 3 ML VIAL.NEB. NEB ONE ×4 (09:49→21:14)
[2020-09-22] MEDS ORDERED: methylPREDNISolone NA SUCC 125 MG/2 ML VIAL ONE (10:10)
[2020-09-22] MEDS: ALBUTEROL SO4 2.5/IPRATROPIUM 0.5 INH SOL 3 ML VIAL.NEB. NEB SCH ×5 (10:32→21:27)
[2020-09-22 10:41] LABS: VENOUS BASE EXCESS 0.7 mmol/L (-2-2); VENOUS O2 SATURATION 80.5 % (70-80); VENOUS PCO2 44.3 mmHg (38-52); VENOUS PH 7.388 (7.310-7.410)
[2020-09-22 10:43] LABS: BASO % 0.5 % (0-2.0); HEMATOCRIT 42.3 % (35.4-49); HEMOGLOBIN 13.9 GM/dL (11.7-16.9); LYMPH % 23.4 % (8-40); MCHC 32.9 g/dl (32.0-35.9); MEAN PLT VOLUME 10.8 fl (7.5-11.1); MONO % 9.2 % (3.8-10.2); NEUT % 63.9 % (42.8-82.8); PLATELET COUNT 62 10^3/uL (134-434); RBC 4.81 M/mm3 (4.00-5.60); WHITE BLOOD COUNT 8.4 K/mm3 (4.0-10.0)
[2020-09-22 10:50] LABS: INR 0.97 (0.83-1.09); PROTHROMBIN TIME (PATIENT) 11.8 SEC (9.7-13.0)
[2020-09-22 10:53] LABS: ACTIVATED PTT 28.2 SECONDS (25.2-36.5)
[2020-09-22 11:09] LABS: CHLORIDE 105 mmol/L (98-107); SODIUM 138 mmol/L (136-145)
[2020-09-22 11:11] LABS: ANION GAP 6 MMOL/L (8-16); BLOOD UREA NITROGEN 24.2 mg/dL (7-18); CALCIUM 8.8 mg/dL (8.5-10.1); CO2 27 mmol/L (21-32); GLUCOSE,RANDOM 197 mg/dL (74-106)
[2020-09-22 11:12] LABS: ALBUMIN 3.8 g/dl (3.4-5.0)
[2020-09-22 11:15] LABS: SGOT/AST 55 U/L (15-37); SGPT/ALT 37 U/L (13-61)
[2020-09-22 11:16] LABS: BILIRUBIN,TOTAL 1.2 mg/dL (0.2-1); TOT PROT 7.2 g/dl (6.4-8.2)
[2020-09-22 11:17] LABS: ALK PHOS 102 U/L (45-117)
[2020-09-22 11:19] LABS: N-TERMINAL BNP 935.9 pg/ml (5-450)
[2020-09-22] MEDS ORDERED: FUROSEMIDE 40 MG/4 ML INJECTABLE VIAL IVPUSH ONE ×2 (12:05→13:22)
[2020-09-22] MEDS ORDERED: FUROSEMIDE 40 MG/4 ML INJECTABLE VIAL ONE ×2 (12:33→13:52)
[2020-09-22] MEDS ORDERED: methylPREDNISolone NA SUCC 40 MG/1 ML VIAL ONE ×2 (13:52→21:15)
[2020-09-22] MEDS: methylPREDNISolone NA SUCC 40 MG/1 ML VIAL IVPUSH SCH ×2 (14:07→21:27)
[2020-09-22 17:32] LABS: MAGNESIUM 2.3 mg/dL (1.8-2.4)
[2020-09-22] MEDS: INSULIN SLIDING SCALE (NOVOLOG) 1 VIAL SQ SCH ×2 (18:50→21:27)
[2020-09-22] MEDS ORDERED: ATORVASTATIN CA 10 MG TABLET (FP) ONE (21:15)
[2020-09-22] MEDS: TERAZOSIN HCL 5 MG CAPSULE PO SCH (21:27)
[2020-09-22] MEDS: ATORVASTATIN CA 10 MG TABLET (FP) PO SCH (21:27)
[2020-09-23 01:31] VITALS: BMI 31.3
[2020-09-23] MEDS: methylPREDNISolone NA SUCC 40 MG/1 ML VIAL IVPUSH SCH ×4 (03:28→21:19)
[2020-09-23] MEDS: INSULIN SLIDING SCALE (NOVOLOG) 1 VIAL SQ SCH ×4 (06:45→21:20)
[2020-09-23 07:16] LABS: BASO % 0.1 % (0-2.0); HEMATOCRIT 37.7 % (35.4-49); HEMOGLOBIN 12.6 GM/dL (11.7-16.9); LYMPH % 10.9 % (8-40); MCH 29.3 pg (25.7-33.7); MCHC 33.6 g/dl (32.0-35.9); MEAN CELL VOLUME 87.1 fl (80-96); MEAN PLT VOLUME 9.5 fl (7.5-11.1); MONO % 2.2 % (3.8-10.2); NEUT % 86.8 % (42.8-82.8); PLATELET COUNT 60 10^3/uL (134-434); RBC 4.32 M/mm3 (4.00-5.60); RDW 14.1 % (11.9-15.9); WHITE BLOOD COUNT 9.7 K/mm3 (4.0-10.0)
[2020-09-23] MEDS: ALBUTEROL SO4 2.5/IPRATROPIUM 0.5 INH SOL 3 ML VIAL.NEB. NEB SCH ×4 (07:24→20:25)
[2020-09-23 07:40] LABS: CALCIUM 8.4 mg/dL (8.5-10.1)
[2020-09-23 07:41] LABS: ALBUMIN 3.4 g/dl (3.4-5.0); BLOOD UREA NITROGEN 26.8 mg/dL (7-18); MAGNESIUM 2.1 mg/dL (1.8-2.4)
[2020-09-23 07:45] LABS: TOT PROT 6.2 g/dl (6.4-8.2)
[2020-09-23] MEDS ORDERED: PT OWN MED DRAWER 7, Y5N ONE (09:19)
[2020-09-23] MEDS: FUROSEMIDE 40 MG/4 ML INJECTABLE VIAL IVPUSH SCH (09:43)
[2020-09-23] MEDS ORDERED: ENOXAPARIN NA (PORCINE) 40 MG/0.4 ML DISP.SYRIN SQ SCH (10:00)
[2020-09-23] MEDS: TERAZOSIN HCL 5 MG CAPSULE PO SCH (21:20)
[2020-09-23] MEDS: INSULIN (LEVEMIR) 100 UNITS/ML UNITS SQ SCH (21:20)
[2020-09-23] MEDS: ATORVASTATIN CA 10 MG TABLET (FP) PO SCH (21:21)
[2020-09-24] MEDS: methylPREDNISolone NA SUCC 40 MG/1 ML VIAL IVPUSH SCH ×4 (02:02→21:41)
[2020-09-24] MEDS: INSULIN SLIDING SCALE (NOVOLOG) 1 VIAL SQ SCH ×4 (06:37→21:42)
[2020-09-24 07:13] LABS: BASO % 0.1 % (0-2.0); HEMATOCRIT 37.5 % (35.4-49); HEMOGLOBIN 12.6 GM/dL (11.7-16.9); MCHC 33.6 g/dl (32.0-35.9); MEAN CELL VOLUME 86.3 fl (80-96); MEAN PLT VOLUME 10.1 fl (7.5-11.1); MONO % 2.6 % (3.8-10.2); NEUT % 88.3 % (42.8-82.8); PLATELET COUNT 77 10^3/uL (134-434); RBC 4.35 M/mm3 (4.00-5.60)
[2020-09-24 07:40] LABS: CALCIUM 8.7 mg/dL (8.5-10.1)
[2020-09-24] MEDS: ALBUTEROL SO4 2.5/IPRATROPIUM 0.5 INH SOL 3 ML VIAL.NEB. NEB SCH ×4 (07:40→20:21)
[2020-09-24 07:41] LABS: ALBUMIN 3.5 g/dl (3.4-5.0); BLOOD UREA NITROGEN 37.7 mg/dL (7-18); MAGNESIUM 2.2 mg/dL (1.8-2.4)
[2020-09-24 07:42] LABS: CREATININE 1.1 mg/dL (0.55-1.3)
[2020-09-24 07:43] LABS: TOT PROT 6.3 g/dl (6.4-8.2)
[2020-09-24 07:46] LABS: BILIRUBIN,TOTAL 0.7 mg/dL (0.2-1)
[2020-09-24] MEDS: PANTOPRAZOLE 40 MG TABLET PO SCH (09:55)
[2020-09-24] MEDS: FUROSEMIDE 40 MG/4 ML INJECTABLE VIAL IVPUSH SCH (09:55)
[2020-09-24] MEDS ORDERED: PT OWN MED DRAWER 7, Y5N ONE (21:34)
[2020-09-24] MEDS: ATORVASTATIN CA 10 MG TABLET (FP) PO SCH (21:41)
[2020-09-24] MEDS: INSULIN (LEVEMIR) 100 UNITS/ML UNITS SQ SCH (21:41)
[2020-09-24] MEDS: TERAZOSIN HCL 5 MG CAPSULE PO SCH (21:41)
[2020-09-25] MEDS: methylPREDNISolone NA SUCC 40 MG/1 ML VIAL IVPUSH SCH ×4 (03:57→21:29)
[2020-09-25] MEDS: INSULIN SLIDING SCALE (NOVOLOG) 1 VIAL SQ SCH ×4 (06:28→21:52)
[2020-09-25 07:30] LABS: BASO % 0.1 % (0-2.0); HEMATOCRIT 41.3 % (35.4-49); HEMOGLOBIN 13.3 GM/dL (11.7-16.9); LYMPH % 9.1 % (8-40); MCH 28.5 pg (25.7-33.7); MCHC 32.3 g/dl (32.0-35.9); MEAN CELL VOLUME 88.2 fl (80-96); MEAN PLT VOLUME 10.9 fl (7.5-11.1); MONO % 3.7 % (3.8-10.2); NEUT % 87.1 % (42.8-82.8); PLATELET COUNT 110 10^3/uL (134-434); RBC 4.69 M/mm3 (4.00-5.60); RDW 14.3 % (11.9-15.9); WHITE BLOOD COUNT 13.9 K/mm3 (4.0-10.0)
[2020-09-25 07:55] LABS: ALBUMIN 3.8 g/dl (3.4-5.0); MAGNESIUM 2.6 mg/dL (1.8-2.4)
[2020-09-25 07:57] LABS: CREATININE 1.1 mg/dL (0.55-1.3)
[2020-09-25 07:59] LABS: BILIRUBIN,TOTAL 0.9 mg/dL (0.2-1); TOT PROT 6.5 g/dl (6.4-8.2)
[2020-09-25] MEDS: ALBUTEROL SO4 2.5/IPRATROPIUM 0.5 INH SOL 3 ML VIAL.NEB. NEB SCH ×4 (08:22→20:15)
[2020-09-25] MEDS ORDERED: PT OWN MED DRAWER 7, Y5N ONE ×2 (08:58→21:23)
[2020-09-25] MEDS: PANTOPRAZOLE 40 MG TABLET PO SCH (09:07)
[2020-09-25] MEDS: FUROSEMIDE 40 MG/4 ML INJECTABLE VIAL IVPUSH SCH (09:07)
[2020-09-25] MEDS: ATORVASTATIN CA 10 MG TABLET (FP) PO SCH (21:29)
[2020-09-25] MEDS: TERAZOSIN HCL 5 MG CAPSULE PO SCH (21:29)
[2020-09-25] MEDS: INSULIN (LEVEMIR) 100 UNITS/ML UNITS SQ SCH (21:52)
[2020-09-26] MEDS: methylPREDNISolone NA SUCC 40 MG/1 ML VIAL IVPUSH SCH ×4 (02:57→20:50)
[2020-09-26] MEDS: INSULIN SLIDING SCALE (NOVOLOG) 1 VIAL SQ SCH ×4 (06:51→21:02)
[2020-09-26 07:36] LABS: BASO % 0.1 % (0-2.0); HEMATOCRIT 41.1 % (35.4-49); HEMOGLOBIN 13.4 GM/dL (11.7-16.9); LYMPH % 10.6 % (8-40); MCH 28.6 pg (25.7-33.7); MCHC 32.5 g/dl (32.0-35.9); MEAN PLT VOLUME 11.1 fl (7.5-11.1); MONO % 4.5 % (3.8-10.2); NEUT % 84.8 % (42.8-82.8); PLATELET COUNT 111 10^3/uL (134-434); RBC 4.68 M/mm3 (4.00-5.60); RDW 13.9 % (11.9-15.9); WHITE BLOOD COUNT 12.2 K/mm3 (4.0-10.0)
[2020-09-26] MEDS: ALBUTEROL SO4 2.5/IPRATROPIUM 0.5 INH SOL 3 ML VIAL.NEB. NEB SCH ×4 (07:55→20:15)
[2020-09-26 07:59] LABS: ALBUMIN 3.3 g/dl (3.4-5.0); BLOOD UREA NITROGEN 30.4 mg/dL (7-18); CALCIUM 8.4 mg/dL (8.5-10.1)
[2020-09-26 08:00] LABS: MAGNESIUM 2.6 mg/dL (1.8-2.4)
[2020-09-26 08:04] LABS: TOT PROT 6.1 g/dl (6.4-8.2)
[2020-09-26] MEDS: FUROSEMIDE 40 MG/4 ML INJECTABLE VIAL IVPUSH SCH ×2 (09:35→10:53)
[2020-09-26] MEDS: PANTOPRAZOLE 40 MG TABLET PO SCH (09:35)
[2020-09-26] MEDS ORDERED: FUROSEMIDE 40 MG/4 ML INJECTABLE VIAL IVPUSH ONE (10:24)
[2020-09-26] MEDS ORDERED: PT OWN MED DRAWER 7, Y5N ONE (20:47)
[2020-09-26] MEDS: TERAZOSIN HCL 5 MG CAPSULE PO SCH (21:02)
[2020-09-26] MEDS: ATORVASTATIN CA 10 MG TABLET (FP) PO SCH (21:02)
[2020-09-26] MEDS: INSULIN (LEVEMIR) 100 UNITS/ML UNITS SQ SCH (21:02)
[2020-09-27] MEDS: methylPREDNISolone NA SUCC 40 MG/1 ML VIAL IVPUSH SCH ×4 (03:23→21:37)
[2020-09-27 06:25] LABS: BASO % 0.2 % (0-2.0); HEMATOCRIT 42.1 % (35.4-49); HEMOGLOBIN 13.7 GM/dL (11.7-16.9); LYMPH % 11.1 % (8-40); MCH 28.6 pg (25.7-33.7); MCHC 32.6 g/dl (32.0-35.9); MEAN CELL VOLUME 87.6 fl (80-96); MEAN PLT VOLUME 10.6 fl (7.5-11.1); MONO % 3.6 % (3.8-10.2); NEUT % 85.1 % (42.8-82.8); PLATELET COUNT 123 10^3/uL (134-434)
[2020-09-27] MEDS: INSULIN SLIDING SCALE (NOVOLOG) 1 VIAL SQ SCH ×4 (06:29→21:41)
[2020-09-27 06:42] LABS: CALCIUM 8.2 mg/dL (8.5-10.1)
[2020-09-27 06:43] LABS: ALBUMIN 3.4 g/dl (3.4-5.0)
[2020-09-27 06:44] LABS: MAGNESIUM 2.5 mg/dL (1.8-2.4)
[2020-09-27 06:46] LABS: CREATININE 1.1 mg/dL (0.55-1.3)
[2020-09-27 06:48] LABS: BILIRUBIN,TOTAL 1.9 mg/dL (0.2-1); TOT PROT 6.3 g/dl (6.4-8.2)
[2020-09-27] MEDS: ALBUTEROL SO4 2.5/IPRATROPIUM 0.5 INH SOL 3 ML VIAL.NEB. NEB SCH ×4 (08:09→19:50)
[2020-09-27] MEDS: PANTOPRAZOLE 40 MG TABLET PO SCH (09:31)
[2020-09-27] MEDS: FUROSEMIDE 40 MG/4 ML INJECTABLE VIAL IVPUSH SCH (09:31)
[2020-09-27] MEDS ORDERED: PT OWN MED DRAWER 7, Y5N ONE ×2 (13:34→21:30)
[2020-09-27] MEDS: guaiFENesin/D-METHORPHAN TAB.ER.12H PO SCH ×2 (16:02→21:40)
[2020-09-27] MEDS ORDERED: INSULIN (LEVEMIR) 100 UNITS/ML UNITS SQ SCH (18:43)
[2020-09-27] MEDS: ATORVASTATIN CA 10 MG TABLET (FP) PO SCH (21:40)
[2020-09-27] MEDS: TERAZOSIN HCL 5 MG CAPSULE PO SCH (21:40)
[2020-09-28] MEDS: methylPREDNISolone NA SUCC 40 MG/1 ML VIAL IVPUSH SCH ×2 (02:53→09:59)
[2020-09-28] MEDS: INSULIN SLIDING SCALE (NOVOLOG) 1 VIAL SQ SCH ×2 (06:46→12:00)
[2020-09-28 07:41] LABS: HEMOGLOBIN 14.4 GM/dL (11.7-16.9); LYMPH % 11.9 % (8-40); MCH 28.7 pg (25.7-33.7); MCHC 32.7 g/dl (32.0-35.9); MEAN CELL VOLUME 87.7 fl (80-96); MEAN PLT VOLUME 10.9 fl (7.5-11.1); MONO % 4.8 % (3.8-10.2); NEUT % 83.3 % (42.8-82.8); PLATELET COUNT 144 10^3/uL (134-434); RBC 5.01 M/mm3 (4.00-5.60); RDW 14.1 % (11.9-15.9); WHITE BLOOD COUNT 12.6 K/mm3 (4.0-10.0)
[2020-09-28 07:58] LABS: ALBUMIN 3.4 g/dl (3.4-5.0)
[2020-09-28 07:59] LABS: BLOOD UREA NITROGEN 31.5 mg/dL (7-18); CALCIUM 8.1 mg/dL (8.5-10.1)
[2020-09-28 08:00] LABS: MAGNESIUM 2.6 mg/dL (1.8-2.4)
[2020-09-28 08:03] LABS: BILIRUBIN,TOTAL 1.6 mg/dL (0.2-1); TOT PROT 6.2 g/dl (6.4-8.2)
[2020-09-28] MEDS: ALBUTEROL SO4 0.083% IH SOL 2.5 MG/3 ML VIAL.NEB. NEB PRN ×2 (08:35→09:26)
[2020-09-28] MEDS: ALBUTEROL SO4 2.5/IPRATROPIUM 0.5 INH SOL 3 ML VIAL.NEB. NEB SCH ×2 (08:35→12:44)
[2020-09-28] MEDS ORDERED: PT OWN MED DRAWER 7, Y5N ONE (09:25)
[2020-09-28] MEDS: guaiFENesin/D-METHORPHAN TAB.ER.12H PO SCH (09:59)
[2020-09-28] MEDS: FUROSEMIDE 40 MG/4 ML INJECTABLE VIAL IVPUSH SCH (09:59)
[2020-09-28] MEDS: PANTOPRAZOLE 40 MG TABLET PO SCH (09:59)
[2020-09-28 15:12] VITALS: BP 142/79; PULSE 78; TEMP 97.6
== END 2020-09-28 17:39 | disposition home or self-care (01) | DRG 190 ==
LOC: JER 09:15 → JERBED 11:51 → J4S 09-23 00:49
PROVIDERS: ATTEND Nurse Practitioner Family
DX: J44.1 Chronic obstructive pulmonary disease with (acute) exacerbation (principal); I50.33 Acute on chronic diastolic (congestive) heart failure; I47.1 Supraventricular tachycardia; I48.20 Chronic atrial fibrillation, unspecified; I10 Essential (primary) hypertension; J44.9 Chronic obstructive pulmonary disease, unspecified; E78.5 Hyperlipidemia, unspecified; D86.0 Sarcoidosis of lung; I27.20 Pulmonary hypertension, unspecified; E11.9 Type 2 diabetes mellitus without complications; I11.0 Hypertensive heart disease with heart failure; I34.0 Nonrheumatic mitral (valve) insufficiency; R91.8 Other nonspecific abnormal finding of lung field; I45.10 Unspecified right bundle-branch block; D69.6 Thrombocytopenia, unspecified; N40.0 Benign prostatic hyperplasia without lower urinary tract symptoms
CPT/HCPCS: 36415; 71045-TC-FY; 71250-TC; 80053; 82803; 82962; 83036; 83735; 83880; 84436; 84443; 84484; 85025; 85610; 85730; 93005; 93010; 93306-TC; 94010; 94640; 97116-GP; 97161-GP; 99285-25; C9803; U0003; U0005

== ENCOUNTER 2021-03-14 15:58 | Emergency (ER) | payer OTHER ==
[2021-03-14 16:40] VITALS: BP 162/82; PULSE 52; TEMP 98.5; BMI 30.7
[2021-03-14] MEDS ORDERED: DEXAMETHASONE LIQUID 0.5 MG/5 ML PO ONE (17:38)
[2021-03-14] MEDS ORDERED: ALBUTEROL SO4 2.5/IPRATROPIUM 0.5 INH SOL 3 ML VIAL.NEB. NEB SCH (17:45)
[2021-03-14] MEDS ORDERED: DEXAMETHASONE SOD PHOSPHATE 10 MG/1 ML VIAL ONE (17:45)
== END 2021-03-14 20:37 | disposition home or self-care (01) ==
LOC: JER 15:58
PROC: 3E0F7GC Introduction of Other Therapeutic Substance into Respiratory Tract, Via Natural or Artificial Opening (ICD-10-PCS; principal; 2021-03-14)
DX: J45.901 Unspecified asthma with (acute) exacerbation (principal)
CPT/HCPCS: 71045-TC-FY; 87804; 94640; 99284-25; C9803; U0003; U0005

== ENCOUNTER 2021-03-18 09:14 | Inpatient (IN) | payer OTHER ==
[2021-03-18 10:42] LABS: VENOUS BASE EXCESS 4.5 mmol/L (-2-2); VENOUS O2 SATURATION 70.3 % (70-80); VENOUS PCO2 48.8 mmHg (38-52); VENOUS PH 7.408 (7.310-7.410)
[2021-03-18 10:44] LABS: INR 0.99 (0.83-1.09); PROTHROMBIN TIME (PATIENT) 11.6 SEC (9.7-13.0)
[2021-03-18 10:46] LABS: ACTIVATED PTT 26.3 SECONDS (25.2-36.5)
[2021-03-18 10:58] LABS: BASO % 0.3 % (0-2.0); EOS % 0.8 % (0-4.5); HEMATOCRIT 38.3 % (35.4-49); HEMOGLOBIN 13.1 GM/dL (11.7-16.9); LYMPH % 21.8 % (8-40); MCH 29.2 pg (25.7-33.7); MCHC 34.1 g/dl (32.0-35.9); MEAN CELL VOLUME 85.6 fl (80-96); MEAN PLT VOLUME 11.9 fl (7.5-11.1); MONO % 9.5 % (3.8-10.2); NEUT % 67.6 % (42.8-82.8); PLATELET COUNT 83 10^3/uL (134-434); RBC 4.48 M/mm3 (4.00-5.60); RDW 13.8 % (11.9-15.9); WHITE BLOOD COUNT 5.9 K/mm3 (4.0-10.0)
[2021-03-18 11:04] LABS: CHLORIDE 104 mmol/L (98-107); SODIUM 140 mmol/L (136-145)
[2021-03-18 11:05] LABS: ALBUMIN 3.4 g/dl (3.4-5.0); ANION GAP 6 MMOL/L (8-16); CALCIUM 8.5 mg/dL (8.5-10.1); CO2 30 mmol/L (21-32); GLUCOSE,RANDOM 217 mg/dL (74-106)
[2021-03-18 11:06] LABS: BLOOD UREA NITROGEN 21.4 mg/dL (7-18)
[2021-03-18 11:09] LABS: BILIRUBIN,DIRECT 0.3 mg/dL (0.0-0.2)
[2021-03-18 11:10] LABS: CREATININE 0.9 mg/dL (0.55-1.3); SGOT/AST 43 U/L (15-37); SGPT/ALT 73 U/L (13-61)
[2021-03-18 11:11] LABS: BILIRUBIN,TOTAL 1.1 mg/dL (0.2-1); TOT PROT 6.2 g/dl (6.4-8.2)
[2021-03-18 11:12] LABS: ALK PHOS 86 U/L (45-117)
[2021-03-18 11:57] LABS: LDH 246 U/L (87-246)
[2021-03-18 12:59] LABS: EPI CELLS 8 /uL (0-25.1); HYALINE CASTS 0 /uL (0-3.1); URINE APPEARANCE CLEAR; URINE BACTERIA 1 /uL (0-1359); URINE BILIRUBIN NEGATIVE (NEGATIVE); URINE COLOR YELLOW; URINE GLUCOSE (UA) NEGATIVE (NEGATIVE); URINE KETONE NEGATIVE (NEGATIVE); URINE LEUK ESTERASE NEGATIVE (NEGATIVE); URINE NITRITE NEGATIVE (NEGATIVE); URINE PROTEIN 2+ (NEGATIVE); URINE RBC 9 /uL (0-23.9); URINE WBC 8 /uL (0-25.8)
[2021-03-18] MEDS ORDERED: ALBUTEROL SO4 HFA INHALER IH PRN (13:06)
[2021-03-18] MEDS ORDERED: ACETAMINOPHEN 1000 MG/100 ML BAG IVPB PRN (13:11)
[2021-03-18] MEDS ORDERED: DEXAMETHASONE SOD PHOSPHATE 10 MG/1 ML VIAL ONE (14:47)
[2021-03-18] MEDS ORDERED: FUROSEMIDE 40 MG TABLET (FP) ONE (14:48)
[2021-03-18] MEDS: FUROSEMIDE 40 MG TABLET (FP) PO SCH (14:57)
[2021-03-18] MEDS: DEXAMETHASONE SOD PHOSPHATE 10 MG/1 ML VIAL IVPUSH SCH (14:57)
[2021-03-18] MEDS: INSULIN SLIDING SCALE (NOVOLOG) 1 VIAL SQ SCH ×2 (16:26→21:20)
[2021-03-18] MEDS ORDERED: INSULIN SLIDING SCALE (NOVOLOG) 1 VIAL SQ SCH (16:30)
[2021-03-18] MEDS: INSULIN (LEVEMIR) 100 UNITS/ML UNITS SQ SCH (21:21)
[2021-03-18] MEDS: BUDESONIDE/FORMETEROL FUMARATE 160/4.5 mcg INHALER IH SCH (21:22)
[2021-03-19] MEDS: FUROSEMIDE 40 MG TABLET (FP) PO SCH ×2 (05:35→13:15)
[2021-03-19] MEDS: INSULIN SLIDING SCALE (NOVOLOG) 1 VIAL SQ SCH ×4 (06:08→21:28)
[2021-03-19] MEDS: DEXAMETHASONE SOD PHOSPHATE 10 MG/1 ML VIAL IVPUSH SCH (09:31)
[2021-03-19] MEDS: ENOXAPARIN NA (PORCINE) 40 MG/0.4 ML DISP.SYRIN SQ SCH (09:31)
[2021-03-19] MEDS: BUDESONIDE/FORMETEROL FUMARATE 160/4.5 mcg INHALER IH SCH ×2 (09:33→21:27)
[2021-03-19 11:17] LABS: BASO % 0.1 % (0-2.0); HEMATOCRIT 40.2 % (35.4-49); HEMOGLOBIN 13.3 GM/dL (11.7-16.9); LYMPH % 20.6 % (8-40); MCH 28.4 pg (25.7-33.7); MCHC 33.1 g/dl (32.0-35.9); MEAN CELL VOLUME 85.6 fl (80-96); MEAN PLT VOLUME 10.7 fl (7.5-11.1); MONO % 7.8 % (3.8-10.2); NEUT % 71.5 % (42.8-82.8); PLATELET COUNT 93 10^3/uL (134-434); RDW 13.3 % (11.9-15.9); WHITE BLOOD COUNT 4.7 K/mm3 (4.0-10.0)
[2021-03-19 11:31] LABS: ALBUMIN 3.3 g/dl (3.4-5.0); BLOOD UREA NITROGEN 22.4 mg/dL (7-18); CALCIUM 8.8 mg/dL (8.5-10.1); MAGNESIUM 2.2 mg/dL (1.8-2.4)
[2021-03-19 11:35] LABS: CREATININE 0.9 mg/dL (0.55-1.3); PHOSPHOROUS 3.8 mg/dL (2.5-4.9)
[2021-03-19 11:36] LABS: BILIRUBIN,TOTAL 1.4 mg/dL (0.2-1); TOT PROT 6.6 g/dl (6.4-8.2)
[2021-03-19 12:51] LABS: ERYTHROCYTE SEDIMENTATION RATE 16 mm/hr (0-20)
[2021-03-19 13:19] VITALS: BMI 31.5
[2021-03-19] MEDS: TIOTROPIUM BROMIDE 2.5 MCG (SPIRIVA) RESPIMAT INHALER IH SCH (13:36)
[2021-03-19] MEDS ORDERED: REMDESIVIR 200 MG in SODIUM CHLORIDE 250 ML IVPB ONE (16:00)
[2021-03-19] MEDS: INSULIN (LEVEMIR) 100 UNITS/ML UNITS SQ SCH (21:29)
[2021-03-20] MEDS: FUROSEMIDE 40 MG TABLET (FP) PO SCH ×2 (05:14→14:51)
[2021-03-20] MEDS: INSULIN SLIDING SCALE (NOVOLOG) 1 VIAL SQ SCH ×4 (06:08→21:11)
[2021-03-20 10:24] LABS: HEMATOCRIT 40.3 % (35.4-49); HEMOGLOBIN 13.2 GM/dL (11.7-16.9); MCH 28.2 pg (25.7-33.7); MCHC 32.8 g/dl (32.0-35.9); MEAN PLT VOLUME 10.7 fl (7.5-11.1); PLATELET COUNT 114 10^3/uL (134-434); RBC 4.69 M/mm3 (4.00-5.60); RDW 13.7 % (11.9-15.9); WHITE BLOOD COUNT 10.4 K/mm3 (4.0-10.0)
[2021-03-20 10:57] LABS: ALBUMIN 3.3 g/dl (3.4-5.0); BLOOD UREA NITROGEN 26.5 mg/dL (7-18); CALCIUM 8.9 mg/dL (8.5-10.1); MAGNESIUM 2.1 mg/dL (1.8-2.4)
[2021-03-20 11:01] LABS: PHOSPHOROUS 4.4 mg/dL (2.5-4.9)
[2021-03-20 11:02] LABS: TOT PROT 6.4 g/dl (6.4-8.2)
[2021-03-20 11:12] LABS: ERYTHROCYTE SEDIMENTATION RATE 20 mm/hr (0-20)
[2021-03-20] MEDS: TIOTROPIUM BROMIDE 2.5 MCG (SPIRIVA) RESPIMAT INHALER IH SCH (11:37)
[2021-03-20] MEDS: BUDESONIDE/FORMETEROL FUMARATE 160/4.5 mcg INHALER IH SCH ×2 (11:37→21:10)
[2021-03-20] MEDS: ENOXAPARIN NA (PORCINE) 40 MG/0.4 ML DISP.SYRIN SQ SCH (11:37)
[2021-03-20] MEDS: DEXAMETHASONE SOD PHOSPHATE 10 MG/1 ML VIAL IVPUSH SCH (11:38)
[2021-03-20] MEDS: guaiFENesin/CODEINE 10 ML UNIT-DOSE CUPS PO PRN ×2 (12:02→21:11)
[2021-03-20] MEDS: REMDESIVIR 100 MG in SODIUM CHLORIDE 250 ML IVPB SCH (16:05)
[2021-03-20] MEDS: INSULIN (LEVEMIR) 100 UNITS/ML UNITS SQ SCH (21:11)
[2021-03-21] MEDS: FUROSEMIDE 40 MG TABLET (FP) PO SCH ×2 (06:14→15:22)
[2021-03-21] MEDS: INSULIN SLIDING SCALE (NOVOLOG) 1 VIAL SQ SCH ×4 (06:14→21:22)
[2021-03-21] MEDS: TIOTROPIUM BROMIDE 2.5 MCG (SPIRIVA) RESPIMAT INHALER IH SCH (09:15)
[2021-03-21] MEDS: ENOXAPARIN NA (PORCINE) 40 MG/0.4 ML DISP.SYRIN SQ SCH (09:15)
[2021-03-21] MEDS: BUDESONIDE/FORMETEROL FUMARATE 160/4.5 mcg INHALER IH SCH ×2 (09:16→21:22)
[2021-03-21] MEDS: DEXAMETHASONE SOD PHOSPHATE 10 MG/1 ML VIAL IVPUSH SCH (09:16)
[2021-03-21] MEDS: REMDESIVIR 100 MG in SODIUM CHLORIDE 250 ML IVPB SCH (17:31)
[2021-03-21] MEDS: guaiFENesin/CODEINE 10 ML UNIT-DOSE CUPS PO PRN (21:22)
[2021-03-21] MEDS: INSULIN (LEVEMIR) 100 UNITS/ML UNITS SQ SCH (21:23)
[2021-03-22] MEDS: INSULIN SLIDING SCALE (NOVOLOG) 1 VIAL SQ SCH ×4 (06:11→22:11)
[2021-03-22] MEDS: FUROSEMIDE 40 MG TABLET (FP) PO SCH ×2 (06:11→14:27)
[2021-03-22] MEDS: DEXAMETHASONE SOD PHOSPHATE 10 MG/1 ML VIAL IVPUSH SCH (11:49)
[2021-03-22] MEDS: TIOTROPIUM BROMIDE 2.5 MCG (SPIRIVA) RESPIMAT INHALER IH SCH (11:50)
[2021-03-22] MEDS: ENOXAPARIN NA (PORCINE) 40 MG/0.4 ML DISP.SYRIN SQ SCH (11:50)
[2021-03-22] MEDS: BUDESONIDE/FORMETEROL FUMARATE 160/4.5 mcg INHALER IH SCH ×2 (11:50→22:11)
[2021-03-22] MEDS: LISINOPRIL 5 MG TABLET PO SCH (13:15)
[2021-03-22] MEDS: REMDESIVIR 100 MG in SODIUM CHLORIDE 250 ML IVPB SCH (17:19)
[2021-03-22] MEDS: INSULIN (LEVEMIR) 100 UNITS/ML UNITS SQ SCH (22:10)
[2021-03-23] MEDS: FUROSEMIDE 40 MG TABLET (FP) PO SCH ×2 (06:03→14:24)
[2021-03-23] MEDS: INSULIN SLIDING SCALE (NOVOLOG) 1 VIAL SQ SCH ×3 (06:03→16:53)
[2021-03-23] MEDS ORDERED: PT OWN MED DRAWER 7, Y5N ONE (10:21)
[2021-03-23] MEDS: LISINOPRIL 5 MG TABLET PO SCH (10:34)
[2021-03-23] MEDS: BUDESONIDE/FORMETEROL FUMARATE 160/4.5 mcg INHALER IH SCH (10:35)
[2021-03-23] MEDS: ENOXAPARIN NA (PORCINE) 40 MG/0.4 ML DISP.SYRIN SQ SCH (10:35)
[2021-03-23] MEDS: TIOTROPIUM BROMIDE 2.5 MCG (SPIRIVA) RESPIMAT INHALER IH SCH (10:35)
[2021-03-23 10:39] VITALS: BP 150/69; PULSE 58; TEMP 98
[2021-03-23 13:15] LABS: HEMATOCRIT 41.7 % (35.4-49); HEMOGLOBIN 13.6 GM/dL (11.7-16.9); MCHC 32.6 g/dl (32.0-35.9); MEAN PLT VOLUME 11.2 fl (7.5-11.1); PLATELET COUNT 151 10^3/uL (134-434); RBC 4.85 M/mm3 (4.00-5.60); WHITE BLOOD COUNT 9.3 K/mm3 (4.0-10.0)
[2021-03-23 13:51] LABS: CALCIUM 8.4 mg/dL (8.5-10.1)
[2021-03-23 13:52] LABS: ALBUMIN 3.2 g/dl (3.4-5.0); MAGNESIUM 2.4 mg/dL (1.8-2.4)
[2021-03-23 13:53] LABS: PHOSPHOROUS 3.7 mg/dL (2.5-4.9)
[2021-03-23 13:55] LABS: TOT PROT 5.9 g/dl (6.4-8.2)
[2021-03-23 13:56] LABS: CREATININE 0.9 mg/dL (0.55-1.3)
[2021-03-23 14:08] LABS: ERYTHROCYTE SEDIMENTATION RATE 12 mm/hr (0-20)
[2021-03-23] MEDS: DEXAMETHASONE SOD PHOSPHATE 10 MG/1 ML VIAL IVPUSH SCH (14:24)
[2021-03-23] MEDS: REMDESIVIR 100 MG in SODIUM CHLORIDE 250 ML IVPB SCH ×2 (14:25→16:53)
== END 2021-03-23 17:16 | disposition home or self-care (01) | DRG 177 ==
LOC: JER 09:14 → JERBED 11:12 → J5S 15:16
PROVIDERS: ADMIT Internal Medicine
PROC: 3E0333Z Introduction of Anti-inflammatory into Peripheral Vein, Percutaneous Approach (ICD-10-PCS; 2021-03-18)
PROC: XW033E5 Introduction of Remdesivir Anti-infective into Peripheral Vein, Percutaneous Approach, New Technology Group 5 (ICD-10-PCS; principal; 2021-03-19)
DX: U07.1 COVID-19 (principal); J12.82 Pneumonia due to coronavirus disease 2019; I48.19 Other persistent atrial fibrillation; D69.3 Immune thrombocytopenic purpura; I13.0 Hypertensive heart and chronic kidney disease with heart failure and stage 1 through stage 4 chronic kidney disease, or unspecified chronic kidney disease; I50.32 Chronic diastolic (congestive) heart failure; J44.9 Chronic obstructive pulmonary disease, unspecified; E78.5 Hyperlipidemia, unspecified; H91.93 Unspecified hearing loss, bilateral; D86.9 Sarcoidosis, unspecified; K64.8 Other hemorrhoids; N40.0 Benign prostatic hyperplasia without lower urinary tract symptoms; I27.20 Pulmonary hypertension, unspecified; E11.22 Type 2 diabetes mellitus with diabetic chronic kidney disease; N18.9 Chronic kidney disease, unspecified; R09.02 Hypoxemia; R73.02 Impaired glucose tolerance (oral); E66.9 Obesity, unspecified; Z68.31 Body mass index [BMI] 31.0-31.9, adult
CPT/HCPCS: 36415; 71045-TC-FY; 80053; 81003; 82248; 82550; 82728; 82803; 82962; 83605; 83615; 83735; 84100; 84484; 85025; 85027; 85379; 85610; 85651; 85730; 86140; 87040; 87086; 87804; 93005; 93010; 94761; 97116-GP; 97161-GP; 99285-25; C9399; C9803; J1100; U0003; U0005

== ENCOUNTER 2022-03-22 11:46 | Inpatient (IN) | payer OTHER ==
[2022-03-22 11:59] VITALS: BMI 32.1
[2022-03-22 13:43] LABS: BASO % 0.3 % (0-2.0); EOS % 3.1 % (0-4.5); HEMATOCRIT 39.3 % (35.4-49); HEMOGLOBIN 12.7 GM/dL (11.7-16.9); LYMPH % 23.8 % (8-40); MCHC 32.4 g/dl (32.0-35.9); MEAN CELL VOLUME 86.5 fl (80-96); MEAN PLT VOLUME 11.2 fl (7.5-11.1); MONO % 9.8 % (3.8-10.2); PLATELET COUNT 47 10^3/uL (134-434); RBC 4.54 M/mm3 (4.00-5.60); RDW 14.2 % (11.9-15.9); WHITE BLOOD COUNT 7.1 K/mm3 (4.0-10.0)
[2022-03-22 13:52] LABS: INR 1.03 (0.83-1.09); PROTHROMBIN TIME (PATIENT) 11.9 SEC (9.7-13.0)
[2022-03-22 13:55] LABS: ACTIVATED PTT 30.1 SECONDS (25.2-36.5)
[2022-03-22 14:12] LABS: ALBUMIN 3.7 g/dl (3.4-5.0); BLOOD UREA NITROGEN 22.7 mg/dL (7-18); CALCIUM 8.8 mg/dL (8.5-10.1)
[2022-03-22 14:15] LABS: CREATININE 1.1 mg/dL (0.55-1.3)
[2022-03-22 14:17] LABS: BILIRUBIN,TOTAL 0.9 mg/dL (0.2-1); TOT PROT 6.6 g/dl (6.4-8.2)
[2022-03-22 14:20] LABS: N-TERMINAL BNP 1545.1 pg/ml (5-450)
[2022-03-22] MEDS ORDERED: FUROSEMIDE 40 MG/4 ML INJECTABLE VIAL IVPUSH ONE (14:41)
[2022-03-22] MEDS ORDERED: CEFTRIAXONE 1 GM in DEXTROSE 5%-WATER - 100 ML IVPB ONE (14:45)
[2022-03-22] MEDS ORDERED: AZITHROMYCIN IVPB 500 MG in DEXTROSE 5%-WATER - 250 ML IVPB ONE (14:46)
[2022-03-22] MEDS ORDERED: CEFTRIAXONE 1 GM/50 ML BAG ONE (15:17)
[2022-03-22] MEDS ORDERED: FUROSEMIDE 40 MG/4 ML INJECTABLE VIAL ONE (15:18)
[2022-03-22] MEDS ORDERED: AZITHROMYCIN IVPB 500 MG/250 ML BAG IVPB ONE (15:18)
[2022-03-22] MEDS ORDERED: amLODIPine BESYLATE 5 MG TABLET (FP) PO ONE (18:47)
[2022-03-22] MEDS ORDERED: amLODIPine BESYLATE 5 MG TABLET (FP) ONE (19:17)
[2022-03-23] MEDS: INSULIN SLIDING SCALE (NOVOLOG) 1 VIAL SQ SCH ×5 (00:52→21:42)
[2022-03-23] MEDS ORDERED: FUROSEMIDE 40 MG/4 ML INJECTABLE VIAL ONE ×3 (05:33→15:15)
[2022-03-23] MEDS: FUROSEMIDE 40 MG/4 ML INJECTABLE VIAL IVPUSH SCH ×2 (05:45→15:10)
[2022-03-23 08:13] LABS: CALCIUM 9.2 mg/dL (8.5-10.1); MAGNESIUM 2.1 mg/dL (1.8-2.4)
[2022-03-23 08:15] LABS: ALBUMIN 3.6 g/dl (3.4-5.0); BLOOD UREA NITROGEN 23.7 mg/dL (7-18)
[2022-03-23 08:17] LABS: CREATININE 1.1 mg/dL (0.55-1.3)
[2022-03-23 08:18] LABS: PHOSPHOROUS 4.1 mg/dL (2.5-4.9); TOT PROT 6.5 g/dl (6.4-8.2)
[2022-03-23 08:20] LABS: BILIRUBIN,TOTAL 1.3 mg/dL (0.2-1)
[2022-03-23 08:26] LABS: BASO % 0.7 % (0-2.0); EOS % 4.3 % (0-4.5); HEMATOCRIT 39.7 % (35.4-49); LYMPH % 27.1 % (8-40); MCH 28.4 pg (25.7-33.7); MCHC 32.7 g/dl (32.0-35.9); MEAN CELL VOLUME 87.1 fl (80-96); MEAN PLT VOLUME 11.2 fl (7.5-11.1); MONO % 10.7 % (3.8-10.2); NEUT % 57.2 % (42.8-82.8); PLATELET COUNT 50 10^3/uL (134-434); RBC 4.56 M/mm3 (4.00-5.60); RDW 14.4 % (11.9-15.9)
[2022-03-23] MEDS ORDERED: ENOXAPARIN NA (PORCINE) 40 MG/0.4 ML DISP.SYRIN SQ ONE (09:09)
[2022-03-23] MEDS: ENOXAPARIN NA (PORCINE) 40 MG/0.4 ML DISP.SYRIN SQ SCH (09:30)
[2022-03-23] MEDS ORDERED: INSULIN SLIDING SCALE (NOVOLOG) 1 VIAL SQ SCH (16:30)
[2022-03-23] MEDS: ATORVASTATIN CA 20 MG TABLET (FP) PO SCH (21:42)
[2022-03-24] MEDS: FUROSEMIDE 40 MG/4 ML INJECTABLE VIAL IVPUSH SCH ×2 (06:35→14:11)
[2022-03-24] MEDS: INSULIN SLIDING SCALE (NOVOLOG) 1 VIAL SQ SCH ×4 (06:41→22:28)
[2022-03-24 07:52] LABS: CREATININE 1.1 mg/dL (0.55-1.3)
[2022-03-24] MEDS ORDERED: MAGNESIUM SULF 50% (8.12 MEQ/2 ML-1 GM VIAL) IVPB ONE (08:05)
[2022-03-24 08:40] LABS: HEMOGLOBIN 12.2 GM/dL (11.7-16.9); MCH 28.4 pg (25.7-33.7); MCHC 32.9 g/dl (32.0-35.9); MEAN CELL VOLUME 86.4 fl (80-96); MEAN PLT VOLUME 10.9 fl (7.5-11.1); PLATELET COUNT 50 10^3/uL (134-434); RBC 4.28 M/mm3 (4.00-5.60); RDW 14.3 % (11.9-15.9); WHITE BLOOD COUNT 6.9 K/mm3 (4.0-10.0)
[2022-03-24 09:37] LABS: BLOOD UREA NITROGEN 29.2 mg/dL (7-18); CALCIUM 9.1 mg/dL (8.5-10.1); MAGNESIUM 2.2 mg/dL (1.8-2.4)
[2022-03-24] MEDS: metoPROLOL SUCCINATE 25 MG TAB.SR.24H (FP) PO SCH (09:56)
[2022-03-24] MEDS ORDERED: LISINOPRIL 5 MG TABLET PO SCH (10:00)
[2022-03-24] MEDS: ENOXAPARIN NA (PORCINE) 40 MG/0.4 ML DISP.SYRIN SQ SCH (10:52)
[2022-03-24] MEDS: guaiFENesin 200 MG/10 ML 10 ML UNIT-DOSE CUPS PO PRN (22:28)
[2022-03-24] MEDS: ATORVASTATIN CA 20 MG TABLET (FP) PO SCH (22:28)
[2022-03-24] MEDS ORDERED: ALBUTEROL SO4 2.5/IPRATROPIUM 0.5 INH SOL 3 ML VIAL.NEB. NEB ONE (22:43)
[2022-03-25] MEDS: FUROSEMIDE 40 MG/4 ML INJECTABLE VIAL IVPUSH SCH ×2 (06:09→13:28)
[2022-03-25] MEDS: INSULIN SLIDING SCALE (NOVOLOG) 1 VIAL SQ SCH ×4 (06:10→21:56)
[2022-03-25 08:48] LABS: BILIRUBIN,DIRECT 0.4 mg/dL (0.0-0.2)
[2022-03-25 08:50] LABS: BILIRUBIN,TOTAL 1.4 mg/dL (0.2-1)
[2022-03-25] MEDS: metoPROLOL SUCCINATE 25 MG TAB.SR.24H (FP) PO SCH (09:45)
[2022-03-25] MEDS: ENOXAPARIN NA (PORCINE) 40 MG/0.4 ML DISP.SYRIN SQ SCH (09:45)
[2022-03-25] MEDS: ALBUTEROL SO4 2.5/IPRATROPIUM 0.5 INH SOL 3 ML VIAL.NEB. NEB SCH ×2 (14:45→20:25)
[2022-03-25] MEDS: ATORVASTATIN CA 10 MG TABLET (FP) PO SCH (21:58)
[2022-03-25] MEDS: TERAZOSIN HCL 5 MG CAPSULE PO SCH (21:58)
[2022-03-25] MEDS: ATORVASTATIN CA 20 MG TABLET (FP) PO SCH (21:59)
[2022-03-26] MEDS: FUROSEMIDE 40 MG/4 ML INJECTABLE VIAL IVPUSH SCH ×2 (06:42→14:38)
[2022-03-26] MEDS: INSULIN SLIDING SCALE (NOVOLOG) 1 VIAL SQ SCH ×4 (06:45→21:15)
[2022-03-26] MEDS ORDERED: GLIMEPIRIDE 4 MG TABLET PO SCH (07:00)
[2022-03-26 08:17] LABS: HEMOGLOBIN 12.3 GM/dL (11.7-16.9); MCH 27.9 pg (25.7-33.7); MCHC 32.3 g/dl (32.0-35.9); MEAN CELL VOLUME 86.1 fl (80-96); MEAN PLT VOLUME 10.6 fl (7.5-11.1); PLATELET COUNT 49 10^3/uL (134-434); RBC 4.41 M/mm3 (4.00-5.60); RDW 14.1 % (11.9-15.9); WHITE BLOOD COUNT 6.6 K/mm3 (4.0-10.0)
[2022-03-26 08:42] LABS: CALCIUM 8.9 mg/dL (8.5-10.1)
[2022-03-26 08:43] LABS: ALBUMIN 3.4 g/dl (3.4-5.0)
[2022-03-26 08:45] LABS: CREATININE 1.1 mg/dL (0.55-1.3)
[2022-03-26 08:47] LABS: BILIRUBIN,TOTAL 1.2 mg/dL (0.2-1); TOT PROT 6.2 g/dl (6.4-8.2)
[2022-03-26] MEDS: ALBUTEROL SO4 2.5/IPRATROPIUM 0.5 INH SOL 3 ML VIAL.NEB. NEB SCH ×3 (08:48→19:50)
[2022-03-26] MEDS: metoPROLOL SUCCINATE 25 MG TAB.SR.24H (FP) PO SCH (10:12)
[2022-03-26] MEDS: ENOXAPARIN NA (PORCINE) 40 MG/0.4 ML DISP.SYRIN SQ SCH (10:12)
[2022-03-26] MEDS: ATORVASTATIN CA 20 MG TABLET (FP) PO SCH (21:16)
[2022-03-26] MEDS: ATORVASTATIN CA 10 MG TABLET (FP) PO SCH (21:16)
[2022-03-26] MEDS: guaiFENesin 200 MG/10 ML 10 ML UNIT-DOSE CUPS PO PRN (21:17)
[2022-03-26] MEDS: TERAZOSIN HCL 5 MG CAPSULE PO SCH (21:17)
[2022-03-27] MEDS: FUROSEMIDE 40 MG/4 ML INJECTABLE VIAL IVPUSH SCH ×2 (06:18→14:52)
[2022-03-27] MEDS: INSULIN SLIDING SCALE (NOVOLOG) 1 VIAL SQ SCH ×4 (06:21→22:44)
[2022-03-27] MEDS: ALBUTEROL SO4 2.5/IPRATROPIUM 0.5 INH SOL 3 ML VIAL.NEB. NEB SCH ×3 (08:05→20:16)
[2022-03-27 08:24] LABS: BASO % 0.6 % (0-2.0); HEMATOCRIT 38.4 % (35.4-49); HEMOGLOBIN 12.7 GM/dL (11.7-16.9); LYMPH % 30.4 % (8-40); MCH 28.5 pg (25.7-33.7); MCHC 33.1 g/dl (32.0-35.9); MONO % 9.4 % (3.8-10.2); NEUT % 55.6 % (42.8-82.8); PLATELET COUNT 55 10^3/uL (134-434); RBC 4.47 M/mm3 (4.00-5.60); RDW 14.2 % (11.9-15.9); WHITE BLOOD COUNT 6.5 K/mm3 (4.0-10.0)
[2022-03-27 08:50] LABS: CALCIUM 8.9 mg/dL (8.5-10.1)
[2022-03-27 08:51] LABS: BLOOD UREA NITROGEN 33.9 mg/dL (7-18); MAGNESIUM 2.2 mg/dL (1.8-2.4)
[2022-03-27 08:54] LABS: CREATININE 1.2 mg/dL (0.55-1.3)
[2022-03-27] MEDS: metoPROLOL SUCCINATE 25 MG TAB.SR.24H (FP) PO SCH ×2 (09:25→10:08)
[2022-03-27] MEDS: ENOXAPARIN NA (PORCINE) 40 MG/0.4 ML DISP.SYRIN SQ SCH (09:25)
[2022-03-27] MEDS ORDERED: POTASSIUM CHLORIDE TABS 20 MEQ TABLET.ER (FP) PO ONE (10:19)
[2022-03-27] MEDS: ATORVASTATIN CA 20 MG TABLET (FP) PO SCH (22:44)
[2022-03-27] MEDS: TERAZOSIN HCL 5 MG CAPSULE PO SCH (22:44)
[2022-03-27] MEDS: ATORVASTATIN CA 10 MG TABLET (FP) PO SCH (22:44)
[2022-03-28] MEDS: FUROSEMIDE 40 MG/4 ML INJECTABLE VIAL IVPUSH SCH ×2 (06:33→13:18)
[2022-03-28] MEDS: INSULIN SLIDING SCALE (NOVOLOG) 1 VIAL SQ SCH ×4 (06:34→21:56)
[2022-03-28] MEDS: ALBUTEROL SO4 2.5/IPRATROPIUM 0.5 INH SOL 3 ML VIAL.NEB. NEB SCH ×3 (08:00→20:15)
[2022-03-28] MEDS: metoPROLOL SUCCINATE 25 MG TAB.SR.24H (FP) PO SCH (09:03)
[2022-03-28] MEDS: ENOXAPARIN NA (PORCINE) 40 MG/0.4 ML DISP.SYRIN SQ SCH (09:46)
[2022-03-28] MEDS: ATORVASTATIN CA 10 MG TABLET (FP) PO SCH (21:55)
[2022-03-28] MEDS: SACUBITRIL/VALSARTAN 24 MG-26 MG TABLET PO SCH (21:55)
[2022-03-28] MEDS: TERAZOSIN HCL 5 MG CAPSULE PO SCH (21:55)
[2022-03-28] MEDS: ATORVASTATIN CA 20 MG TABLET (FP) PO SCH (21:55)
[2022-03-29] MEDS: FUROSEMIDE 40 MG/4 ML INJECTABLE VIAL IVPUSH SCH ×2 (06:26→14:32)
[2022-03-29] MEDS: INSULIN SLIDING SCALE (NOVOLOG) 1 VIAL SQ SCH ×2 (06:27→11:38)
[2022-03-29] MEDS: ALBUTEROL SO4 2.5/IPRATROPIUM 0.5 INH SOL 3 ML VIAL.NEB. NEB SCH ×2 (07:35→13:24)
[2022-03-29 07:44] LABS: BASO % 0.6 % (0-2.0); HEMATOCRIT 38.2 % (35.4-49); HEMOGLOBIN 12.3 GM/dL (11.7-16.9); LYMPH % 36.1 % (8-40); MCH 27.8 pg (25.7-33.7); MCHC 32.2 g/dl (32.0-35.9); MEAN CELL VOLUME 86.3 fl (80-96); MEAN PLT VOLUME 10.9 fl (7.5-11.1); MONO % 9.4 % (3.8-10.2); NEUT % 49.9 % (42.8-82.8); PLATELET COUNT 56 10^3/uL (134-434); RBC 4.42 M/mm3 (4.00-5.60); RDW 14.4 % (11.9-15.9); WHITE BLOOD COUNT 6.1 K/mm3 (4.0-10.0)
[2022-03-29 07:55] LABS: ALBUMIN 3.3 g/dl (3.4-5.0); BLOOD UREA NITROGEN 31.7 mg/dL (7-18); CALCIUM 8.7 mg/dL (8.5-10.1); MAGNESIUM 2.2 mg/dL (1.8-2.4)
[2022-03-29 07:58] LABS: CREATININE 1.1 mg/dL (0.55-1.3); PHOSPHOROUS 3.2 mg/dL (2.5-4.9)
[2022-03-29 08:00] LABS: BILIRUBIN,TOTAL 1.5 mg/dL (0.2-1)
[2022-03-29] MEDS ORDERED: metoPROLOL SUCCINATE 25 MG TAB.SR.24H (FP) PO SCH (10:00)
[2022-03-29] MEDS: ENOXAPARIN NA (PORCINE) 40 MG/0.4 ML DISP.SYRIN SQ SCH (11:07)
[2022-03-29] MEDS: SACUBITRIL/VALSARTAN 24 MG-26 MG TABLET PO SCH (11:08)
[2022-03-29 14:31] VITALS: BP 150/57; PULSE 78; RESP 18; TEMP 98
== END 2022-03-29 18:13 | disposition home or self-care (01) | DRG 291 ==
LOC: JER 11:46 → JERBED 15:04 → J4S 03-23 19:50
PROVIDERS: ADMIT Internal Medicine; ATTEND Internal Medicine
DX: I11.0 Hypertensive heart disease with heart failure (principal); I50.23 Acute on chronic systolic (congestive) heart failure; J81.0 Acute pulmonary edema; D69.3 Immune thrombocytopenic purpura; I47.20 Ventricular tachycardia, unspecified; D86.0 Sarcoidosis of lung; I27.20 Pulmonary hypertension, unspecified; E78.5 Hyperlipidemia, unspecified; N40.0 Benign prostatic hyperplasia without lower urinary tract symptoms; I48.91 Unspecified atrial fibrillation; R00.1 Bradycardia, unspecified; I44.7 Left bundle-branch block, unspecified; I34.0 Nonrheumatic mitral (valve) insufficiency; J44.9 Chronic obstructive pulmonary disease, unspecified; D69.6 Thrombocytopenia, unspecified; E11.65 Type 2 diabetes mellitus with hyperglycemia
CPT/HCPCS: 0241U-QW; 36415; 71045-TC-FY; 71250-TC; 80048; 80053; 80061; 82247; 82248; 82962; 83735; 83880; 84100; 84484; 85025; 85027; 85610; 85730; 86850; 86900; 86901; 93005; 93010; 93306-TC; 94640; 94761; 97116-GP; 97161-GP; 99285-25

== ENCOUNTER 2022-05-25 10:49 | Day surgery (SDC) | payer OTHER ==
[~2022-05-25 10:49] MED LIST: ROMIPLOSTIM 250 MCG/0.5 ML SQ ONE
[2022-05-25 11:30] LABS: BASO % 0.5 % (0-2.0); EOS % 2.8 % (0-4.5); HEMATOCRIT 39.1 % (35.4-49); HEMOGLOBIN 12.9 GM/dL (11.7-16.9); LYMPH % 29.8 % (8-40); MCH 27.6 pg (25.7-33.7); MCHC 33.1 g/dl (32.0-35.9); MEAN CELL VOLUME 83.5 fl (80-96); MEAN PLT VOLUME 11.3 fl (7.5-11.1); MONO % 10.9 % (3.8-10.2); PLATELET COUNT 42 10^3/uL (134-434); RBC 4.69 M/mm3 (4.00-5.60); RDW 14.5 % (11.9-15.9); WHITE BLOOD COUNT 7.1 K/mm3 (4.0-10.0)
[2022-05-25 12:51] LABS: CALCIUM 9.1 mg/dL (8.5-10.1)
[2022-05-25 12:52] LABS: BLOOD UREA NITROGEN 30.4 mg/dL (7-18)
[2022-05-25 12:55] LABS: CREATININE 1.2 mg/dL (0.55-1.3)
[2022-05-25 14:10] VITALS: BP 149/53; PULSE 48; RESP 18; TEMP 97.3
== END 2022-05-25 13:00 | disposition home or self-care (01) ==
LOC: JONCNONCHE 10:49 → EDSTATUS 14:26
PROVIDERS: ATTEND Specialist
PROC: 3E013GC Introduction of Other Therapeutic Substance into Subcutaneous Tissue, Percutaneous Approach (ICD-10-PCS; principal; 2022-05-25)
DX: D69.3 Immune thrombocytopenic purpura (principal); Z76.89 Persons encountering health services in other specified circumstances
CPT/HCPCS: 36415; 80048; 85025; 96372

== ENCOUNTER 2022-06-15 10:19 | Day surgery (SDC) | payer OTHER ==
[2022-06-15] MEDS ORDERED: ROMIPLOSTIM 250 MCG/0.5 ML SQ ONE (11:00)
[2022-06-15 14:49] VITALS: BP 152/45; PULSE 52; RESP 18; TEMP 97.6
== END 2022-06-15 11:50 | disposition home or self-care (01) ==
LOC: JONCNONCHE 10:19
PROVIDERS: ATTEND Specialist
PROC: 3E013GC Introduction of Other Therapeutic Substance into Subcutaneous Tissue, Percutaneous Approach (ICD-10-PCS; principal; 2022-06-15)
DX: D69.3 Immune thrombocytopenic purpura (principal)
CPT/HCPCS: 96372

== ENCOUNTER 2022-07-13 12:23 | Day surgery (SDC) | payer OTHER ==
[2022-07-13 15:21] VITALS: BP 142/55; PULSE 40; RESP 18; TEMP 97.6
== END 2022-07-13 13:10 | disposition home or self-care (01) ==
LOC: JONCNONCHE 12:23
PROVIDERS: ATTEND Specialist
PROC: 3E013GC Introduction of Other Therapeutic Substance into Subcutaneous Tissue, Percutaneous Approach (ICD-10-PCS; principal; 2022-07-13)
DX: D69.3 Immune thrombocytopenic purpura (principal)
CPT/HCPCS: 96372

== ENCOUNTER 2022-08-10 10:20 | Day surgery (SDC) | payer OTHER ==
[2022-08-10] MEDS ORDERED: ROMIPLOSTIM 250 MCG/0.5 ML SQ ONE (10:30)
[2022-08-10 15:46] VITALS: RESP 20
[2022-08-10 15:58] VITALS: BP 144/54; PULSE 49; TEMP 97.7
== END 2022-08-10 11:25 | disposition home or self-care (01) ==
LOC: JONCNONCHE 10:20
PROVIDERS: ATTEND Specialist
PROC: 3E013GC Introduction of Other Therapeutic Substance into Subcutaneous Tissue, Percutaneous Approach (ICD-10-PCS; principal; 2022-08-10)
DX: D69.3 Immune thrombocytopenic purpura (principal); Z76.89 Persons encountering health services in other specified circumstances
CPT/HCPCS: 96372

== ENCOUNTER 2022-08-24 10:13 | Day surgery (SDC) | payer OTHER ==
[2022-08-24] MEDS ORDERED: ROMIPLOSTIM 250 MCG/0.5 ML SQ ONE (10:15)
[2022-08-24 16:24] VITALS: BP 144/50; PULSE 43; RESP 16; TEMP 97.9
== END 2022-08-24 11:20 | disposition home or self-care (01) ==
LOC: JONCCHEMO 10:13 → J7W 10:19 → JONCCHEMO 11:10
PROVIDERS: ATTEND Registered Nurse
DX: D69.3 Immune thrombocytopenic purpura (principal); Z76.89 Persons encountering health services in other specified circumstances
CPT/HCPCS: 96372

== ENCOUNTER 2022-10-12 09:49 | Day surgery (SDC) | payer OTHER ==
[2022-10-12] MEDS ORDERED: ROMIPLOSTIM 250 MCG/0.5 ML SQ ONE (10:30)
[2022-10-12 14:51] VITALS: BP 120/63; PULSE 50; RESP 20; TEMP 97.6
== END 2022-10-12 11:00 | disposition home or self-care (01) ==
LOC: JONCNONCHE 09:49 → J7W 09:50 → JONCNONCHE 11:00
PROVIDERS: ATTEND Specialist
PROC: 3E013GC Introduction of Other Therapeutic Substance into Subcutaneous Tissue, Percutaneous Approach (ICD-10-PCS; principal; 2022-10-12)
DX: D69.3 Immune thrombocytopenic purpura (principal)
CPT/HCPCS: 96372

== ENCOUNTER 2022-11-16 09:52 | Day surgery (SDC) | payer OTHER ==
[2022-11-16] MEDS ORDERED: ROMIPLOSTIM 250 MCG/0.5 ML SQ ONE (10:00)
[2022-11-16 15:38] VITALS: BP 154/61; PULSE 44; RESP 20; TEMP 97.8
== END 2022-11-16 12:00 | disposition home or self-care (01) ==
LOC: JONCNONCHE 09:52 → J7W 09:54 → JONCNONCHE 12:00
PROVIDERS: ATTEND Specialist
PROC: 3E013GC Introduction of Other Therapeutic Substance into Subcutaneous Tissue, Percutaneous Approach (ICD-10-PCS; principal; 2022-11-16)
DX: D69.3 Immune thrombocytopenic purpura (principal)
CPT/HCPCS: 96372

== ENCOUNTER 2022-12-21 11:23 | Day surgery (SDC) | payer OTHER ==
[2022-12-21 12:15] VITALS: BP 152/50; PULSE 42; RESP 20; TEMP 97.6
== END 2022-12-21 12:00 | disposition home or self-care (01) ==
LOC: JONCNONCHE 11:23 → J7W 11:24 → JONCNONCHE 12:00
PROVIDERS: ATTEND Specialist
PROC: 3E013GC Introduction of Other Therapeutic Substance into Subcutaneous Tissue, Percutaneous Approach (ICD-10-PCS; principal; 2022-12-21)
DX: D69.3 Immune thrombocytopenic purpura (principal)
CPT/HCPCS: 96372

== ENCOUNTER 2023-01-04 10:20 | Day surgery (SDC) | payer OTHER ==
[2023-01-04] MEDS ORDERED: ROMIPLOSTIM 250 MCG/0.5 ML SQ ONE (11:00)
[2023-01-04 16:03] VITALS: BP 181/63; PULSE 49; RESP 18; TEMP 97.6
== END 2023-01-04 11:30 | disposition home or self-care (01) ==
LOC: JONCNONCHE 10:20 → J7W 10:21 → JONCNONCHE 11:30
PROVIDERS: ATTEND Internal Medicine Hematology & Oncology
PROC: 3E013GC Introduction of Other Therapeutic Substance into Subcutaneous Tissue, Percutaneous Approach (ICD-10-PCS; principal; 2023-01-04)
DX: D69.3 Immune thrombocytopenic purpura (principal)
CPT/HCPCS: 96372

== ENCOUNTER 2023-01-20 10:36 | Day surgery (SDC) | payer OTHER ==
[2023-01-20 12:05] VITALS: BP 166/64; PULSE 59; RESP 18; TEMP 98.1
== END 2023-01-20 12:00 | disposition home or self-care (01) ==
LOC: JONCNONCHE 10:36 → J7W 10:37 → JONCNONCHE 12:00
PROVIDERS: ATTEND Internal Medicine Hematology & Oncology
PROC: 3E013GC Introduction of Other Therapeutic Substance into Subcutaneous Tissue, Percutaneous Approach (ICD-10-PCS; principal; 2023-01-20)
DX: D69.3 Immune thrombocytopenic purpura (principal)
CPT/HCPCS: 96372

== ENCOUNTER 2023-02-03 09:55 | Day surgery (SDC) | payer OTHER ==
[2023-02-03] MEDS ORDERED: ROMIPLOSTIM 250 MCG/0.5 ML SQ ONE (10:00)
[2023-02-03 10:31] VITALS: BP 149/60; PULSE 55; RESP 18; TEMP 97.7
== END 2023-02-03 10:35 | disposition home or self-care (01) ==
LOC: JONCNONCHE 09:55 → J7W 09:56 → JONCNONCHE 10:35
PROVIDERS: ATTEND Internal Medicine Hematology & Oncology
PROC: 3E013GC Introduction of Other Therapeutic Substance into Subcutaneous Tissue, Percutaneous Approach (ICD-10-PCS; principal; 2023-02-03)
DX: D69.3 Immune thrombocytopenic purpura (principal)
CPT/HCPCS: 96372

== ENCOUNTER 2023-02-17 11:42 | Day surgery (SDC) | payer OTHER ==
[2023-02-17 15:03] VITALS: BP 150/57; PULSE 55; RESP 20; TEMP 97.4
== END 2023-02-17 15:06 | disposition home or self-care (01) ==
LOC: JONCNONCHE 11:42
PROVIDERS: ATTEND Internal Medicine Hematology & Oncology
PROC: 3E013GC Introduction of Other Therapeutic Substance into Subcutaneous Tissue, Percutaneous Approach (ICD-10-PCS; principal; 2023-02-17)
DX: D69.3 Immune thrombocytopenic purpura (principal)
CPT/HCPCS: 96372

== ENCOUNTER 2023-03-04 01:57 | Inpatient (IN) | payer OTHER ==
[2023-03-04 02:10] VITALS: BMI 32.1
[2023-03-04] MEDS ORDERED: ALBUTEROL SO4 2.5/IPRATROPIUM 0.5 INH SOL 3 ML VIAL.NEB. NEB ONE ×3 (02:20→21:36)
[2023-03-04] MEDS ORDERED: methylPREDNISolone NA SUCC 125 MG/2 ML VIAL IVPB ONE (02:26)
[2023-03-04] MEDS ORDERED: FUROSEMIDE 40 MG/4 ML INJECTABLE VIAL IVPUSH ONE (02:32)
[2023-03-04] MEDS ORDERED: FUROSEMIDE 40 MG/4 ML INJECTABLE VIAL ONE ×3 (02:33→16:07)
[2023-03-04] MEDS ORDERED: methylPREDNISolone NA SUCC 125 MG/2 ML VIAL ONE (02:36)
[2023-03-04] MEDS: ALBUTEROL SO4 2.5/IPRATROPIUM 0.5 INH SOL 3 ML VIAL.NEB. NEB SCH ×6 (02:36→21:40)
[2023-03-04 02:42] LABS: BASO % 1.1 % (0-2.0); EOS % 3.3 % (0-4.5); HEMATOCRIT 40.2 % (35.4-49); HEMOGLOBIN 13.2 GM/dL (11.7-16.9); LYMPH % 21.7 % (8-40); MCH 28.6 pg (25.7-33.7); MCHC 32.9 g/dl (32.0-35.9); MEAN PLT VOLUME 9.8 fl (7.5-11.1); NEUT % 63.9 % (42.8-82.8); PLATELET COUNT 58 10^3/uL (134-434); RBC 4.63 M/mm3 (4.00-5.60); RDW 14.2 % (11.9-15.9); VENOUS BASE EXCESS 1.5 mmol/L (-2-2); VENOUS O2 SATURATION 50.2 % (70-80); VENOUS PCO2 57.2 mmHg (38-52); VENOUS PH 7.321 (7.310-7.410); WHITE BLOOD COUNT 8.1 K/mm3 (4.0-10.0)
[2023-03-04 02:48] LABS: INR 1.05 (0.83-1.09); PROTHROMBIN TIME (PATIENT) 12.2 SEC (9.7-13.0)
[2023-03-04 02:51] LABS: ACTIVATED PTT 29.4 SECONDS (25.2-36.5)
[2023-03-04 03:01] LABS: POTASSIUM 4.2 mmol/L (3.5-5.1)
[2023-03-04 03:03] LABS: CALCIUM 8.6 mg/dL (8.5-10.1)
[2023-03-04 03:04] LABS: ALBUMIN 3.6 g/dl (3.4-5.0)
[2023-03-04 03:07] LABS: CREATININE 1.1 mg/dL (0.55-1.3)
[2023-03-04 03:09] LABS: BILIRUBIN,TOTAL 0.8 mg/dL (0.2-1); TOT PROT 6.7 g/dl (6.4-8.2)
[2023-03-04 03:12] LABS: N-TERMINAL BNP 1308.8 pg/ml (5-450)
[2023-03-04] MEDS ORDERED: AZITHROMYCIN IVPB 500 MG in DEXTROSE 5%-WATER - 250 ML IVPB ONE (05:52)
[2023-03-04] MEDS ORDERED: CEFTRIAXONE 1,000 MG in DEXTROSE 5%-WATER - 50 ML IVPB ONE (05:52)
[2023-03-04] MEDS ORDERED: AZITHROMYCIN IVPB 500 MG/250 ML BAG IVPB ONE (06:25)
[2023-03-04] MEDS ORDERED: CEFTRIAXONE 1 GM/50 ML BAG ONE (06:25)
[2023-03-04] MEDS: FUROSEMIDE 40 MG/4 ML INJECTABLE VIAL IVPUSH SCH ×2 (10:47→14:45)
[2023-03-04] MEDS ORDERED: predniSONE 20 MG TABLET (UD) ONE ×2 (12:27→12:34)
[2023-03-04] MEDS ORDERED: SPIRONOLACTONE 25 MG TABLET ONE (12:27)
[2023-03-04] MEDS: SPIRONOLACTONE 25 MG TABLET PO SCH (12:32)
[2023-03-04] MEDS: predniSONE 20 MG TABLET (UD) PO SCH (12:33)
[2023-03-04] MEDS ORDERED: HEPARIN NA (PORCINE) 5,000 UNITS/ML 1ML VIAL SQ SCH (14:00)
[2023-03-04] MEDS ORDERED: ATORVASTATIN CA 10 MG TABLET (FP) ONE (21:39)
[2023-03-04] MEDS: TERAZOSIN HCL 5 MG CAPSULE PO SCH (21:40)
[2023-03-04] MEDS: ATORVASTATIN CA 10 MG TABLET (FP) PO SCH (21:40)
[2023-03-05] MEDS ORDERED: FUROSEMIDE 40 MG/4 ML INJECTABLE VIAL ONE ×2 (06:18→19:03)
[2023-03-05] MEDS: FUROSEMIDE 40 MG/4 ML INJECTABLE VIAL IVPUSH SCH ×2 (06:34→19:10)
[2023-03-05] MEDS ORDERED: ALBUTEROL SO4 HFA INHALER IH ONE (06:36)
[2023-03-05] MEDS: ALBUTEROL SO4 HFA INHALER IH PRN (06:39)
[2023-03-05] MEDS ORDERED: ALBUTEROL SO4 2.5/IPRATROPIUM 0.5 INH SOL 3 ML VIAL.NEB. NEB ONE ×2 (07:55→19:03)
[2023-03-05] MEDS: ALBUTEROL SO4 2.5/IPRATROPIUM 0.5 INH SOL 3 ML VIAL.NEB. NEB SCH ×4 (08:00→23:24)
[2023-03-05 08:40] LABS: INR 1.04 (0.83-1.09); PROTHROMBIN TIME (PATIENT) 12.1 SEC (9.7-13.0)
[2023-03-05 08:47] LABS: BASO % 0.1 % (0-2.0); HEMOGLOBIN 11.9 GM/dL (11.7-16.9); LYMPH % 8.6 % (8-40); MCH 28.5 pg (25.7-33.7); MEAN CELL VOLUME 86.5 fl (80-96); MEAN PLT VOLUME 10.5 fl (7.5-11.1); MONO % 6.2 % (3.8-10.2); NEUT % 85.1 % (42.8-82.8); PLATELET COUNT 64 10^3/uL (134-434); RBC 4.16 M/mm3 (4.00-5.60); RDW 13.9 % (11.9-15.9); WHITE BLOOD COUNT 14.6 K/mm3 (4.0-10.0)
[2023-03-05 08:56] LABS: POTASSIUM 4.1 mmol/L (3.5-5.1)
[2023-03-05 09:05] LABS: CALCIUM 9.2 mg/dL (8.5-10.1); CREATININE 1.2 mg/dL (0.55-1.3); MAGNESIUM 2.1 mg/dL (1.8-2.4); PHOSPHOROUS 3.6 mg/dL (2.5-4.9)
[2023-03-05] MEDS ORDERED: AZITHROMYCIN 250 MG TABLET ONE (09:25)
[2023-03-05] MEDS: SPIRONOLACTONE 25 MG TABLET PO SCH (09:29)
[2023-03-05] MEDS: AZITHROMYCIN 250 MG TABLET PO SCH (09:30)
[2023-03-05] MEDS: predniSONE 20 MG TABLET (UD) PO SCH (09:30)
[2023-03-05] MEDS: INSULIN SLIDING SCALE (NOVOLOG) 1 VIAL SQ SCH ×2 (22:39→23:35)
[2023-03-05] MEDS: ATORVASTATIN CA 10 MG TABLET (FP) PO SCH (23:24)
[2023-03-05] MEDS: TERAZOSIN HCL 5 MG CAPSULE PO SCH (23:24)
[2023-03-06] MEDS: ALBUTEROL SO4 HFA INHALER IH PRN (03:12)
[2023-03-06] MEDS ORDERED: FUROSEMIDE 40 MG/4 ML INJECTABLE VIAL ONE (05:48)
[2023-03-06] MEDS: FUROSEMIDE 40 MG/4 ML INJECTABLE VIAL IVPUSH SCH ×2 (05:52→14:11)
[2023-03-06 08:30] LABS: BASO % 0.1 % (0-2.0); EOS % 0.3 % (0-4.5); HEMATOCRIT 36.8 % (35.4-49); HEMOGLOBIN 12.1 GM/dL (11.7-16.9); LYMPH % 13.8 % (8-40); MCH 28.4 pg (25.7-33.7); MEAN PLT VOLUME 10.3 fl (7.5-11.1); MONO % 7.3 % (3.8-10.2); NEUT % 78.5 % (42.8-82.8); PLATELET COUNT 83 10^3/uL (134-434); RBC 4.27 M/mm3 (4.00-5.60); RDW 14.1 % (11.9-15.9); WHITE BLOOD COUNT 10.6 K/mm3 (4.0-10.0)
[2023-03-06 08:59] LABS: POTASSIUM 3.5 mmol/L (3.5-5.1)
[2023-03-06 09:12] LABS: CALCIUM 9.5 mg/dL (8.5-10.1)
[2023-03-06 09:13] LABS: ALBUMIN 3.6 g/dl (3.4-5.0); BLOOD UREA NITROGEN 44.5 mg/dL (7-18); MAGNESIUM 2.4 mg/dL (1.8-2.4)
[2023-03-06 09:16] LABS: CREATININE 1.2 mg/dL (0.55-1.3); PHOSPHOROUS 3.9 mg/dL (2.5-4.9)
[2023-03-06 09:17] LABS: BILIRUBIN,TOTAL 0.7 mg/dL (0.2-1); TOT PROT 6.2 g/dl (6.4-8.2)
[2023-03-06] MEDS ORDERED: POTASSIUM CHLORIDE TABS 20 MEQ TABLET.ER (FP) PO ONE ×2 (09:45→09:51)
[2023-03-06] MEDS: INSULIN SLIDING SCALE (NOVOLOG) 1 VIAL SQ SCH ×4 (09:49→21:31)
[2023-03-06] MEDS ORDERED: ALBUTEROL SO4 2.5/IPRATROPIUM 0.5 INH SOL 3 ML VIAL.NEB. NEB ONE ×3 (09:50→16:09)
[2023-03-06] MEDS: predniSONE 20 MG TABLET (UD) PO SCH (10:03)
[2023-03-06] MEDS: ALBUTEROL SO4 2.5/IPRATROPIUM 0.5 INH SOL 3 ML VIAL.NEB. NEB SCH ×4 (10:03→22:10)
[2023-03-06] MEDS: AZITHROMYCIN 250 MG TABLET PO SCH (10:03)
[2023-03-06] MEDS: SPIRONOLACTONE 25 MG TABLET PO SCH (10:03)
[2023-03-06] MEDS: ATORVASTATIN CA 10 MG TABLET (FP) PO SCH (21:34)
[2023-03-06] MEDS: TERAZOSIN HCL 5 MG CAPSULE PO SCH (22:21)
[2023-03-07] MEDS: FUROSEMIDE 40 MG/4 ML INJECTABLE VIAL IVPUSH SCH ×2 (06:30→13:57)
[2023-03-07] MEDS: INSULIN SLIDING SCALE (NOVOLOG) 1 VIAL SQ SCH ×4 (06:30→22:20)
[2023-03-07 07:23] LABS: HEMATOCRIT 36.8 % (35.4-49); HEMOGLOBIN 12.2 GM/dL (11.7-16.9); MCH 28.9 pg (25.7-33.7); MCHC 33.2 g/dl (32.0-35.9); MEAN CELL VOLUME 86.9 fl (80-96); PLATELET COUNT 83 10^3/uL (134-434); RBC 4.24 M/mm3 (4.00-5.60); RDW 13.9 % (11.9-15.9)
[2023-03-07 07:36] LABS: POTASSIUM 3.9 mmol/L (3.5-5.1)
[2023-03-07 07:47] LABS: ALBUMIN 3.4 g/dl (3.4-5.0); BLOOD UREA NITROGEN 35.3 mg/dL (7-18); CALCIUM 8.6 mg/dL (8.5-10.1)
[2023-03-07 07:48] LABS: MAGNESIUM 2.3 mg/dL (1.8-2.4)
[2023-03-07 07:50] LABS: CREATININE 1.2 mg/dL (0.55-1.3); PHOSPHOROUS 3.7 mg/dL (2.5-4.9)
[2023-03-07 07:52] LABS: TOT PROT 6.1 g/dl (6.4-8.2)
[2023-03-07 07:55] LABS: BILIRUBIN,TOTAL 1.2 mg/dL (0.2-1)
[2023-03-07] MEDS: ALBUTEROL SO4 2.5/IPRATROPIUM 0.5 INH SOL 3 ML VIAL.NEB. NEB SCH ×4 (09:40→19:35)
[2023-03-07] MEDS: predniSONE 20 MG TABLET (UD) PO SCH (10:01)
[2023-03-07] MEDS: AZITHROMYCIN 250 MG TABLET PO SCH (10:02)
[2023-03-07] MEDS: SPIRONOLACTONE 25 MG TABLET PO SCH (10:02)
[2023-03-07] MEDS: TERAZOSIN HCL 5 MG CAPSULE PO SCH (21:59)
[2023-03-07] MEDS: ATORVASTATIN CA 10 MG TABLET (FP) PO SCH (21:59)
[2023-03-07] MEDS ORDERED: INSULIN (NOVOLOG) ASPART 100 UNITS/ML 10ML VIAL ONE (22:11)
[2023-03-08] MEDS: FUROSEMIDE 40 MG/4 ML INJECTABLE VIAL IVPUSH SCH ×2 (06:59→13:59)
[2023-03-08] MEDS: INSULIN SLIDING SCALE (NOVOLOG) 1 VIAL SQ SCH ×4 (06:59→22:11)
[2023-03-08] MEDS: ALBUTEROL SO4 2.5/IPRATROPIUM 0.5 INH SOL 3 ML VIAL.NEB. NEB SCH ×4 (07:32→20:05)
[2023-03-08 07:44] LABS: HEMATOCRIT 36.6 % (35.4-49); HEMOGLOBIN 12.1 GM/dL (11.7-16.9); MCH 28.4 pg (25.7-33.7); MEAN CELL VOLUME 85.9 fl (80-96); MEAN PLT VOLUME 10.4 fl (7.5-11.1); PLATELET COUNT 87 10^3/uL (134-434); RBC 4.27 M/mm3 (4.00-5.60); WHITE BLOOD COUNT 7.6 K/mm3 (4.0-10.0)
[2023-03-08 07:57] LABS: POTASSIUM 3.6 mmol/L (3.5-5.1)
[2023-03-08 08:06] LABS: CALCIUM 8.5 mg/dL (8.5-10.1)
[2023-03-08 08:07] LABS: ALBUMIN 3.2 g/dl (3.4-5.0); BLOOD UREA NITROGEN 33.6 mg/dL (7-18)
[2023-03-08 08:10] LABS: CREATININE 1.1 mg/dL (0.55-1.3)
[2023-03-08 08:12] LABS: TOT PROT 5.9 g/dl (6.4-8.2)
[2023-03-08] MEDS: predniSONE 20 MG TABLET (UD) PO SCH (09:35)
[2023-03-08] MEDS: SPIRONOLACTONE 25 MG TABLET PO SCH (09:35)
[2023-03-08] MEDS ORDERED: ALBUTEROL SO4 0.083% IH SOL 2.5 MG/3 ML VIAL.NEB. NEB PRN (11:32)
[2023-03-08] MEDS ORDERED: predniSONE 20 MG TABLET (UD) PO SCH (11:39)
[2023-03-08] MEDS: ACETYLCYSTEINE 20% 200MG/ML 4 ML VIAL *FOR ORAL / INH USE ONLY NEB SCH ×2 (12:15→22:00)
[2023-03-08] MEDS ORDERED: POTASSIUM CHLORIDE TABS 20 MEQ TABLET.ER (FP) PO ONE (17:58)
[2023-03-08] MEDS: ALBUTEROL SO4 0.083% IH SOL 2.5 MG/3 ML VIAL.NEB. NEB SCH (20:05)
[2023-03-08] MEDS: TERAZOSIN HCL 5 MG CAPSULE PO SCH (21:55)
[2023-03-08] MEDS: ATORVASTATIN CA 10 MG TABLET (FP) PO SCH (21:56)
[2023-03-09] MEDS: FUROSEMIDE 40 MG/4 ML INJECTABLE VIAL IVPUSH SCH ×2 (06:35→14:50)
[2023-03-09] MEDS: ALBUTEROL SO4 0.083% IH SOL 2.5 MG/3 ML VIAL.NEB. NEB SCH ×3 (08:00→20:55)
[2023-03-09] MEDS: ACETYLCYSTEINE 20% 200MG/ML 4 ML VIAL *FOR ORAL / INH USE ONLY NEB SCH ×2 (10:12→20:55)
[2023-03-09] MEDS: predniSONE 10 MG TABLET (UD) PO SCH (10:32)
[2023-03-09] MEDS: SPIRONOLACTONE 25 MG TABLET PO SCH (10:32)
[2023-03-09] MEDS: INSULIN SLIDING SCALE (NOVOLOG) 1 VIAL SQ SCH ×4 (12:45→22:54)
[2023-03-09 13:00] LABS: CALCIUM 9.4 mg/dL (8.5-10.1); POTASSIUM 4.2 mmol/L (3.5-5.1)
[2023-03-09 13:01] LABS: BLOOD UREA NITROGEN 34.3 mg/dL (7-18)
[2023-03-09 13:04] LABS: CREATININE 1.2 mg/dL (0.55-1.3)
[2023-03-09] MEDS: ALBUTEROL SO4 2.5/IPRATROPIUM 0.5 INH SOL 3 ML VIAL.NEB. NEB SCH (17:35)
[2023-03-09] MEDS: ATORVASTATIN CA 10 MG TABLET (FP) PO SCH (22:32)
[2023-03-09] MEDS: TERAZOSIN HCL 5 MG CAPSULE PO SCH (22:55)
[2023-03-10 06:20] LABS: HEMATOCRIT 37.5 % (35.4-49); HEMOGLOBIN 12.5 GM/dL (11.7-16.9); MCH 28.7 pg (25.7-33.7); MCHC 33.3 g/dl (32.0-35.9); MEAN CELL VOLUME 86.1 fl (80-96); MEAN PLT VOLUME 9.8 fl (7.5-11.1); PLATELET COUNT 129 10^3/uL (134-434); RBC 4.35 M/mm3 (4.00-5.60); RDW 13.7 % (11.9-15.9); WHITE BLOOD COUNT 11.8 K/mm3 (4.0-10.0)
[2023-03-10] MEDS: FUROSEMIDE 40 MG/4 ML INJECTABLE VIAL IVPUSH SCH (06:38)
[2023-03-10 06:40] LABS: POTASSIUM 3.6 mmol/L (3.5-5.1)
[2023-03-10 06:43] LABS: CALCIUM 8.9 mg/dL (8.5-10.1)
[2023-03-10 06:44] LABS: ALBUMIN 3.3 g/dl (3.4-5.0); BLOOD UREA NITROGEN 36.4 mg/dL (7-18); MAGNESIUM 2.2 mg/dL (1.8-2.4)
[2023-03-10] MEDS: INSULIN SLIDING SCALE (NOVOLOG) 1 VIAL SQ SCH ×3 (06:45→17:47)
[2023-03-10 06:47] LABS: CREATININE 1.2 mg/dL (0.55-1.3)
[2023-03-10 07:28] VITALS: RESP 20
[2023-03-10] MEDS: ALBUTEROL SO4 0.083% IH SOL 2.5 MG/3 ML VIAL.NEB. NEB SCH (08:59)
[2023-03-10] MEDS: ACETYLCYSTEINE 20% 200MG/ML 4 ML VIAL *FOR ORAL / INH USE ONLY NEB SCH (09:00)
[2023-03-10] MEDS: SPIRONOLACTONE 25 MG TABLET PO SCH (10:28)
[2023-03-10] MEDS: predniSONE 10 MG TABLET (UD) PO SCH (10:28)
[2023-03-10] MEDS: ALBUTEROL SO4 2.5/IPRATROPIUM 0.5 INH SOL 3 ML VIAL.NEB. NEB SCH ×2 (13:15→17:16)
[2023-03-10] MEDS ORDERED: FUROSEMIDE 40 MG TABLET (FP) PO SCH (14:00)
[2023-03-10 16:40] VITALS: BP 145/90; PULSE 72; TEMP 98.5
== END 2023-03-10 18:32 | disposition home or self-care (01) | DRG 291 ==
LOC: JER 01:57 → JERBED 05:24 → J4W 03-06 20:27
PROVIDERS: ADMIT Internal Medicine; ATTEND Internal Medicine
DX: I11.0 Hypertensive heart disease with heart failure (principal); I50.23 Acute on chronic systolic (congestive) heart failure; D69.3 Immune thrombocytopenic purpura; J44.1 Chronic obstructive pulmonary disease with (acute) exacerbation; I47.20 Ventricular tachycardia, unspecified; I48.91 Unspecified atrial fibrillation; E78.5 Hyperlipidemia, unspecified; I27.20 Pulmonary hypertension, unspecified; N40.0 Benign prostatic hyperplasia without lower urinary tract symptoms; E11.9 Type 2 diabetes mellitus without complications; B97.4 Respiratory syncytial virus as the cause of diseases classified elsewhere; D69.6 Thrombocytopenia, unspecified; D86.9 Sarcoidosis, unspecified
CPT/HCPCS: 0241U-QW; 36415; 71045-TC-FY; 80048; 80053; 82803; 82962; 83735; 83880; 84100; 84443; 84484; 85025; 85027; 85610; 85730; 93005; 93010; 94640; 94660; 94761; 97116-GP; 97161-GP; 99285-25

== ENCOUNTER 2023-03-24 09:47 | Day surgery (SDC) | payer OTHER ==
[2023-03-24] MEDS ORDERED: ROMIPLOSTIM 250 MCG/0.5 ML SQ ONE (10:00)
[2023-03-24 13:57] VITALS: BP 140/49; PULSE 50; RESP 20; TEMP 98.5
== END 2023-03-24 11:10 | disposition home or self-care (01) ==
LOC: JONCNONCHE 09:47 → J7W 09:57 → JONCNONCHE 11:10
PROVIDERS: ATTEND Internal Medicine Hematology & Oncology
PROC: 3E013GC Introduction of Other Therapeutic Substance into Subcutaneous Tissue, Percutaneous Approach (ICD-10-PCS; principal; 2023-03-24)
DX: D69.3 Immune thrombocytopenic purpura (principal)
CPT/HCPCS: 96372

== ENCOUNTER 2023-03-30 09:34 | Inpatient (IN) | payer OTHER ==
[2023-03-30] MEDS ORDERED: ALBUTEROL SO4 2.5/IPRATROPIUM 0.5 INH SOL 3 ML VIAL.NEB. NEB ONE ×2 (11:29→11:35)
[2023-03-30] MEDS ORDERED: methylPREDNISolone NA SUCC 125 MG/2 ML VIAL IVPUSH ONE (11:31)
[2023-03-30] MEDS ORDERED: methylPREDNISolone NA SUCC 125 MG/2 ML VIAL ONE (11:35)
[2023-03-30 12:11] LABS: BASO % 0.6 % (0-2.0); HEMATOCRIT 37.1 % (35.4-49); HEMOGLOBIN 12.1 GM/dL (11.7-16.9); LYMPH % 23.2 % (8-40); MCH 28.2 pg (25.7-33.7); MCHC 32.5 g/dl (32.0-35.9); MEAN CELL VOLUME 86.6 fl (80-96); MEAN PLT VOLUME 10.2 fl (7.5-11.1); MONO % 12.7 % (3.8-10.2); NEUT % 63.5 % (42.8-82.8); PLATELET COUNT 94 10^3/uL (134-434); RBC 4.28 M/mm3 (4.00-5.60); WHITE BLOOD COUNT 6.5 K/mm3 (4.0-10.0)
[2023-03-30 12:19] LABS: VENOUS BASE EXCESS 2.3 mmol/L (-2-2); VENOUS O2 SATURATION 83.4 % (70-80); VENOUS PCO2 48.7 mmHg (38-52); VENOUS PH 7.38 (7.310-7.410)
[2023-03-30 12:28] LABS: INR 1.11 (0.83-1.09); PROTHROMBIN TIME (PATIENT) 12.9 SEC (9.7-13.0)
[2023-03-30 12:34] LABS: POTASSIUM 3.9 mmol/L (3.5-5.1)
[2023-03-30 12:36] LABS: CALCIUM 8.1 mg/dL (8.5-10.1)
[2023-03-30 12:37] LABS: ALBUMIN 2.9 g/dl (3.4-5.0); BLOOD UREA NITROGEN 18.8 mg/dL (7-18)
[2023-03-30 12:40] LABS: CREATININE 1.2 mg/dL (0.55-1.3)
[2023-03-30] MEDS ORDERED: ALBUTEROL SO4 0.083% IH SOL 2.5 MG/3 ML VIAL.NEB. NEB ONE ×2 (12:40→17:38)
[2023-03-30 12:41] LABS: BILIRUBIN,TOTAL 0.6 mg/dL (0.2-1); TOT PROT 6.2 g/dl (6.4-8.2)
[2023-03-30 12:45] LABS: N-TERMINAL BNP 2717.2 pg/ml (5-450)
[2023-03-30] MEDS ORDERED: AZITHROMYCIN IVPB 500 MG in DEXTROSE 5%-WATER - 250 ML IVPB ONE (16:03)
[2023-03-30] MEDS ORDERED: AZITHROMYCIN IVPB 500 MG/250 ML BAG IVPB ONE (16:13)
[2023-03-30] MEDS ORDERED: ALBUTEROL SO4 HFA INHALER IH PRN (17:21)
[2023-03-30] MEDS: methylPREDNISolone NA SUCC 40 MG/1 ML VIAL IVPUSH SCH (17:50)
[2023-03-30] MEDS: ALBUTEROL SO4 2.5/IPRATROPIUM 0.5 INH SOL 3 ML VIAL.NEB. NEB SCH (19:50)
[2023-03-30] MEDS ORDERED: INSULIN (NOVOLOG) ASPART 100 UNITS/ML 10ML VIAL ONE (21:17)
[2023-03-30] MEDS: OSELTAMIVIR PHOSPHATE 75 MG CAPSULE PO SCH (21:56)
[2023-03-30] MEDS: INSULIN ASPART SLIDING SCALE (NOVOLOG) 1 VIAL SQ SCH (21:56)
[2023-03-30] MEDS: ATORVASTATIN CA 10 MG TABLET (FP) PO SCH (21:56)
[2023-03-30] MEDS ORDERED: INSULIN (LEVEMIR) 100 UNITS/ML UNITS SQ ONE (23:36)
[2023-03-30] MEDS ORDERED: INSULIN (NOVOLOG) ASPART 100 UNITS/ML 10ML VIAL SQ ONE (23:44)
[2023-03-31] MEDS: methylPREDNISolone NA SUCC 40 MG/1 ML VIAL IVPUSH SCH ×3 (01:02→18:35)
[2023-03-31] MEDS ORDERED: guaiFENesin/D-METHORPHAN HB 10 ML UNIT-DOSE CUPS PO ONE (05:16)
[2023-03-31] MEDS: INSULIN ASPART SLIDING SCALE (NOVOLOG) 1 VIAL SQ SCH ×4 (07:36→22:25)
[2023-03-31] MEDS: ALBUTEROL SO4 2.5/IPRATROPIUM 0.5 INH SOL 3 ML VIAL.NEB. NEB SCH ×4 (08:14→20:45)
[2023-03-31] MEDS: OSELTAMIVIR PHOSPHATE 75 MG CAPSULE PO SCH ×2 (09:35→21:51)
[2023-03-31] MEDS: ENOXAPARIN NA (PORCINE) 40 MG/0.4 ML DISP.SYRIN SQ SCH (09:35)
[2023-03-31] MEDS: AZITHROMYCIN 250 MG TABLET PO SCH (09:35)
[2023-03-31] MEDS: SPIRONOLACTONE 25 MG TABLET PO SCH (09:35)
[2023-03-31] MEDS: FUROSEMIDE 40 MG/4 ML INJECTABLE VIAL IVPUSH SCH (09:35)
[2023-03-31 10:42] LABS: HEMATOCRIT 37.2 % (35.4-49); HEMOGLOBIN 12.3 GM/dL (11.7-16.9); MCH 28.3 pg (25.7-33.7); MCHC 33.2 g/dl (32.0-35.9); MEAN CELL VOLUME 85.1 fl (80-96); MEAN PLT VOLUME 9.8 fl (7.5-11.1); MONO % 7.4 % (3.8-10.2); NEUT % 75.6 % (42.8-82.8); PLATELET COUNT 149 10^3/uL (134-434); RBC 4.37 M/mm3 (4.00-5.60); RDW 14.1 % (11.9-15.9); WHITE BLOOD COUNT 5.1 K/mm3 (4.0-10.0)
[2023-03-31 10:43] LABS: POTASSIUM 3.9 mmol/L (3.5-5.1)
[2023-03-31 10:48] LABS: BLOOD UREA NITROGEN 32.4 mg/dL (7-18); CALCIUM 8.8 mg/dL (8.5-10.1)
[2023-03-31 10:49] LABS: ALBUMIN 3.1 g/dl (3.4-5.0)
[2023-03-31 10:51] LABS: PHOSPHOROUS 3.5 mg/dL (2.5-4.9)
[2023-03-31 10:52] LABS: CREATININE 1.4 mg/dL (0.55-1.3)
[2023-03-31 10:53] LABS: BILIRUBIN,TOTAL 0.6 mg/dL (0.2-1); TOT PROT 6.4 g/dl (6.4-8.2)
[2023-03-31] MEDS ORDERED: INSULIN (NOVOLOG) ASPART 100 UNITS/ML 10ML VIAL ONE ×2 (12:32→17:47)
[2023-03-31] MEDS: ATORVASTATIN CA 10 MG TABLET (FP) PO SCH (21:51)
[2023-03-31] MEDS: TERAZOSIN HCL 5 MG CAPSULE PO SCH (21:51)
[2023-03-31] MEDS: BUDESONIDE/FORMETEROL FUMARATE 160/4.5 mcg INHALER IH SCH (21:52)
[2023-04-01] MEDS: methylPREDNISolone NA SUCC 40 MG/1 ML VIAL IVPUSH SCH ×3 (02:16→17:25)
[2023-04-01] MEDS: INSULIN ASPART SLIDING SCALE (NOVOLOG) 1 VIAL SQ SCH ×4 (07:05→21:23)
[2023-04-01] MEDS ORDERED: INSULIN (NOVOLOG) ASPART 100 UNITS/ML 10ML VIAL ONE (07:37)
[2023-04-01] MEDS: ALBUTEROL SO4 2.5/IPRATROPIUM 0.5 INH SOL 3 ML VIAL.NEB. NEB SCH ×4 (07:40→19:55)
[2023-04-01] MEDS: OSELTAMIVIR PHOSPHATE 75 MG CAPSULE PO SCH ×2 (09:44→21:24)
[2023-04-01] MEDS: SPIRONOLACTONE 25 MG TABLET PO SCH (09:44)
[2023-04-01] MEDS: ENOXAPARIN NA (PORCINE) 40 MG/0.4 ML DISP.SYRIN SQ SCH (09:45)
[2023-04-01] MEDS: AZITHROMYCIN 250 MG TABLET PO SCH (09:45)
[2023-04-01] MEDS: BUDESONIDE/FORMETEROL FUMARATE 160/4.5 mcg INHALER IH SCH ×2 (09:45→21:26)
[2023-04-01] MEDS: FUROSEMIDE 40 MG/4 ML INJECTABLE VIAL IVPUSH SCH (09:45)
[2023-04-01 15:32] VITALS: BMI 32.4
[2023-04-01] MEDS: ATORVASTATIN CA 10 MG TABLET (FP) PO SCH (21:25)
[2023-04-01] MEDS: TERAZOSIN HCL 5 MG CAPSULE PO SCH (21:25)
[2023-04-02] MEDS: methylPREDNISolone NA SUCC 40 MG/1 ML VIAL IVPUSH SCH ×3 (02:34→17:15)
[2023-04-02] MEDS: INSULIN ASPART SLIDING SCALE (NOVOLOG) 1 VIAL SQ SCH ×4 (06:45→22:00)
[2023-04-02] MEDS ORDERED: INSULIN (NOVOLOG) ASPART 100 UNITS/ML 10ML VIAL ONE ×2 (07:11→11:32)
[2023-04-02] MEDS: ALBUTEROL SO4 2.5/IPRATROPIUM 0.5 INH SOL 3 ML VIAL.NEB. NEB SCH ×4 (07:45→19:53)
[2023-04-02 08:37] LABS: HEMATOCRIT 36.5 % (35.4-49); HEMOGLOBIN 12.1 GM/dL (11.7-16.9); LYMPH % 11.5 % (8-40); MCH 28.4 pg (25.7-33.7); MCHC 33.2 g/dl (32.0-35.9); MEAN CELL VOLUME 85.8 fl (80-96); MEAN PLT VOLUME 10.1 fl (7.5-11.1); MONO % 3.1 % (3.8-10.2); NEUT % 85.4 % (42.8-82.8); PLATELET COUNT 262 10^3/uL (134-434); RBC 4.26 M/mm3 (4.00-5.60); RDW 14.1 % (11.9-15.9); WHITE BLOOD COUNT 8.5 K/mm3 (4.0-10.0)
[2023-04-02 08:45] LABS: POTASSIUM 4.1 mmol/L (3.5-5.1)
[2023-04-02 08:51] LABS: ALBUMIN 3.1 g/dl (3.4-5.0); CALCIUM 9.3 mg/dL (8.5-10.1)
[2023-04-02 08:52] LABS: BLOOD UREA NITROGEN 41.1 mg/dL (7-18)
[2023-04-02 08:54] LABS: CREATININE 1.2 mg/dL (0.55-1.3)
[2023-04-02 08:56] LABS: BILIRUBIN,TOTAL 0.5 mg/dL (0.2-1); TOT PROT 6.1 g/dl (6.4-8.2)
[2023-04-02] MEDS: AZITHROMYCIN 250 MG TABLET PO SCH (10:19)
[2023-04-02] MEDS: BUDESONIDE/FORMETEROL FUMARATE 160/4.5 mcg INHALER IH SCH ×2 (10:19→21:59)
[2023-04-02] MEDS: OSELTAMIVIR PHOSPHATE 75 MG CAPSULE PO SCH ×2 (10:19→21:58)
[2023-04-02] MEDS: SPIRONOLACTONE 25 MG TABLET PO SCH (10:19)
[2023-04-02] MEDS: FUROSEMIDE 40 MG/4 ML INJECTABLE VIAL IVPUSH SCH (10:19)
[2023-04-02] MEDS: ENOXAPARIN NA (PORCINE) 40 MG/0.4 ML DISP.SYRIN SQ SCH (10:20)
[2023-04-02] MEDS: ATORVASTATIN CA 10 MG TABLET (FP) PO SCH (21:58)
[2023-04-02] MEDS: TERAZOSIN HCL 5 MG CAPSULE PO SCH (21:59)
[2023-04-03] MEDS: methylPREDNISolone NA SUCC 40 MG/1 ML VIAL IVPUSH SCH ×2 (02:23→09:13)
[2023-04-03] MEDS: INSULIN ASPART SLIDING SCALE (NOVOLOG) 1 VIAL SQ SCH ×4 (06:29→21:54)
[2023-04-03 06:33] VITALS: RESP 18
[2023-04-03] MEDS: ALBUTEROL SO4 2.5/IPRATROPIUM 0.5 INH SOL 3 ML VIAL.NEB. NEB SCH ×4 (08:05→20:15)
[2023-04-03] MEDS: ENOXAPARIN NA (PORCINE) 40 MG/0.4 ML DISP.SYRIN SQ SCH (09:13)
[2023-04-03] MEDS: SPIRONOLACTONE 25 MG TABLET PO SCH (09:13)
[2023-04-03] MEDS: AZITHROMYCIN 250 MG TABLET PO SCH (09:13)
[2023-04-03] MEDS: BUDESONIDE/FORMETEROL FUMARATE 160/4.5 mcg INHALER IH SCH ×2 (09:13→21:55)
[2023-04-03] MEDS: FUROSEMIDE 40 MG/4 ML INJECTABLE VIAL IVPUSH SCH (09:13)
[2023-04-03] MEDS: OSELTAMIVIR PHOSPHATE 75 MG CAPSULE PO SCH ×2 (09:13→21:55)
[2023-04-03 10:46] LABS: HEMATOCRIT 37.5 % (35.4-49); HEMOGLOBIN 12.6 GM/dL (11.7-16.9); LYMPH % 9.7 % (8-40); MCH 28.5 pg (25.7-33.7); MCHC 33.5 g/dl (32.0-35.9); MEAN PLT VOLUME 9.4 fl (7.5-11.1); NEUT % 83.3 % (42.8-82.8); PLATELET COUNT 312 10^3/uL (134-434); RBC 4.41 M/mm3 (4.00-5.60); RDW 14.4 % (11.9-15.9); WHITE BLOOD COUNT 7.8 K/mm3 (4.0-10.0)
[2023-04-03] MEDS ORDERED: INSULIN (NOVOLOG) ASPART 100 UNITS/ML 10ML VIAL ONE ×2 (11:15→17:23)
[2023-04-03 11:43] LABS: POTASSIUM 4.2 mmol/L (3.5-5.1)
[2023-04-03 11:46] LABS: CALCIUM 8.5 mg/dL (8.5-10.1)
[2023-04-03 11:47] LABS: BLOOD UREA NITROGEN 35.3 mg/dL (7-18)
[2023-04-03 11:50] LABS: CREATININE 1.3 mg/dL (0.55-1.3)
[2023-04-03] MEDS: ATORVASTATIN CA 10 MG TABLET (FP) PO SCH (21:54)
[2023-04-03] MEDS: TERAZOSIN HCL 5 MG CAPSULE PO SCH (21:54)
[2023-04-03] MEDS ORDERED: methylPREDNISolone NA SUCC 40 MG/1 ML VIAL IVPUSH SCH (22:00)
[2023-04-04 06:16] VITALS: BP 164/98; PULSE 82; TEMP 97.7
[2023-04-04] MEDS: INSULIN ASPART SLIDING SCALE (NOVOLOG) 1 VIAL SQ SCH ×2 (06:51→11:26)
[2023-04-04] MEDS: ALBUTEROL SO4 2.5/IPRATROPIUM 0.5 INH SOL 3 ML VIAL.NEB. NEB SCH ×2 (07:35→11:45)
[2023-04-04] MEDS: SPIRONOLACTONE 25 MG TABLET PO SCH (09:08)
[2023-04-04] MEDS: OSELTAMIVIR PHOSPHATE 75 MG CAPSULE PO SCH (09:08)
[2023-04-04] MEDS: FUROSEMIDE 40 MG/4 ML INJECTABLE VIAL IVPUSH SCH (09:08)
[2023-04-04] MEDS: ENOXAPARIN NA (PORCINE) 40 MG/0.4 ML DISP.SYRIN SQ SCH (09:08)
[2023-04-04] MEDS: BUDESONIDE/FORMETEROL FUMARATE 160/4.5 mcg INHALER IH SCH (09:09)
[2023-04-04] MEDS ORDERED: methylPREDNISolone NA SUCC 40 MG/1 ML VIAL IVPUSH SCH (10:00)
[2023-04-04] MEDS ORDERED: predniSONE 20 MG TABLET (UD) PO SCH (10:00)
[2023-04-04] MEDS ORDERED: FUROSEMIDE 40 MG TABLET (FP) PO SCH (10:00)
[2023-04-04] MEDS ORDERED: INSULIN (NOVOLOG) ASPART 100 UNITS/ML 10ML VIAL ONE (11:23)
== END 2023-04-04 15:12 | disposition home or self-care (01) | DRG 190 ==
LOC: JER 09:34 → JERBED 15:15 → OBSVTOIN 17:19 → J8W 20:28
PROVIDERS: ADMIT Internal Medicine; ATTEND Nurse Practitioner Family
DX: J44.1 Chronic obstructive pulmonary disease with (acute) exacerbation (principal); I50.23 Acute on chronic systolic (congestive) heart failure; J10.1 Influenza due to other identified influenza virus with other respiratory manifestations; I11.0 Hypertensive heart disease with heart failure; E78.5 Hyperlipidemia, unspecified; E11.9 Type 2 diabetes mellitus without complications; I48.91 Unspecified atrial fibrillation; N40.0 Benign prostatic hyperplasia without lower urinary tract symptoms
CPT/HCPCS: 0241U-QW; 36415; 71045-TC-FY; 80048; 80053; 82803; 82962; 83605; 83735; 83880; 84100; 84484; 85025; 85610; 86850; 86900; 86901; 87040; 93005; 93010; 94640; 99285-25; G0378

== ENCOUNTER 2023-04-28 10:17 | Day surgery (SDC) | payer OTHER ==
[2023-04-28 10:07] LABS: BASO % 0.7 % (0-2.0); EOS % 2.5 % (0-4.5); HEMATOCRIT 36.4 % (35.4-49); HEMOGLOBIN 12.3 GM/dL (11.7-16.9); MCH 28.9 pg (25.7-33.7); MEAN CELL VOLUME 85.2 fl (80-96); MEAN PLT VOLUME 10.3 fl (7.5-11.1); MONO % 9.8 % (3.8-10.2); PLATELET COUNT 38 10^3/uL (134-434); RBC 4.27 M/mm3 (4.00-5.60); RDW 14.7 % (11.9-15.9); WHITE BLOOD COUNT 4.5 K/mm3 (4.0-10.0)
[2023-04-28 10:26] LABS: POTASSIUM 3.7 mmol/L (3.5-5.1)
[2023-04-28 10:28] LABS: CALCIUM 8.6 mg/dL (8.5-10.1)
[2023-04-28 10:29] LABS: BLOOD UREA NITROGEN 15.4 mg/dL (7-18)
[2023-04-28 10:31] LABS: BILIRUBIN,DIRECT 0.3 mg/dL (0.0-0.2)
[2023-04-28 10:32] LABS: CREATININE 1.2 mg/dL (0.55-1.3)
[2023-04-28 10:34] LABS: TOT PROT 5.9 g/dl (6.4-8.2)
[2023-04-28] MEDS: ROMIPLOSTIM 250 MCG/0.5 ML SQ ONE (11:22)
[2023-04-28 17:41] VITALS: BP 122/74; PULSE 66; RESP 18; TEMP 98.4
== END 2023-04-28 11:30 | disposition home or self-care (01) ==
LOC: JONCNONCHE 10:17 → J7W 10:24 → JONCNONCHE 11:30
PROVIDERS: ATTEND Internal Medicine Hematology & Oncology
PROC: 3E013GC Introduction of Other Therapeutic Substance into Subcutaneous Tissue, Percutaneous Approach (ICD-10-PCS; principal; 2023-04-28)
DX: D69.3 Immune thrombocytopenic purpura (principal)
CPT/HCPCS: 36415; 80048; 80076; 85025; 96372

== ENCOUNTER 2023-05-12 09:27 | Day surgery (SDC) | payer OTHER ==
[2023-05-12] MEDS: ROMIPLOSTIM 250 MCG/0.5 ML SQ ONE (10:32)
[2023-05-12 14:13] VITALS: BP 138/49; PULSE 55; RESP 16; TEMP 98.2
== END 2023-05-12 10:40 | disposition home or self-care (01) ==
LOC: J7W 09:27 → JONCNONCHE 09:27
PROVIDERS: ATTEND Internal Medicine Hematology & Oncology
PROC: 3E013GC Introduction of Other Therapeutic Substance into Subcutaneous Tissue, Percutaneous Approach (ICD-10-PCS; principal; 2023-05-12)
DX: D69.3 Immune thrombocytopenic purpura (principal)
CPT/HCPCS: 96372

== ENCOUNTER 2023-05-26 10:38 | Day surgery (SDC) | payer OTHER ==
[2023-05-26] MEDS: ROMIPLOSTIM 250 MCG/0.5 ML SQ ONE (11:55)
[2023-05-26 16:38] VITALS: BP 138/53; PULSE 50; RESP 18; TEMP 97.4
== END 2023-05-26 12:00 | disposition home or self-care (01) ==
LOC: JONCNONCHE 10:38 → J7W 10:39 → JONCNONCHE 12:00
PROVIDERS: ATTEND Internal Medicine Hematology & Oncology
DX: D69.3 Immune thrombocytopenic purpura (principal)
CPT/HCPCS: 96372

== ENCOUNTER 2023-06-09 09:35 | Day surgery (SDC) | payer OTHER ==
[2023-06-09 09:50] VITALS: BP 133/49; PULSE 65; RESP 18; TEMP 98.1
[2023-06-09] MEDS: ROMIPLOSTIM 250 MCG/0.5 ML SQ ONE (10:32)
== END 2023-06-09 10:45 | disposition home or self-care (01) ==
LOC: JONCNONCHE 09:35 → J7W 09:36 → JONCNONCHE 10:45
PROVIDERS: ATTEND Internal Medicine Hematology & Oncology
PROC: 3E013GC Introduction of Other Therapeutic Substance into Subcutaneous Tissue, Percutaneous Approach (ICD-10-PCS; principal; 2023-06-09)
DX: D69.3 Immune thrombocytopenic purpura (principal)
CPT/HCPCS: 96372

== ENCOUNTER 2023-06-23 09:52 | Day surgery (SDC) | payer OTHER ==
[2023-06-23] MEDS: ROMIPLOSTIM 250 MCG/0.5 ML SQ ONE (11:02)
[2023-06-23 17:05] VITALS: BP 139/46; PULSE 42; RESP 18; TEMP 97.7
== END 2023-06-23 11:10 | disposition home or self-care (01) ==
LOC: J7W 09:52 → JONCNONCHE 09:52
PROVIDERS: ATTEND Internal Medicine Hematology & Oncology
PROC: 3E013GC Introduction of Other Therapeutic Substance into Subcutaneous Tissue, Percutaneous Approach (ICD-10-PCS; principal; 2023-06-23)
DX: D69.3 Immune thrombocytopenic purpura (principal)
CPT/HCPCS: 96372

== ENCOUNTER 2023-07-07 09:52 | Day surgery (SDC) | payer OTHER ==
[2023-07-07] MEDS: ROMIPLOSTIM 250 MCG/0.5 ML SQ ONE (10:06)
[2023-07-07 15:19] VITALS: BP 142/51; PULSE 55; RESP 20; TEMP 97.4
== END 2023-07-07 10:45 | disposition home or self-care (01) ==
LOC: JONCNONCHE 09:52 → J7W 09:53 → JONCNONCHE 10:45
PROVIDERS: ATTEND Internal Medicine Hematology & Oncology
PROC: 3E013GC Introduction of Other Therapeutic Substance into Subcutaneous Tissue, Percutaneous Approach (ICD-10-PCS; principal; 2023-07-07)
DX: D69.3 Immune thrombocytopenic purpura (principal)
CPT/HCPCS: 96372

== ENCOUNTER 2023-07-21 09:59 | Day surgery (SDC) | payer OTHER ==
[2023-07-21] MEDS: ROMIPLOSTIM 250 MCG/0.5 ML SQ ONE (10:17)
[2023-07-21 12:01] VITALS: BP 134/52; PULSE 56; RESP 20; TEMP 97.6
== END 2023-07-21 10:40 | disposition home or self-care (01) ==
LOC: J7W 09:59 → JONCNONCHE 09:59
PROVIDERS: ATTEND Internal Medicine Hematology & Oncology
PROC: 3E013GC Introduction of Other Therapeutic Substance into Subcutaneous Tissue, Percutaneous Approach (ICD-10-PCS; principal; 2023-07-21)
DX: D69.3 Immune thrombocytopenic purpura (principal)
CPT/HCPCS: 96365

== ENCOUNTER 2023-08-04 09:35 | Day surgery (SDC) | payer OTHER ==
[2023-08-04] MEDS: ROMIPLOSTIM 250 MCG/0.5 ML SQ ONE (09:48)
[2023-08-04 15:22] VITALS: BP 136/51; PULSE 47; RESP 20; TEMP 97.5
== END 2023-08-04 10:00 | disposition home or self-care (01) ==
LOC: JONCNONCHE 09:35 → J7W 09:35 → JONCNONCHE 10:00
PROVIDERS: ATTEND Internal Medicine Hematology & Oncology
PROC: 3E013GC Introduction of Other Therapeutic Substance into Subcutaneous Tissue, Percutaneous Approach (ICD-10-PCS; principal; 2023-08-04)
DX: D69.3 Immune thrombocytopenic purpura (principal)

== ENCOUNTER 2023-09-01 09:58 | Day surgery (SDC) | payer OTHER ==
[2023-09-01] MEDS: ROMIPLOSTIM 250 MCG/0.5 ML SQ ONE (10:40)
[2023-09-01 16:28] VITALS: BP 146/53; PULSE 50; RESP 16; TEMP 97.8
== END 2023-09-01 10:50 | disposition home or self-care (01) ==
LOC: JONCCHEMO 09:58 → J7W 09:59 → JONCCHEMO 10:50
PROVIDERS: ATTEND Internal Medicine Hematology & Oncology
PROC: 3E013GC Introduction of Other Therapeutic Substance into Subcutaneous Tissue, Percutaneous Approach (ICD-10-PCS; principal; 2023-09-01)
DX: D69.3 Immune thrombocytopenic purpura (principal)
CPT/HCPCS: 96372

== ENCOUNTER 2023-09-15 11:00 | Day surgery (SDC) | payer OTHER ==
[2023-09-15] MEDS: ROMIPLOSTIM 250 MCG/0.5 ML SQ ONE (10:12)
[2023-09-15 13:53] VITALS: BP 145/51; PULSE 44; RESP 20; TEMP 97.8
== END 2023-09-15 11:30 | disposition home or self-care (01) ==
LOC: JONCCHEMO 11:00 → J7W 11:01 → JONCCHEMO 11:30
PROVIDERS: ATTEND Internal Medicine Hematology & Oncology
PROC: 3E013GC Introduction of Other Therapeutic Substance into Subcutaneous Tissue, Percutaneous Approach (ICD-10-PCS; principal; 2023-09-15)
DX: D69.3 Immune thrombocytopenic purpura (principal)
CPT/HCPCS: 96372

== ENCOUNTER 2023-09-29 10:10 | Day surgery (SDC) | payer OTHER ==
[2023-09-29] MEDS: ROMIPLOSTIM 250 MCG/0.5 ML SQ ONE (11:22)
[2023-09-29 18:35] VITALS: BP 148/53; PULSE 40; RESP 20; TEMP 98.5
== END 2023-09-29 11:30 | disposition home or self-care (01) ==
LOC: J7W 10:10 → JONCNONCHE 10:10
PROVIDERS: ATTEND Internal Medicine Hematology & Oncology
PROC: 3E013GC Introduction of Other Therapeutic Substance into Subcutaneous Tissue, Percutaneous Approach (ICD-10-PCS; principal; 2023-09-29)
DX: D69.3 Immune thrombocytopenic purpura (principal)
CPT/HCPCS: 96372

== ENCOUNTER 2023-10-13 09:21 | Day surgery (SDC) | payer OTHER ==
[2023-10-13] MEDS: ROMIPLOSTIM 250 MCG/0.5 ML SQ ONE (10:00)
[2023-10-13 12:37] VITALS: BP 155/90; PULSE 55; RESP 20; TEMP 98
== END 2023-10-13 10:30 | disposition home or self-care (01) ==
LOC: JONCNONCHE 09:21 → J7W 09:22 → JONCNONCHE 10:30
PROVIDERS: ATTEND Internal Medicine Hematology & Oncology
PROC: 3E013GC Introduction of Other Therapeutic Substance into Subcutaneous Tissue, Percutaneous Approach (ICD-10-PCS; principal; 2023-10-13)
DX: D69.3 Immune thrombocytopenic purpura (principal)
CPT/HCPCS: 96372

== ENCOUNTER 2023-10-27 09:22 | Day surgery (SDC) | payer OTHER ==
[2023-10-27] MEDS: ROMIPLOSTIM 250 MCG/0.5 ML SQ ONE (10:07)
[2023-10-27 11:02] VITALS: BP 146/46; PULSE 52; RESP 20; TEMP 97.9
== END 2023-10-27 10:15 | disposition home or self-care (01) ==
LOC: JONCNONCHE 09:22 → J7W 09:23 → JONCNONCHE 10:15
PROVIDERS: ATTEND Internal Medicine Hematology & Oncology
PROC: 3E013GC Introduction of Other Therapeutic Substance into Subcutaneous Tissue, Percutaneous Approach (ICD-10-PCS; principal; 2023-10-27)
DX: D69.3 Immune thrombocytopenic purpura (principal)
CPT/HCPCS: 96365

== ENCOUNTER 2023-11-10 09:30 | Day surgery (SDC) | payer OTHER ==
[2023-11-10] MEDS: ROMIPLOSTIM 250 MCG/0.5 ML SQ ONE (10:25)
[2023-11-10 14:43] VITALS: BP 148/56; PULSE 47; RESP 18; TEMP 97.8
== END 2023-11-10 10:45 | disposition home or self-care (01) ==
LOC: JONCNONCHE 09:30 → J7W 09:31 → JONCNONCHE 10:45
PROVIDERS: ATTEND Internal Medicine Hematology & Oncology
PROC: 3E013GC Introduction of Other Therapeutic Substance into Subcutaneous Tissue, Percutaneous Approach (ICD-10-PCS; principal; 2023-11-10)
DX: D69.3 Immune thrombocytopenic purpura (principal)
CPT/HCPCS: 96372

== ENCOUNTER 2023-11-24 09:26 | Day surgery (SDC) | payer OTHER ==
[2023-11-24] MEDS: ROMIPLOSTIM 250 MCG/0.5 ML SQ ONE (10:00)
[2023-11-24 11:17] VITALS: BP 147/54; PULSE 47; RESP 18; TEMP 97.8
== END 2023-11-24 10:15 | disposition home or self-care (01) ==
LOC: JONCNONCHE 09:26 → J7W 09:28 → JONCNONCHE 10:15
PROVIDERS: ATTEND Internal Medicine Hematology & Oncology
PROC: 3E013GC Introduction of Other Therapeutic Substance into Subcutaneous Tissue, Percutaneous Approach (ICD-10-PCS; principal; 2023-11-24)
DX: D69.3 Immune thrombocytopenic purpura (principal)
CPT/HCPCS: 96372; J2796

== ENCOUNTER 2023-12-08 09:30 | Day surgery (SDC) | payer OTHER ==
[2023-12-08] MEDS: ROMIPLOSTIM 250 MCG/0.5 ML SQ ONE (10:26)
[2023-12-08 16:55] VITALS: BP 148/58; PULSE 42; RESP 20; TEMP 97.7
== END 2023-12-08 11:00 | disposition home or self-care (01) ==
LOC: JONCNONCHE 09:30 → J7W 09:53 → JONCNONCHE 11:00
PROVIDERS: ATTEND Internal Medicine Hematology & Oncology
PROC: 3E013GC Introduction of Other Therapeutic Substance into Subcutaneous Tissue, Percutaneous Approach (ICD-10-PCS; principal; 2023-12-08)
DX: D69.3 Immune thrombocytopenic purpura (principal)
CPT/HCPCS: 96372; J2796

== ENCOUNTER 2023-12-22 09:31 | Day surgery (SDC) | payer OTHER ==
[2023-12-22] MEDS: ROMIPLOSTIM 250 MCG/0.5 ML SQ ONE (10:43)
[2023-12-22 14:41] VITALS: BP 149/47; PULSE 52; RESP 20; TEMP 98.3
== END 2023-12-22 11:00 | disposition home or self-care (01) ==
LOC: JONCNONCHE 09:31 → J7W 09:32 → JONCNONCHE 11:00
PROVIDERS: ATTEND Internal Medicine Hematology & Oncology
PROC: 3E013GC Introduction of Other Therapeutic Substance into Subcutaneous Tissue, Percutaneous Approach (ICD-10-PCS; principal; 2023-12-22)
DX: D69.3 Immune thrombocytopenic purpura (principal)
CPT/HCPCS: 96372; J2796

== ENCOUNTER 2024-01-05 09:29 | Day surgery (SDC) | payer OTHER ==
[2024-01-05] MEDS: ROMIPLOSTIM 250 MCG/0.5 ML SQ ONE (10:52)
[2024-01-05 16:23] VITALS: BP 129/51; PULSE 43; RESP 20; TEMP 97.6
== END 2024-01-05 11:15 | disposition home or self-care (01) ==
LOC: JONCNONCHE 09:29 → J7W 10:13 → JONCNONCHE 11:15
PROVIDERS: ATTEND Internal Medicine Hematology & Oncology
PROC: 3E013GC Introduction of Other Therapeutic Substance into Subcutaneous Tissue, Percutaneous Approach (ICD-10-PCS; principal; 2024-01-05)
DX: D69.6 Thrombocytopenia, unspecified (principal)
CPT/HCPCS: 96372; J2796

== ENCOUNTER 2024-01-19 09:47 | Day surgery (SDC) | payer OTHER ==
[2024-01-19 10:30] LABS: HEMATOCRIT 42.3 % (35.4-49); HEMOGLOBIN 13.7 GM/dL (11.7-16.9); MCH 28.1 pg (25.7-33.7); MCHC 32.5 g/dl (32.0-35.9); MEAN CELL VOLUME 86.6 fl (80-96); MEAN PLT VOLUME 9.4 fl (7.5-11.1); PLATELET COUNT 73 10^3/uL (134-434); RBC 4.88 M/mm3 (4.00-5.60); RDW 14.7 % (11.9-15.9); WHITE BLOOD COUNT 5.6 K/mm3 (4.0-10.0)
[2024-01-19] MEDS: ROMIPLOSTIM 250 MCG/0.5 ML SQ ONE (11:30)
[2024-01-19 15:22] VITALS: BP 95/53; PULSE 49; RESP 18; TEMP 98
== END 2024-01-19 11:40 | disposition home or self-care (01) ==
LOC: JONCCHEMO 09:47 → J7W 09:48 → JONCCHEMO 11:40
PROVIDERS: ATTEND Internal Medicine Hematology & Oncology
PROC: 3E013GC Introduction of Other Therapeutic Substance into Subcutaneous Tissue, Percutaneous Approach (ICD-10-PCS; principal; 2024-01-19)
DX: D69.3 Immune thrombocytopenic purpura (principal)
CPT/HCPCS: 36415; 85027; 96372; J2796

== ENCOUNTER 2024-02-02 09:34 | Day surgery (SDC) | payer OTHER ==
[2024-02-02] MEDS: ROMIPLOSTIM 250 MCG/0.5 ML SQ ONE (10:36)
[2024-02-02 16:32] VITALS: BP 148/54; PULSE 51; RESP 18; TEMP 97.5
== END 2024-02-02 10:45 | disposition home or self-care (01) ==
LOC: JONCCHEMO 09:34 → J7W 09:34 → JONCCHEMO 10:45
PROVIDERS: ATTEND Internal Medicine Hematology & Oncology
PROC: 3E013GC Introduction of Other Therapeutic Substance into Subcutaneous Tissue, Percutaneous Approach (ICD-10-PCS; principal; 2024-02-02)
DX: D69.6 Thrombocytopenia, unspecified (principal)
CPT/HCPCS: 96372; J2796

== ENCOUNTER 2024-02-23 09:36 | Day surgery (SDC) | payer OTHER ==
[2024-02-23] MEDS: ROMIPLOSTIM 250 MCG/0.5 ML SQ ONE (10:00)
[2024-02-23 15:29] VITALS: BP 130/49; PULSE 45; RESP 20; TEMP 97.6
== END 2024-02-23 10:10 | disposition home or self-care (01) ==
LOC: JONCBLOOD 09:36 → J7W 09:37 → JONCBLOOD 10:10
PROVIDERS: ATTEND Internal Medicine Hematology & Oncology
PROC: 3E023GC Introduction of Other Therapeutic Substance into Muscle, Percutaneous Approach (ICD-10-PCS; principal; 2024-02-23)
DX: D69.3 Immune thrombocytopenic purpura (principal)
CPT/HCPCS: 96372; J2796

== ENCOUNTER 2024-03-08 09:57 | Day surgery (SDC) | payer OTHER ==
[2024-03-08] MEDS ORDERED: ROMIPLOSTIM 250 MCG/0.5 ML SQ ONE (10:00)
[2024-03-08] MEDS: ROMIPLOSTIM 250 MCG/0.5 ML SQ ONE (11:53)
[2024-03-08 18:05] VITALS: BP 150/54; PULSE 53; RESP 16; TEMP 98.6
== END 2024-03-08 12:15 | disposition home or self-care (01) ==
LOC: JONCCHEMO 09:57 → J7W 09:57 → JONCCHEMO 12:15
PROVIDERS: ATTEND Internal Medicine Hematology & Oncology
PROC: 3E013GC Introduction of Other Therapeutic Substance into Subcutaneous Tissue, Percutaneous Approach (ICD-10-PCS; principal; 2024-03-08)
DX: D69.3 Immune thrombocytopenic purpura (principal)
CPT/HCPCS: 96372; J2796

== ENCOUNTER 2024-03-22 09:21 | Day surgery (SDC) | payer OTHER ==
[2024-03-22] MEDS: ROMIPLOSTIM 250 MCG/0.5 ML SQ ONE (10:15)
[2024-03-22 15:47] VITALS: BP 147/97; PULSE 55; RESP 18; TEMP 97
== END 2024-03-22 10:30 | disposition home or self-care (01) ==
LOC: JONCCHEMO 09:21 → J7W 09:30 → JONCCHEMO 10:30
PROVIDERS: ATTEND Internal Medicine Hematology & Oncology
PROC: 3E013GC Introduction of Other Therapeutic Substance into Subcutaneous Tissue, Percutaneous Approach (ICD-10-PCS; principal; 2024-03-22)
DX: G61.81 Chronic inflammatory demyelinating polyneuritis (principal)
CPT/HCPCS: 96372; J2802

== ENCOUNTER 2024-04-05 10:00 | Day surgery (SDC) | payer OTHER ==
[2024-04-05] MEDS: ROMIPLOSTIM 250 MCG/0.5 ML SQ ONE (10:22)
[2024-04-05 18:08] VITALS: BP 151/53; PULSE 57; RESP 20; TEMP 97.8
== END 2024-04-05 10:45 | disposition home or self-care (01) ==
LOC: JONCCHEMO 10:00 → J7W 10:03 → JONCCHEMO 10:45
PROVIDERS: ATTEND Internal Medicine Hematology & Oncology
PROC: 3E013GC Introduction of Other Therapeutic Substance into Subcutaneous Tissue, Percutaneous Approach (ICD-10-PCS; principal; 2024-04-05)
DX: D69.3 Immune thrombocytopenic purpura (principal)
CPT/HCPCS: J2802

== ENCOUNTER 2024-05-03 09:40 | Day surgery (SDC) | payer OTHER ==
[2024-05-03] MEDS: ROMIPLOSTIM 250 MCG/0.5 ML SQ ONE (10:33)
[2024-05-03 14:09] VITALS: BP 135/54; PULSE 52; RESP 20; TEMP 97.8
== END 2024-05-03 10:50 | disposition home or self-care (01) ==
LOC: JONCCHEMO 09:40 → J7W 09:42 → JONCCHEMO 10:50
PROVIDERS: ATTEND Internal Medicine Hematology & Oncology
PROC: 3E013GC Introduction of Other Therapeutic Substance into Subcutaneous Tissue, Percutaneous Approach (ICD-10-PCS; principal; 2024-05-03)
DX: D69.3 Immune thrombocytopenic purpura (principal)
CPT/HCPCS: 96372; J2802

== ENCOUNTER 2024-05-17 09:37 | Day surgery (SDC) | payer OTHER ==
[2024-05-17] MEDS: ROMIPLOSTIM 250 MCG/0.5 ML SQ ONE (10:24)
[2024-05-17 14:30] VITALS: BP 164/57; PULSE 65; RESP 18; TEMP 97.2
== END 2024-05-17 10:50 | disposition home or self-care (01) ==
LOC: JONCCHEMO 09:37
PROVIDERS: ATTEND Internal Medicine Hematology & Oncology
PROC: 3E013GC Introduction of Other Therapeutic Substance into Subcutaneous Tissue, Percutaneous Approach (ICD-10-PCS; principal; 2024-05-17)
DX: D69.3 Immune thrombocytopenic purpura (principal)
CPT/HCPCS: 96372; J2802

== ENCOUNTER 2024-05-31 09:49 | Day surgery (SDC) | payer OTHER ==
[2024-05-31] MEDS: ROMIPLOSTIM 250 MCG/0.5 ML SQ ONE (10:16)
[2024-05-31 14:14] VITALS: BP 163/60; PULSE 60; RESP 20; TEMP 98.3
== END 2024-05-31 10:40 | disposition home or self-care (01) ==
LOC: JONCCHEMO 09:49 → J7W 09:51 → JONCCHEMO 10:40
PROVIDERS: ATTEND Internal Medicine Hematology & Oncology
PROC: 3E013GC Introduction of Other Therapeutic Substance into Subcutaneous Tissue, Percutaneous Approach (ICD-10-PCS; principal; 2024-05-31)
DX: D69.3 Immune thrombocytopenic purpura (principal)
CPT/HCPCS: 96372; J2802

== ENCOUNTER 2024-06-14 09:33 | Day surgery (SDC) | payer OTHER ==
[2024-06-14] MEDS: ROMIPLOSTIM 250 MCG/0.5 ML SQ ONE (11:04)
[2024-06-14 15:09] VITALS: BP 162/60; PULSE 64; RESP 20; TEMP 97.5
== END 2024-06-14 11:15 | disposition home or self-care (01) ==
LOC: JONCCHEMO 09:33
PROVIDERS: ATTEND Internal Medicine Hematology & Oncology
PROC: 3E023GC Introduction of Other Therapeutic Substance into Muscle, Percutaneous Approach (ICD-10-PCS; principal; 2024-06-14)
DX: D69.3 Immune thrombocytopenic purpura (principal)
CPT/HCPCS: 96372; J2802

== ENCOUNTER 2024-06-28 09:45 | Day surgery (SDC) | payer OTHER ==
[2024-06-28] MEDS: ROMIPLOSTIM 250 MCG/0.5 ML SQ ONE (10:08)
[2024-06-28 10:14] VITALS: BP 178/69; PULSE 64; RESP 18; TEMP 98.1
== END 2024-06-28 10:15 | disposition home or self-care (01) ==
LOC: JONCCHEMO 09:45 → J7W 09:47 → JONCCHEMO 10:15
PROVIDERS: ATTEND Internal Medicine Hematology & Oncology
PROC: 3E023GC Introduction of Other Therapeutic Substance into Muscle, Percutaneous Approach (ICD-10-PCS; principal; 2024-06-28)
DX: D69.3 Immune thrombocytopenic purpura (principal)
CPT/HCPCS: 96372; J2802

== ENCOUNTER 2024-07-12 10:31 | Day surgery (SDC) | payer OTHER ==
[2024-07-12] MEDS: ROMIPLOSTIM 250 MCG/0.5 ML SQ ONE (11:19)
[2024-07-12 16:02] VITALS: BP 140/53; PULSE 59; RESP 20; TEMP 98.2
== END 2024-07-12 11:28 | disposition home or self-care (01) ==
LOC: JONCCHEMO 10:31
PROVIDERS: ATTEND Internal Medicine Hematology & Oncology
PROC: 3E023GC Introduction of Other Therapeutic Substance into Muscle, Percutaneous Approach (ICD-10-PCS; principal; 2024-07-12)
DX: D69.3 Immune thrombocytopenic purpura (principal)
CPT/HCPCS: 96372; J2802

== ENCOUNTER 2024-07-26 09:50 | Day surgery (SDC) | payer OTHER ==
[2024-07-26] MEDS: ROMIPLOSTIM 250 MCG/0.5 ML SQ ONE (10:59)
[2024-07-26 16:20] VITALS: BP 112/61; PULSE 76; RESP 18; TEMP 97.4
== END 2024-07-26 11:00 | disposition home or self-care (01) ==
LOC: JONCCHEMO 09:50 → J7W 09:51 → JONCCHEMO 11:00
PROVIDERS: ATTEND Internal Medicine Hematology & Oncology
PROC: 3E023GC Introduction of Other Therapeutic Substance into Muscle, Percutaneous Approach (ICD-10-PCS; principal; 2024-07-26)
DX: D69.3 Immune thrombocytopenic purpura (principal)
CPT/HCPCS: 96372; J2802

== ENCOUNTER 2024-09-06 09:35 | Day surgery (SDC) | payer OTHER ==
[2024-09-06] MEDS: ROMIPLOSTIM 250 MCG/0.5 ML SQ ONE (10:13)
[2024-09-06 10:17] VITALS: BP 155/66; PULSE 60; RESP 20; TEMP 97.7
== END 2024-09-06 10:30 | disposition home or self-care (01) ==
LOC: JONCNONCHE 09:35 → J7W 09:46 → JONCNONCHE 10:30
PROVIDERS: ATTEND Internal Medicine Hematology & Oncology
PROC: 3E023GC Introduction of Other Therapeutic Substance into Muscle, Percutaneous Approach (ICD-10-PCS; principal; 2024-09-06)
PROC: 3E023GC Introduction of Other Therapeutic Substance into Muscle, Percutaneous Approach (ICD-10-PCS; 2024-09-06)
DX: D69.3 Immune thrombocytopenic purpura (principal)
CPT/HCPCS: J2802

== ENCOUNTER 2024-10-18 09:23 | Day surgery (SDC) | payer OTHER ==
[2024-10-18] MEDS: ROMIPLOSTIM 250 MCG/0.5 ML SQ ONE (09:50)
[2024-10-18 16:08] VITALS: BP 128/78; PULSE 62; RESP 20; TEMP 99.1
== END 2024-10-18 10:00 | disposition home or self-care (01) ==
LOC: JONCCHEMO 09:23 → J7W 09:24 → JONCCHEMO 10:00
PROVIDERS: ATTEND Internal Medicine Hematology & Oncology
PROC: 3E013GC Introduction of Other Therapeutic Substance into Subcutaneous Tissue, Percutaneous Approach (ICD-10-PCS; principal; 2024-10-18)
DX: D69.3 Immune thrombocytopenic purpura (principal)
CPT/HCPCS: 96372; J2802

== ENCOUNTER 2024-11-01 09:30 | Day surgery (SDC) | payer OTHER ==
[2024-11-01] MEDS: ROMIPLOSTIM 250 MCG/0.5 ML SQ ONE (09:53)
[2024-11-01 12:18] VITALS: BP 160/50; PULSE 56; RESP 20; TEMP 98.4
== END 2024-11-01 10:15 | disposition home or self-care (01) ==
LOC: JONCCHEMO 09:30
PROVIDERS: ATTEND Internal Medicine Hematology & Oncology
PROC: 3E013GC Introduction of Other Therapeutic Substance into Subcutaneous Tissue, Percutaneous Approach (ICD-10-PCS; principal; 2024-11-01)
DX: D69.3 Immune thrombocytopenic purpura (principal)
CPT/HCPCS: 96372; J2802

== ENCOUNTER 2025-01-10 10:06 | Day surgery (SDC) | payer OTHER ==
[2025-01-10] MEDS: ROMIPLOSTIM 250 MCG/0.5 ML SQ ONE (10:26)
[2025-01-10 10:55] VITALS: BP 164/62; PULSE 54; RESP 20; TEMP 98.3
== END 2025-01-10 10:35 | disposition home or self-care (01) ==
LOC: JONCCHEMO 10:06 → J7W 10:06 → JONCCHEMO 10:35
PROVIDERS: ATTEND Internal Medicine Hematology & Oncology
PROC: 3E023GC Introduction of Other Therapeutic Substance into Muscle, Percutaneous Approach (ICD-10-PCS; principal; 2025-01-10)
DX: D69.3 Immune thrombocytopenic purpura (principal)
CPT/HCPCS: J2802